=== PATIENT | male | born 1935 | race Caucasian/White ===

== ENCOUNTER → 2016-11-17 | Outpatient (CLI) | payer OTHER, BC ==
[~2016-11-17] VITALS: Ht 188 cm; Wt 92.3 kg
[~2016-11-17] MED LIST: ASPI81TA28 PO; BROM0.07; CLX20 PO; DIFL0.0519; FLUT0.15; GATI0.5S OP; MULT-506 PO; SERT50TA PO; TAMS0.4C38 PO
[2016-11-17 13:29] VITALS: BP 144/72; PULSE 70; Ht 188 cm; Wt 92.3 kg
== END | disposition home or self-care (01) ==
LOC: C.NEUR 13:11
PROVIDERS: ATTEND Internal Medicine Pulmonary Disease
DX: G47.30 Sleep apnea, unspecified (principal)

== ENCOUNTER → 2016-11-29 | Outpatient (CLI) | payer OTHER, BC ==
[2016-11-29 11:09] LABS: COMPLETE YES; EOS % 4.3 %; HEMATOCRIT 40.8 % (42-52); IG% 0.3 %; LYMPH % 19.3 %; LYMPH ABS # 1.48 K/uL (1.2-3.4); MEAN CELL VOLUME 89.5 fL (80-100); MEAN CORPUSCULAR HEMOGLOBIN 31.6 pg (25-34); MEAN CORPUSCULAR HGB CONC 35.3 g/dl (32-36); MEAN PLATELET VOLUME 10.2 fL (7.4-10.4); MONO % 9.2 %; NEUT % 66.9 %; PLATELET COUNT 177 K/uL (130-400); RED BLOOD COUNT 4.56 M/uL (4.7-6.1); WHITE BLOOD COUNT 7.65 K/uL (4.8-10.8)
[2016-11-29 11:45] LABS: ALT/SGPT 21 U/L (12-78); AST/SGOT 15 U/L (15-37); BLOOD UREA NITROGEN 17 mg/dl (7-18); BUN/CREATININE RATIO 16.9 (10-20); CALCIUM 8.9 mg/dl (8.5-10.1); CARBON DIOXIDE 33 mmol/L (21-32); CHLORIDE 104 mmol/L (98-107); GLUCOSE 90 mg/dl (70-99); POTASSIUM 4.1 mmol/L (3.5-5.1); SODIUM 142 mmol/L (136-145)
[2016-11-29 11:58] LABS: ALB/GLOB RATIO 1.2 (0.9-2); ALKALINE PHOSPHATASE 39 U/L (45-117); CHOLESTEROL 202 mg/dl (0-200); CHOLESTEROL/HDL RATIO 3.1; HDL CHOLESTEROL 65 mg/dl; LDL CHOLESTEROL CALCULATED 127 mg/dl; TRIGLYCERIDES 49 mg/dl (0-150); VERY LOW DENSITY LIPOPROT CALC 10 mg/dl
--- NOTE | 2016-12-06 12:58 | CODING QUERY MEDICAL NECESSITY ---
SUPPORTING DIAGNOSIS NEEDED Dr. Langford, A supporting diagnosis is required for the test/procedure performed on this patient in order for us to be reimbursed by the patient's insurance. Please provide a supporting diagnosis for the following test/procedure listed below next to the test name along with your signature. *If there is no additional diagnosis for this patient that would support the following test/procedure please document that below next to the test/procedure. Test(s)/Procedure(s) that require a supporting diagnosis: * ([id number]) VITAMIN D ASSAY DIAGNOSIS: * ([id number]) B12 VITAMIN LEVEL DIAGNOSIS: DATE OF SERVICE: 11/29/16 Provider Signature: Date: Thank you Jose Sr [facility] [place] Information Management Once completed, please kindly fax back to [phone] For questions please call [phone]
== END | disposition home or self-care (01) ==
LOC: C.LAB 10:25
PROVIDERS: ATTEND Internal Medicine Geriatric Medicine
DX: Z00.00 Encounter for general adult medical examination without abnormal findings (principal); M19.90 Unspecified osteoarthritis, unspecified site; F41.8 Other specified anxiety disorders; G47.30 Sleep apnea, unspecified

== ENCOUNTER → 2017-02-23 | Outpatient (CLI) | payer OTHER, BC ==
[~2017-02-23] VITALS: Ht 188 cm; Wt 91.0 kg
[2017-02-23 14:31] VITALS: BP 122/63; PULSE 63; Ht 188 cm; Wt 91.0 kg
== END | disposition home or self-care (01) ==
LOC: C.NEUR 13:53
PROVIDERS: ATTEND Internal Medicine Pulmonary Disease
DX: G47.30 Sleep apnea, unspecified (principal)

== ENCOUNTER → 2017-07-03 | Day surgery (SDC) | payer OTHER, BC ==
[2017-06-12 15:32] VITALS: Ht 188 cm; Wt 90.9 kg
[~2017-07-03] VITALS: Ht 188 cm; Wt 90.9 kg
[~2017-07-03] MED LIST changes: +500ML BSS 0.3ML EPI 1:1000PF IRRIG ONE; +ACETAMINOPHEN 325 MG TAB PO PRN; +AMVISC PLUS 0.8ML SYRINGE INT OCU ONE; +ATROPINE SULFATE 0.1 MG/ML 5ML SYR IV PRN; +BSS FLUSH ONE; +EpHEDrine SULFATE INJ 50 MG/ML AMP IV PRN; +EpINEphrine INJ 1MG/ML AMP 1 MG/ML AMP ONE; +LACTATED RINGER'S 1000ML 500 ML IV SCH; +LIDOCAINE 3.5% OPH GEL PER APPLICATION CHARGE ONE; +LIDOCAINE HCL 1% MPF 2 ML VIAL ONE; +MIDAZOLAM HCL 1 MG/ML 2ML VIAL ONE; +MIX: 4ML BSS 1ML EPI 1:1000 PF INSTIL ONE; +OCUCOAT 1 ML SOLN IO ONE; +PHENYLEPHRINE HCL 10% OP SOLN PER DROP CHARGE OPL SCH; +POVIDONE-IODINE OP SOLN 30 ML BTL ONE; +PROPARACAINE 0.5% OP SOLN PER DROP CHARGE OPL SCH; +TOBRAMYCIN/DEXAMETHASONE OPH OINT PER APPLN CHARGE ONE
[2017-07-03] MEDS: PHENYLEPHRINE HCL 2.5% OP SOLN PER DROP CHARGE OPL SCH ×2 (06:44→06:50)
[2017-07-03] MEDS: TROPICAMIDE 1% OP SOLN PER DROP CHARGE OPL SCH ×2 (06:45→06:53)
[2017-07-03] MEDS: CYCLOPENTOLATE HCL 1% OP SOLN PER DROP CHARGE OPL SCH ×2 (06:46→06:54)
[2017-07-03] MEDS: KETOROLAC 0.5% OP SOLN PER DROP CHARGE OPL SCH ×2 (06:47→06:55)
[2017-07-03] MEDS: GATIFLOXACIN OP SOLN PER DROP CHARGE OPL SCH ×2 (06:48→07:00)
--- NOTE | 2017-07-03 06:54 | History & Physical Bridge - SC ---
H&P Re-Evaluation Bridge Note: I have examined the patient, reviewed the History & Physical and in the interval since the performance of the History & Physical I have noted the following changes of clinical significance: Diagnosis: Left Cataract Procedure: Left Cataract Removal with Lens Implant No changes noted
--- NOTE | 2017-07-03 07:55 | Discharge Instructions-SurgCtr ---
Discharge Instructions Date of Service Jul 03, 2017. Visit Reason for Visit: Cataract Left Eye Discharge Discharge Diagnosis / Problem: cataract Discharge Goals Goal(s): Improve function Medications Stopped Medications Name(s): FLOMAX STOPPED 2 WEEKS AGO Activity Recommendations Activity Limitations: per Instructions/Follow-up section Anesthesia . Post Anesthesia Instructions: If you have had General Anesthesia or IV Sedation: * Do not drive today. * Resume driving when surgeon permits. * Do not make important decisions or sign legal documents today. * Call surgeon for: 1. Temperature elevations greater than 101 degrees F. 2. Uncontrollable pain. 3. Excessive bleeding. 4. Persistent nausea and vomiting. 5. Medication intolerance (nausea, vomiting or rash). * For nausea and vomiting use only clear liquids such as: tea, soda, bouillon until nausea subsides, then gradually increase diet as tolerated. * If you have any concerns or questions, call your surgeon's office. If physician is unavailable and it is an emergency, call 911 or go to the nearest emergency room. . Instructions / Follow-Up Instructions / Follow-Up ACTIVITY RECOMMENDATIONS: * No strenuous lifting, jogging or running for 4 days * No swimming or yard work for 1 week. * Limited bending is permitted, such as putting on shoes. RETURN TO SCHOOL/WORK: No work until seen by physician in office. MEDICATIONS: Resume previous medications unless instructed otherwise by your surgeon. This includes eye drops for glaucoma. Zymaxid/Gatifloxacin (yousif cap) - one drop every 2 hours until bedtime Nevanac/Ilevro/Prolensa/Ketorolac (lira cap) - one drop every 4 hours until bedtime Prednisolone/Durezol (white/pink cap, SHAKE WELL) - one drop every 2 hours until bedtime Starting tomorrow - all 3 drops every 4 hours until seen in the office Optive drops - as needed for discomfort SPECIAL CARE INSTRUCTIONS: * Wear eyeshield when sleeping, for four nights. * You may wear your own glasses or sunglasses while awake. * You may read or watch TV * You may shower and wash your face, but be gentle around the eye and pat dry. * Blurry vision and mild irritation are normal. * Call office if pain is more severe or vision becomes dark at . FOLLOW UP VISIT: Follow-up with Dr Reyna tomorrow. Diet Recommendations Home Diet: resume previous diet Procedures Procedures Performed: Left Cataract Phacoemulsification With Intraocular Lens Implant Pending Studies Studies pending at discharge: no Medical Emergencies . Who to Call and When: Medical Emergencies: If at any time you feel your situation is an emergency, please call 911 immediately. . Non-Emergent Contact Non-Emergency issues call your: [facility] . . "Provider Documentation" section prepared by New Reyna. .
--- NOTE | 2017-07-03 07:56 | [facility] Operative Report ---
Operative Report Date of Service Jul 03, 2017. Operative Report 1. PREOPERATIVE DIAGNOSIS: Cataract of the left eye. 2. POSTOPERATIVE DIAGNOSIS: Same. 3. PROCEDURE: Phacoemulsification with intraocular lens implantation of the left eye. SURGEON: Dr. New Reyna. ANESTHESIA: Topical Lidocaine gel, 1% Non- Preserved intracameral Lidocaine, and monitored intravenous sedation. INDICATIONS FOR THE PROCEDURE: The patient is a 82 - year-old male with a history of cataract of the left eye causing significant visual impairment. The details of the proposed procedure were explained to the patient who asked appropriate questions and following discussion of all risks, benefits and alternatives agreed to have the procedure done. The patient had a know history of taking of flomax. 4. OPERATION AND FINDINGS: DESCRIPTION OF PROCEDURE: After informed consent was obtained, the patient was brought to the Operating Room at the [facility]. The patient was placed in a supine position and then the left eye was prepped and draped in the usual sterile fashion for intraocular surgery. A drop of topical Lidocaine gel was placed in the operative eye. A wire lid speculum was then placed in the fornices. A corneal paracentesis was then created temporally. The Non-Preserved Lidocaine was then instilled into the anterior chamber. Epinephrine with a 1:4 dilution was instilled into the anterior chamber. The anterior chamber was then pressurized with viscoelastic. A 2.0 mm clear corneal incision was then created temporally. A cystotome was inserted into the anterior chamber and used to create a tear in the anterior lens capsule. This capsular tear was then used to create a small flap and the flap was dragged in a counterclockwise direction in order to create a continuous curvilinear capsulorrhexis. Hydrodissection was accomplished with balanced salt solution. Phacoemulsification of the lens nucleus was then performed in a standard [id number] technique. The phaco time was 26 seconds with an average power of 11 %. The remaining cortical material was removed using irrigation aspiration. The capsular bag was then filled with viscoelastic. A [employer]ch [employer] Lomb MI60L +19.5 diopters lens was then loaded into the injector and injected into the capsular bag. The remaining viscoelastic was removed with the irrigation aspiration handpiece. The wound was hydrated and then checked and found to be watertight. The intraocular pressure was checked and found to be adequate. The wire lid speculum was removed and the patient's face was cleaned and dried. TobraDex ointment was placed in the inferior fornix. The patient was discharged to the Recovery Room having tolerated the procedure well. There were no complications. The patient will be seen tomorrow in the office for follow-up. I attest to the content of the Intraoperative Record and any orders documented therein. Any exceptions are noted below.
[2017-07-03 07:58] VITALS: TEMP 36.4
--- NOTE | 2017-07-03 08:15 | Anesthesia Progress Nt - [facility] ---
Anesthesia Post Op Note Date & Time Jul 03, 2017 at 08:15 Vital Signs Pain Intensity: 0 Vital Signs Past 12 Hours Date Time Temp Pulse Resp B/P (MAP) Pulse Ox O2 Delivery O2 Flow Rate FiO2 07/03/17 07:58 36.4 60 16 131/71 (91) 98 Room Air 07/03/17 06:33 37.1 63 22 143/78 (99) 97 Room Air Notes Mental Status: alert / awake / arousable, participated in evaluation Pt Amnestic to Procedure: Yes Nausea / Vomiting: adequately controlled Pain: adequately controlled Airway Patency, RR, SpO2: stable & adequate BP & HR: stable & adequate Hydration State: stable & adequate Anesthetic Complications: no major complications apparent
[2017-07-03 08:24] VITALS: BP 137/74; PULSE 57; O2SAT 97
== END | disposition home or self-care (01) ==
LOC: X.SURG 06:19
PROVIDERS: ATTEND Ophthalmology
DX: H26.9 Unspecified cataract (principal); N40.0 Benign prostatic hyperplasia without lower urinary tract symptoms; G47.30 Sleep apnea, unspecified; I65.29 Occlusion and stenosis of unspecified carotid artery

== ENCOUNTER → 2017-07-24 | Day surgery (SDC) | payer OTHER, BC ==
[2017-07-13 09:21] VITALS: Ht 188 cm; Wt 90.9 kg
[~2017-07-24] VITALS: Ht 188 cm; Wt 90.9 kg
[~2017-07-24] MED LIST changes: +AMVISC PLAIN 0.8ML SYRINGE INT OCU ONE; -CLX20 PO; -PHENYLEPHRINE HCL 10% OP SOLN PER DROP CHARGE OPL SCH; +PHENYLEPHRINE HCL 10% OP SOLN PER DROP CHARGE OPR SCH; -PROPARACAINE 0.5% OP SOLN PER DROP CHARGE OPL SCH; +PROPARACAINE 0.5% OP SOLN PER DROP CHARGE OPR SCH
[2017-07-24] MEDS: PHENYLEPHRINE HCL 2.5% OP SOLN PER DROP CHARGE OPR SCH ×2 (08:57→09:06)
[2017-07-24] MEDS: TROPICAMIDE 1% OP SOLN PER DROP CHARGE OPR SCH ×2 (08:59→09:07)
[2017-07-24] MEDS: CYCLOPENTOLATE HCL 1% OP SOLN PER DROP CHARGE OPR SCH ×2 (09:00→09:08)
[2017-07-24] MEDS: KETOROLAC 0.5% OP SOLN PER DROP CHARGE OPR SCH ×2 (09:01→09:11)
[2017-07-24] MEDS: GATIFLOXACIN OP SOLN PER DROP CHARGE OPR SCH ×2 (09:03→09:12)
--- NOTE | 2017-07-24 09:38 | History & Physical Bridge - SC ---
H&P Re-Evaluation Bridge Note: I have examined the patient, reviewed the History & Physical and in the interval since the performance of the History & Physical I have noted the following changes of clinical significance: Diagnosis: Right Cataract Procedure: Right Cataract Removal with Lens Implant No changes noted
--- NOTE | 2017-07-24 10:12 | Discharge Instructions-SurgCtr ---
Discharge Instructions Date of Service Jul 24, 2017. Visit Reason for Visit: Cataract Right Eye Discharge Discharge Diagnosis / Problem: cataract Discharge Goals Goal(s): Improve function Medications Stopped Medications Name(s): flomax stopped several weeks ago prior to first cataract surgery Activity Recommendations Activity Limitations: per Instructions/Follow-up section Anesthesia . Post Anesthesia Instructions: If you have had General Anesthesia or IV Sedation: * Do not drive today. * Resume driving when surgeon permits. * Do not make important decisions or sign legal documents today. * Call surgeon for: 1. Temperature elevations greater than 101 degrees F. 2. Uncontrollable pain. 3. Excessive bleeding. 4. Persistent nausea and vomiting. 5. Medication intolerance (nausea, vomiting or rash). * For nausea and vomiting use only clear liquids such as: tea, soda, bouillon until nausea subsides, then gradually increase diet as tolerated. * If you have any concerns or questions, call your surgeon's office. If physician is unavailable and it is an emergency, call 911 or go to the nearest emergency room. . Instructions / Follow-Up Instructions / Follow-Up ACTIVITY RECOMMENDATIONS: * No strenuous lifting, jogging or running for 4 days * No swimming or yard work for 1 week. * Limited bending is permitted, such as putting on shoes. RETURN TO SCHOOL/WORK: No work until seen by physician in office. MEDICATIONS: Resume previous medications unless instructed otherwise by your surgeon. This includes eye drops for glaucoma. Zymaxid/Gatifloxacin (yousif cap) - one drop every 2 hours until bedtime Nevanac/Ilevro/Prolensa/Ketorolac (lira cap) - one drop every 4 hours until bedtime Prednisolone/Durezol (white/pink cap, SHAKE WELL) - one drop every 2 hours until bedtime Starting tomorrow - all 3 drops every 4 hours until seen in the office Optive drops - as needed for discomfort SPECIAL CARE INSTRUCTIONS: * Wear eyeshield when sleeping, for four nights. * You may wear your own glasses or sunglasses while awake. * You may read or watch TV * You may shower and wash your face, but be gentle around the eye and pat dry. * Blurry vision and mild irritation are normal. * Call office if pain is more severe or vision becomes dark at . FOLLOW UP VISIT: Follow-up with Dr Reyna tomorrow. Diet Recommendations Home Diet: resume previous diet Procedures Procedures Performed: Right Cataract Phacoemulsification With Intraocular Lens Implant; Toric Lens Pending Studies Studies pending at discharge: no Medical Emergencies . Who to Call and When: Medical Emergencies: If at any time you feel your situation is an emergency, please call 911 immediately. . Non-Emergent Contact Non-Emergency issues call your: [employer] . . "Provider Documentation" section prepared by New Reyna. .
[2017-07-24 10:13] VITALS: TEMP 36.7
--- NOTE | 2017-07-24 10:14 | [facility] Operative Report ---
Operative Report Date of Service Jul 24, 2017. Operative Report 1. PREOPERATIVE DIAGNOSIS: Cataract of the right eye. 2. POSTOPERATIVE DIAGNOSIS: Same. 3. PROCEDURE: Phacoemulsification with intraocular lens implantation of the right eye. SURGEON: Dr. New Reyna. ANESTHESIA: Topical Lidocaine gel, 1% Non- Preserved intracameral Lidocaine, and monitored intravenous sedation. INDICATIONS FOR THE PROCEDURE: The patient is a 82 - year-old male with a history of cataract of the right eye causing significant visual impairment. The details of the proposed procedure were explained to the patient who asked appropriate questions and following discussion of all risks, benefits and alternatives agreed to have the procedure done. The patient had a know history of taking of flomax. Patient had corneal astigmatism and therefore elected to have a toric lens placed. 4. OPERATION AND FINDINGS: DESCRIPTION OF PROCEDURE: After informed consent was obtained, patient was placed in an upright position and the cornea was marked at 003 degrees using the [employer] corneal marking tool. The patient was brought to the Operating Room at the [facility]. The patient was placed in a supine position and then the right eye was prepped and draped in the usual sterile fashion for intraocular surgery. A drop of topical Lidocaine gel was placed in the operative eye. A wire lid speculum was then placed in the fornices. A corneal paracentesis was then created temporally. The Non-Preserved Lidocaine was then instilled into the anterior chamber. Epinephrine with a 1:4 dilution was instilled into the anterior chamber. The anterior chamber was then pressurized with viscoelastic. A 2.0 mm clear corneal incision was then created temporally. A cystotome was inserted into the anterior chamber and used to create a tear in the anterior lens capsule. This capsular tear was then used to create a small flap and the flap was dragged in a counterclockwise direction in order to create a continuous curvilinear capsulorrhexis. Hydrodissection was accomplished with balanced salt solution. Phacoemulsification of the lens nucleus was then performed in a standard divide- and-conquer technique. The phaco time was 21 seconds with an average power of 16 %. The remaining cortical material was removed using irrigation aspiration. The capsular bag was then filled with viscoelastic. A Scar SN6AT +19.0 diopters lens was then loaded into the injector and injected into the capsular bag. The lens was aligned with the previously made corneal herzog. The remaining viscoelastic was removed with the irrigation aspiration handpiece. The wound was hydrated and then checked and found to be watertight. The intraocular pressure was checked and found to be adequate. The wire lid speculum was removed and the patient's face was cleaned and dried. TobraDex ointment was placed in the inferior fornix. The patient was discharged to the Recovery Room having tolerated the procedure well. There were no complications. The patient will be seen tomorrow in the office for follow-up. I attest to the content of the Intraoperative Record and any orders documented therein. Any exceptions are noted below.
[2017-07-24 10:45] VITALS: BP 172/89; PULSE 61; O2SAT 99
--- NOTE | 2017-07-24 11:02 | Anesthesia Progress Nt - [facility] ---
Anesthesia Post Op Note Date & Time Jul 24, 2017 at 11:02 Vital Signs Pain Intensity: 0 Vital Signs Past 12 Hours Date Time Temp Pulse Resp B/P (MAP) Pulse Ox O2 Delivery O2 Flow Rate FiO2 07/24/17 10:45 61 16 172/89 (116) 99 Room Air 07/24/17 10:13 36.7 72 20 147/87 (107) 99 Room Air 07/24/17 08:48 36.5 70 16 126/74 (91) 97 Room Air Notes Mental Status: alert / awake / arousable, participated in evaluation Pt Amnestic to Procedure: Yes Nausea / Vomiting: adequately controlled Pain: adequately controlled Airway Patency, RR, SpO2: stable & adequate BP & HR: stable & adequate Hydration State: stable & adequate Anesthetic Complications: no major complications apparent
== END | disposition home or self-care (01) ==
LOC: X.SURG 08:29
PROVIDERS: ATTEND Ophthalmology
DX: H26.9 Unspecified cataract (principal); G47.33 Obstructive sleep apnea (adult) (pediatric); N40.0 Benign prostatic hyperplasia without lower urinary tract symptoms; F32.9 Major depressive disorder, single episode, unspecified; E66.9 Obesity, unspecified; Z79.82 Long term (current) use of aspirin

== ENCOUNTER → 2017-12-21 | Outpatient (CLI) | payer OTHER, BC ==
[~2017-12-21] MED LIST changes: -500ML BSS 0.3ML EPI 1:1000PF IRRIG ONE; -ACETAMINOPHEN 325 MG TAB PO PRN; -AMVISC PLAIN 0.8ML SYRINGE INT OCU ONE; -AMVISC PLUS 0.8ML SYRINGE INT OCU ONE; -ATROPINE SULFATE 0.1 MG/ML 5ML SYR IV PRN; -BSS FLUSH ONE; -EpHEDrine SULFATE INJ 50 MG/ML AMP IV PRN; -EpINEphrine INJ 1MG/ML AMP 1 MG/ML AMP ONE; -LACTATED RINGER'S 1000ML 500 ML IV SCH; -LIDOCAINE 3.5% OPH GEL PER APPLICATION CHARGE ONE; -LIDOCAINE HCL 1% MPF 2 ML VIAL ONE; -MIDAZOLAM HCL 1 MG/ML 2ML VIAL ONE; -MIX: 4ML BSS 1ML EPI 1:1000 PF INSTIL ONE; -OCUCOAT 1 ML SOLN IO ONE; -PHENYLEPHRINE HCL 10% OP SOLN PER DROP CHARGE OPR SCH; -POVIDONE-IODINE OP SOLN 30 ML BTL ONE; -PROPARACAINE 0.5% OP SOLN PER DROP CHARGE OPR SCH; -TOBRAMYCIN/DEXAMETHASONE OPH OINT PER APPLN CHARGE ONE
[2017-12-21 12:14] LABS: BASO % 0.1 %; BASO ABS # 0.01 K/uL (0-0.2); EOS % 5.2 %; EOS ABS # 0.42 K/uL (0-0.5); HEMATOCRIT 41.4 % (42-52); IG# 0.01 K/uL (0.00-0.02); LYMPH % 22.2 %; MEAN CELL VOLUME 90.8 fL (80-100); MEAN CORPUSCULAR HEMOGLOBIN 30.7 pg (25-34); MEAN CORPUSCULAR HGB CONC 33.8 g/dl (32-36); MEAN PLATELET VOLUME 10.2 fL (7.4-10.4); MONO ABS # 0.73 K/uL (0.11-0.59); NEUT % 63.4 %; NEUT ABS # 5.12 K/uL (1.4-6.5); PLATELET COUNT 174 K/uL (130-400); RED CELL DISTRIBUTION WIDTH CV 14.6 % (11.5-14.5); RED CELL DISTRIBUTION WIDTH SD 48.1 fL (36.4-46.3); WHITE BLOOD COUNT 8.09 K/uL (4.8-10.8)
[2017-12-21 12:36] LABS: ALBUMIN 3.6 gm/dl (3.4-5.0); ALT/SGPT 25 U/L (12-78); AST/SGOT 23 U/L (15-37); BLOOD UREA NITROGEN 16 mg/dl (7-18); CARBON DIOXIDE 30 mmol/L (21-32); CHOLESTEROL 176 mg/dl (0-200); CREATININE 1.18 mg/dl (0.60-1.40); GLUCOSE 84 mg/dl (70-99); POTASSIUM 4.3 mmol/L (3.5-5.1); SODIUM 140 mmol/L (136-145)
[2017-12-21 12:47] LABS: ALKALINE PHOSPHATASE 38 U/L (45-117); LDL CHOLESTEROL CALCULATED 106 mg/dl; TOTAL PROTEIN 6.8 gm/dl (6.4-8.2)
== END | disposition home or self-care (01) ==
LOC: C.LAB 11:11
PROVIDERS: ATTEND Internal Medicine Geriatric Medicine
DX: E78.5 Hyperlipidemia, unspecified (principal); G47.30 Sleep apnea, unspecified; G31.84 Mild cognitive impairment of uncertain or unknown etiology

== ENCOUNTER → 2018-03-15 | Outpatient (CLI) | payer OTHER, BC ==
[~2018-03-15] VITALS: Ht 188 cm; Wt 94.9 kg
[2018-03-15 14:59] VITALS: BP 147/73; PULSE 62; Ht 188 cm; Wt 94.9 kg
== END | disposition home or self-care (01) ==
LOC: C.NEUR 14:15
PROVIDERS: ATTEND Internal Medicine Pulmonary Disease
DX: G47.30 Sleep apnea, unspecified (principal)

== ENCOUNTER 2022-04-20 08:49 | Inpatient (IN) ==
[2022-04-20] MEDS ORDERED: SODIUM CHLORIDE 0.9% 500 ML IV ONE (08:54)
--- NOTE | 2022-04-20 09:09 | Emergency Department Note ---
Impression & Plan Dementia, Weakness, Elevated CPK ED Provider Note NAME: CELENA NUNES AGE: 86 SEX: M ARRIVES VIA: Ambulance INFORMANT: Patient ED PROVIDER(S): Henrry Xie MD CHIEF COMPLAINT: weakness PLAN: Disposition: Admit MEDICAL DECISION MAKING: The patient is a pleasant 86-year-old gentleman with a past medical history of lewy body dementia/parkinsonism, neurogenic bladder requiring home straight catheterization who presents to the emergency department via EMS where they found the patient on the ground. The details of the patient's weakness and why he was on the ground are unclear as the patient is a poor historian. The patient's did arrive to the bedside and clarified the patient did not fall last night rather he has had progressive confusion and generalized weakness for the past couple of days after he did have a fall where he tipped the chair over couple of days ago. They did contact their outpatient provider and they had ordered an outpatient CT scan to further clarify his change in mental status. However, the patient was too weak last night to get up and walk to the bedroom/bed and so his made a bed for him on the floor hoping he would be able to get up after resting in the morning but this morning was unable to get up and so EMS was called. She does feel that he is too weak to function at home at this time and would be in agreement with admission. On arrival the patient is no distress, afebrile stable vital signs. He is pleasantly confused. He has no complaints. He is moving all extremities equally with generalized weakness without focal weakness. Head is atraumatic. He does appear clinically dry. Sinus bradycardia, 52 bpm, no ectopy, nonspecific ST abnormality, no overt ST elevation or depression, QTC 407, QRS 60. Chest x-ray negative for acute cardiopulmonary process. WBC and platelets within normal limits. H/H similar to prior range of values. Chemistry without metabolic acidosis. CPK is elevated 986, nonspecific. Electrolytes LFTs without significant abnormality. Lipase within normal limits. High-sensitivity troponin 5.4, within normal limits. CT of the head and CTA head and neck performed and negative for acute ischemia, ICH, severe narrowing or occlusion of large vessels. Patient continued denies any complaints but given the patient's progressive weakness and confusion from his baseline is what does agree with plan for admission. Case was discussed with Dr. Lara, [facility] hospitalist, who will evaluate the patient for admission. Triage Nursing notes reviewed and agree them. Prior medical records reviewed Vital Signs: reviewed and remarkable for no significant abnormalities Differential diagnosis: Infection, dehydration, metabolic abnormality, hypo/hyperglycemia, electrolyte disturbance, anemia, hypoxia, cardiac sources, intracerebral event, toxicologic, neurologic, as well as other pathologies. ER treatment provided: See below. Diagnostics interpreted by me: ECG: Sinus bradycardia, 52 bpm, no ectopy, nonspecific ST abnormality, no overt ST elevation or depression, QTC 407, QRS 60. Cardiac Monitoring: An order for continuous cardiac monitoring was placed and demonstrated Sinus bradycardia, 52 bpm, no ectopy. Laboratory studies: See below Imaging studies: See below Consultation(s): Case was discussed with Dr. Lara, [facility] hospitalist, who will evaluate the patient for admission. HPI: The patient is a pleasant 86-year-old gentleman with a past medical history of lewy body dementia/parkinsonism, neurogenic bladder requiring home straight catheterization who presents to the emergency department via EMS where they found the patient on the ground. The details of the patient's weakness and why he was on the ground are unclear as the patient is a poor historian. The patient's did arrive to the bedside and clarified the patient did not fall last night rather he has had progressive confusion and generalized weakness for the past couple of days after he did have a fall where he tipped the chair over couple of days ago. They did contact their outpatient provider and they had ordered an outpatient CT scan to further clarify his change in mental status. However, the patient was too weak last night to get up and walk to the bedroom /bed and so his made a bed for him on the floor hoping he would be able to get up after resting in the morning but this morning was unable to get up and so EMS was called. She does feel that he is too weak to function at home at this time and would be in agreement with admission. ROS: See above HPI for pertinent positives & negatives. A total of 10 systems reviewed and were otherwise negative. VITALS:See Below PHYSICAL EXAMINATION: GENERAL: Awake, alert, fatigued-appearing, in no distress HENT: Normocephalic, atraumatic. Oropharynx with dry mucous membranes and otherwise unremarkable. EYES: Normal conjunctiva. Sclera non-icteric. NECK: Supple. No nuchal rigidity. FROM. No JVD. RESPIRATORY: Clear to auscultation. CARDIAC: Regular rate, normal rhythm. Extremities warm and well perfused. Pulses equal. ABDOMEN: Soft, non-distended. No tenderness to palpation. No rebound or guarding. No masses. RECTAL: Deferred. MUSCULOSKELETAL: Chest examination reveals no tenderness. The back is symmetrical on inspection without obvious abnormality. There is no CVA tenderness to palpation. No joint edema. LOWER EXTREMITIES: Calves are equal size bilaterally and non-tender. No edema. No discoloration. NEURO: Pleasantly confused. Alert to self. Generalized weakness without focal weakness with 4+/5 strength in all extremities. SKIN: No rash or jaundice noted. Henrry Xie MD Past Med/Surg History Medical History Benign prostatic hyperplasia Followed by [facility] urology. Carotid artery plaque Dementia followed by Neurology Depression with anxiety Dyslipidemia Hearing loss Obstructive sleep apnea Cpap, followed by Dr. 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 Surgical History H/O colonoscopy Family History Mother Alzheimer disease Brother Arthritis Nonorganic sleep disorder Father Emphysema, unspecified Brother Leukemia Social History Smoking Status: Never smoker Second Hand Exposure: No; Hx Alcohol Use: No Hx Substance Use: No Preferred Language: Thai Visual Impairment: Limited Hearing Ability: Use of Hearing Aid Beliefs That Will Affect Care: None marital status: Current Living Situation: Spouse Current Living Situation Comment: lives in single story home with his current occupational status: retired Feels Safe at Home: Yes Safety Concerns: Feels Safe At This Time caffeine: Yes Dental Care, Regularly: Yes Physical Activity Frequency: 1-2 Times per Week Seatbelt Use: always Sunscreen Use: Yes Assistive Devices: CPAP, Glasses and Hearing Aid - Bilateral Allergies Allergies Allergy/AdvReac Type Severity Reaction Status Date / Time No Known Allergies Allergy Verified 04/20/22 11:54 Home Meds Home Medications Medication Instructions Recorded Confirmed cetirizine 10 mg tablet (Zyrtec) 10 mg PO HS 03/07/21 04/20/22 dutasteride 0.5 mg capsule 0.5 mg PO HS 03/07/21 04/20/22 rivastigmine 13.3 mg/24 hour 13.3 mg TOPICAL HS 03/07/21 04/20/22 transdermal patch ciclopirox 8 % topical solution 1 applic TOPICAL HS 04/20/22 04/20/22 econazole 1 % topical cream 1 applic TOPICAL DIRECTED PRN 04/20/22 04/20/22 fluocinolone 0.01 % topical cream 1 applic TOPICAL DIRECTED PRN 04/20/22 04/20/22 hydrocortisone 1 % topical cream 1 applic TOPICAL DIRECTED PRN 04/20/22 04/20/22 melatonin 5 mg tablet 5 mg PO HS 04/20/22 04/20/22 memantine 28 mg capsule 28 mg PO HS 04/20/22 04/20/22 sprinkle,extended release 24hr sertraline 50 mg tablet 50 mg PO HS 04/20/22 04/20/22 tamsulosin 0.4 mg capsule 0.4 mg PO HS 04/20/22 04/20/22 triamcinolone acetonide 0.1 % 1 applic TOPICAL DIRECTED PRN 04/20/22 04/20/22 topical cream Previous Rx's Medication Instructions Recorded fluticasone propionate 50 1 spray INTRANASAL Q12H #16 g 11/24/21 mcg/actuation nasal spray,suspension azelastine 137 mcg (0.1 %) nasal 2 spray INTRANASAL BID #30 ml 03/06/22 spray aerosol Results & Data (ED) Vital Signs Vital Signs - 24 hr 04/20/22 08:39 04/20/22 08:54 04/20/22 09:47 Temperature 36.5 C Temperature Source Oral Pulse Rate 51 L 56 L Pulse Rate [Apical] 48 L Pulse Rate from SpO2 Sensor Respiratory Rate 16 18 16 Blood Pressure 123/72 Blood Pressure Mean 89 Pulse Oximetry 97 95 98 Oxygen Delivery Method Room Air Room Air Room Air Sepsis Recent Fever Within 48 Hours No Sepsis New/Unexplained Change in Mental Status Yes Sepsis Action Taken by Nursing No Action Required 04/20/22 11:00 Temperature Temperature Source Pulse Rate 55 L Pulse Rate [Apical] Pulse Rate from SpO2 Sensor 55 L Respiratory Rate 18 Blood Pressure 139/86 Blood Pressure Mean 103 Pulse Oximetry 94 Oxygen Delivery Method Room Air Sepsis Recent Fever Within 48 Hours Sepsis New/Unexplained Change in Mental Status Sepsis Action Taken by Nursing Laboratory Data Attestation: I reviewed the patient's lab results. Result diagrams: 04/20/22 09:03 04/20/22 09:03 Lab Results 04/20/22 04/20/22 04/20/22 Range/Units 09:03 09:03 09:03 WBC 7.37 (4.8-10.8) K/uL RBC 4.41 L (4.7-6.1) M/uL Hgb 13.8 L (14.0-18.0) g/dL Hct 40.0 L (42-52) % MCV 90.7 (80-100) fL MCH 31.3 (25-34) pg MCHC 34.5 (32-36) g/dL RDW Std Deviation 47.0 H (36.4-46.3) fL RDW Coeff of Rodolfo 14.0 (11.5-14.5) % Plt Count 161 (130-400) K/uL MPV 10.1 (7.4-10.4) fL Immature Gran % (Auto) 0.3 % Neut % (Auto) 64.2 % Lymph % (Auto) 22.3 % [place] % (Auto) 11.3 % Eos % (Auto) 1.9 % Baso % (Auto) 0.0 % Neut # (Auto) 4.74 (1.4-6.5) K/uL Lymph # (Auto) 1.64 (1.2-3.4) K/uL [place] # (Auto) 0.83 H (0.11-0.59) K/uL Eos # (Auto) 0.14 (0-0.5) K/uL Baso # (Auto) 0.00 (0-0.2) K/uL Immature Gran # (Auto) 0.02 (0.00-0.02) K/uL Sodium 138 (136-145) mmol/L Potassium 4.3 (3.5-5.1) mmol/L Chloride 102 (98-107) mmol/L Carbon Dioxide 30 (21-32) mmol/L Anion Gap 6 (3-11) BUN 13 (6-23) mg/dl Creatinine 1.02 (0.6-1.4) mg/dl Est Cr Clr Drug Dosing 65.5 ml/min Est GFR ( Amer) 76.8 ml/min Est GFR (Non-Af Amer) 66.2 ml/min BUN/Creatinine Ratio 12.7 (10-20) Glucose 100 H (70-99(Fasting)) mg/dl Calcium 9.2 (8.5-10.1) mg/dl Phosphorus 3.4 (2.5-4.9) mg/dl Magnesium 2.1 (1.7-2.4) mg/dl Total Bilirubin 0.7 (0.2-1.0) mg/dl AST 37 (13-39) U/L ALT 13 (7-52) U/L Alkaline Phosphatase 44 (34-104) U/L Total Creatine Kinase 986 H (30-223) U/L Troponin I High Sens 5.4 (0-20) pg/ml Total Protein 6.6 (6.0-8.3) gm/dl Albumin 4.0 (3.4-5.0) gm/dl Globulin 2.6 (2.5-4.0) gm/dl Albumin/Globulin Ratio 1.5 (0.9-2) Lipase 33 (11-82) U/L TSH 2.582 (0.300-4.500) uIu/ml Urine Color Urine Appearance (Clear) Urine pH (4.5-7.5) Ur Specific [place] (1.000-1.030) Urine Protein (Negative) Urine Glucose (UA) (Negative) Urine Ketones (Negative) Urine Blood (Negative) Urine Nitrite (Negative) Urine Bilirubin (Negative) Urine Urobilinogen (Negative) Ur Leukocyte Esterase (Negative) 04/20/22 Range/Units 09:07 WBC (4.8-10.8) K/uL RBC (4.7-6.1) M/uL Hgb (14.0-18.0) g/dL Hct (42-52) % MCV (80-100) fL MCH (25-34) pg MCHC (32-36) g/dL RDW Std Deviation (36.4-46.3) fL RDW Coeff of Rodolfo (11.5-14.5) % Plt Count (130-400) K/uL MPV (7.4-10.4) fL Immature Gran % (Auto) % Neut % (Auto) % Lymph % (Auto) % [place] % (Auto) % Eos % (Auto) % Baso % (Auto) % Neut # (Auto) (1.4-6.5) K/uL Lymph # (Auto) (1.2-3.4) K/uL [place] # (Auto) (0.11-0.59) K/uL Eos # (Auto) (0-0.5) K/uL Baso # (Auto) (0-0.2) K/uL Immature Gran # (Auto) (0.00-0.02) K/uL Sodium (136-145) mmol/L Potassium (3.5-5.1) mmol/L Chloride (98-107) mmol/L Carbon Dioxide (21-32) mmol/L Anion Gap (3-11) BUN (6-23) mg/dl Creatinine (0.6-1.4) mg/dl Est Cr Clr Drug Dosing ml/min Est GFR ( Amer) ml/min Est GFR (Non-Af Amer) ml/min BUN/Creatinine Ratio (10-20) Glucose (70-99(Fasting)) mg/dl Calcium (8.5-10.1) mg/dl Phosphorus (2.5-4.9) mg/dl Magnesium (1.7-2.4) mg/dl Total Bilirubin (0.2-1.0) mg/dl AST (13-39) U/L ALT (7-52) U/L Alkaline Phosphatase (34-104) U/L Total Creatine Kinase (30-223) U/L Troponin I High Sens (0-20) pg/ml Total Protein (6.0-8.3) gm/dl Albumin (3.4-5.0) gm/dl Globulin (2.5-4.0) gm/dl Albumin/Globulin Ratio (0.9-2) Lipase (11-82) U/L TSH (0.300-4.500) uIu/ml Urine Color Yellow Urine Appearance Clear (Clear) Urine pH 6.0 (4.5-7.5) Ur Specific [place] 1.014 (1.000-1.030) Urine Protein Negative (Negative) Urine Glucose (UA) Negative (Negative) Urine Ketones Negative (Negative) Urine Blood Negative (Negative) Urine Nitrite Negative (Negative) Urine Bilirubin Negative (Negative) Urine Urobilinogen Negative (Negative) Ur Leukocyte Esterase Negative (Negative) Administered Medications Azelastine HCl (Azelastine Hcl 0.1% Nasal 200 Sprays/27,400 Mcg Btl) 2 sprays NA BID [facility] Stop: 05/20/22 20:59 Last Admin: 04/20/22 20:30 Dose: 2 sprays Documented by: [id number] Cetirizine HCl (Cetirizine Hcl 10 Mg Tablet) 10 mg PO [facility] Stop: 05/20/22 20:59 Last Admin: 04/20/22 20:32 Dose: 10 mg Documented by: [id number] Dutasteride (Dutasteride 0.5 Mg Capsule) 1 ea PO [facility] Stop: 05/20/22 20:59 Last Admin: 04/20/22 20:36 Dose: 1 ea Documented by: [id number] Enoxaparin Sodium (Enoxaparin Inj 40 Mg/0.4 Ml Syr) 40 mg SQ Q24H [facility] Stop: 05/20/22 17:59 Last Admin: 04/20/22 18:01 Dose: 40 mg Documented by: [id number] Fluticasone Propionate (Fluticasone Propionate Na Spr 16 Gm Btl) 1 sprays NA Q12 [facility] Stop: 05/20/22 20:59 Last Admin: 04/20/22 20:31 Dose: 1 sprays Documented by: [id number] Sodium Chloride (Nss 1000ml) 1,000 mls @ 100 mls/hr IV .Q10H [facility] Stop: 05/20/22 16:39 Last Admin: 04/20/22 18:02 Dose: 100 mls/hr Documented by: [id number] Melatonin (Melatonin 3 Mg Tab) 6 mg PO [facility] Stop: 05/20/22 20:59 Last Admin: 04/20/22 20:41 Dose: 6 mg Documented by: [id number] Miscellaneous (*Ciclopirox 8 % Solution* Order Awaiting Action) 1 ea N/A [facility] Stop: 05/20/22 20:59 Last Admin: 04/20/22 20:33 Dose: Not Given Documented by: [id number] Miscellaneous (Remove Patch - Rivastigmine Patch) 1 ea N/A DAILY@2058 [facility] Stop: 05/20/22 20:58 Last Admin: 04/20/22 20:29 Dose: 1 ea Documented by: [id number] Memantine Er 28 Mg - Non-Formulary Patient's Own Med 1 ea PO [facility] Stop: 05/20/22 20:59 Last Admin: 04/20/22 20:37 Dose: 1 cap Documented by: [id number] Rivastigmine (Rivastigmine Patch 13.3 Mg/24 Hr) 1 patch TD [facility] Stop: 05/20/22 20:59 Last Admin: 04/20/22 20:34 Dose: 1 patch Documented by: [id number] Sertraline HCl (Sertraline Hcl 50 Mg Tablet) 50 mg PO [facility] Stop: 05/20/22 20:59 Last Admin: 04/20/22 20:32 Dose: 50 mg Documented by: [id number] Tamsulosin HCl (Tamsulosin Hcl 0.4 Mg Cap) 0.4 mg PO [facility] Stop: 05/20/22 20:59 Last Admin: 04/20/22 20:33 Dose: 0.4 mg Documented by: [id number] Discontinued Medications Sodium Chloride (Nss) 500 mls @ 999 mls/hr IV .Q31M ONE Stop: 04/20/22 09:24 Last Infusion: 04/20/22 10:31 Dose: 0 mls/hr Documented by: [id number] Admin: 04/20/22 09:47 Dose: 999 mls/hr Documented by: [id number] Sodium Chloride (Nss 1000ml) 1,000 mls @ 999 mls/hr IV .Q1H1M ONE Stop: 04/20/22 13:54 Last Infusion: 04/20/22 14:29 Dose: 0 mls/hr Documented by: [id number] Admin: 04/20/22 13:24 Dose: 999 mls/hr Documented by: [id number] Ioversol (Optiray 320 125ml) 120 ml IV ONCE ONE Stop: 04/20/22 10:56 Last Admin: 04/20/22 10:43 Dose: 120 ml Documented by: [id number] Imaging Data Radiologist's Impression: Head CT 04/20/22 09:[address] OF THE BRAIN; CT ANGIOGRAM OF THE BRAIN; CT ANGIOGRAM OF THE NECK CLINICAL HISTORY: Generalized weakness. Change in mental status. COMPARISON STUDY: MRI of the brain dated 12/08/2015. TECHNIQUE: Unenhanced axial CT scan of the brain is performed. Subsequently, following the IV administration of 120 of Optiray 320, CT angiogram of the head and neck was performed from the aortic arch to the vertex. Images are reviewed in the axial, sagittal, and coronal planes. 3-D MIPS images are created and assessed. IV contrast was administered without complication. All measurements were calculated based on NASCET criteria. A dose lowering technique was utilized adhering to the principles of ALARA. CT DOSE: 1080.26 mGy.cm FINDINGS: Brain parenchyma: There is age-related involutional change noting mild subcortical and periventricular microangiopathic disease. 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 There is no hemorrhage, mass effect, or evidence of acute territorial ischemia by CT criteria. There is no evidence of enhancing mass lesion on the angiogram phase images. The ventricles, sulci, and cisterns are prominent secondary to involutional change. Perez-white matter differentiation is preserved. No extra-axial fluid collection is seen. Thoracic aorta: Visualized portions of the thoracic aorta are normal in caliber. The aortic arch demonstrates standard 3-vessel anatomy. Right carotid arterial system: The right common carotid artery is widely patent, as are the right internal and external carotid arteries. There is tortuosity of the mid to distal internal carotid artery. Calcified plaque is noted in the carotid bulb. Left carotid arterial system: The left common carotid artery is widely patent, as are the left internal and external carotid arteries. There is tortuosity of the mid to distal internal carotid artery. There is mild ectasia of the mid left internal carotid artery which measures up to 7 mm. Calcified plaque is seen in the carotid bulb. Vertebral arteries: The vertebral arteries are widely patent bilaterally noting left-sided dominance. Subclavian arteries: Widely patent bilaterally. Intracranial vasculature: There is atherosclerotic calcification of the cavernous carotid arteries. The internal carotid arteries are patent at the skull base, as are the anterior and middle cerebral arteries bilaterally. The vertebrobasilar system and posterior cerebral arteries are widely patent. The left vertebral artery is dominant. There is no aneurysm, high-grade stenosis, or focal vessel cut off seen throughout the intracranial circulation. Jugular veins: Patent bilaterally. Dural sinuses: Patent. Lung apices: Partially visualized upper lobe lung parenchyma appears clear. Soft tissues: The visualized pharyngeal soft tissues are normal in appearance noting angiographic phase technique. The oropharyngeal airway appears widely patent. The salivary and thyroid glands are normal in appearance. No cervical lymphadenopathy is seen. Skeletal structures: The skeletal structures are osteopenic. The calvarium appears intact. The cervical spine is maintained noting multilevel spondylosis. No lytic or blastic lesion is seen. Orbits: The bony orbits are intact. Orbital contents are normal as visualized noting bilateral ocular lens implants. Sinuses and mastoids: There is complete opacification of the right maxillary antrum with hyperdense material. The remaining paranasal sinuses are clear. The mastoid air cells are well pneumatized. IMPRESSION: 1. There is no hemorrhage, mass effect, or evidence of acute territorial ischemia by CT criteria. 2. Unremarkable CT angiogram of the brain. 3. Unremarkable CT angiogram of the neck. 4. Right maxillary sinus disease as above. ACT 112: Negative or not required by law. Electronically signed by: Jasen Avitia M.D. 04/20/2022 11:08 AM Head CTA 04/20/22 09:[address] OF THE BRAIN; CT ANGIOGRAM OF THE BRAIN; CT ANGIOGRAM OF THE NECK CLINICAL HISTORY: Generalized weakness. Change in mental status. COMPARISON STUDY: MRI of the brain dated 12/08/2015. TECHNIQUE: Unenhanced axial CT scan of the brain is performed. Subsequently, following the IV administration of 120 of Optiray 320, CT angiogram of the head and neck was performed from the aortic arch to the vertex. Images are reviewed in the axial, sagittal, and coronal planes. 3-D MIPS images are created and assessed. IV contrast was administered without complication. All measurements were calculated based on NASCET criteria. A dose lowering technique was utilized adhering to the principles of ALARA. CT DOSE: 1080.26 mGy.cm FINDINGS: Brain parenchyma: There is age-related involutional change noting mild subcortical and periventricular microangiopathic disease. 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 There is no hemorrhage, mass effect, or evidence of acute territorial ischemia by CT criteria. There is no evidence of enhancing mass lesion on the angiogram phase images. The ventricles, sulci, and cisterns are prominent secondary to involutional change. Perez-white matter differentiation is preserved. No extra-axial fluid collection is seen. Thoracic aorta: Visualized portions of the thoracic aorta are normal in caliber. The aortic arch demonstrates standard 3-vessel anatomy. Right carotid arterial system: The right common carotid artery is widely patent, as are the right internal and external carotid arteries. There is tortuosity of the mid to distal internal carotid artery. Calcified plaque is noted in the carotid bulb. Left carotid arterial system: The left common carotid artery is widely patent, as are the left internal and external carotid arteries. There is tortuosity of the mid to distal internal carotid artery. There is mild ectasia of the mid left internal carotid artery which measures up to 7 mm. Calcified plaque is seen in the carotid bulb. Vertebral arteries: The vertebral arteries are widely patent bilaterally noting left-sided dominance. Subclavian arteries: Widely patent bilaterally. Intracranial vasculature: There is atherosclerotic calcification of the cavernous carotid arteries. The internal carotid arteries are patent at the skull base, as are the anterior and middle cerebral arteries bilaterally. The vertebrobasilar system and posterior cerebral arteries are widely patent. The left vertebral artery is dominant. There is no aneurysm, high-grade stenosis, or focal vessel cut off seen throughout the intracranial circulation. Jugular veins: Patent bilaterally. Dural sinuses: Patent. Lung apices: Partially visualized upper lobe lung parenchyma appears clear. Soft tissues: The visualized pharyngeal soft tissues are normal in appearance noting angiographic phase technique. The oropharyngeal airway appears widely patent. The salivary and thyroid glands are normal in appearance. No cervical lymphadenopathy is seen. Skeletal structures: The skeletal structures are osteopenic. The calvarium appears intact. The cervical spine is maintained noting multilevel spondylosis. No lytic or blastic lesion is seen. Orbits: The bony orbits are intact. Orbital contents are normal as visualized noting bilateral ocular lens implants. Sinuses and mastoids: There is complete opacification of the right maxillary antrum with hyperdense material. The remaining paranasal sinuses are clear. The mastoid air cells are well pneumatized. IMPRESSION: 1. There is no hemorrhage, mass effect, or evidence of acute territorial ischemia by CT criteria. 2. Unremarkable CT angiogram of the brain. 3. Unremarkable CT angiogram of the neck. 4. Right maxillary sinus disease as above. ACT 112: Negative or not required by law. Electronically signed by: Jasen Avitia M.D. 04/20/2022 11:08 AM Neck CTA 04/20/22 09:[address] OF THE BRAIN; CT ANGIOGRAM OF THE BRAIN; CT ANGIOGRAM OF THE NECK CLINICAL HISTORY: Generalized weakness. Change in mental status. COMPARISON STUDY: MRI of the brain dated 12/08/2015. TECHNIQUE: Unenhanced axial CT scan of the brain is performed. Subsequently, following the IV administration of 120 of Optiray 320, CT angiogram of the head and neck was performed from the aortic arch to the vertex. Images are reviewed in the axial, sagittal, and coronal planes. 3-D MIPS images are created and assessed. IV contrast was administered without complication. All measurements were calculated based on NASCET criteria. A dose lowering technique was utilized adhering to the principles of ALARA. CT DOSE: 1080.26 mGy.cm FINDINGS: Brain parenchyma: There is age-related involutional change noting mild subcortical and periventricular microangiopathic disease. 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 There is no hemorrhage, mass effect, or evidence of acute territorial ischemia by CT criteria. There is no evidence of enhancing mass lesion on the angiogram phase images. The ventricles, sulci, and cisterns are prominent secondary to involutional change. Perez-white matter differentiation is preserved. No extra-axial fluid collection is seen. Thoracic aorta: Visualized portions of the thoracic aorta are normal in caliber. The aortic arch demonstrates standard 3-vessel anatomy. Right carotid arterial system: The right common carotid artery is widely patent, as are the right internal and external carotid arteries. There is tortuosity of the mid to distal internal carotid artery. Calcified plaque is noted in the carotid bulb. Left carotid arterial system: The left common carotid artery is widely patent, as are the left internal and external carotid arteries. There is tortuosity of the mid to distal internal carotid artery. There is mild ectasia of the mid left internal carotid artery which measures up to 7 mm. Calcified plaque is seen in the carotid bulb. Vertebral arteries: The vertebral arteries are widely patent bilaterally noting left-sided dominance. Subclavian arteries: Widely patent bilaterally. Intracranial vasculature: There is atherosclerotic calcification of the cavernous carotid arteries. The internal carotid arteries are patent at the skull base, as are the anterior and middle cerebral arteries bilaterally. The vertebrobasilar system and posterior cerebral arteries are widely patent. The left vertebral artery is dominant. There is no aneurysm, high-grade stenosis, or focal vessel cut off seen throughout the intracranial circulation. Jugular veins: Patent bilaterally. Dural sinuses: Patent. Lung apices: Partially visualized upper lobe lung parenchyma appears clear. Soft tissues: The visualized pharyngeal soft tissues are normal in appearance noting angiographic phase technique. The oropharyngeal airway appears widely patent. The salivary and thyroid glands are normal in appearance. No cervical lymphadenopathy is seen. Skeletal structures: The skeletal structures are osteopenic. The calvarium appears intact. The cervical spine is maintained noting multilevel spondylosis. No lytic or blastic lesion is seen. Orbits: The bony orbits are intact. Orbital contents are normal as visualized noting bilateral ocular lens implants. Sinuses and mastoids: There is complete opacification of the right maxillary antrum with hyperdense material. The remaining paranasal sinuses are clear. The mastoid air cells are well pneumatized. IMPRESSION: 1. There is no hemorrhage, mass effect, or evidence of acute territorial ischemia by CT criteria. 2. Unremarkable CT angiogram of the brain. 3. Unremarkable CT angiogram of the neck. 4. Right maxillary sinus disease as above. ACT 112: Negative or not required by law. Electronically signed by: Jasen Avitia M.D. 04/20/2022 11:08 AM Discharge Plan Visit Data Chief Complaint: Weakness Stated Complaint: WEAKNESS, AMS ED Provider: Henrry Xie Discharge Problem: Dementia, Weakness, Elevated CPK Patient Disposition: Admitted As Inpatient Discharge Instructions Interventions: ED Discharge Assessment Last Done: 04/20/22 15:55 Discharge Problem: Dementia Qualifiers: Dementia type: Lewy body dementia Dementia behavioral disturbance: with behavioral disturbance Qualified Code(s): G31.83 - Dementia with Lewy bodies
[2022-04-20 09:25] LABS: Appearance Urine Clear (Clear); Bilirubin Urine Negative (Negative); Blood Urine Negative (Negative); Color Urine Yellow; Glucose Urine UA Negative (Negative); Ketones Urine Negative (Negative); Leukocyte Esterase Urine Negative (Negative); Nitrite Urine Negative (Negative); Protein Urine Negative (Negative); Specific Gravity Urine 1.014 (1.000-1.030); Urobilinogen Urine Negative (Negative)
[2022-04-20 09:32] LABS: Eosinophils # (auto) 0.14 K/uL (0-0.5); Eosinophils % (auto) 1.9 %; Hemoglobin 13.8 g/dL (14.0-18.0); Immature Granulocytes # (auto) 0.02 K/uL (0.00-0.02); Immature Granulocytes % (auto) 0.3 %; Lymphocytes # (auto) 1.64 K/uL (1.2-3.4); Lymphocytes % (auto) 22.3 %; Mean Corpuscular Hemoglobin 31.3 pg (25-34); Mean Corpuscular Hgb Conc 34.5 g/dL (32-36); Mean Corpuscular Volume 90.7 fL (80-100); Mean Platelet Volume 10.1 fL (7.4-10.4); Monocytes # (auto) 0.83 K/uL (0.11-0.59); Monocytes % (auto) 11.3 %; Neutrophils # (auto) 4.74 K/uL (1.4-6.5); Neutrophils % (auto) 64.2 %; Platelet Count 161 K/uL (130-400); Red Blood Count 4.41 M/uL (4.7-6.1); White Blood Count 7.37 K/uL (4.8-10.8)
--- NOTE | 2022-04-20 09:41 | XRay Report ---
XR chest 1V portable HISTORY: 86 years-old Male weakness acute weakness COMPARISON: Chest radiographs 11/13/2019 TECHNIQUE: Portable AP view of the chest FINDINGS: Cardiac silhouette is upper limits of normal in size. Question pulmonary emphysema. No pneumothorax, pleural effusion, airspace consolidation or overt pulmonary edema. Mild subsegmental bibasilar densit ies favoring atelectasis. Degenerative changes of the shoulders and spine. IMPRESSION: No acute process. ACT 112: Negative or not required by law. The above report was generated using voice recognition software. It may contain grammatical, syntax o r spelling errors. Electronically signed by: Chris Early M.D. 04/20/2022 9:39 AM
[2022-04-20 09:48] LABS: Albumin Globulin Ratio 1.5 (0.9-2); BUN Creatinine Ratio 12.7 (10-20); Bilirubin,Total 0.7 mg/dl (0.2-1.0); Calcium 9.2 mg/dl (8.5-10.1); Creatinine Clr Calc Pharmacy 65.5 ml/min; Est GFR (African American) 76.8 ml/min; Est GFR (Non-African American) 66.2 ml/min; Globulin 2.6 gm/dl (2.5-4.0); Magnesium 2.1 mg/dl (1.7-2.4); Phosphorus 3.4 mg/dl (2.5-4.9); Potassium 4.3 mmol/L (3.5-5.1); Total Protein 6.6 gm/dl (6.0-8.3)
[2022-04-20 09:53] LABS: Troponin I High Sensitivity 5.4 pg/ml (0-20)
[2022-04-20] MEDS ORDERED: OPTIRAY 320 125ml IV ONE (10:55)
--- NOTE | 2022-04-20 11:11 | CT Scan Report ---
UNENHANCED CT OF THE BRAIN; CT ANGIOGRAM OF THE BRAIN; CT ANGIOGRAM OF THE NECK CLINICAL HISTORY: Generalized weakness. Change in mental status. COMPARISON STUDY: MRI of the brain dated 12/08/2015. TECHNIQUE: Unenhanced axial CT scan of the brain is performed. Subsequently, following the IV adminis tration of 120 of [address] 320, CT angiogram of the head and neck was performed from the aortic arch t o the vertex. Images are reviewed in the axial, sagittal, and coronal planes. 3-D MIPS images are cre ated and assessed. IV contrast was administered without complication. All measurements were calculate d based on NASCET criteria. A dose lowering technique was utilized adhering to the principles of ALA RA. CT DOSE: 1080.26 mGy.cm FINDINGS: Brain parenchyma: There is age-related involutional change noting mild subcortical and periventricula r microangiopathic disease. 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 There is no hemorrhage, mass effect, or evidence of acute territorial ischemia by CT criteria. There is no evide nce of enhancing mass lesion on the angiogram phase images. The ventricles, sulci, and cisterns are p rominent secondary to involutional change. Perez-white matter differentiation is preserved. No extra-a xial fluid collection is seen. Thoracic aorta: Visualized portions of the thoracic aorta are normal in caliber. The aortic arch demo nstrates standard 3-vessel anatomy. Right carotid arterial system: The right common carotid artery is widely patent, as are the right int ernal and external carotid arteries. There is tortuosity of the mid to distal internal carotid artery . Calcified plaque is noted in the carotid bulb. Left carotid arterial system: The left common carotid artery is widely patent, as are the left video editing internship al and external carotid arteries. There is tortuosity of the mid to distal internal carotid artery. T here is mild ectasia of the mid left internal carotid artery which measures up to 7 mm. Calcified magan que is seen in the carotid bulb. Vertebral arteries: The vertebral arteries are widely patent bilaterally noting left-sided dominance. Subclavian arteries: Widely patent bilaterally. Intracranial vasculature: There is atherosclerotic calcification of the cavernous carotid arteries. T he internal carotid arteries are patent at the skull base, as are the anterior and middle cerebral ar teries bilaterally. The vertebrobasilar system and posterior cerebral arteries are widely patent. The left vertebral artery is dominant. There is no aneurysm, high-grade stenosis, or focal vessel cut of f seen throughout the intracranial circulation. Jugular veins: Patent bilaterally. Dural sinuses: Patent. Lung apices: Partially visualized upper lobe lung parenchyma appears clear. Soft tissues: The visualized pharyngeal soft tissues are normal in appearance noting angiographic pha se technique. The oropharyngeal airway appears widely patent. The salivary and thyroid glands are nor mal in appearance. No cervical lymphadenopathy is seen. Skeletal structures: The skeletal structures are osteopenic. The calvarium appears intact. The cervic al spine is maintained noting multilevel spondylosis. No lytic or blastic lesion is seen. Orbits: The bony orbits are intact. Orbital contents are normal as visualized noting bilateral ocular lens implants. Sinuses and mastoids: There is complete opacification of the right maxillary antrum with hyperdense m aterial. The remaining paranasal sinuses are clear. The mastoid air cells are well pneumatized. IMPRESSION: 1. There is no hemorrhage, mass effect, or evidence of acute territorial ischemia by CT criteria. 2. Unremarkable CT angiogram of the brain. 3. Unremarkable CT angiogram of the neck. 4. Right maxillary sinus disease as above. ACT 112: Negative or not required by law. Electronically signed by: Jasen Avitia M.D. 04/20/2022 11:08 AM
[2022-04-20] MEDS ORDERED: SODIUM CHLORIDE 0.9% 1000ML 1,000 ML IV ONE (12:54)
--- NOTE | 2022-04-20 13:01 | History & Physical Report ---
Date of Service April 20, 2022 Assessment & Plan (1) Weakness: Plan: - Generalized over past week after receiving a COVID booster shot. - CK up after sleeping on floor overnight due to weakness, all other labs wnl. Will hydrate overnight. - Given his size and advanced dementia/Parkinson's, seems that is having difficulty caring for patient. Likely would benefit from placement or at least frequent home health. Will have PT/OT eval patient for d/c planning. (2) Dementia: Plan: - Advanced, with parkinson's. - Continue memantine, rivastigmine. (3) Obstructive sleep apnea: Plan: - CPAP at night. (4) Benign prostatic hyperplasia: Plan: - Continue Flomax and Avodart, continue straight caths 4 times per day. (5) Parkinsonism: Plan: - Gait disturbance, ambulates with assistance from or independently. (6) Depression with anxiety: Plan: - Stable, continue Zoloft. (7) Allergic rhinitis: Plan: - Stable, continue Flonase, Zyrtec. Plan: - Admit to med/tele. - SCDs for DVT ppx. - Full Code. History of Present Illness Chief Complaint: Generalized weakness Primary Care Provider: Colt Yusuf DO Mr. Crawley is an 86-year-old male with past medical history significant for dementia, Parkinson's, BPH requiring straight cath, depression/anxiety, and allergic rhinitiswho presents today for evaluation of generalized weakness. Patient received a COVID booster shot approximately 6 days ago, since then has felt generally weak, unable to ambulate is easily. Last evening, his tried to help him get into bed, however could not therefore she had to let him sleep on the ground overnight. She is his primary caregiver, they do not have family local, other than patient's elderly siblings who live in [place]. He is otherwise with been without complaints, fever/chills,. chest pain, palpitations, shortness of breath, cough, abdominal pain, nausea, vomiting. In ED, he is bradycardic heart rate in 50s, otherwise vital signs within normal limits and stable. Labs largely unremarkable, significant for CK 986. HS trop 5.4, renal function stable. Electrolytes within normal limits. No leukocytosis. UA without evidence of infection. CXR, head CT and head/neck CTA all unremarkable. Allergies Allergy/AdvReac Type Severity Reaction Status Date / Time No Known Allergies Allergy Verified 04/20/22 11:54 Home Medications Medication Instructions Recorded Confirmed Type cetirizine 10 mg tablet (Zyrtec) 10 mg PO HS 03/07/21 04/20/22 History dutasteride 0.5 mg capsule 0.5 mg PO HS 03/07/21 04/20/22 History rivastigmine 13.3 mg/24 hour 13.3 mg TOPICAL HS 03/07/21 04/20/22 History transdermal patch fluticasone propionate 50 1 spray INTRANASAL Q12H #16 g 11/24/21 04/20/22 Rx mcg/actuation nasal spray,suspension azelastine 137 mcg (0.1 %) nasal 2 spray INTRANASAL BID #30 ml 03/06/22 04/20/22 Rx spray aerosol ciclopirox 8 % topical solution 1 applic TOPICAL HS 04/20/22 04/20/22 History econazole 1 % topical cream 1 applic TOPICAL DIRECTED PRN 04/20/22 04/20/22 History fluocinolone 0.01 % topical cream 1 applic TOPICAL DIRECTED PRN 04/20/22 04/20/22 History hydrocortisone 1 % topical cream 1 applic TOPICAL DIRECTED PRN 04/20/22 04/20/22 History melatonin 5 mg tablet 5 mg PO HS 04/20/22 04/20/22 History memantine 28 mg capsule 28 mg PO HS 04/20/22 04/20/22 History sprinkle,extended release 24hr sertraline 50 mg tablet 50 mg PO HS 04/20/22 04/20/22 History tamsulosin 0.4 mg capsule 0.4 mg PO HS 04/20/22 04/20/22 History triamcinolone acetonide 0.1 % 1 applic TOPICAL DIRECTED PRN 04/20/22 04/20/22 History topical cream Past Med/Surg History Medical History Benign prostatic hyperplasia Carotid artery plaque Dementia Depression with anxiety Dyslipidemia Hearing loss Obstructive sleep apnea Parkinsonism Rosacea Seventh cranial nerve injury Surgical History (Updated 08/02/21 @ 09:26 by Jadyn Enriquez) H/O colonoscopy Family History Mother Alzheimer disease Brother Arthritis Nonorganic sleep disorder Father Emphysema, unspecified Brother Leukemia Social History Smoking Status: Never smoker Second Hand Exposure: No; Hx Alcohol Use: No Hx Substance Use: No Preferred Language: Yakut Visual Impairment: Limited Hearing Ability: Use of Hearing Aid marital status: Current Living Situation: Spouse current occupational status: retired Feels Safe at Home: Yes caffeine: Yes Dental Care, Regularly: Yes Physical Activity Frequency: 1-2 Times per Week Seatbelt Use: always Sunscreen Use: Yes Review of Systems Review of Systems: Constitutional: generalized weakness; No fever/chills, fatigue, myalgias, a norexia, night sweats Eyes: No diplopia, no worsening or blurred vision ENT: normal hearing, no trouble swallowing Respiratory: No cough, sputum, dyspnea at rest or on exertion Cardiovascular: No chest pain, tightness or palpitations Abdomen: No pain, nausea, vomiting, diarrhea or constipation : Denies dysuria, hematuria, increased urgency/frequency, urinary retention Musculoskeletal: No joint pain, calf pain, swelling Neurologic: No weakness, numbness/tingling, or balance problems Psychiatric: No anxiety or depression Skin: No rash or itch Physical Exam Physical Exam: General: awake, alert, no apparent distress Head: Normocephalic, atraumatic ENT: PERRL, EOMI, no pharyngeal exudate, mucous membranes moist Chest: Clear to auscultation, on room air, no adventitious breath sounds Cardiac: Regular rate and rhythm, no murmur, no JVD, normal peripheral pulses, good capillary refill Abdominal: NABS x 4 quadrants, soft, nontender to palpation, no rebound, guarding or tenderness Extremities: Normal inspection, no peripheral edema or erythema, calfs nontender to palpation Psych: Normal mood and affect Neuro: AAO x 3, strength intact bilaterally and rated 5/5, no motor deficits, speech is clear, no peripheral sensory deficits Skin: no rash or erythema Results & Data Results & Data ([facility]) Vital Signs (Past 12 Hours) Vital Signs Temp Pulse Pulse Resp BP Pulse Ox 04/20/22 11:00 55 L 18 139/86 94 04/20/22 09:47 48 L 16 98 04/20/22 08:54 56 L 18 95 04/20/22 08:39 36.5 C 51 L 16 123/72 97 Laboratory Results Abnormal lab results 04/20/22 04/20/22 Range/Units 09:03 09:03 RBC 4.41 L (4.7-6.1) M/uL Hgb 13.8 L (14.0-18.0) g/dL Hct 40.0 L (42-52) % RDW Std Deviation 47.0 H (36.4-46.3) fL [place] # (Auto) 0.83 H (0.11-0.59) K/uL Glucose 100 H (70-99(Fasting)) mg/dl Total Creatine Kinase 986 H (30-223) U/L Diagnostic Findings Chest X-Ray 04/20/22 08:54 XR chest 1V portable HISTORY: 86 years-old Male weakness acute weakness COMPARISON: Chest radiographs 11/13/2019 TECHNIQUE: Portable AP view of the chest FINDINGS: Cardiac silhouette is upper limits of normal in size. Question pulmonary emphysema. No pneumothorax, pleural effusion, airspace consolidation or overt pulmonary edema. Mild subsegmental bibasilar densities favoring atelectasis. Degenerative changes of the shoulders and spine. IMPRESSION: No acute process. ACT 112: Negative or not required by law. The above report was generated using voice recognition software. It may contain grammatical, syntax or spelling errors. Electronically signed by: Chris Early M.D. 04/20/2022 9:[address] 04/20/22 09:[address] OF THE BRAIN; CT ANGIOGRAM OF THE BRAIN; CT ANGIOGRAM OF THE NECK CLINICAL HISTORY: Generalized weakness. Change in mental status. COMPARISON STUDY: MRI of the brain dated 12/08/2015. TECHNIQUE: Unenhanced axial CT scan of the brain is performed. Subsequently, following the IV administration of 120 of Optiray 320, CT angiogram of the head and neck was performed from the aortic arch to the vertex. Images are reviewed in the axial, sagittal, and coronal planes. 3-D MIPS images are created and assessed. IV contrast was administered without complication. All measurements were calculated based on NASCET criteria. A dose lowering technique was utilized adhering to the principles of ALARA. CT DOSE: 1080.26 mGy.cm FINDINGS: Brain parenchyma: There is age-related involutional change noting mild subcortical and periventricular microangiopathic disease. 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 There is no hemorrhage, mass effect, or evidence of acute territorial ischemia by CT criteria. There is no evidence of enhancing mass lesion on the angiogram phase images. The ventricles, sulci, and cisterns are prominent secondary to involutional change. Perez-white matter differentiation is preserved. No extra-axial fluid collection is seen. Thoracic aorta: Visualized portions of the thoracic aorta are normal in caliber. The aortic arch demonstrates standard 3-vessel anatomy. Right carotid arterial system: The right common carotid artery is widely patent, as are the right internal and external carotid arteries. There is tortuosity of the mid to distal internal carotid artery. Calcified plaque is noted in the carotid bulb. Left carotid arterial system: The left common carotid artery is widely patent, as are the left internal and external carotid arteries. There is tortuosity of the mid to distal internal carotid artery. There is mild ectasia of the mid left internal carotid artery which measures up to 7 mm. Calcified plaque is seen in the carotid bulb. Vertebral arteries: The vertebral arteries are widely patent bilaterally noting left-sided dominance. Subclavian arteries: Widely patent bilaterally. Intracranial vasculature: There is atherosclerotic calcification of the cavernous carotid arteries. The internal carotid arteries are patent at the skull base, as are the anterior and middle cerebral arteries bilaterally. The vertebrobasilar system and posterior cerebral arteries are widely patent. The left vertebral artery is dominant. There is no aneurysm, high-grade stenosis, or focal vessel cut off seen throughout the intracranial circulation. Jugular veins: Patent bilaterally. Dural sinuses: Patent. Lung apices: Partially visualized upper lobe lung parenchyma appears clear. Soft tissues: The visualized pharyngeal soft tissues are normal in appearance noting angiographic phase technique. The oropharyngeal airway appears widely patent. The salivary and thyroid glands are normal in appearance. No cervical lymphadenopathy is seen. Skeletal structures: The skeletal structures are osteopenic. The calvarium appears intact. The cervical spine is maintained noting multilevel spondylosis. No lytic or blastic lesion is seen. Orbits: The bony orbits are intact. Orbital contents are normal as visualized noting bilateral ocular lens implants. Sinuses and mastoids: There is complete opacification of the right maxillary antrum with hyperdense material. The remaining paranasal sinuses are clear. The mastoid air cells are well pneumatized. IMPRESSION: 1. There is no hemorrhage, mass effect, or evidence of acute territorial ischemia by CT criteria. 2. Unremarkable CT angiogram of the brain. 3. Unremarkable CT angiogram of the neck. 4. Right maxillary sinus disease as above. ACT 112: Negative or not required by law. Electronically signed by: Jasen Avitia M.D. 04/20/2022 11:08 AM Head CTA 04/20/22 09:[address] OF THE BRAIN; CT ANGIOGRAM OF THE BRAIN; CT ANGIOGRAM OF THE NECK CLINICAL HISTORY: Generalized weakness. Change in mental status. COMPARISON STUDY: MRI of the brain dated 12/08/2015. TECHNIQUE: Unenhanced axial CT scan of the brain is performed. Subsequently, following the IV administration of 120 of Optiray 320, CT angiogram of the head and neck was performed from the aortic arch to the vertex. Images are reviewed in the axial, sagittal, and coronal planes. 3-D MIPS images are created and as sessed. IV contrast was administered without complication. All measurements were calculated based on NASCET criteria. A dose lowering technique was utilized adhering to the principles of ALARA. CT DOSE: 1080.26 mGy.cm FINDINGS: Brain parenchyma: There is age-related involutional change noting mild subcortical and periventricular microangiopathic disease. 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 There is no hemorrhage, mass effect, or evidence of acute territorial ischemia by CT criteria. There is no evidence of enhancing mass lesion on the angiogram phase images. The ventricles, sulci, and cisterns are prominent secondary to involutional change. Perez-white matter differentiation is preserved. No extra-axial fluid collection is seen. Thoracic aorta: Visualized portions of the thoracic aorta are normal in caliber. The aortic arch demonstrates standard 3-vessel anatomy. Right carotid arterial system: The right common carotid artery is widely patent, as are the right internal and external carotid arteries. There is tortuosity of the mid to distal internal carotid artery. Calcified plaque is noted in the carotid bulb. Left carotid arterial system: The left common carotid artery is widely patent, as are the left internal and external carotid arteries. There is tortuosity of the mid to distal internal carotid artery. There is mild ectasia of the mid left internal carotid artery which measures up to 7 mm. Calcified plaque is seen in the carotid bulb. Vertebral arteries: The vertebral arteries are widely patent bilaterally noting left-sided dominance. Subclavian arteries: Widely patent bilaterally. Intracranial vasculature: There is atherosclerotic calcification of the cavernous carotid arteries. The internal carotid arteries are patent at the skull base, as are the anterior and middle cerebral arteries bilaterally. The vertebrobasilar system and posterior cerebral arteries are widely patent. The left vertebral artery is dominant. There is no aneurysm, high-grade stenosis, or focal vessel cut off seen throughout the intracranial circulation. Jugular veins: Patent bilaterally. Dural sinuses: Patent. Lung apices: Partially visualized upper lobe lung parenchyma appears clear. Soft tissues: The visualized pharyngeal soft tissues are normal in appearance noting angiographic phase technique. The oropharyngeal airway appears widely patent. The salivary and thyroid glands are normal in appearance. No cervical lymphadenopathy is seen. Skeletal structures: The skeletal structures are osteopenic. The calvarium appears intact. The cervical spine is maintained noting multilevel spondylosis. No lytic or blastic lesion is seen. Orbits: The bony orbits are intact. Orbital contents are normal as visualized noting bilateral ocular lens implants. Sinuses and mastoids: There is complete opacification of the right maxillary antrum with hyperdense material. The remaining paranasal sinuses are clear. The mastoid air cells are well pneumatized. IMPRESSION: 1. There is no hemorrhage, mass effect, or evidence of acute territorial ischemia by CT criteria. 2. Unremarkable CT angiogram of the brain. 3. Unremarkable CT angiogram of the neck. 4. Right maxillary sinus disease as above. ACT 112: Negative or not required by law. Electronically signed by: Jasen Avitia M.D. 04/20/2022 11:08 AM Neck CTA 04/20/22 09:[address] OF THE BRAIN; CT ANGIOGRAM OF THE BRAIN; CT ANGIOGRAM OF THE NECK CLINICAL HISTORY: Generalized weakness. Change in mental status. COMPARISON STUDY: MRI of the brain dated 12/08/2015. TECHNIQUE: Unenhanced axial CT scan of the brain is performed. Subsequently, following the IV administration of 120 of Optiray 320, CT angiogram of the head and neck was performed from the aortic arch to the vertex. Images are reviewed in the axial, sagittal, and coronal planes. 3-D MIPS images are created and assessed. IV contrast was administered without complication. All measurements were calculated based on NASCET criteria. A dose lowering technique was utilized adhering to the principles of ALARA. CT DOSE: 1080.26 mGy.cm FINDINGS: Brain parenchyma: There is age-related involutional change noting mild subcortical and periventricular microangiopathic disease. 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 There is no hemorrhage, mass effect, or evidence of acute territorial ischemia by CT criteria. There is no evidence of enhancing mass lesion on the angiogram phase images. The ventricles, sulci, and cisterns are prominent secondary to involutional change. Perez-white matter differentiation is preserved. No extra-axial fluid collection is seen. Thoracic aorta: Visualized portions of the thoracic aorta are normal in caliber. The aortic arch demonstrates standard 3-vessel anatomy. Right carotid arterial system: The right common carotid artery is widely patent, as are the right internal and external carotid arteries. There is tortuosity of the mid to distal internal carotid artery. Calcified plaque is noted in the carotid bulb. Left carotid arterial system: The left common carotid artery is widely patent, as are the left internal and external carotid arteries. There is tortuosity of the mid to distal internal carotid artery. There is mild ectasia of the mid left internal carotid artery which measures up to 7 mm. Calcified plaque is seen in the carotid bulb. Vertebral arteries: The vertebral arteries are widely patent bilaterally noting left-sided dominance. Subclavian arteries: Widely patent bilaterally. Intracranial vasculature: There is atherosclerotic calcification of the cavernous carotid arteries. The internal carotid arteries are patent at the skull base, as are the anterior and middle cerebral arteries bilaterally. The vertebrobasilar system and posterior cerebral arteries are widely patent. The left vertebral artery is dominant. There is no aneurysm, high-grade stenosis, or focal vessel cut off seen throughout the intracranial circulation. Jugular veins: Patent bilaterally. Dural sinuses: Patent. Lung apices: Partially visualized upper lobe lung parenchyma appears clear. Soft tissues: The visualized pharyngeal soft tissues are normal in appearance noting angiographic phase technique. The oropharyngeal airway appears widely patent. The salivary and thyroid glands are normal in appearance. No cervical lymphadenopathy is seen. Skeletal structures: The skeletal structures are osteopenic. The calvarium appears intact. The cervical spine is maintained noting multilevel spondylosis. No lytic or blastic lesion is seen. Orbits: The bony orbits are intact. Orbital contents are normal as visualized noting bilateral ocular lens implants. Sinuses and mastoids: There is complete opacification of the right maxillary antrum with hyperdense material. The remaining paranasal sinuses are clear. The mastoid air cells are well pneumatized. IMPRESSION: 1. There is no hemorrhage, mass effect, or evidence of acute territorial ischemia by CT criteria. 2. Unremarkable CT angiogram of the brain. 3. Unremarkable CT angiogram of the neck. 4. Right maxillary sinus disease as above. ACT 112: Negative or not required by law. Electronically signed by: Jasen Avitia M.D. 04/20/2022 11:08 AM ECG Additional Comments: - Sinus bradycardia Otherwise normal ECG When compared with ECG of 16-APR-2003 11:18, Vent. rate has decreased BY [address] now depressed in Anterior leads. -Upon my review, sinus vaibhav without ST depression/elevation or T wave changes. Code Status & VTE Plan Code Status Full Code. Supervising Physician Co-Signing Physician Notes Patient seen and examined with JENNIE, agree with her note above. This is an 86-year-old male with history of advanced senile dementia and Parkinson's disease that presents after a fall 3 days ago. in room tells me that she is having difficulty caring for him at home as he has significant ambulatory dysfunction. She was unable to lift him from a chair last night and the patient spent the night on the floor. When he was no better in the morning, she called EMS to bring the patient to the emergency room. Patient is unable to provide any history as he is very demented which is his baseline. Exam unremarkable, as noted above. Patient does not seem to have any active medical issues outside of some mild rhabdomyolysis which has not affected his kidney function. Will give slow hydration. There was some bradycardia which we will continue to monitor overnight. Suspect patient will require placement, a possible short-term versus long-term. seems motivated to bring the patient home although she admits that she needs more help and will defer this to case management discussed possibilities with the . PG Care Time/CCT Total # of Minutes Spent Total Time Spent with Patient: Total time spent is greater than 50% in coordination of care (as documented) at patient's floor/unit and/or counseling patient: Coding Level of Care Code 11206 Initial Inpt Care Lvl 3 Diagnoses Dementia F03.90 Obstructive sleep apnea G47.33 Benign prostatic hyperplasia N40.0 Parkinsonism G20 Depression with anxiety F41.8 Allergic rhinitis J30.9 Weakness R53.1
[2022-04-20] MEDS ORDERED: TRIAMCINOLONE ACET 0.1% CR 15 GM TUBE TOP PRN (16:40)
[2022-04-20] MEDS ORDERED: ONDANSETRON INJ 2 MG/ML 2 ML VIAL IV PRN (16:40)
[2022-04-20] MEDS ORDERED: ACETAMINOPHEN 325 MG TAB PO PRN (16:40)
[2022-04-20] MEDS ORDERED: ENOXAPARIN INJ 40 MG/0.4 ML SYR SQ SCH (18:00)
[2022-04-20] MEDS: SODIUM CHLORIDE 0.9% 1000ML 1,000 ML IV SCH (18:02)
[2022-04-20] MEDS: [UNRECOGNIZED DRUG - OTHER] SCH (20:29)
[2022-04-20] MEDS: AZELASTINE HCL 0.1% NASAL 200 SPRAYS/27,400 MCG BTL SCH (20:30)
[2022-04-20] MEDS: FLUTICASONE PROPIONATE NA SPR 16 GM BTL SCH (20:31)
[2022-04-20] MEDS: SERTRALINE HCL 50 MG TABLET PO SCH (20:32)
[2022-04-20] MEDS: CETIRIZINE HCL 10 MG TABLET PO SCH (20:32)
[2022-04-20] MEDS: TAMSULOSIN HCL 0.4 MG CAP PO SCH (20:33)
[2022-04-20] MEDS: RIVASTIGMINE 13.3 MG/24 HR TD SCH (20:34)
[2022-04-20] MEDS: DUTASTERIDE 0.5 MG CAPSULE PO SCH (20:36)
[2022-04-20] MEDS: MEMANTINE 28 MG PO SCH (20:37)
[2022-04-20] MEDS: MELATONIN 3 MG TAB PO SCH (20:41)
[2022-04-21] MEDS ORDERED: *DUTASTERIDE*ORDER AWAITING ACTION SCH
[2022-04-21] MEDS: SODIUM CHLORIDE 0.9% 1000ML 1,000 ML IV SCH ×4 (03:54→23:33)
--- NOTE | 2022-04-21 06:14 | Electrocardiogram Report ---
Test Reason : Blood Pressure : / mmHG Vent. Rate : 052 BPM Atrial Rate : 052 BPM P-R Int : 192 ms QRS Dur : 068 ms QT Int : 438 ms P-R-T Axes : 057 029 049 degrees QTc Int : 407 ms Poor data quality, interpretation may be adversely affected Sinus bradycardia Otherwise normal ECG When compared with ECG of 16-APR-2003 11:18, Vent. rate has decreased BY 27 BPM Confirmed by Delroy Pierre ([id number]) on 04/21/2022 6:13:57 AM Referred By: JONATHAN ARNETT Confirmed By:Delroy Pierre
[2022-04-21 06:29] LABS: Basophils # (auto) 0.01 K/uL (0-0.2); Basophils % (auto) 0.1 %; Eosinophils % (auto) 0.9 %; Hematocrit (blood only) 41.4 % (42-52); Hemoglobin 14.3 g/dL (14.0-18.0); Immature Granulocytes # (auto) 0.03 K/uL (0.00-0.02); Immature Granulocytes % (auto) 0.3 %; Lymphocytes # (auto) 1.51 K/uL (1.2-3.4); Mean Corpuscular Hemoglobin 31.4 pg (25-34); Mean Corpuscular Hgb Conc 34.5 g/dL (32-36); Mean Corpuscular Volume 90.8 fL (80-100); Mean Platelet Volume 10.4 fL (7.4-10.4); Monocytes # (auto) 1.11 K/uL (0.11-0.59); Monocytes % (auto) 10.3 %; Neutrophils % (auto) 74.4 %; Platelet Count 160 K/uL (130-400); RDW Standard Deviation 46.9 fL (36.4-46.3); Red Blood Count 4.56 M/uL (4.7-6.1); White Blood Count 10.76 K/uL (4.8-10.8)
[2022-04-21 06:36] LABS: BUN Creatinine Ratio 11.3 (10-20); Calcium 8.6 mg/dl (8.5-10.1); Creatinine Clr Calc Pharmacy 68.8 ml/min; Est GFR (African American) 81.6 ml/min; Est GFR (Non-African American) 70.4 ml/min; Magnesium 1.8 mg/dl (1.7-2.4); Potassium 3.8 mmol/L (3.5-5.1)
[2022-04-21] MEDS: AZELASTINE HCL 0.1% NASAL 200 SPRAYS/27,400 MCG BTL SCH ×2 (08:18→20:27)
[2022-04-21] MEDS: FLUTICASONE PROPIONATE NA SPR 16 GM BTL SCH ×2 (08:18→20:27)
--- NOTE | 2022-04-21 14:04 | Hospitalist Progress Note ---
Date of Service April 21, 2022 Assessment & Plan (1) Weakness: Plan: - Difficult to definitively point to the COVID-19 booster as a cause since he tolerated the previous vaccinations fine. Decline has really been quick over the last few days as well rather than slowly progressive since the vaccine. No immediate side effects either from the vaccine. - ?CVA - will get MRI brain w/o contrast. - ?infective etiology, maxillary sinus likely chronic however WBC increased today despite IV fluids. If MRI negative will consider Unasyn to cover for sinusitis. UA negative for infection despite CIC making this the most likely source. Procalcitonin added. CRP/ESR with AM labs. - ?constipation - ?concussion from recent fall a few days ago. - Likely would will need to go to rehab on discharge however medical workup not complete at this time. (2) Altered mental status: Plan: Acute sudden change in mental status. Differential as above. Brain MRI to assess for stroke given his expressive dysphasia appears out of proportion to all else Constipation may also be effecting his cognitive ability and will start MiraLAX 17g TID until he has a large bowel movement. Possible concussion after a fall 2 days ago possibly also effecting his cognition. (3) Dementia: Plan: - Continue memantine, rivastigmine. (4) Obstructive sleep apnea: Plan: - CPAP at night. - May use own CPAP if his brings one in (5) Benign prostatic hyperplasia: Plan: - Continue Flomax and Avodart, continue straight caths 4 times per day. (6) Parkinsonism: Plan: - Gait disturbance, ambulates with assistance from or independently. (7) Depression with anxiety: Plan: - Stable, continue Zoloft. (8) Allergic rhinitis: Plan: - Stable, continue Flonase, Zyrtec. Plan: - Continue on med/tele - if telemetry normal tomorrow will consider downgrade to med.surg - SCDs for DVT ppx. - Full Code. Admission and Anticipated Discharge Date Admission Date: April 20, 2022 Subjective Unable to get any history from the patient. Ansering questions with words but not relevant to the question and mostly nonsensical. History taken from at bedside. She notes very sudden change in confusion over the last few days. He has baseline dementia but usually reads the newspaper but has to be orientated to the date with the calendar. Walks with stopped posture normally but no rigidity and less movement disorder usually hence on medications for dementia rather than movement disorder. No recent change in medication to explain this. No fever or chills. Right opacified maxillary sinus on CT - he reports not pain over this, no fever or chills. She reports he has chronic nasal congestion and takes fluticasone for this but no acute change. No cough, diarrhea, headache, abdominal pain, urinary symptoms or other infective symptoms. Weakness has been more of a slow progression over this time. Unclear if related to COVID vaccine as this was 2 weeks ago, he tolerated his other Pfizer vaccination fine. No immediate side effects from this booster either. She also notes he has not had a bowel movement in 3 days. Review of Systems Review of Systems: All systems reviewed & are unremarkable except as noted in Subjective (unclear reliability however due to cognitive status) Physical Exam Constitutional: WD/WN, vitals as above Eyes: PERRL, conjunctivae normal, anicteric sclerae ENMT: external ear and nose normal, oropharynx normal Nose: no sinus tenderness Neck: trachea midline, no thyromegaly Respiratory: normal respiratory effort, lungs clear to auscultation Cardiovascular: RRR, no murmur, no edema Gastrointestinal (Abdomen): normal bowel sounds, soft, nontender, no hepato splenomegaly Musculoskeletal: no cyanosis or clubbing, extremities motor strength 5/5 Skin: no rashes, warm and dry Neurologic: CN's II-XI intact bilaterally, moves all extremities, awake and + confused; no focal motor deficits (no lateralizing deficit) Motor/Sensory: no tremor, no pronator drift and no sensory deficit Psychiatric: Orientation: alert; + not oriented to person, + not oriented to place and + not oriented to time Results & Data Results & Data ([facility]) Vital Signs (Past 12 Hours) Vital Signs Temp Pulse Pulse Pulse Resp BP Pulse Ox 04/21/22 12:20 37.2 C 64 18 163/74 H 95 04/21/22 08:26 36.7 C 66 18 128/72 96 04/21/22 07:50 66 04/21/22 07:20 36.6 C 66 18 130/77 95 04/21/22 03:42 64 04/21/22 02:42 36.8 C 67 18 130/71 93 PG Care Time/CCT Total # of Minutes Spent Total Time Spent with Patient: Total time spent is greater than 50% in coordination of care (as documented) at patient's floor/unit and/or counseling patient: Coding Level of Care Code 77748 Subseq Hosp Care Lvl 3 Diagnoses Weakness R53.1 Dementia G31.83; F02.81 Dementia behavioral disturbance: with behavioral disturbance Dementia type: Lewy body dementia Obstructive sleep apnea G47.33 Benign prostatic hyperplasia N40.0 Parkinsonism G20 Depression with anxiety F41.8 Allergic rhinitis J30.9 Altered mental status R41.82 (1) Dementia Dementia behavioral disturbance: with behavioral disturbance Dementia type: Lewy body dementia Qualified Code(s): G31.83 - Dementia with Lewy bodies; F02.81 - Dementia in other diseases classified elsewhere with behavioral disturbance
--- NOTE | 2022-04-21 20:15 | Magnetic Resonance Report ---
MR brain wo con CLINICAL HISTORY: acute AMS / dysphasia. Weakness for one week COMPARISON STUDY: 12/08/2015 TECHNIQUE: Multiplanar multisequence images of the Brain were performed without IV contrast. Diffusi on weighted imaging and ADC mapping was also performed. FINDINGS: Extra-axial space: There is no evidence for a subdural hematoma, There are no extra-axial fluid mahnaz ections. Ventricles and cisterns: The ventricles are moderately dilated bilaterally. There is no evidence for midline shift or mass effect. Parenchyma: There is no evidence for an acute hemorrhage or infarct. No acute diffusion abnormalities are noted on diffusion weighted imaging or ADC mapping. There is normal lira-white differentiation. There is mild cerebral cortical atrophy present. The sulci and gyri appear normal without effacement . The midline structures are unremarkable. The posterior fossa structures appear normal. There is no evidence for mass lesion. Osseous structures: There is complete opacification right maxillary antrum. The remaining paranasal s inuses are clear. The mastoid air cells are well aerated. Soft tissues: No focal soft tissue abnormalities are identified. IMPRESSION: 1. No acute intracranial abnormalities. 2. Cerebral cortical atrophy. 3. Chronic right maxillary sinusitis. ACT 112: Negative or not required by law. Electronically signed by: Georges Silva M.D. 04/21/2022 8:13 PM
[2022-04-21] MEDS: [UNRECOGNIZED DRUG - OTHER] SCH (20:24)
[2022-04-21] MEDS: RIVASTIGMINE 13.3 MG/24 HR TD SCH (20:24)
[2022-04-21] MEDS: MEMANTINE 28 MG PO SCH (20:28)
[2022-04-21] MEDS: DUTASTERIDE 0.5 MG CAPSULE PO SCH (20:28)
[2022-04-21] MEDS: POLYETHYLENE (MIRALAX) 17 GM PACK PO SCH (20:29)
[2022-04-21] MEDS: MELATONIN 3 MG TAB PO SCH (20:30)
[2022-04-21] MEDS: SERTRALINE HCL 50 MG TABLET PO SCH (20:30)
[2022-04-21] MEDS: CETIRIZINE HCL 10 MG TABLET PO SCH (20:32)
[2022-04-21] MEDS: TAMSULOSIN HCL 0.4 MG CAP PO SCH (20:32)
[2022-04-22] MEDS: SODIUM CHLORIDE 0.9% 1000ML 1,000 ML IV SCH ×3 (05:34→22:14)
[2022-04-22 06:29] LABS: Basophils # (auto) 0.01 K/uL (0-0.2); Basophils % (auto) 0.1 %; Eosinophils # (auto) 0.05 K/uL (0-0.5); Eosinophils % (auto) 0.4 %; Hematocrit (blood only) 38.1 % (42-52); Hemoglobin 12.9 g/dL (14.0-18.0); Immature Granulocytes # (auto) 0.04 K/uL (0.00-0.02); Immature Granulocytes % (auto) 0.4 %; Lymphocytes # (auto) 1.32 K/uL (1.2-3.4); Lymphocytes % (auto) 11.8 %; Mean Corpuscular Hemoglobin 30.6 pg (25-34); Mean Corpuscular Hgb Conc 33.9 g/dL (32-36); Mean Corpuscular Volume 90.3 fL (80-100); Mean Platelet Volume 10.4 fL (7.4-10.4); Monocytes # (auto) 1.39 K/uL (0.11-0.59); Monocytes % (auto) 12.5 %; Neutrophils # (auto) 8.34 K/uL (1.4-6.5); Neutrophils % (auto) 74.8 %; Platelet Count 162 K/uL (130-400); RDW Standard Deviation 46.4 fL (36.4-46.3); Red Blood Count 4.22 M/uL (4.7-6.1); White Blood Count 11.15 K/uL (4.8-10.8)
[2022-04-22 06:46] LABS: BUN Creatinine Ratio 11.6 (10-20); C Reactive Protein 10.84 mg/dl (0-0.5); Creatinine Clr Calc Pharmacy 71.7 ml/min; Est GFR (Non-African American) 78.5 ml/min; Potassium 3.8 mmol/L (3.5-5.1)
[2022-04-22] MEDS: AMPICILLIN/SULBACTAM SOD 3,000 MG in 0.9 % SODIUM CHLORIDE 100 ML IV SCH ×3 (08:34→22:13)
[2022-04-22] MEDS: FLUTICASONE PROPIONATE NA SPR 16 GM BTL SCH ×2 (08:37→20:59)
[2022-04-22] MEDS: POLYETHYLENE (MIRALAX) 17 GM PACK PO SCH ×3 (08:37→21:02)
[2022-04-22] MEDS: AZELASTINE HCL 0.1% NASAL 200 SPRAYS/27,400 MCG BTL SCH ×2 (08:37→20:55)
[2022-04-22 09:51] LABS: Lyme Ab IgG w/WB Rflx Negative (Negative); Lyme Ab IgM w/WB Rflx Negative (Negative)
[2022-04-22 10:14] LABS: Influenza A virus by PCR Negative (Neg); Influenza B virus by PCR Negative (Neg); RSV by PCR Negative (Neg); SARS CoV2 RNA(COVID-19) InHosp NEGATIVE (Negative)
--- NOTE | 2022-04-22 16:18 | Hospitalist Progress Note ---
Date of Service April 22, 2022 Assessment & Plan (1) Weakness: Plan: - Difficult to definitively point to the COVID-19 booster as a cause since he tolerated the previous vaccinations fine. Decline has really been quick over the last few days as well rather than slowly progressive since the vaccine. No immediate side effects either from the vaccine. - MRI brain with no acute intracranial abnormalities - Rising WBC and elevated CRP concerning for infection and only potential source found is right maxillary sinus therefore will take blood cultures and start on Unasyn for this. - ?concussion from recent fall a few days ago. - Likely would will need to go to rehab on discharge however medical workup not complete at this time. Will monitor patient for blood culture results for 48 hours and for response both with labs and clinically with starting Unasyn today 04/22. (2) Sinusitis: Plan: Possible diagnosis as above. Start Unasyn 04/22 (3) Elevated CPK: Plan: No muscle pain to definitively diagnose rhabdomyolysis although history from patient is unreliable. Not down trending with increased IV fluids. Continue to monitor daily (4) Altered mental status: Plan: Acute sudden change in mental status. Differential as above. (5) Dementia: Plan: - Continue memantine, rivastigmine. (6) Obstructive sleep apnea: Plan: - CPAP at night. - May use own CPAP if his brings one in (7) Benign prostatic hyperplasia: Plan: - Continue Flomax and Avodart, continue straight caths 4 times per day. (8) Parkinsonism: Plan: - Gait disturbance, ambulates with assistance from or independently. (9) Depression with anxiety: Plan: - Stable, continue Zoloft. (10) Allergic rhinitis: Plan: - Stable, continue Flonase, Zyrtec. Plan: - Continue on med/tele - if telemetry normal tomorrow will consider downgrade to med.surg - Start Lovenox 40mg SQ daily as treating for acute infection and patient not mobile - Full Code. Admission and Anticipated Discharge Date Admission Date: April 20, 2022 Subjective Unable to get any history from patient as remains disorientated x3. Updated his at bedside regarding MRI results and starting Unasyn. Will observe over the next 48 hours. Review of Systems Review of Systems: All systems reviewed & are unremarkable except as noted in Subjective Physical Exam Constitutional: WD/WN, vitals as above ENMT: external ear and nose normal, oropharynx normal Nose: no sinus tenderness Neck: trachea midline, no thyromegaly Respiratory: normal respiratory effort, lungs clear to auscultation Cardiovascular: RRR, no murmur, no edema Gastrointestinal (Abdomen): normal bowel sounds, soft, nontender, no hepatosplenomegaly Musculoskeletal: no cyanosis or clubbing, extremities motor strength 5/5 Skin: no rashes, warm and dry Neurologic: CN's II-XI intact bilaterally, moves all extremities, awake and + confused; no focal motor deficits (no lateralizing deficit) Motor/Sensory: no tremor, no pronator drift and no sensory deficit Psychiatric: Orientation: alert; + not oriented to person, + not oriented to place and + not oriented to time Results & Data Results & Data ([facility]) Vital Signs (Past 12 Hours) Vital Signs Temp Pulse Pulse Resp BP Pulse Ox 04/22/22 15:45 36.9 C 62 20 138/80 95 04/22/22 15:35 58 L 04/22/22 10:40 36.8 C 65 18 135/81 94 04/22/22 07:45 57 L 24 95 04/22/22 07:20 62 04/22/22 07:16 36.8 C 61 20 115/62 96 04/22/22 06:22 36.8 C 61 16 115/62 96 04/22/22 04:20 36.8 C PG Care Time/CCT Total # of Minutes Spent Total Time Spent with Patient: Total time spent is greater than 50% in coordination of care (as documented) at patient's floor/unit and/or counseling patient: Coding Level of Care Code 43111 Subseq Hosp Care Lvl 2 Diagnoses Weakness R53.1 Altered mental status R41.82 Dementia G31.83; F02.81 Dementia behavioral disturbance: with behavioral disturbance Dementia type: Lewy body dementia Obstructive sleep apnea G47.33 Benign prostatic hyperplasia N40.0 Parkinsonism G20 Depression with anxiety F41.8 Allergic rhinitis J30.9 Sinusitis J32.9 Elevated CPK R74.8 (1) Dementia Dementia behavioral disturbance: with behavioral disturbance Dementia type: Lewy body dementia Qualified Code(s): G31.83 - Dementia with Lewy bodies; F02.81 - Dementia in other diseases classified elsewhere with behavioral disturbance
[2022-04-22] MEDS: CETIRIZINE HCL 10 MG TABLET PO SCH (20:56)
[2022-04-22] MEDS: DUTASTERIDE 0.5 MG CAPSULE PO SCH (20:57)
[2022-04-22] MEDS: ENOXAPARIN INJ 40 MG/0.4 ML SYR SQ SCH (20:59)
[2022-04-22] MEDS: MEMANTINE 28 MG PO SCH (21:00)
[2022-04-22] MEDS: MELATONIN 3 MG TAB PO SCH (21:00)
[2022-04-22] MEDS: RIVASTIGMINE 13.3 MG/24 HR TD SCH (21:01)
[2022-04-22] MEDS: SERTRALINE HCL 50 MG TABLET PO SCH (21:02)
[2022-04-22] MEDS: TAMSULOSIN HCL 0.4 MG CAP PO SCH (21:03)
[2022-04-22] MEDS: [UNRECOGNIZED DRUG - OTHER] SCH (21:13)
[2022-04-23] MEDS: AMPICILLIN/SULBACTAM SOD 3,000 MG in 0.9 % SODIUM CHLORIDE 100 ML IV SCH ×4 (03:39→22:36)
[2022-04-23] MEDS: SODIUM CHLORIDE 0.9% 1000ML 1,000 ML IV SCH ×3 (07:07→22:37)
[2022-04-23] MEDS: POLYETHYLENE (MIRALAX) 17 GM PACK PO SCH ×3 (07:42→22:02)
[2022-04-23] MEDS: AZELASTINE HCL 0.1% NASAL 200 SPRAYS/27,400 MCG BTL SCH ×2 (07:42→22:02)
[2022-04-23] MEDS: FLUTICASONE PROPIONATE NA SPR 16 GM BTL SCH ×2 (07:42→22:03)
[2022-04-23 08:44] LABS: Basophils # (auto) 0.01 K/uL (0-0.2); Basophils % (auto) 0.1 %; Eosinophils # (auto) 0.11 K/uL (0-0.5); Eosinophils % (auto) 1.1 %; Hematocrit (blood only) 37.8 % (42-52); Hemoglobin 12.9 g/dL (14.0-18.0); Immature Granulocytes # (auto) 0.02 K/uL (0.00-0.02); Immature Granulocytes % (auto) 0.2 %; Mean Corpuscular Hemoglobin 30.9 pg (25-34); Mean Corpuscular Hgb Conc 34.1 g/dL (32-36); Mean Corpuscular Volume 90.6 fL (80-100); Mean Platelet Volume 10.2 fL (7.4-10.4); Monocytes # (auto) 1.15 K/uL (0.11-0.59); Monocytes % (auto) 11.5 %; Neutrophils # (auto) 7.21 K/uL (1.4-6.5); Neutrophils % (auto) 72.1 %; Platelet Count 175 K/uL (130-400); RDW Coefficient of Variation 14.4 % (11.5-14.5); RDW Standard Deviation 47.8 fL (36.4-46.3); Red Blood Count 4.17 M/uL (4.7-6.1)
[2022-04-23 09:00] LABS: Calcium 8.4 mg/dl (8.5-10.1); Creatinine Clr Calc Pharmacy 77.1 ml/min; Est GFR (African American) 93.8 ml/min; Est GFR (Non-African American) 80.9 ml/min; Potassium 3.8 mmol/L (3.5-5.1)
--- NOTE | 2022-04-23 09:50 | Hospitalist Progress Note ---
Date of Service April 23, 2022 Assessment & Plan (1) Weakness: Plan: - Difficult to definitively point to the COVID-19 booster as a cause since he tolerated the previous vaccinations fine. Decline has really been quick over the last few days as well rather than slowly progressive since the vaccine. No immediate side effects either from the vaccine. - MRI brain with no acute intracranial abnormalities - Rising WBC and elevated CRP concerning for infection and only potential source found is right maxillary sinus therefore will take blood cultures and started on Unasyn for this with lab improvement. - ?concussion from recent fall a few days ago. thinks this is unlikely as he appreared to be doing fine after this fall. - Likely would will need to go to rehab on discharge however medical workup not complete at this time. Will monitor patient for blood culture results for 48 hours and for response both with labs and clinically with starting Unasyn today 04/22. Discussed neurology consult given cogwheel rigidity on exam but she declines this and wants to see how antibiotics and PT work first and follow up with his usual outpatient neurologist. (2) Sinusitis: Plan: Possible diagnosis as above. Started Unasyn 04/22 (3) Elevated CPK: Plan: No muscle pain to definitively diagnose rhabdomyolysis although history from p atient is unreliable. Not down trending with increased IV fluids. Continue to monitor daily (4) Oropharyngeal dysphagia: Plan: SLT consulted due to choking noticed by his (5) Altered mental status: Plan: Acute sudden change in mental status. Differential as above. (6) Dementia: Plan: - Continue memantine, rivastigmine. (7) Obstructive sleep apnea: Plan: - CPAP at night. - May use own CPAP if his brings one in (8) Benign prostatic hyperplasia: Plan: - Continue Flomax and Avodart, continue straight caths 4 times per day. (9) Parkinsonism: Plan: - Gait disturbance, ambulates with assistance from or independently. - Never been on specific medication for movement as this has apparently not been an issue and more Lewy body dementia. (10) Depression with anxiety: Plan: - Stable, continue Zoloft. (11) Allergic rhinitis: Plan: - Stable, continue Flonase, Zyrtec. Plan: - Stable for downgrade to med/surg, no arrythmias on telemetry - Lovenox 40mg SQ daily - Full Code. Admission and Anticipated Discharge Date Admission Date: April 20, 2022 Subjective No acute change in patient cognition. Patient reports no pain or problems. Discussed care with his at bedside. Concerned about some choking after eating, requesting speech evaluation. Otherwise ok with awaiting rehab at this time. She is not significantly concerned about concussion as he appeared to be his normal self after fall a few days prior to admission. Review of Systems Review of Systems: All systems reviewed & are unremarkable except as noted in Subjective Physical Exam Constitutional: WD/WN, vitals as above Eyes: PERRL, conjunctivae normal, anicteric sclerae ENMT: Nose: no sinus tenderness Respiratory: normal respiratory effort, lungs clear to auscultation Cardiovascular: RRR, no murmur, no edema Gastrointestinal (Abdomen): normal bowel sounds, soft, nontender, no hepatosplenomegaly Musculoskeletal: no cyanosis or clubbing, extremities motor strength 5/5 Skin: no rashes, warm and dry Neurologic: moves all extremities, awake and + confused Motor/Sensory: no tremor, no pronator drift and no sensory deficit Cogwheel rigidity of b/l UE Psychiatric: Orientation: alert; + not oriented to person, + not oriented to place and + not oriented to time Results & Data Results & Data ([facility]) Vital Signs (Past 12 Hours) Vital Signs Temp Pulse Pulse Resp BP BP Pulse Ox 04/23/22 08:12 37.2 C 65 18 117/74 95 04/23/22 07:19 62 04/23/22 03:35 60 19 95 04/23/22 03:12 37.3 C 65 16 104/64 94 04/22/22 22:40 66 21 96 04/22/22 22:19 63 04/22/22 22:00 37.3 C 65 18 118/70 96 PG Care Time/CCT Total # of Minutes Spent Total Time Spent with Patient: Total time spent is greater than 50% in coordination of care (as documented) at patient's floor/unit and/or counseling patient: Coding Level of Care Code 62353 Subseq Hosp Care Lvl 2 Diagnoses Weakness R53.1 Sinusitis J32.9 Elevated CPK R74.8 Altered mental status R41.82 Dementia G31.83; F02.81 Dementia behavioral disturbance: with behavioral disturbance Dementia type: Lewy body dementia Obstructive sleep apnea G47.33 Benign prostatic hyperplasia N40.0 Parkinsonism G20 Depression with anxiety F41.8 Allergic rhinitis J30.9 Oropharyngeal dysphagia R13.12 (1) Dementia Dementia behavioral disturbance: with behavioral disturbance Dementia type: Lewy body dementia Qualified Code(s): G31.83 - Dementia with Lewy bodies; F02.81 - Dementia in other diseases classified elsewhere with behavioral disturbance
[2022-04-23] MEDS: [UNRECOGNIZED DRUG - OTHER] SCH (22:01)
[2022-04-23] MEDS: MELATONIN 3 MG TAB PO SCH (22:04)
[2022-04-23] MEDS: TAMSULOSIN HCL 0.4 MG CAP PO SCH (22:04)
[2022-04-23] MEDS: ENOXAPARIN INJ 40 MG/0.4 ML SYR SQ SCH (22:04)
[2022-04-23] MEDS: SERTRALINE HCL 50 MG TABLET PO SCH (22:04)
[2022-04-23] MEDS: CETIRIZINE HCL 10 MG TABLET PO SCH (22:05)
[2022-04-23] MEDS: DUTASTERIDE 0.5 MG CAPSULE PO SCH (22:05)
[2022-04-23] MEDS: MEMANTINE 28 MG PO SCH (22:06)
[2022-04-23] MEDS: RIVASTIGMINE 13.3 MG/24 HR TD SCH (22:19)
[2022-04-24] MEDS: AMPICILLIN/SULBACTAM SOD 3,000 MG in 0.9 % SODIUM CHLORIDE 100 ML IV SCH ×4 (03:19→22:12)
[2022-04-24 06:57] LABS: Basophils # (auto) 0.01 K/uL (0-0.2); Basophils % (auto) 0.1 %; Eosinophils # (auto) 0.14 K/uL (0-0.5); Eosinophils % (auto) 1.5 %; Hematocrit (blood only) 37.7 % (42-52); Immature Granulocytes # (auto) 0.02 K/uL (0.00-0.02); Immature Granulocytes % (auto) 0.2 %; Lymphocytes # (auto) 1.51 K/uL (1.2-3.4); Lymphocytes % (auto) 16.1 %; Mean Corpuscular Hemoglobin 31.6 pg (25-34); Mean Corpuscular Hgb Conc 34.5 g/dL (32-36); Mean Corpuscular Volume 91.7 fL (80-100); Mean Platelet Volume 10.4 fL (7.4-10.4); Monocytes # (auto) 1.12 K/uL (0.11-0.59); Monocytes % (auto) 11.9 %; Neutrophils % (auto) 70.2 %; Platelet Count 185 K/uL (130-400); RDW Standard Deviation 47.5 fL (36.4-46.3); Red Blood Count 4.11 M/uL (4.7-6.1)
[2022-04-24 07:33] LABS: Est GFR (African American) 95.7 ml/min
[2022-04-24 07:34] LABS: BUN Creatinine Ratio 11.8 (10-20); C Reactive Protein 9.06 mg/dl (0-0.5); Calcium 8.2 mg/dl (8.5-10.1); Creatinine Clr Calc Pharmacy 81.1 ml/min; Est GFR (Non-African American) 82.6 ml/min
[2022-04-24 07:37] LABS: Potassium 3.9 mmol/L (3.5-5.1)
[2022-04-24] MEDS: FLUTICASONE PROPIONATE NA SPR 16 GM BTL SCH ×2 (08:15→21:44)
[2022-04-24] MEDS: AZELASTINE HCL 0.1% NASAL 200 SPRAYS/27,400 MCG BTL SCH ×2 (08:16→21:44)
[2022-04-24] MEDS: POLYETHYLENE (MIRALAX) 17 GM PACK PO SCH ×3 (08:16→21:43)
--- NOTE | 2022-04-24 13:26 | Hospitalist Progress Note ---
Date of Service April 24, 2022 Assessment & Plan (1) Weakness: Plan: Difficult to definitively point to the COVID-19 booster as a cause since he tolerated the previous vaccinations fine. Decline has really been quick over the last few days as well rather than slowly progressive since the vaccine. No immediate side effects either from the vaccine. - MRI brain with no acute intracranial abnormalities - ? concussion from recent fall a few days ago. thinks this is unlikely as he appreared to be doing fine after this fall. - Prior provider discussed neurology consult given cogwheel rigidity on exam but per note, declined this and wants to see how antibiotics and PT work first and follow up with his usual outpatient neurologist (Presumed to be Dr. Nelson at [place]). - Given rising WBC and elevated CRP concerning for infection, started Unasyn for potential right maxillary sinusitis. Leukocytosis is improving, so will continue for now. (2) Sinusitis: Plan: Possible diagnosis as above. - Started Unasyn 04/22 (3) Elevated CPK: Plan: No muscle pain to definitively diagnose rhabdomyolysis although history from patient is unreliable. Not down trending with increased IV fluids. - Continue to monitor daily -> Down today. (4) Oropharyngeal dysphagia: Plan: [employer] consulted due to choking noticed by his . Seen on 04/24 with following recs: * Pureed diet * Full supervision with meals * Usual aspiration precautions, including alternative solids and liquids, fully alert and upright for meals, good oral hygeine * Make sure mouth is clear after meals * Small, frequent meals * [facility]QU[facility] TE[facility] outpatient follow-up (5) Altered mental status: Plan: Acute sudden change in mental status. Differential as above. (6) Dementia: Plan: Unclear baseline. - Continue memantine, rivastigmine. (7) Obstructive sleep apnea: Plan: - CPAP at night. - May use own CPAP if his brings one in (8) Benign prostatic hyperplasia: Plan: - Continue Flomax and Avodart, continue straight caths 4 times per day. (9) Parkinsonism: Plan: - Gait disturbance, ambulates with assistance from or independently. - Never been on specific medication for movement as this has apparently not been an issue and more Lewy body dementia. (10) Depression with anxiety: Plan: - Stable, continue Zoloft. (11) Allergic rhinitis: Plan: - Stable, continue Flonase, Zyrtec. Plan: DVT ppx: Lovenox 40mg SQ daily Admission and Anticipated Discharge Date Admission Date: April 20, 2022 Subjective Stable today. He feels he is doing well. Reports no fevers/chills, chest pain, shortness of breath, abdominal pain, nausea, or vomiting. Physical Exam Constitutional: WD/WN, vitals as above Eyes: EOM intact bilaterally; no conjunctival abnormality ENMT: external ear and nose normal, oropharynx normal Neck: trachea midline, no thyromegaly normal visual inspection Respiratory: normal respiratory effort, lungs clear to auscultation no respiratory distress Cardiovascular: RRR, no murmur, no edema Gastrointestinal (Abdomen): Inspection/Auscultation: abdomen normal to inspection; abdomen not distended Musculoskeletal: no cyanosis or clubbing, extremities motor strength 5/5 Skin: no rashes, warm and dry Neurologic: moves all extremities and awake Psychiatric: Orientation: alert, oriented to person and cooperative Results & Data Results & Data ([facility]) Vital Signs (Past 12 Hours) Vital Signs Temp Pulse Resp BP Pulse Ox 04/24/22 07:42 36.7 C 74 20 142/73 H 95 PG Care Time/CCT Total # of Minutes Spent Total Time Spent with Patient: Total time spent is greater than 50% in coordination of care (as documented) at patient's floor/unit and/or counseling patient: Coding Level of Care Code 31338 Subseq Hosp Care Lvl 3 Diagnoses Weakness R53.1 Sinusitis J32.9 Elevated CPK R74.8 Oropharyngeal dysphagia R13.12 Altered mental status R41.82 Dementia G31.83; F02.81 Dementia behavioral disturbance: with behavioral disturbance Dementia type: Lewy body dementia Obstructive sleep apnea G47.33 Benign prostatic hyperplasia N40.0 Parkinsonism G20 Depression with anxiety F41.8 Allergic rhinitis J30.9 (1) Dementia Dementia behavioral disturbance: with behavioral disturbance Dementia type: Lewy body dementia Qualified Code(s): G31.83 - Dementia with Lewy bodies; F02.81 - Dementia in other diseases classified elsewhere with behavioral disturbance
[2022-04-24] MEDS: CETIRIZINE HCL 10 MG TABLET PO SCH (21:45)
[2022-04-24] MEDS: TAMSULOSIN HCL 0.4 MG CAP PO SCH (21:45)
[2022-04-24] MEDS: MELATONIN 3 MG TAB PO SCH (21:46)
[2022-04-24] MEDS: SERTRALINE HCL 50 MG TABLET PO SCH (21:47)
[2022-04-24] MEDS: [UNRECOGNIZED DRUG - OTHER] SCH (22:02)
[2022-04-24] MEDS: ENOXAPARIN INJ 40 MG/0.4 ML SYR SQ SCH (22:03)
[2022-04-24] MEDS: RIVASTIGMINE 13.3 MG/24 HR TD SCH (22:06)
[2022-04-24] MEDS: DUTASTERIDE 0.5 MG CAPSULE PO SCH (22:18)
[2022-04-24] MEDS: MEMANTINE 28 MG PO SCH (22:18)
[2022-04-25] MEDS: AMPICILLIN/SULBACTAM SOD 3,000 MG in 0.9 % SODIUM CHLORIDE 100 ML IV SCH ×4 (03:34→22:42)
[2022-04-25 06:56] LABS: Hematocrit (blood only) 35.5 % (42-52); Hemoglobin 12.2 g/dL (14.0-18.0); Mean Corpuscular Hemoglobin 30.7 pg (25-34); Mean Corpuscular Hgb Conc 34.4 g/dL (32-36); Mean Corpuscular Volume 89.4 fL (80-100); Mean Platelet Volume 10.1 fL (7.4-10.4); Platelet Count 198 K/uL (130-400); Red Blood Count 3.97 M/uL (4.7-6.1); White Blood Count 9.28 K/uL (4.8-10.8)
[2022-04-25 07:19] LABS: BUN Creatinine Ratio 14.5 (10-20); Calcium 8.2 mg/dl (8.5-10.1); Creatinine Clr Calc Pharmacy 74.3 ml/min; Est GFR (African American) 92.3 ml/min; Est GFR (Non-African American) 79.7 ml/min; Magnesium 1.8 mg/dl (1.7-2.4); Potassium 3.7 mmol/L (3.5-5.1)
[2022-04-25] MEDS: FLUTICASONE PROPIONATE NA SPR 16 GM BTL SCH ×2 (08:54→21:49)
[2022-04-25] MEDS: POLYETHYLENE (MIRALAX) 17 GM PACK PO SCH ×3 (08:55→21:53)
[2022-04-25] MEDS: AZELASTINE HCL 0.1% NASAL 200 SPRAYS/27,400 MCG BTL SCH ×2 (08:55→21:49)
--- NOTE | 2022-04-25 15:30 | Hospitalist Progress Note ---
Date of Service April 25, 2022 Assessment & Plan (1) Weakness: Plan: Difficult to definitively point to the COVID-19 booster as a cause since he tolerated the previous vaccinations fine. Decline has really been quick over the last few days as well rather than slowly progressive since the vaccine. No immediate side effects either from the vaccine. - MRI brain with no acute intracranial abnormalities - ? concussion from recent fall a few days ago. thinks this is unlikely as he appreared to be doing fine after this fall. - Prior provider discussed neurology consult given cogwheel rigidity on exam but per note, declined this and wants to see how antibiotics and PT work first and follow up with his usual outpatient neurologist (Dr. Nelson at [place]). Call placed on 04/25 to his office with no response as of yet. - Given rising WBC and elevated CRP concerning for infection, started Unasyn for potential right maxillary sinusitis. Leukocytosis is improving, so will continue for now. (2) Sinusitis: Plan: Possible diagnosis as above. - Started Unasyn 04/22 - Plan for 10-day treatment course. (3) Elevated CPK: Plan: No muscle pain to definitively diagnose rhabdomyolysis although history from patient is unreliable. Not down trending with increased IV fluids. - Continue to monitor daily -> Down to normal by 04/24. (4) Oropharyngeal dysphagia: Plan: RECYCLING SPECIALIST consulted due to choking noticed by his . Seen on 04/24 with following recs: * Pureed diet * Full supervision with meals * Usual aspiration precautions, including alternative solids and liquids, fully alert and upright for meals, good oral hygeine * Make sure mouth is clear after meals * Small, frequent meals * RECYCLING SPECIALIST outpatient follow-up (5) Altered mental status: Plan: Acute sudden change in mental status. Differential as above. (6) Dementia: Plan: Near baseline from 's description. Attempts to read the paper, but retention is limited. Has to have issues re-iterated to him frequently. - Continue memantine, rivastigmine. (7) Obstructive sleep apnea: Plan: - CPAP at night. - May use own CPAP if his brings one in (8) Benign prostatic hyperplasia: Plan: - Continue Flomax and Avodart, continue straight caths 4 times per day. (9) Parkinsonism: Plan: - Gait disturbance, ambulates with assistance from or independently. - Never been on specific medication for movement as this has apparently not been an issue and more Lewy body dementia. (10) Depression with anxiety: Plan: - Stable, continue Zoloft. (11) Allergic rhinitis: Plan: - Stable, continue Flonase, Zyrtec. Plan: DVT ppx: Lovenox 40mg SQ daily Admission and Anticipated Discharge Date Admission Date: April 20, 2022 Subjective Some better today. Seems to wake up more easily. Reports no fevers/chills, chest pain, shortness of breath, abdominal pain, nausea, or vomiting. Physical Exam Constitutional: WD/WN, vitals as above Eyes: EOM intact bilaterally; no conjunctival abnormality ENMT: external ear and nose normal, oropharynx normal Neck: trachea midline, no thyromegaly normal visual inspection Respiratory: normal respiratory effort, lungs clear to auscultation no respiratory distress Cardiovascular: RRR, no murmur, no edema Gastrointestinal (Abdomen): Inspection/Auscultation: abdomen normal to inspection; abdomen not distended Musculoskeletal: no cyanosis or clubbing, extremities motor strength 5/5 Skin: no rashes, warm and dry Neurologic: moves all extremities and awake Psychiatric: Orientation: alert, oriented to person and cooperative; + not oriented to place and + not oriented to time Results & Data Results & Data ([facility]) Vital Signs (Past 12 Hours) Vital Signs Temp Pulse Pulse Resp BP Pulse Ox 04/25/22 15:19 36.9 C 74 18 146/68 H 94 04/25/22 07:40 36.8 C 56 L 18 102/64 96 04/25/22 07:17 55 L 20 95 PG Care Time/CCT Total # of Minutes Spent Total Time Spent with Patient: Total time spent is greater than 50% in coordination of care (as documented) at patient's floor/unit and/or counseling patient: Coding Level of Care Code 06146 Subseq Hosp Care Lvl 2 Diagnoses Weakness R53.1 Sinusitis J32.9 Elevated CPK R74.8 Oropharyngeal dysphagia R13.12 Altered mental status R41.82 Dementia G31.83; F02.81 Dementia behavioral disturbance: with behavioral disturbance Dementia type: Lewy body dementia Obstructive sleep apnea G47.33 Benign prostatic hyperplasia N40.0 Parkinsonism G20 Depression with anxiety F41.8 Allergic rhinitis J30.9 (1) Dementia Dementia behavioral disturbance: with behavioral disturbance Dementia type: Lewy body dementia Qualified Code(s): G31.83 - Dementia with Lewy bodies; F02.81 - Dementia in other diseases classified elsewhere with behavioral disturbance
[2022-04-25] MEDS: [UNRECOGNIZED DRUG - OTHER] SCH (21:48)
[2022-04-25] MEDS: ENOXAPARIN INJ 40 MG/0.4 ML SYR SQ SCH (21:49)
[2022-04-25] MEDS: CETIRIZINE HCL 10 MG TABLET PO SCH (21:50)
[2022-04-25] MEDS: DUTASTERIDE 0.5 MG CAPSULE PO SCH (21:51)
[2022-04-25] MEDS: MEMANTINE 28 MG PO SCH (21:52)
[2022-04-25] MEDS: MELATONIN 3 MG TAB PO SCH (21:52)
[2022-04-25] MEDS: RIVASTIGMINE 13.3 MG/24 HR TD SCH (21:53)
[2022-04-25] MEDS: SERTRALINE HCL 50 MG TABLET PO SCH (21:53)
[2022-04-25] MEDS: TAMSULOSIN HCL 0.4 MG CAP PO SCH (21:54)
[2022-04-26] MEDS: AMPICILLIN/SULBACTAM SOD 3,000 MG in 0.9 % SODIUM CHLORIDE 100 ML IV SCH ×4 (03:47→21:02)
[2022-04-26] MEDS: FLUTICASONE PROPIONATE NA SPR 16 GM BTL SCH ×2 (07:28→20:33)
[2022-04-26] MEDS: POLYETHYLENE (MIRALAX) 17 GM PACK PO SCH ×2 (07:28→13:56)
[2022-04-26] MEDS: AZELASTINE HCL 0.1% NASAL 200 SPRAYS/27,400 MCG BTL SCH ×2 (07:28→20:33)
--- NOTE | 2022-04-26 11:08 | Hospitalist Progress Note ---
Date of Service April 26, 2022 Assessment & Plan (1) Weakness: Plan: Difficult to definitively point to the COVID-19 booster as a cause since he tolerated the previous vaccinations fine. Decline has really been quick over the last few days as well rather than slowly progressive since the vaccine. No immediate side effects either from the vaccine. - MRI brain with no acute intracranial abnormalities - ? concussion from recent fall a few days ago. thinks this is unlikely as he appeared to be doing fine after this fall. - Prior provider discussed neurology consult given cogwheel rigidity on exam but per note, declined this and wants to see how antibiotics and PT work first and follow up with his usual outpatient neurologist (Dr. Nelson at [place]). Call placed on 04/25 to his office. A fellow returned my call, but she said she will have Dr. Nelson call me. - Given rising WBC and elevated CRP concerning for infection, started Unasyn for potential right maxillary sinusitis. Leukocytosis is improved, so will continue for 10-day course. (2) Sinusitis: Plan: Possible diagnosis as above. - Started Unasyn 04/22 - Plan for 10-day treatment course. (3) Elevated CPK: Plan: No muscle pain to definitively diagnose rhabdomyolysis although history from patient is unreliable. Not down trending with increased IV fluids. - Continue to monitor daily -> Down to normal by 04/24. (4) Oropharyngeal dysphagia: Plan: TRIAL JUDGE consulted due to choking noticed by his . Seen on 04/24 with following recs: * Pureed diet * Full supervision with meals * Usual aspiration precautions, including alternative solids and liquids, fully alert and upright for meals, good oral hygeine * Make sure mouth is clear after meals * Small, frequent meals * TRIAL JUDGE outpatient follow-up (5) Altered mental status: Plan: Acute sudden change in mental status. Differential as above. (6) Dementia: Plan: Near baseline from 's description. Attempts to read the paper, but retention is limited. Has to have issues re-iterated to him frequently. - Continue memantine, rivastigmine. (7) Obstructive sleep apnea: Plan: - CPAP at night. - May use own CPAP if his brings one in (8) Benign prostatic hyperplasia: Plan: - Continue Flomax and Avodart, continue straight caths 4 times per day. (9) Parkinsonism: Plan: - Gait disturbance, ambulates with assistance from or independently. - Never been on specific medication for movement as this has apparently not been an issue and more Lewy body dementia. (10) Depression with anxiety: Plan: - Stable, continue Zoloft. (11) Allergic rhinitis: Plan: - Stable, continue Flonase, Zyrtec. Plan: DVT ppx: Lovenox 40mg SQ daily Admission and Anticipated Discharge Date Admission Date: April 20, 2022 Subjective Some less energy today. Reports no fevers/chills, chest pain, shortness of breath, abdominal pain, nausea, or vomiting. Physical Exam Constitutional: WD/WN, vitals as above Eyes: EOM intact bilaterally; no conjunctival abnormality ENMT: external ear and nose normal, oropharynx normal Neck: trachea midline, no thyromegaly normal visual inspection Respiratory: normal respiratory effort, lungs clear to auscultation no respiratory distress Cardiovascular: RRR, no murmur, no edema Gastrointestinal (Abdomen): Inspection/Auscultation: abdomen normal to inspection; abdomen not distended Musculoskeletal: no cyanosis or clubbing, extremities motor strength 5/5 Skin: no rashes, warm and dry Neurologic: moves all extremities and awake Psychiatric: Orientation: alert, oriented to person and cooperative; + not oriented to place and + not oriented to time Results & Data Results & Data ([facility]) Vital Signs (Past 12 Hours) Vital Signs Temp Pulse Pulse Resp BP Pulse Ox 04/26/22 07:00 36.4 C L 758 H 20 119/66 91 04/26/22 03:24 60 19 94 PG Care Time/CCT Total # of Minutes Spent Total Time Spent with Patient: Total time spent is greater than 50% in coordination of care (as documented) at patient's floor/unit and/or counseling patient: Coding Level of Care Code 25728 Subseq Hosp Care Lvl 2 Diagnoses Weakness R53.1 Sinusitis J32.9 Elevated CPK R74.8 Oropharyngeal dysphagia R13.12 Altered mental status R41.82 Dementia G31.83; F02.81 Dementia behavioral disturbance: with behavioral disturbance Dementia type: Lewy body dementia Obstructive sleep apnea G47.33 Benign prostatic hyperplasia N40.0 Parkinsonism G20 Depression with anxiety F41.8 Allergic rhinitis J30.9 (1) Dementia Dementia behavioral disturbance: with behavioral disturbance Dementia type: Lewy body dementia Qualified Code(s): G31.83 - Dementia with Lewy bodies; F02.81 - Dementia in other diseases classified elsewhere with behavioral disturbance
[2022-04-26] MEDS ORDERED: Nursing to Pharmacy Communication SCH (14:00)
[2022-04-26] MEDS ORDERED: POLYETHYLENE (MIRALAX) 17 GM PACK PO PRN (14:00)
[2022-04-26] MEDS ORDERED: NURSING DECISION MEDICATION ONE (14:39)
[2022-04-26] MEDS ORDERED: MICONAZOLE NITRATE POWDER 43 GM EXT PRN (14:44)
--- NOTE | 2022-04-26 19:27 | XRay Report ---
XR chest 1V portable CLINICAL HISTORY: Possible aspiration COMPARISON STUDY: Chest radiograph April 20, 2022. FINDINGS: No pneumothorax or pleural effusion is noted. There is no evidence for pulmonary edema. Car diac size is within normal limits. There are mild bibasilar opacities. The second image represents a hypoventilatory study. IMPRESSION: Mild bibasilar opacities. Atelectasis is favored. An infectious process could appear sim ilar although is considered less likely. ACT 112: Negative or not required by law. Electronically signed by: Xiang Potts M.D. 04/26/2022 7:25 PM
[2022-04-26 19:51] LABS: CK Total 801 U/L (44-196); CK-MB 0 % (<5); CK-MM 100 % (95-100)
[2022-04-26] MEDS: [UNRECOGNIZED DRUG - OTHER] SCH (20:31)
[2022-04-26] MEDS: RIVASTIGMINE 13.3 MG/24 HR TD SCH (20:32)
[2022-04-26] MEDS: DUTASTERIDE 0.5 MG CAPSULE PO SCH (20:34)
[2022-04-26] MEDS: MEMANTINE 28 MG PO SCH (20:35)
[2022-04-26] MEDS: ENOXAPARIN INJ 40 MG/0.4 ML SYR SQ SCH (20:36)
[2022-04-26] MEDS: CETIRIZINE HCL 10 MG TABLET PO SCH (20:36)
[2022-04-26] MEDS: SERTRALINE HCL 50 MG TABLET PO SCH (20:37)
[2022-04-26] MEDS: MELATONIN 3 MG TAB PO SCH (20:37)
[2022-04-26] MEDS: TAMSULOSIN HCL 0.4 MG CAP PO SCH (20:37)
[2022-04-27] MEDS: AMPICILLIN/SULBACTAM SOD 3,000 MG in 0.9 % SODIUM CHLORIDE 100 ML IV SCH ×2 (02:46→08:34)
[2022-04-27] MEDS: FLUTICASONE PROPIONATE NA SPR 16 GM BTL SCH (08:31)
[2022-04-27] MEDS: AZELASTINE HCL 0.1% NASAL 200 SPRAYS/27,400 MCG BTL SCH (08:31)
--- NOTE | 2022-04-27 18:44 | Discharge Summary ---
Date of Service April 27, 2022 Admission HPI Per Admitting Provider Mr. Crawley is an 86-year-old male with past medical history significant for dementia, Parkinson's, BPH requiring straight cath, depression/anxiety, and allergic rhinitiswho presents today for evaluation of generalized weakness. Patient received a COVID booster shot approximately 6 days ago, since then has felt generally weak, unable to ambulate is easily. Last evening, his tried to help him get into bed, however could not therefore she had to let him sleep on the ground overnight. She is his primary caregiver, they do not have family local, other than patient's elderly siblings who live in [place]. He is otherwise with been without complaints, fever/chills,. chest pain, palpitations, shortness of breath, cough, abdominal pain, nausea, vomiting. In ED, he is bradycardic heart rate in 50s, otherwise vital signs within normal limits and stable. Labs largely unremarkable, significant for CK 986. HS trop 5.4, renal function stable. Electrolytes within normal limits. No leukocytosis. UA without evidence of infection. CXR, head CT and head/neck CTA all unremarkable. Principal Diagnosis Weakness Discharge Exam Constitutional WD/WN, vitals as above Eyes EOM intact bilaterally; no conjunctival abnormality ENMT external ear and nose normal, oropharynx normal Neck trachea midline, no thyromegaly normal visual inspection Respiratory normal respiratory effort, lungs clear to auscultation no respiratory distress Cardiovascular RRR, no murmur, no edema Gastrointestinal (Abdomen) Inspection/Auscultation: abdomen normal to inspection; abdomen not distended Musculoskeletal no cyanosis or clubbing, extremities motor strength 5/5 Skin no rashes, warm and dry Neurologic moves all extremities and awake Psychiatric Orientation: alert, oriented to person and cooperative; + not oriented to place and + not oriented to time Discharge Data Allergies Allergy/AdvReac Type Severity Reaction Status Date / Time No Known Allergies Allergy Verified 04/20/22 11:54 Consultations 04/20/22 12:54 ED Decision to Admit Stat Ordered Studies 04/20/22 09:36 CT angio head w con Stat CT angio neck with con Stat CT head/brain wo con Stat 04/21/22 16:34 MR brain wo con Urgent Hospital Course (1) Weakness: Difficult to definitively point to the COVID-19 booster as a cause since he tolerated the previous vaccinations fine. Decline has really been quick over the last few days as well rather than slowly progressive since the vaccine. No immediate side effects either from the vaccine. - MRI brain with no acute intracranial abnormalities - ? concussion from recent fall a few days ago. thinks this is unlikely as he appeared to be doing fine after this fall. - Prior provider discussed neurology consult given cogwheel rigidity on exam but per note, declined this and wants to see how antibiotics and PT work first and follow up with his usual outpatient neurologist (Dr. Nelson at [place]). Call placed on 04/25 to his office. Spoke with Dr. Nelson on 04/26 - Agreed with the general plan; no change in management. Can follow-up at the scheduled June appointment or earlier if needed. - Given rising WBC and elevated CRP concerning for infection, started Unasyn for potential right maxillary sinusitis. Leukocytosis is improved, so will continue for 10-day course. Discharged on remaining Augmentin. (2) Sinusitis: Possible diagnosis as above. - Started Unasyn 04/22 - Plan for 10-day treatment course. (3) Elevated CPK: No muscle pain to definitively diagnose rhabdomyolysis although history from patient is unreliable. Not down trending with increased IV fluids. - Continue to monitor daily -> Down to normal by 04/24. (4) Oropharyngeal dysphagia: TOURIST GUIDE consulted due to choking noticed by his . Seen on 04/24 with following recs: * Pureed diet * Full supervision with meals * Usual aspiration precautions, including alternative solids and liquids, fully alert and upright for meals, good oral hygeine * Make sure mouth is clear after meals * Small, frequent meals * TOURIST GUIDE outpatient follow-up (5) Altered mental status: Acute sudden change in mental status. Differential as above. (6) Dementia: Near baseline from 's description. Attempts to read the paper, but retention is limited. Has to have issues re-iterated to him frequently. - Continue memantine, rivastigmine. (7) Obstructive sleep apnea: - CPAP at night. - May use own CPAP if his brings one in (8) Benign prostatic hyperplasia: - Continue Flomax and Avodart, continue straight caths 4 times per day. (9) Parkinsonism: - Gait disturbance, ambulates with assistance from or independently. - Never been on specific medication for movement as this has apparently not been an issue and more Lewy body dementia. (10) Depression with anxiety: - Stable, continue Zoloft. (11) Allergic rhinitis: - Stable, continue Flonase, Zyrtec. DVT ppx: Lovenox 40mg SQ daily Total Time Total Time Spent Total Time Spent (In Minutes): 45 Discharge Plan Discharge Items Patient Disposition: Transfer Care Home Fac Reason For Visit: FAILURE TO THRIVE Discharge Diagnosis: Weakness - Possibly due to sinusitis infection Activity: Resume your previous activity Non-emergency contact: Primary Care Provider Call non-emergency contact if: your symptoms worsen Follow-up/Referrals: Colt Yusuf DO [Primary Care Provider] - Diet: Regular Diet Texture: Pureed (blended smooth) Addtl Attending Provider Instructions: Mr. Crawley was admitted with weakness of about 1 week's duration. He was checked for stroke, metabolic, and infectious causes of his decline. A right maxillary sinusitis was the only cause found, and he was started on IV Unasyn. He will be discharged on Augmentin until 05/02. TOURIST GUIDE consulted due to choking noticed by his . Seen on 04/24 with following recs: * Pureed diet * Full supervision with meals * Usual aspiration precautions, including alternative solids and liquids, fully alert and upright for meals, good oral hygeine * Make sure mouth is clear after meals * Small, frequent meals * TOURIST GUIDE outpatient follow-up His care was discussed with Dr. Nelson from [facility] who has plans to follow up with him in June or sooner if desired by family. Pending Studies at Discharge: No Stand-Alone Forms: My [facility] Skilled Items Patient informed of condition?: Yes DNR: No Discharge Level of Care: Skilled Communicable Disease: No Discharge Prognosis: Stable Lines: None Urinary Catheter: No Medications and DC Order Prescriptions: New amoxicillin-pot clavulanate 875-125 mg tablet 1 tab PO BID Qty: 10 RF: 0 Continued fluticasone propionate 50 mcg/actuation spray,suspension 1 spray intranasal Q12H Qty: 16 RF: 2 azelastine 137 mcg (0.1 %) aerosol,spray 2 spray intranasal BID Qty: 30 RF: 5 dutasteride 0.5 mg capsule 0.5 mg PO HS RF: 0 rivastigmine 13.3 mg/24 hour patch 24 hour 13.3 mg topical HS RF: 0 cetirizine [Zyrtec] 10 mg Tablet 10 mg PO HS RF: 0 fluocinolone 0.01 % Cream 1 applic TOPICAL DIRECTED PRN (Reason: APPLY TO SCALP) RF: 0 triamcinolone acetonide 0.1 % Cream 1 applic TOPICAL DIRECTED PRN (Reason: APPLY TO ANKLE) RF: 0 ciclopirox 8 % solution 1 applic TOPICAL HS RF: 0 hydrocortisone 1 % Cream 1 applic TOPICAL DIRECTED PRN (Reason: FACIAL AREA) RF: 0 econazole 1 % Cream 1 applic TOPICAL DIRECTED PRN (Reason: APPLY TO FEET) RF: 0 melatonin 5 mg Tablet 5 mg PO HS RF: 0 memantine 28 mg capsule,sprinkle,ER 24hr 28 mg PO HS RF: 0 tamsulosin 0.4 mg capsule 0.4 mg PO HS RF: 0 sertraline 50 mg tablet 50 mg PO HS RF: 0 Discharge Orders: Discharge Order (Routine); Ordered 04/27/22 Ordered By: Lucho Diamond Admission Data Admit Date/Time: 04/20/22 13:43 Attending Provider: Lucho Diamond Admit Provider: Marcus Lara Primary Care Provider: Colt Yusuf Other Providers: [place] ; Lucho Diamond Other Interventions: Discharge Summary Assessment (RN) Last Done: 04/27/22 11:42 Coding Level of Care Code D/C DAY MANAGEMENT >30 MINS Diagnoses Weakness R53.1 Sinusitis J32.9 Elevated CPK R74.8 Oropharyngeal dysphagia R13.12 Altered mental status R41.82 Dementia G31.83; F02.81 Dementia behavioral disturbance: with behavioral disturbance Dementia type: Lewy body dementia Obstructive sleep apnea G47.33 Benign prostatic hyperplasia N40.0 Parkinsonism G20 Depression with anxiety F41.8 Allergic rhinitis J30.9
== END 2022-04-27 12:36 | DRG 153 ==
LOC: ED 08:49 → 2N 13:43 → SUATTDRO 13:43 → 2N 15:55

== ENCOUNTER 2022-06-02 21:38 | Inpatient (IN) ==
[2022-06-02] MEDS ORDERED: SODIUM CHLORIDE 0.9% 1000ML 1,000 ML IV STA (21:49)
[2022-06-02] MEDS ORDERED: CEFEPIME 2,000 MG/20 ML VIAL IV STA (22:12)
[2022-06-02] MEDS ORDERED: VANCOMYCIN CONSULT ACTIVE PRN (22:12)
[2022-06-02] MEDS ORDERED: VANCOMYCIN HCL 2,000 MG in SODIUM CHLORIDE 0.9% 500 ML IV ONE (22:12)
--- NOTE | 2022-06-02 22:18 | XRay Report ---
SINGLE VIEW CHEST CLINICAL HISTORY: Change in mental status. FINDINGS: 2 AP, portable, upright chest radiographs are compared to study dated 04/26/2022. The heart is mildly enlarged noting atherosclerotic calcification of the thoracic aorta. The pulmonary vasculat ure is noncongested. There are left basilar opacities. No large pleural effusion or pneumothorax is s een. The skeletal structures are osteopenic. The bony thorax is grossly intact. IMPRESSION: 1. Cardiomegaly without radiographic evidence of congestive failure. 2. Left basilar opacities likely represent atelectasis. Correlate clinically for evidence of an infec tious/inflammatory pneumonitis. ACT 112: Negative or not required by law. Electronically signed by: Jasen Avitia M.D. 06/02/2022 10:17 PM
[2022-06-02 22:25] LABS: Basophils # (auto) 0.02 K/uL (0-0.2); Basophils % (auto) 0.2 %; Eosinophils # (auto) 0.15 K/uL (0-0.50); Eosinophils % (auto) 1.5 %; Hematocrit (blood only) 32.8 % (40.1-51.0); Hemoglobin 11.1 g/dl (14.0-18.0); Immature Granulocytes # (auto) 0.07 K/uL (0.00-0.02); Immature Granulocytes % (auto) 0.7 %; Lymphocytes # (auto) 1.93 K/uL (1.2-3.4); Lymphocytes % (auto) 19.8 %; Mean Corpuscular Hemoglobin 30.2 pg (25.0-34.0); Mean Corpuscular Hgb Conc 33.8 g/dL (32.0-36.0); Mean Corpuscular Volume 89.1 fL (80.0-100.0); Mean Platelet Volume 9.6 fL (9.4-12.4); Monocytes # (auto) 1.25 K/uL (0.24-0.82); Monocytes % (auto) 12.8 %; Neutrophils # (auto) 6.31 K/uL (1.4-6.5); Platelet Count 232 K/uL (130-400); RDW Coefficient of Variation 13.1 % (11.5-14.5); Red Blood Count 3.68 M/uL (4.63-6.08); White Blood Count 9.73 K/ul (4.8-10.8)
[2022-06-02 22:52] LABS: Albumin Globulin Ratio 1.1 (0.9-2); BUN Creatinine Ratio 16.7 (10-20); Bilirubin,Total 0.6 mg/dl (0.2-1.0); Calcium 8.2 mg/dl (8.5-10.1); Creatinine Clr Calc Pharmacy 70.4 ml/min; Est GFR (African American) 89.3 ml/min; Est GFR (Non-African American) 77.1 ml/min; Globulin 2.8 gm/dl (2.5-4.0); Potassium 4.3 mmol/L (3.5-5.1); Total Protein 5.8 gm/dl (6.0-8.3)
[2022-06-02 22:58] LABS: Troponin I High Sensitivity 4.3 pg/ml (0-20)
[2022-06-02 23:36] LABS: Appearance Urine Clear (Clear); Bacteria Urine Automated Negative (Negative); Bilirubin Urine Negative (Negative); Blood Urine Negative (Negative); Color Urine Yellow; Glucose Urine UA Negative (Negative); Ketones Urine Negative (Negative); Leukocyte Esterase Urine 1+ (Negative); Nitrite Urine Negative (Negative); Protein Urine Negative (Negative); Specific Gravity Urine 1.007 (1.000-1.030); Urobilinogen Urine Negative (Negative)
--- NOTE | 2022-06-03 00:13 | CT Scan Report ---
CT abd pelvis wo con CLINICAL HISTORY: lower abd pain TECHNIQUE: Helical axial images of the abdomen and pelvis were obtained. Automated dose lowering tech niques and/or adjustment according to patient size were utilized for this exam. This exam was perfor med without intravenous contrast. COMPARISON: None available at the time of this dictation. FINDINGS: Lower chest: For findings above the diaphragm, please see CT chest performed same day. Liver: Multiple hepatic cysts are seen bilaterally. Gallbladder and biliary tree: Cholelithiasis is seen without evidence of cholecystitis. No intra- or extrahepatic biliary ductal dilation. Pancreas: Unremarkable, no focal lesions. Spleen: Unremarkable. Adrenals: Unremarkable. Kidneys and ureters: Nonobstructive nephrolithiasis is seen. Bladder: Durbin catheter is seen. Reproductive organs: Unremarkable. Bowel: A large stool ball is seen in the rectum. No definite wall thickening is seen to suggest enter ocolitis. Numerous diverticula are seen. The appendix is normal. Lymph nodes Retroperitoneal: Unremarkable. Pelvic: Unremarkable. Mesenteric: Unremarkable. Peritoneum: Normal. Vessels: Atherosclerotic calcifications are seen. Abdominal wall: A fat-containing umbilical hernia is seen. Bones: Degenerative changes in the visualized spine. No evidence of acute fracture. IMPRESSION: 1. No acute abnormality and in particular no evidence of intra-abdominal hematoma. 2. Large stool ball in the rectum without evidence of cervical colitis. 3. Additional findings as above. ACT 112: Negative or not required by law. Electronically signed by: Donnie Bell M.D. 06/03/2022 12:10 AM
--- NOTE | 2022-06-03 01:18 | History & Physical Report ---
Date of Service June 03, 2022 Assessment & Plan (1) Acute UTI (urinary tract infection): Plan: Recent urinalysis and urine culture of 05/29/2022 growing Enterococcus faecalis and MRSA Urine culture from 05/11/2022 growing Citrobacter, sensitive to cefepime Continue vancomycin IV and cefepime IV begun in the ED Lactated Ringer's at 80 mils per hour x1 L (2) Enterococcus faecalis infection: Plan: See above (3) MRSA (methicillin resistant Staphylococcus aureus) infection: Plan: See above (4) Oropharyngeal dysphagia: (5) Dementia: Plan: Dementia/depression/parkinsonism- Continue rivastigmine, sertraline and melatonin (6) Obstructive sleep apnea: Plan: CPAP at bedtime (7) Benign prostatic hyperplasia: Plan: Continue tamsulosin 0.4 mg and dutasteride 0.5 mg at bedtime (8) Parkinsonism: Plan: See above (9) Depression with anxiety: Plan: See above History of Present Illness Chief Complaint: The patient presents to the ED with family reporting worsening confusion over the past few days. Primary Care Provider: Colt Yusuf DO The patient is an 86 yo male with a PMH including UTI's, oropharyngeal dysphagia, neurogenic bladder, allergic rhinitis, ED, urinary retention, dementia, MAGGIE on CPAP, BPH with LUTS, depression with anxiety, dyslipidemia, and Parkinsonism. He was diagnosed with a UTI on 05/29/22 which ultimately grew enterococcus faecalis and MRSA. He received Vanco IV and Cefepime IV from the ED, and was referred for eval for admission. Allergies Allergy/AdvReac Type Severity Reaction Status Date / Time No Known Allergies Allergy Verified 06/03/22 02:01 Home Medications Medication Instructions Recorded Confirmed Type cetirizine 10 mg tablet (Zyrtec) 10 mg PO HS 03/07/21 06/03/22 History dutasteride 0.5 mg capsule 0.5 mg PO HS 03/07/21 06/03/22 History rivastigmine 13.3 mg/24 hour 13.3 mg topical HS 03/07/21 06/03/22 History transdermal patch fluticasone propionate 50 1 spray intranasal Q12H #16 grams 11/24/21 06/03/22 Rx mcg/actuation nasal spray,suspension ciclopirox 8 % topical solution 1 applic topical HS PRN nails 04/20/22 06/03/22 History econazole 1 % topical cream 1 applic topical DIRECTED PRN 04/20/22 06/03/22 History APPLY TO FEET fluocinolone 0.01 % topical cream 1 applic topical DIRECTED PRN 04/20/22 06/03/22 History APPLY TO SCALP hydrocortisone 1 % topical cream 1 applic topical DIRECTED PRN 04/20/22 06/03/22 History FACIAL AREA melatonin 5 mg tablet 5 mg PO HS 04/20/22 06/03/22 History memantine 28 mg capsule 28 mg PO HS 04/20/22 06/03/22 History sprinkle,extended release 24hr sertraline 50 mg tablet 50 mg PO HS 04/20/22 06/03/22 History tamsulosin 0.4 mg capsule 0.4 mg PO HS 04/20/22 06/03/22 History triamcinolone acetonide 0.1 % 1 applic topical DIRECTED PRN 04/20/22 06/03/22 History topical cream APPLY TO ANKLE azelastine 137 mcg (0.1 %) nasal 2 spray intranasal BID PRN Nasal 06/03/22 06/03/22 History spray aerosol Congestion doxycycline hyclate 100 mg capsule 100 mg PO BID 06/03/22 06/03/22 History Past Med/Surg History Medical History Benign prostatic hyperplasia Followed by [facility] urology. Carotid artery plaque Dementia followed by Neurology Depression with anxiety Dyslipidemia Hearing loss Obstructive sleep apnea Cpap, followed by Dr. 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 Surgical History H/O colonoscopy Family History Mother Alzheimer disease Brother Arthritis Nonorganic sleep disorder Father Emphysema, unspecified Brother Leukemia Social History Smoking Status: Never smoker Second Hand Exposure: No; Hx Alcohol Use: No Hx Substance Use: No Preferred Language: Italian Communication Ability: Impaired Visual Impairment: Limited Hearing Ability: Use of Hearing Aid Beliefs That Will Affect Care: None marital status: Current Living Situation: Spouse Current Living Situation Comment: lives in single story home with his current occupational status: retired Feels Safe at Home: Yes caffeine: Yes Dental Care, Regularly: Yes Physical Activity Frequency: 1-2 Times per Week Seatbelt Use: always Sunscreen Use: Yes Assistive Devices: CPAP, Glasses and Hearing Aid - Bilateral Review of Systems Review of Systems: Review of systems is limited due to patient's current mental status Physical Exam Physical Exam: The patient opens eyes to name being called, well developed and well nourished, normocephalic and atraumatic, lying in bed and in no acute distress. HEENT--PERRL, EOMI, mucous membranes and oropharynx dry. Neck--supple. No JVD. No bruits. Thyroid normal, trachea midline, no adenopathy. Heart--normal S1 and S2. No murmurs, rubs or gallops. Lungs--clear bilaterally, no respiratory distress, no accessory muscle use. Abdomen--normal bowel sounds and soft. Nontender. Nondistended, no hernias or masses, no organomegaly. Extremities--no cyanosis or clubbing. No edema. Dermatologic--normal skin turgor, normal color, no abnormal lymph nodes, no rash. Neurologic--cranial nerves II through XII grossly intact. Rheumatologic--limited exam Psychiatric--lethargic Results & Data Results & Data ([facility]) Vital Signs (Past 12 Hours) Vital Signs Temp Pulse Pulse Resp BP BP Pulse Ox 06/03/22 01:16 61 16 122/61 98 06/02/22 23:30 57 L 18 129/62 97 06/02/22 22:26 37.1 C 54 L 19 129/61 97 06/02/22 22:26 37.1 C 63 19 129/61 93 O2 Del Method 06/03/22 01:16 Room Air 06/02/22 23:30 Room Air 06/02/22 22:26 Room Air 06/02/22 22:26 Room Air Laboratory Results Laboratory Results WBC 9.73 K/ul (4.8-10.8) 06/02/22 22:08 RBC 3.68 M/uL (4.63-6.08) L 06/02/22 22:08 Hgb 11.1 g/dl (14.0-18.0) L 06/02/22 22:08 Hct 32.8 % (40.1-51.0) L 06/02/22 22:08 MCV 89.1 fL (80.0-100.0) 06/02/22 22:08 MCH 30.2 pg (25.0-34.0) 06/02/22 22:08 MCHC 33.8 g/dL (32.0-36.0) 06/02/22 22:08 RDW Std Deviation 43.0 fL (36.4-46.3) 06/02/22 22:08 RDW Coeff of Rodolfo 13.1 % (11.5-14.5) 06/02/22 22:08 Plt Count 232 K/uL (130-400) 06/02/22 22:08 MPV 9.6 fL (9.4-12.4) 06/02/22 22:08 Immature Gran % (Auto) 0.7 % 06/02/22 22:08 Neut % (Auto) 65.0 % 06/02/22 22:08 Lymph % (Auto) 19.8 % 06/02/22 22:08 [place] % (Auto) 12.8 % 06/02/22 22:08 Eos % (Auto) 1.5 % 06/02/22 22:08 Baso % (Auto) 0.2 % 06/02/22 22:08 Neut # (Auto) 6.31 K/uL (1.4-6.5) 06/02/22 22:08 Lymph # (Auto) 1.93 K/uL (1.2-3.4) 06/02/22 22:08 [place] # (Auto) 1.25 K/uL (0.24-0.82) H 06/02/22 22:08 Eos # (Auto) 0.15 K/uL (0-0.50) 06/02/22 22:08 Baso # (Auto) 0.02 K/uL (0-0.2) 06/02/22 22:08 Immature Gran # (Auto) 0.07 K/uL (0.00-0.02) H 06/02/22 22:08 Sodium 133 mmol/L (136-145) L 06/02/22 22:08 Potassium 4.3 mmol/L (3.5-5.1) 06/02/22 22:08 Chloride 101 mmol/L (98-107) 06/02/22 22:08 Carbon Dioxide 26 mmol/L (21-32) 06/02/22 22:08 Anion Gap 6 (3-11) 06/02/22 22:08 BUN 15 mg/dl (6-23) 06/02/22 22:08 Creatinine 0.90 mg/dl (0.6-1.4) 06/02/22 22:08 Est Cr Clr Drug Dosing 70.4 ml/min 06/02/22 22:08 Est GFR ( Amer) 89.3 ml/min 06/02/22 22:08 Est GFR (Non-Af Amer) 77.1 ml/min 06/02/22 22:08 BUN/Creatinine Ratio 16.7 (10-20) 06/02/22 22:08 Glucose 109 mg/dl (70-99(Fasting)) H 06/02/22 22:08 Lactate 0.8 mmol/L (0.4-2.0) 06/02/22 22:08 Calcium 8.2 mg/dl (8.5-10.1) L 06/02/22 22:08 Total Bilirubin 0.6 mg/dl (0.2-1.0) 06/02/22 22:08 AST 12 U/L (13-39) L 06/02/22 22:08 ALT 11 U/L (7-52) 06/02/22 22:08 Alkaline Phosphatase 48 U/L (34-104) 06/02/22 22:08 Troponin I High Sens 4.3 pg/ml (0-20) 06/02/22 22:08 Total Protein 5.8 gm/dl (6.0-8.3) L 06/02/22 22:08 Albumin 3.0 gm/dl (3.4-5.0) L 06/02/22 22:08 Globulin 2.8 gm/dl (2.5-4.0) 06/02/22 22:08 Albumin/Globulin Ratio 1.1 (0.9-2) 06/02/22 22:08 Lipase 11 U/L (11-82) 06/02/22 22:08 Procalcitonin < 0.05 ng/ml (0-0.5) 06/02/22 22:08 Urine Color Yellow 06/02/22 23: Urine Appearance Clear (Clear) 06/02/22 23:26 Urine pH 7.0 (4.5-7.5) 06/02/22 23:26 Ur Specific [place] 1.007 (1.000-1.030) 06/02/22 23:26 Urine Protein Negative (Negative) 06/02/22 23:26 Urine Glucose (UA) Negative (Negative) 06/02/22 23: Urine Ketones Negative (Negative) 06/02/22 23: Urine Blood Negative (Negative) 06/02/22 23: Urine Nitrite Negative (Negative) 06/02/22 23: Urine Bilirubin Negative (Negative) 06/02/22 23: Urine Urobilinogen Negative (Negative) 06/02/22 23: Ur Leukocyte Esterase 1+ (Negative) H 06/02/22 23:26 Urine WBC (Auto) 10-30 /hpf (0-5) H 06/02/22 23: Urine RBC (Auto) 10-30 /hpf (0-4) H 06/02/22 23:26 U Hyaline Cast (Auto) 1-5 /lpf (0-5) 06/02/22 23: U Epithel Cells (Auto) 10-20 /lpf (0-5) H 06/02/22 23:26 Urine Bacteria (Auto) Negative (Negative) 06/02/22 23:26 SARS-CoV-2, RNA, NAAT NEGATIVE (NEGATIVE) 06/03/22 00:25 Impressions Chest X-Ray 06/02/22 21:49 SINGLE VIEW CHEST CLINICAL HISTORY: Change in mental status. FINDINGS: 2 AP, portable, upright chest radiographs are compared to study dated 04/26/2022. The heart is mildly enlarged noting atherosclerotic calcification of the thoracic aorta. The pulmonary vasculature is noncongested. There are left basilar opacities. No large pleural effusion or pneumothorax is seen. The skeletal structures are osteopenic. The bony thorax is grossly intact. IMPRESSION: 1. Cardiomegaly without radiographic evidence of congestive failure. 2. Left basilar opacities likely represent atelectasis. Correlate clinically for evidence of an infectious/inflammatory pneumonitis. ACT 112: Negative or not required by law. Electronically signed by: Jasen Avitia M.D. 06/02/2022 10:17 PM Abdomen/Pelvis CT 06/02/22 22:11 CT abd pelvis wo con CLINICAL HISTORY: lower abd pain TECHNIQUE: Helical axial images of the abdomen and pelvis were obtained. Automated dose lowering techniques and/or adjustment according to patient size were utilized for this exam. This exam was performed without intravenous contrast. COMPARISON: None available at the time of this dictation. FINDINGS: Lower chest: For findings above the diaphragm, please see CT chest performed same day. Liver: Multiple hepatic cysts are seen bilaterally. Gallbladder and biliary tree: Cholelithiasis is seen without evidence of cholecystitis. No intra- or extrahepatic biliary ductal dilation. Pancreas: Unremarkable, no focal lesions. Spleen: Unremarkable. Adrenals: Unremarkable. Kidneys and ureters: Nonobstructive nephrolithiasis is seen. Bladder: Durbin catheter is seen. Reproductive organs: Unremarkable. Bowel: A large stool ball is seen in the rectum. No definite wall thickening is seen to suggest enterocolitis. Numerous diverticula are seen. The appendix is normal. Lymph nodes Retroperitoneal: Unremarkable. Pelvic: Unremarkable. Mesenteric: Unremarkable. Peritoneum: Normal. Vessels: Atherosclerotic calcifications are seen. Abdominal wall: A fat-containing umbilical hernia is seen. Bones: Degenerative changes in the visualized spine. No evidence of acute fracture. IMPRESSION: 1. No acute abnormality and in particular no evidence of intra-abdominal hematoma. 2. Large stool ball in the rectum without evidence of cervical colitis. 3. Additional findings as above. ACT 112: Negative or not required by law. Electronically signed by: Donnie Bell M.D. 06/03/2022 12:10 AM Diagnostic Findings [facility] Patient: CELENA NUNES (Male) : 35 Status: ER Date: 06/03/22 00:03 Room #: History: ALTERED MENTAL STATUS , CONFUSION , ABD PAIN , UTI , UNABLE TO RAISE ARMS , UNABLE TO VERIFY APPENDIX [facility] Slices: [phone] Priors: Satya: Sathish Rosales @ [phone] Exams: CT HEAD, CT ABDOMEN & PELVIS Without Contrast Contrast: Accession Numbers: [id number], [id number] Referring Physician: REFERRED SELF Preliminary Findings Only See Final Report For Complete Findings CT HEAD: Prior 04/20/2022. No evidence of acute intracranial abnormality. Volume loss and small vessel disease, stable. Completely opacified right maxillary sinus similar to the prior. CT ABDOMEN & PELVIS Without Contrast: Normal appendix. Large amount of stool within distended rectum. Mild perirectal/presacral fat stranding. Correlate for stercoral colitis. Colonic diverticulosis. No free air, free fluid or bowel obstruction. Durbin catheter in decompressed bladder. Bladder wall appears thickened despite collapsed appearance. Surrounding fat stranding. Correlate for cystitis. Malignancy not excluded. Limited evaluation. Mild fullness of the left renal collecting system. Ureters however are not dilated. No obvious obstructing etiology. Correlate with priors and also for infection. Liver low-density lesion Cholelithiasis. Radiologist: Yefri Greenberg M.D. Study ready at 00:09 and initial results transmitted at 00:34 *This report constitutes a preliminary interpretation only. Non-acute findings felt to be unrelated to the clinical presentation may not be discussed in this report. The study will be interpreted and a final report will be generated by the local Radiologist the following shift. To reach the hospital radiology department call [phone]. Code Status & VTE Plan Code Status full code VTE Prophylaxis Plan VTE Prophylaxis will be ordered: Yes PG Care Time/CCT Total # of Minutes Spent Total Time Spent with Patient: Total time spent is greater than 50% in coordination of care (as documented) at patient's floor/unit and/or counseling patient: Coding Level of Care Code 23128 Initial Inpt Care Lvl 3 Diagnoses Acute UTI (urinary tract infection) N39.0 Enterococcus faecalis infection B95.2 MRSA (methicillin resistant Staphylococcus aureus) infection A49.02 Oropharyngeal dysphagia R13.12 Dementia G31.83; F02.81 Dementia behavioral disturbance: with behavioral disturbance Dementia type: Lewy body dementia Obstructive sleep apnea G47.33 Benign prostatic hyperplasia N40.0 Parkinsonism G20 Depression with anxiety F41.8 (1) Dementia Dementia behavioral disturbance: with behavioral disturbance Dementia type: Lewy body dementia Qualified Code(s): G31.83 - Dementia with Lewy bodies; F02.81 - Dementia in other diseases classified elsewhere with behavioral disturbance
--- NOTE | 2022-06-03 01:19 | Emergency Department Note ---
Impression & Plan Altered mental status, Acute UTI (urinary tract infection), Pneumonia ED Provider Note INFORMANT: Patient and daughter ED PROVIDER(S): Romero Courtney MD CHIEF COMPLAINT: Change in mental status PLAN: Disposition: Admitted Condition: Guarded Outpatient prescription management: none Referral: None MEDICAL DECISION MAKING: Patient presented with declining mental status. He was found to have a urinary tract infection which was somewhat complicated. Antibiotics were started yesterday orally. Despite that his condition continued to worsen and he was brought to the ER. Blood work including cultures were performed. Urinalysis also obtained and cultured. The patient's cultures were reviewed. In light of his change in mental status, x-ray, and dual infection on the urine culture he was given IV vancomycin and cefepime. His CBC and chemistry panels were rather unremarkable. Lactate was negative. He had a mild anemia on his H&H. CT imaging of the head did not reveal any significant acute findings. Patient had some findings of the abdomen pelvis that may be consistent with a stercoral colitis. Further management in the hospital will be necessary. I gave my usual and customary discussion regarding this issue. Consultation was made with Dr. Macario Guzman of the [facility] service. Patient was evaluated in the ER for further management. Triage Nursing notes reviewed and agree them. Vital Signs: reviewed and remarkable for no significant abnormalities Differential diagnosis: Infection, hypoglycemia, electrolyte abnormalities, overdose, toxicologic, cardiac sources, intracerebral event, neurologic, trauma, as well as other pathologies. Diagnostics interpreted by me: EC Lead ECG performed and revealed Normal sinus rhythm at 84, normal [place], QRS normal. No elevation or depression. No PACs or PVCs Cardiac Monitoring: Cardiac monitoring ordered by me: The patient was placed on continuous cardiac monitoring and observed. It revealed a normal sinus rhythm at 60 beats per minute without ectopy or evidence of dysrhythmia. Imaging studies: Chest x-ray concerning for mild left lower lobe infiltrate versus atelectasis. HPI: The patient is a 86 year old male who presents to the Emergency Room with change in mental status. Daughter is present helps with history. Patient was recently discharged from [place] care and urine sample taken at that time this week was found to be positive for UTI. Culture revealed Enterococcus and MRSA. Patient was started on doxycycline yesterday after results were found. Daughter states since discharge she has had progressive decline but it is worsened over the last day or so. The patient also notes the following associated symptoms, suprapubic abdominal pain, generalized weakness. The patient has taken no other medication for relieving factors. Current pain is rated as 0/10. Daughter states he has had minimal cough. Pt denies LOC, headache, fevers, chills, diaphoresis, visual changes, neck pain, chest pain, breathing difficulties, nausea, vomiting, back pain, melena, hematochezia, numbness, lymphadenopathy, rash, or other complaints. ROS: See above HPI for pertinent positives & negatives. A total of 10 systems reviewed and were otherwise negative. PAST MEDICAL HISTORY:See Below , UTI, parkinsonism PAST SURGICAL HISTORY:See Below, FAMILY HISTORY:See Below SOCIAL HISTORY:See Below, retired HOME MEDICATIONS:See Below ALLERGIES:See Below VITALS:See Below PHYSICAL EXAMINATION: GENERAL: Tired, nontoxic appearing, in no distress HENT: Normocephalic, atraumatic. Oropharynx unremarkable except for mildly dry mucous membrane. EYES: Normal conjunctiva. Sclera non-icteric. NECK: Inspection normal. Non-tender. Supple. No nuchal rigidity. FROM. No masses. RESPIRATORY: Clear to auscultation. No wheezes. No rales. Normal respiratory effort. CARDIAC: Normal rate. Normal rhythm. No murmurs. No rubs. Extremities warm and well perfused. Pulses equal. No JVD. GI: Soft, non-distended. Mild suprapubic tenderness to palpation. No rebound or guarding. No masses. RECTAL: Deferred. MUSCULOSKELETAL: Atraumatic. Chest examination reveals no tenderness. The back is symmetrical on inspection without obvious abnormality. There is no CVA tend erness to palpation. No joint edema. LOWER EXTREMITIES: Calves are equal size bilaterally and non-tender. No edema. No discoloration. NEURO: Normal sensorium. No sensory or motor deficits noted. SKIN: No rash or jaundice noted. Romero Courtney MD Past Med/Surg History Medical History Benign prostatic hyperplasia Followed by [facility] urology. Carotid artery plaque Dementia followed by Neurology Depression with anxiety Dyslipidemia Hearing loss Obstructive sleep apnea Cpap, followed by Dr. 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 Surgical History H/O colonoscopy Family History Mother Alzheimer disease Brother Arthritis Nonorganic sleep disorder Father Emphysema, unspecified Brother Leukemia Social History Smoking Status: Never smoker Second Hand Exposure: No; Hx Alcohol Use: No Hx Substance Use: No Preferred Language: [place] Communication Ability: Impaired Visual Impairment: Limited Hearing Ability: Use of Hearing Aid Beliefs That Will Affect Care: None marital status: Current Living Situation: Spouse Current Living Situation Comment: lives in single story home with his current occupational status: retired Feels Safe at Home: Yes caffeine: Yes Dental Care, Regularly: Yes Physical Activity Frequency: 1-2 Times per Week Seatbelt Use: always Sunscreen Use: Yes Assistive Devices: CPAP, Glasses and Hearing Aid - Bilateral Allergies Allergies Allergy/AdvReac Type Severity Reaction Status Date / Time No Known Allergies Allergy Verified 04/20/22 11:54 Home Meds Home Medications Medication Instructions Recorded Confirmed cetirizine 10 mg tablet (Zyrtec) 10 mg PO HS 03/07/21 04/20/22 dutasteride 0.5 mg capsule 0.5 mg PO HS 03/07/21 04/20/22 rivastigmine 13.3 mg/24 hour 13.3 mg topical HS 03/07/21 04/20/22 transdermal patch ciclopirox 8 % topical solution 1 applic topical HS 04/20/22 04/20/22 econazole 1 % topical cream 1 applic topical DIRECTED PRN 04/20/22 04/20/22 APPLY TO FEET fluocinolone 0.01 % topical cream 1 applic topical DIRECTED PRN 04/20/22 04/20/22 APPLY TO SCALP hydrocortisone 1 % topical cream 1 applic topical DIRECTED PRN 04/20/22 04/20/22 FACIAL AREA melatonin 5 mg tablet 5 mg PO HS 04/20/22 04/20/22 memantine 28 mg capsule 28 mg PO HS 04/20/22 04/20/22 sprinkle,extended release 24hr sertraline 50 mg tablet 50 mg PO HS 04/20/22 04/20/22 tamsulosin 0.4 mg capsule 0.4 mg PO HS 04/20/22 04/20/22 triamcinolone acetonide 0.1 % 1 applic topical DIRECTED PRN 04/20/22 04/20/22 topical cream APPLY TO ANKLE Previous Rx's Medication Instructions Recorded fluticasone propionate 50 1 spray intranasal Q12H #16 grams 11/24/21 mcg/actuation nasal spray,suspension azelastine 137 mcg (0.1 %) nasal 2 spray intranasal BID #30 mL 03/06/22 spray aerosol amoxicillin 875 mg-potassium 1 tab PO BID #10 tabs 04/27/22 clavulanate 125 mg tablet Results & Data (ED) Vital Signs Vital Signs - 24 hr 06/02/22 22:26 06/02/22 22:26 06/02/22 23:30 Temperature 37.1 C 37.1 C Temperature Source Rectal Rectal Pulse Rate 63 Pulse Rate [Finger] 54 L 57 L Pulse Rhythm Regular Pulse Rhythm [Finger] Regular Pulse Strength Normal Pulse Strength [Finger] Normal Respiratory Rate 19 19 18 Respiratory Effort / Characteristics Non-Labored Spontaneous Non-Labored Spontaneous Respiratory Depth Normal Normal Respiratory Pattern Blood Pressure 129/61 Blood Pressure [Left Arm] 129/61 129/62 Blood Pressure Mean 83 Blood Pressure Mean [Left Arm] 83 84 Blood Pressure Position Sitting Blood Pressure Position [Left Arm] Lying Lying Pulse Oximetry 93 97 97 Oxygen Delivery Method Room Air Room Air Room Air Sepsis Recent Fever Within 48 Hours Yes Sepsis New/Unexplained Change in Mental Status Yes Sepsis Action Taken by Nursing No Action Required 06/03/22 01:16 Temperature Temperature Source Pulse Rate Pulse Rate [Finger] 61 Pulse Rhythm Pulse Rhythm [Finger] Pulse Strength Pulse Strength [Finger] Respiratory Rate 16 Respiratory Effort / Characteristics Non-Labored Spontaneous Respiratory Depth Normal Respiratory Pattern Regular Blood Pressure Blood Pressure [Left Arm] 122/61 Blood Pressure Mean Blood Pressure Mean [Left Arm] 81 Blood Pressure Position Blood Pressure Position [Left Arm] Semi-fowlers Pulse Oximetry 98 Oxygen Delivery Method Room Air Sepsis Recent Fever Within 48 Hours Sepsis New/Unexplained Change in Mental Status Sepsis Action Taken by Nursing Laboratory Data Result diagrams: 06/02/22 22:08 06/02/22 22:08 Lab Results 06/02/22 06/02/22 06/02/22 Range/Units 22:08 22:08 22:08 WBC 9.73 (4.8-10.8) K/ul RBC 3.68 L (4.63-6.08) M/uL Hgb 11.1 L (14.0-18.0) g/dl Hct 32.8 L (40.1-51.0) % MCV 89.1 (80.0-100.0) fL MCH 30.2 (25.0-34.0) pg MCHC 33.8 (32.0-36.0) g/dL RDW Std Deviation 43.0 (36.4-46.3) fL RDW Coeff of Rodolfo 13.1 (11.5-14.5) % Plt Count 232 (130-400) K/uL MPV 9.6 (9.4-12.4) fL Immature Gran % (Auto) 0.7 % Neut % (Auto) 65.0 % Lymph % (Auto) 19.8 % [place] % (Auto) 12.8 % Eos % (Auto) 1.5 % Baso % (Auto) 0.2 % Neut # (Auto) 6.31 (1.4-6.5) K/uL Lymph # (Auto) 1.93 (1.2-3.4) K/uL [place] # (Auto) 1.25 H (0.24-0.82) K/uL Eos # (Auto) 0.15 (0-0.50) K/uL Baso # (Auto) 0.02 (0-0.2) K/uL Immature Gran # (Auto) 0.07 H (0.00-0.02) K/uL Sodium 133 L (136-145) mmol/L Potassium 4.3 (3.5-5.1) mmol/L Chloride 101 (98-107) mmol/L Carbon Dioxide 26 (21-32) mmol/L Anion Gap 6 (3-11) BUN 15 (6-23) mg/dl Creatinine 0.90 (0.6-1.4) mg/dl Est Cr Clr Drug Dosing 70.4 ml/min Est GFR ( Amer) 89.3 ml/min Est GFR (Non-Af Amer) 77.1 ml/min BUN/Creatinine Ratio 16.7 (10-20) Glucose 109 H (70-99(Fasting)) mg/dl Lactate 0.8 (0.4-2.0) mmol/L Calcium 8.2 L (8.5-10.1) mg/dl Total Bilirubin 0.6 (0.2-1.0) mg/dl AST 12 L (13-39) U/L ALT 11 (7-52) U/L Alkaline Phosphatase 48 (34-104) U/L Troponin I High Sens 4.3 (0-20) pg/ml Total Protein 5.8 L (6.0-8.3) gm/dl Albumin 3.0 L (3.4-5.0) gm/dl Globulin 2.8 (2.5-4.0) gm/dl Albumin/Globulin Ratio 1.1 (0.9-2) Lipase 11 (11-82) U/L Procalcitonin (0-0.5) ng/ml Urine Color Urine Appearance (Clear) Urine pH (4.5-7.5) Ur Specific [place] (1.000-1.030) Urine Protein (Negative) Urine Glucose (UA) (Negative) Urine Ketones (Negative) Urine Blood (Negative) Urine Nitrite (Negative) Urine Bilirubin (Negative) Urine Urobilinogen (Negative) Ur Leukocyte Esterase (Negative) Urine WBC (Auto) (0-5) /hpf Urine RBC (Auto) (0-4) /hpf U Hyaline Cast (Auto) (0-5) /lpf U Epithel Cells (Auto) (0-5) /lpf Urine Bacteria (Auto) (Negative) SARS-CoV-2, RNA, NAAT (NEGATIVE) 06/02/22 06/02/22 06/03/22 Range/Units 22:08 23:26 00:25 WBC (4.8-10.8) K/ul RBC (4.63-6.08) M/uL Hgb (14.0-18.0) g/dl Hct (40.1-51.0) % MCV (80.0-100.0) fL MCH (25.0-34.0) pg MCHC (32.0-36.0) g/dL RDW Std Deviation (36.4-46.3) fL RDW Coeff of Rodolfo (11.5-14.5) % Plt Count (130-400) K/uL MPV (9.4-12.4) fL Immature Gran % (Auto) % Neut % (Auto) % Lymph % (Auto) % [place] % (Auto) % Eos % (Auto) % Baso % (Auto) % Neut # (Auto) (1.4-6.5) K/uL Lymph # (Auto) (1.2-3.4) K/uL [place] # (Auto) (0.24-0.82) K/uL Eos # (Auto) (0-0.50) K/uL Baso # (Auto) (0-0.2) K/uL Immature Gran # (Auto) (0.00-0.02) K/uL Sodium (136-145) mmol/L Potassium (3.5-5.1) mmol/L Chloride (98-107) mmol/L Carbon Dioxide (21-32) mmol/L Anion Gap (3-11) BUN (6-23) mg/dl Creatinine (0.6-1.4) mg/dl Est Cr Clr Drug Dosing ml/min Est GFR ( Amer) ml/min Est GFR (Non-Af Amer) ml/min BUN/Creatinine Ratio (10-20) Glucose (70-99(Fasting)) mg/dl Lactate (0.4-2.0) mmol/L Calcium (8.5-10.1) mg/dl Total Bilirubin (0.2-1.0) mg/dl AST (13-39) U/L ALT (7-52) U/L Alkaline Phosphatase (34-104) U/L Troponin I High Sens (0-20) pg/ml Total Protein (6.0-8.3) gm/dl Albumin (3.4-5.0) gm/dl Globulin (2.5-4.0) gm/dl Albumin/Globulin Ratio (0.9-2) Lipase (11-82) U/L Procalcitonin < 0.05 (0-0.5) ng/ml Urine Color Yellow Urine Appearance Clear (Clear) Urine pH 7.0 (4.5-7.5) Ur Specific [place] 1.007 (1.000-1.030) Urine Protein Negative (Negative) Urine Glucose (UA) Negative (Negative) Urine Ketones Negative (Negative) Urine Blood Negative (Negative) Urine Nitrite Negative (Negative) Urine Bilirubin Negative (Negative) Urine Urobilinogen Negative (Negative) Ur Leukocyte Esterase 1+ H (Negative) Urine WBC (Auto) 10-30 H (0-5) /hpf Urine RBC (Auto) 10-30 H (0-4) /hpf U Hyaline Cast (Auto) 1-5 (0-5) /lpf U Epithel Cells (Auto) 10-20 H (0-5) /lpf Urine Bacteria (Auto) Negative (Negative) SARS-CoV-2, RNA, NAAT NEGATIVE (NEGATIVE) Administered Medications Sodium Chloride (Nss 1000ml) 1,000 mls @ 125 mls/hr IV .Q8H STA Stop: 06/03/22 05:48 Last Admin: 06/02/22 22:21 Dose: 125 mls/hr Documented By: LOREE Discontinued Medications Vancomycin HCl 2,000 mg/ (Sodium Chloride) 540 mls @ 200 mls/hr IV NOW ONE Stop: 06/03/22 00:41 Last Admin: 06/02/22 23:10 Dose: 200 mls/hr Documented By: SUNIL Cefepime HCl (Maxipime) 2,000 mg in 20 mls @ 5 mls/min IV NOW STA; Protocol Stop: 06/02/22 22:15 Last Admin: 06/02/22 22:22 Dose: 5 mls/min Documented By: LOREE Imaging Data Radiologist's Impression: Chest X-Ray 06/02/22 21:49 SINGLE VIEW CHEST CLINICAL HISTORY: Change in mental status. FINDINGS: 2 AP, portable, upright chest radiographs are compared to study dated 04/26/2022. The heart is mildly enlarged noting atherosclerotic calcification of the thoracic aorta. The pulmonary vasculature is noncongested. There are left basilar opacities. No large pleural effusion or pneumothorax is seen. The sk eletal structures are osteopenic. The bony thorax is grossly intact. IMPRESSION: 1. Cardiomegaly without radiographic evidence of congestive failure. 2. Left basilar opacities likely represent atelectasis. Correlate clinically for evidence of an infectious/inflammatory pneumonitis. ACT 112: Negative or not required by law. Electronically signed by: Jasen Avitia M.D. 06/02/2022 10:17 PM Abdomen/Pelvis CT 06/02/22 22:11 CT abd pelvis wo con CLINICAL HISTORY: lower abd pain TECHNIQUE: Helical axial images of the abdomen and pelvis were obtained. Automated dose lowering techniques and/or adjustment according to patient size were utilized for this exam. This exam was performed without intravenous contrast. COMPARISON: None available at the time of this dictation. FINDINGS: Lower chest: For findings above the diaphragm, please see CT chest performed same day. Liver: Multiple hepatic cysts are seen bilaterally. Gallbladder and biliary tree: Cholelithiasis is seen without evidence of cholecystitis. No intra- or extrahepatic biliary ductal dilation. Pancreas: Unremarkable, no focal lesions. Spleen: Unremarkable. Adrenals: Unremarkable. Kidneys and ureters: Nonobstructive nephrolithiasis is seen. Bladder: Durbin catheter is seen. Reproductive organs: Unremarkable. Bowel: A large stool ball is seen in the rectum. No definite wall thickening is seen to suggest enterocolitis. Numerous diverticula are seen. The appendix is normal. Lymph nodes Retroperitoneal: Unremarkable. Pelvic: Unremarkable. Mesenteric: Unremarkable. Peritoneum: Normal. Vessels: Atherosclerotic calcifications are seen. Abdominal wall: A fat-containing umbilical hernia is seen. Bones: Degenerative changes in the visualized spine. No evidence of acute fracture. IMPRESSION: 1. No acute abnormality and in particular no evidence of intra-abdominal hematoma. 2. Large stool ball in the rectum without evidence of cervical colitis. 3. Additional findings as above. ACT 112: Negative or not required by law. Electronically signed by: Donnie Bell M.D. 06/03/2022 12:10 AM Discharge Plan Visit Data Chief Complaint: Urinary Symptoms Stated Complaint: Urinary Symptoms, Altered Mental Status ED Provider: Romero Courtney Discharge Problem: Altered mental status, Acute UTI (urinary tract infection), Pneumonia Forms Stand Alone Forms: [facility] Prescriptions Prescriptions: No Action fluticasone propionate 50 mcg/actuation spray,suspension 1 spray intranasal Q12H Qty: 16 2RF Rx Instructions: administer into each nostril azelastine 137 mcg (0.1 %) aerosol,spray 2 spray intranasal BID Qty: 30 5RF dutasteride 0.5 mg capsule 0.5 mg PO HS rivastigmine 13.3 mg/24 hour patch 24 hour 13.3 mg topical HS cetirizine [Zyrtec] 10 mg Tablet 10 mg PO HS fluocinolone 0.01 % Cream 1 applic TOPICAL DIRECTED PRN (Reason: APPLY TO SCALP) triamcinolone acetonide 0.1 % Cream 1 applic TOPICAL DIRECTED PRN (Reason: APPLY TO ANKLE) ciclopirox 8 % solution 1 applic TOPICAL HS Rx Instructions: APPLY TO TOE NAIL hydrocortisone 1 % Cream 1 applic TOPICAL DIRECTED PRN (Reason: FACIAL AREA) econazole 1 % Cream 1 applic TOPICAL DIRECTED PRN (Reason: APPLY TO FEET) melatonin 5 mg Tablet 5 mg PO HS memantine 28 mg capsule,sprinkle,ER 24hr 28 mg PO HS tamsulosin 0.4 mg capsule 0.4 mg PO HS sertraline 50 mg tablet 50 mg PO HS amoxicillin-pot clavulanate 875-125 mg tablet 1 tab PO BID Qty: 10 0RF Referrals Referrals: Colt Yusuf DO [Primary Care Provider] -
[2022-06-03] MEDS ORDERED: VANCOMYCIN CONSULT ACTIVE PRN (02:32)
[2022-06-03] MEDS ORDERED: LACTATED RINGER'S 1,000 ML IV SCH (02:32)
[2022-06-03] MEDS ORDERED: ONDANSETRON INJ 2 MG/ML 2 ML VIAL IV PRN (02:32)
--- NOTE | 2022-06-03 03:45 | Pharmacy Report ---
Pharmacy PK ABX Note - Date of Service June 03, 2022 - Assessment and Plan Assessment 86 year old M receiving Vancomycin and Cefepime for treatment of UTI. Pertinent microbiologic data includes: Blood & urine culture pending, however urine cx from 05/29 grew e. faecalis + MRSA. Plan Vancomycin * Loading dose: 2000mg (~22mg/kg) IV x 1. * Maintenance dose: 1250mg (~13mg/kg) IV every 18 hours. * Regimen is predicted to achieve target AUC/VLADIMIR of 400-600 mg/L.hr * Will check a trough level after a few doses. Pharmacy will continue to follow and will adjust dose/frequency as necessary. Thank you. Pharmacy has transitioned to AUC monitoring for vancomycin. AUC/VLADIMIR is the preferred PK/PD target and is associated with decreased risk of nephrotoxicity compared to traditional trough targets.
--- NOTE | 2022-06-03 06:47 | CT Scan Report ---
CT SCAN OF THE BRAIN WITHOUT IV CONTRAST CLINICAL HISTORY: Change in mental status. COMPARISON STUDY: CT of the brain dated 04/20/2022. TECHNIQUE: Unenhanced axial CT scan of the brain is performed from the vertex to the skull base. A do se lowering technique was utilized adhering to the principles of ALARA. CT DOSE: 2129.69 mGy.cm FINDINGS: Brain parenchyma: There is age-related involutional change noting mild subcortical and periventricula r microangiopathic disease. There is no hemorrhage, mass effect, or evidence of acute territorial isc hemia by CT criteria. Perez-white matter differentiation is preserved. No extra-axial fluid collection is seen. Ventricles, sulci, cisterns: Prominent secondary to involutional change. Intracranial vasculature: There is atherosclerotic calcification of the cavernous carotid arteries. Calvarium: Unremarkable. Sinuses and mastoids: There is opacification of the right maxillary antrum. The remaining paranasal s inuses are clear. The mastoid air cells are well pneumatized. Orbits: The bony orbits are grossly intact. There are bilateral ocular lens implants. IMPRESSION: There is no hemorrhage, mass effect, or evidence of acute territorial ischemia by CT valencia lema. ACT 112: Negative or not required by law. Electronically signed by: Jasen Avitia M.D. 06/03/2022 6:45 AM
[2022-06-03] MEDS ORDERED: VANCOMYCIN HCL 1,500 MG in SODIUM CHLORIDE 0.9% 500 ML IV SCH (09:00)
[2022-06-03] MEDS ORDERED: HEPARIN SOD 5,000 UNIT/0.5 ML VIAL SQ SCH (09:00)
--- NOTE | 2022-06-03 09:44 | Electrocardiogram Report ---
Test Reason : Blood Pressure : / mmHG Vent. Rate : 061 BPM Atrial Rate : 061 BPM P-R Int : 196 ms QRS Dur : 068 ms QT Int : 402 ms P-R-T Axes : 084 069 080 degrees QTc Int : 404 ms Normal sinus rhythm Normal ECG When compared with ECG of 20-APR-2022 08:54, No significant change was found Confirmed by Jam Matta ([id number]) on 06/03/2022 9:44:15 AM Referred By: REFERRED SELF Confirmed By:Jam Matta
[2022-06-03] MEDS: VANCOMYCIN HCL 1,250 MG in SODIUM CHLORIDE 0.9% 250 ML IV SCH (09:54)
[2022-06-03] MEDS ORDERED: CEFEPIME 1,000 MG in SYRINGE 0 ML IV SCH (10:00)
--- NOTE | 2022-06-03 16:04 | History & Physical Bridge Note ---
Date of Service June 03, 2022 History & Physical Bridge Note I have examined the patient, reviewed the History & Physical and in the interval since the performance of the History & Physical I have noted the following changes of clinical significance: Presentation with confusion; grossly nonfocal but confused MRSA in urine unusualusually a bacteremic source but getting self cath Stop cefepime, single agent vancomycin appropriate for now Noted fecal ballenema, disimpaction Speech therapy consult
[2022-06-03] MEDS: ENOXAPARIN INJ 40 MG/0.4 ML SYR SQ SCH (17:53)
[2022-06-03] MEDS: SERTRALINE HCL 50 MG TABLET PO SCH (21:13)
[2022-06-03] MEDS: CETIRIZINE HCL 10 MG TABLET PO SCH (21:13)
[2022-06-03] MEDS: TAMSULOSIN HCL 0.4 MG CAP PO SCH (21:13)
[2022-06-04] MEDS: VANCOMYCIN HCL 1,250 MG in SODIUM CHLORIDE 0.9% 250 ML IV SCH ×2 (04:12→21:15)
[2022-06-04 06:02] LABS: Basophils # (auto) 0.02 K/uL (0-0.2); Basophils % (auto) 0.2 %; Hematocrit (blood only) 36.2 % (40.1-51.0); Hemoglobin 12.1 g/dl (14.0-18.0); Immature Granulocytes # (auto) 0.06 K/uL (0.00-0.02); Immature Granulocytes % (auto) 0.6 %; Lymphocytes % (auto) 10.5 %; Mean Corpuscular Hemoglobin 30.2 pg (25.0-34.0); Mean Corpuscular Hgb Conc 33.4 g/dL (32.0-36.0); Mean Corpuscular Volume 90.3 fL (80.0-100.0); Mean Platelet Volume 9.7 fL (9.4-12.4); Monocytes # (auto) 0.84 K/uL (0.24-0.82); Neutrophils % (auto) 79.7 %; Platelet Count 266 K/uL (130-400); RDW Coefficient of Variation 13.1 % (11.5-14.5); RDW Standard Deviation 43.5 fL (36.4-46.3); Red Blood Count 4.01 M/uL (4.63-6.08); White Blood Count 10.52 K/ul (4.8-10.8)
[2022-06-04 06:30] LABS: Albumin Level 3.2 gm/dl (3.4-5.0); BUN Creatinine Ratio 18.3 (10-20); Bilirubin,Total 0.4 mg/dl (0.2-1.0); Calcium 8.6 mg/dl (8.5-10.1); Creatinine Clr Calc Pharmacy 77.3 ml/min; Est GFR (African American) 92.8 ml/min; Est GFR (Non-African American) 80.1 ml/min; Globulin 3.1 gm/dl (2.5-4.0); Magnesium 1.9 mg/dl (1.7-2.4); Phosphorus 3.1 mg/dl (2.5-4.9); Potassium 4.3 mmol/L (3.5-5.1); Total Protein 6.3 gm/dl (6.0-8.3)
[2022-06-04] MEDS ORDERED: MINERAL OIL ENEMA 133 ML BTL PR ONE (10:30)
--- NOTE | 2022-06-04 11:28 | Magnetic Resonance Report ---
Brain MRI WITHOUT CONTRAST HISTORY: mental status changes TECHNIQUE: Multiplanar multisequence MRI of the brain was performed without the use of contrast. COMPARISON STUDY: Head CT 06/02/2022. Brain MRI 12/07/2015. Brain MRI 04/21/2022. FINDINGS: No areas restricted diffusion to suggest acute infarction. The midline structures are intac t. There is no mass, hematoma, midline shift. Complete opacification of the right maxillary sinus, un changed. Evidence for prior bilateral lens replacement. The major vascular flow-voids at the skull ba se are well-maintained. The mastoid air cells are clear. Atrophy and mild microvascular ischemic lorenzo ges are again noted. Stable prominence of the lateral and third ventricles. This favors central volum e loss given the long-standing change. IMPRESSION: No significant change compared to the prior study. No acute intracranial abnormality. ACT 112: Negative or not required by law. Electronically signed by: Jared Leggett M.D. 06/04/2022 11:26 AM
--- NOTE | 2022-06-04 11:44 | XRay Report ---
RIGHT SHOULDER 2 VIEWS HISTORY: Right shoulder pain COMPARISON: None. FINDINGS: There is no fracture or dislocation. Soft tissues are unremarkable. The right clavicle is i ntact. IMPRESSION: No fractures. ACT 112: Negative or not required by law. Electronically signed by: Jared Leggett M.D. 06/04/2022 11:42 AM
--- NOTE | 2022-06-04 15:19 | Hospitalist Progress Note ---
Date of Service June 04, 2022 Assessment & Plan (1) Altered mental status: Plan: Exact etiology not clear but presumed secondary to UTI; being treated with vancomycin that covers Enterococcus and MRSA and improved; cannot rule out colonization; await culture from here; MRSA in urine very unusual except for bacteremic source and blood cultures negative for date; MRI brain nonacute (2) Acute UTI (urinary tract infection): Plan: As above, [facility] for now; they do intermittent cath at home; switch to same at discharge; can consider outpatient urology (3) Enterococcus faecalis infection: Plan: See above (4) MRSA (methicillin resistant Staphylococcus aureus) infection: Plan: See above (5) Oropharyngeal dysphagia: Plan: Speech consulted but no change in prior recommendations; pured diet (6) Dementia: Plan: Lewy body dementia according to ; continue rivastigmine once brought by family (7) Obstructive sleep apnea: Plan: CPAP at bedtime (8) Benign prostatic hyperplasia: Plan: Continue tamsulosin 0.4 mg and dutasteride 0.5 mg at bedtime when availablecan switch latter to formulary agent but at present await family bringing (9) Depression with anxiety: Plan: Continue home meds Plan Right shoulder x-ray nonacute; as noted, not moving right upper extremity accord ing to but nothing in MRI-physical therapy and observe; Sent nurse communication order to get home meds dutasteride, memantine, rivastigmine; very unhappy with last placement facility and wants to take him home when ready; Admission and Anticipated Discharge Date Admission Date: June 03, 2022 Subjective Follow-up of presentation with altered mental statusdoing much better when seen at bedside; reports not moving right upper extremity Physical Exam Physical Exam: Constitutional and general: No acute distress, looks biologic age Head and face: No puffiness, atraumatic Eyes: No scleral icterus, extraocular movements normal Neck: Supple, no JVD Musculoskeletal: No acute joint swelling, no bony abnormalities Skin/dermatologic/integument: No rash, no purpura Hematologic and lymphatic: pallor +, no petechia Gastrointestinal/abdomen: Nondistended, soft, nonacute Neurologic: Not moving right upper extremity; appears pain on movement; possible subtle right nasolabial fold Psychiatry: Awake, alert, pleasant, communicative Cardiovascular: Heart rhythm regular, no rub, no murmur, no gallop Respiratory: Chest movements equal, no use of accessory muscles, no adventitious sounds Extremities: No edema, no cyanosis Results & Data Results & Data ([facility]) Vital Signs (Past 12 Hours) Vital Signs Temp Pulse Pulse Resp BP BP Pulse Ox 06/04/22 15:04 71 06/04/22 09:29 06/04/22 08:29 36.8 C 64 18 115/74 95 06/04/22 08:25 57 L 06/04/22 04:06 36.8 C 92 H 18 99/67 L 93 06/04/22 03:20 65 14 96 O2 Del Method FiO2 06/04/22 15:04 06/04/22 09:29 Room Air 06/04/22 08:29 Room Air 06/04/22 08:25 06/04/22 04:06 BiPAP 06/04/22 03:20 21 Laboratory Results Laboratory Results - last 24 hr 06/04/22 06/04/22 05:31 05:31 WBC 10.52 RBC 4.01 L Hgb 12.1 L Hct 36.2 L MCV 90.3 MCH 30.2 MCHC 33.4 RDW Std Deviation 43.5 RDW Coeff of Rodolfo 13.1 Plt Count 266 MPV 9.7 Immature Gran % (Auto) 0.6 Neut % (Auto) 79.7 Lymph % (Auto) 10.5 [place] % (Auto) 8.0 Eos % (Auto) 1.0 Baso % (Auto) 0.2 Neut # (Auto) 8.40 H Lymph # (Auto) 1.10 L [place] # (Auto) 0.84 H Eos # (Auto) 0.10 Baso # (Auto) 0.02 Immature Gran # (Auto) 0.06 H Sodium 139 Potassium 4.3 Chloride 105 Carbon Dioxide 28 Anion Gap 6 BUN 15 Creatinine 0.82 Est Cr Clr Drug Dosing 77.3 Est GFR ( Amer) 92.8 Est GFR (Non-Af Amer) 80.1 BUN/Creatinine Ratio 18.3 Glucose 114 H Fasting Glucose 114 H Calcium 8.6 Phosphorus 3.1 Magnesium 1.9 Total Bilirubin 0.4 AST 15 ALT 14 Alkaline Phosphatase 51 Total Protein 6.3 Albumin 3.2 L Globulin 3.1 Albumin/Globulin Ratio 1.0 PG Care Time/CCT Total # of Minutes Spent Total Time Spent with Patient: Total time spent is greater than 50% in coordination of care (as documented) at patient's floor/unit and/or counseling patient: Coding Level of Care Code 76013 Subseq Hosp Care Lvl 3 Diagnoses Altered mental status R41.82 Acute UTI (urinary tract infection) N39.0 Enterococcus faecalis infection B95.2 MRSA (methicillin resistant Staphylococcus aureus) infection A49.02 Oropharyngeal dysphagia R13.12 Dementia G31.83; F02.81 Dementia behavioral disturbance: with behavioral disturbance Dementia type: Lewy body dementia Obstructive sleep apnea G47.33 Benign prostatic hyperplasia N40.0 Depression with anxiety F41.8 (1) Dementia Dementia behavioral disturbance: with behavioral disturbance Dementia type: Lewy body dementia Qualified Code(s): G31.83 - Dementia with Lewy bodies; F02.81 - Dementia in other diseases classified elsewhere with behavioral disturbance
[2022-06-04] MEDS: ENOXAPARIN INJ 40 MG/0.4 ML SYR SQ SCH (18:16)
[2022-06-04] MEDS: TAMSULOSIN HCL 0.4 MG CAP PO SCH (21:15)
[2022-06-04] MEDS: CETIRIZINE HCL 10 MG TABLET PO SCH (21:15)
[2022-06-04] MEDS: SERTRALINE HCL 50 MG TABLET PO SCH (21:15)
[2022-06-05 07:14] LABS: Basophils # (auto) 0.02 K/uL (0-0.2); Basophils % (auto) 0.2 %; Eosinophils # (auto) 0.04 K/uL (0-0.50); Eosinophils % (auto) 0.4 %; Hematocrit (blood only) 34.5 % (40.1-51.0); Hemoglobin 11.6 g/dl (14.0-18.0); Immature Granulocytes # (auto) 0.07 K/uL (0.00-0.02); Immature Granulocytes % (auto) 0.7 %; Lymphocytes # (auto) 1.43 K/uL (1.2-3.4); Lymphocytes % (auto) 14.5 %; Mean Corpuscular Hemoglobin 30.1 pg (25.0-34.0); Mean Corpuscular Hgb Conc 33.6 g/dL (32.0-36.0); Mean Corpuscular Volume 89.4 fL (80.0-100.0); Mean Platelet Volume 9.8 fL (9.4-12.4); Monocytes # (auto) 0.81 K/uL (0.24-0.82); Monocytes % (auto) 8.2 %; Neutrophils # (auto) 7.49 K/uL (1.4-6.5); Platelet Count 243 K/uL (130-400); RDW Standard Deviation 42.5 fL (36.4-46.3); Red Blood Count 3.86 M/uL (4.63-6.08); White Blood Count 9.86 K/ul (4.8-10.8)
[2022-06-05 07:58] LABS: Albumin Globulin Ratio 1.1 (0.9-2); BUN Creatinine Ratio 18.6 (10-20); Bilirubin,Total 0.5 mg/dl (0.2-1.0); Calcium 8.2 mg/dl (8.5-10.1); Creatinine Clr Calc Pharmacy 90.5 ml/min; Est GFR (Non-African American) 85.5 ml/min; Globulin 2.7 gm/dl (2.5-4.0); Magnesium 1.7 mg/dl (1.7-2.4); Phosphorus 2.8 mg/dl (2.5-4.9); Potassium 4.3 mmol/L (3.5-5.1); Total Protein 5.7 gm/dl (6.0-8.3)
--- NOTE | 2022-06-05 08:36 | Hospitalist Progress Note ---
Date of Service June 05, 2022 Assessment & Plan (1) Altered mental status: Plan: Recent admit for weakness, had been given Unasyn for R maxillary sinusitis and sent to complete course 10 days at discharge 04/27. Discharged then from [facility] 05/30 and had some worsening confusion/AMS MRI brain WITHOUT acute finding Outpt urine cx 05/29 with enterococcus and MRSA * Rx for Doxy called in and per , patient took approximately 3 doses prior to admission and can consider utilizing same at d/c given sensitivities, and also likely why current urine cx on admit ngtd Placed on Vancomycin IV on admit -- continue for now BCx remain NGTD PT/OT consulted -- patient benefit from rehab given total care but family would like patient to return home. Cm following Also, reports cogwheel rigidity --> outpt Neuro as deferred last admit as well. On memantine, states generic at rehab and cause constipation. Disimpacted prior, asked to bring regular medication and added senna/docusate as well. Monitor Continued inpatient stay -- see below as well regarding RUE swelling/mobility issues (2) RUE weakness: Plan: reported issues with patient's RUE with regards to not wanting to move it/lift up On exam, RUE with increased swelling and edema however pulses palpable but was painful. No prior IV site blown reported R shoulder prior without evidence for acute fracture as patient's reported possible trauma moving over patient in bed and thinks maybe pulled his elbow RUE US with elbow effusion, no evidence for acute DVT Pain control, ice, elevation Lyme negative Ortho consulted as also requesting Monitor (3) Acute UTI (urinary tract infection): Plan: As above, [place] for now given recent change and repeat urine cx without growth (got po abx outpatient) they do intermittent cath at home; switch to same at discharge; can consider outpatient urology tx as above (4) Enterococcus faecalis infection: Plan: See above (5) MRSA (methicillin resistant Staphylococcus aureus) infection: Plan: See above (6) Oropharyngeal dysphagia: Plan: Speech consulted but no change in prior recommendations; pured diet (7) Dementia: Plan: Lewy body dementia according to ; continue rivastigmine once brought by family -- asked to bring 06/05 (8) Obstructive sleep apnea: Plan: CPAP at bedtime as tolerated unable to tolerate much last evening but restless and typically gets melatonin. resumed melatonin and continue CPAP as tolerated (9) Benign prostatic hyperplasia: Plan: Continue tamsulosin 0.4 mg and dutasteride 0.5 mg at bedtime when availablecan switch latter to formulary agent but at present await family bringing UOP 0.91ml/kg/kr (10) Depression with anxiety: Plan: Continue home meds Plan continued inpatient stay, ortho consulted for RUE elbow effusion Admission and Anticipated Discharge Date Admission Date: June 03, 2022 Supervising Physician Co-Signing Physician Notes Attending Attestation - Chart reviewed in detail, care plan d/w EBONY Pringle. I agree w/ the ortega components of her documentation with the following addition - Catheter-associated UTI 2nd to MRSA/enterococcus Could consider zyvox for the above if his insurance will cover Naren Bojorquez MD Subjective eval this morning, no acute distress not waiting/able to move his RUE at time. prior xray without acute fracture but daughter at bedside would like ortho eval. will hold off further imaging of shoulder. knee slightly swollen per PT but looks ok on exam and no pain reported. RUE priority and daughter states injury between 11am and 4pm on sunday probably with patient becoming aggressive and maybe locked his arm in the bed during being moved around. patient with hx LBD and on memantine -- daughter states was giving generic at [facility] and that causes her father to have worsening constipation. she will bring in that and his dutasteride for his BPH. Updated again this afternoon regarding findings of ultrasound and KUB, and awaiting ortho input. Cognitively not quite at baseline but was more alert this morning, attributing to sleep. melatonin resumed. Main issue is at elbow/hand in area of effusion. Discussed will defer to ortho for further management/if drain needed. Lyme testing negative. Review of Systems Review of Systems: All systems reviewed & are unremarkable except as noted in HPI & below Physical Exam Physical Exam: General: WN elderly male laying in hospital bed, at bedside, NAD HEENT: head normocephalic, atraumatic, pupil equal and reactive, trachea midline without deviation, mm slightly dry Resp: CTAB, diminished in bases, on room air, no cough CV: RRR, no m/r/g, no calf edema/tenderness GI: +BS, +distended, nontender MSK/Neuro: no focal deficit, follows commands at times, poor eye contact, RUE with increased swelling/edema to elbow/forearm/hand, no erythema, no prior IV site reported. pulses palpable and fingers mobile but does not follow commands to lift off bed. Painful with movement at the elbow. Cogwheel type rigidity Skin: warm, dry Psych: alert to person, , no to place/location/time Results & Data Results & Data ([facility]) Vital Signs (Past 12 Hours) Vital Signs Temp Pulse Pulse Resp BP Pulse Ox O2 Del Method 06/05/22 07:42 65 06/05/22 07:31 36.7 C 71 18 127/57 L 95 Room Air 06/05/22 03:42 36.6 C 69 18 136/77 90 Room Air 06/04/22 23:44 36.7 C 72 16 126/72 94 BiPAP 06/04/22 23:43 Room Air, BiPAP 06/04/22 23:09 66 06/04/22 22:19 67 16 98 FiO2 06/05/22 07:42 06/05/22 07:31 06/05/22 03:42 06/04/22 23:44 06/04/22 23:43 06/04/22 23:09 06/04/22 22:19 21 Laboratory Results 06/05/22 06/05/22 06/05/22 Range/Units 06:35 06:35 06:35 WBC 9.86 (4.8-10.8) K/ul RBC 3.86 L (4.63-6.08) M/uL Hgb 11.6 L (14.0-18.0) g/dl Hct 34.5 L (40.1-51.0) % MCV 89.4 (80.0-100.0) fL MCH 30.1 (25.0-34.0) pg MCHC 33.6 (32.0-36.0) g/dL RDW Std Deviation 42.5 (36.4-46.3) fL RDW Coeff of Rodolfo 13.0 (11.5-14.5) % Plt Count 243 (130-400) K/uL MPV 9.8 (9.4-12.4) fL Immature Gran % (Auto) 0.7 % Neut % (Auto) 76.0 % Lymph % (Auto) 14.5 % [place] % (Auto) 8.2 % Eos % (Auto) 0.4 % Baso % (Auto) 0.2 % Neut # (Auto) 7.49 H (1.4-6.5) K/uL Lymph # (Auto) 1.43 (1.2-3.4) K/uL [place] # (Auto) 0.81 (0.24-0.82) K/uL Eos # (Auto) 0.04 (0-0.50) K/uL Baso # (Auto) 0.02 (0-0.2) K/uL Immature Gran # (Auto) 0.07 H (0.00-0.02) K/uL Sodium 136 (136-145) mmol/L Potassium 4.3 (3.5-5.1) mmol/L Chloride 104 (98-107) mmol/L Carbon Dioxide 27 (21-32) mmol/L Anion Gap 5 (3-11) BUN 13 (6-23) mg/dl Creatinine 0.70 (0.6-1.4) mg/dl Est Cr Clr Drug Dosing 90.5 ml/min Est GFR ( Amer) 99.0 ml/min Est GFR (Non-Af Amer) 85.5 ml/min BUN/Creatinine Ratio 18.6 (10-20) Glucose 112 H (70-99(Fasting)) mg/dl Fasting Glucose 112 H (70-99) mg/dl Calcium 8.2 L (8.5-10.1) mg/dl Phosphorus 2.8 (2.5-4.9) mg/dl Magnesium 1.7 (1.7-2.4) mg/dl Total Bilirubin 0.5 (0.2-1.0) mg/dl AST 13 (13-39) U/L ALT 12 (7-52) U/L Alkaline Phosphatase 47 (34-104) U/L Total Protein 5.7 L (6.0-8.3) gm/dl Albumin 3.0 L (3.4-5.0) gm/dl Globulin 2.7 (2.5-4.0) gm/dl Albumin/Globulin Ratio 1.1 (0.9-2) Random Vancomycin 12.7 (10-20) mcg/ml Diagnostic Findings Venous Doppler Study 06/05/22 10:39 US venous doppler UE RT CLINICAL HISTORY: RUE swelling Procedure: Right upper extremity real-time compression venous ultrasound with Duplex and Color Doppler imaging. Utilizing real-time ultrasonic imaging multiple real time high-resolution ultrasonic images of the deep venous system were performed from the forearm through the subclavian vein including evaluation of the jugular vein. Compression real time ultrasonic imaging was performed in addition to color Doppler imaging and duplex Doppler ultrasound with velocity spectral profile analysis. There is normal compressibility of the deep venous system from the forearm through the subclavian vein. Normal vascular flow is currently identified. No evidence of acute thrombosis is identified. There is evidence for an elbow joint effusion. Impression: 1. No evidence of deep venous thrombus. 2. Evidence for an elbow joint effusion. ACT 112: Negative or not required by law. Electronically signed by: Georges Silva M.D. 06/05/2022 2:27 PM KUB X-Ray 06/05/22 10:41 KUB HISTORY: Acute generalized abdominal pain with constipation f/u constipation COMPARISON: CT abdomen pelvis 06/02/2022 FINDINGS: Limited exam secondary to positioning. There is moderate fecal retention which is most pronounced within the rectum. The bowel gas pattern overall appears to be nonobstructive. No renal calculi. No ureteral calculi. No pneumoperitoneum or pneumatosis. Degenerative changes of the lumbar spine and hips. No fracture. IMPRESSION: 1. Limited exam secondary to positioning. 2. Nonobstructive bowel gas pattern with moderate fecal retention. ACT 112: Negative or not required by law. The above report was generated using voice recognition software. It may contain grammatical, syntax or spelling errors. Electronically signed by: Chris Early M.D. 06/05/2022 11:40 AM PG Care Time/CCT Total # of Minutes Spent Total Time Spent with Patient: Total time spent is greater than 50% in coordination of care (as documented) at patient's floor/unit and/or counseling patient: Coding Level of Care Code 93173 Subseq Hosp Care Lvl 3 Diagnoses Altered mental status R41.82 RUE weakness R29.898 Acute UTI (urinary tract infection) N39.0 Enterococcus faecalis infection B95.2 MRSA (methicillin resistant Staphylococcus aureus) infection A49.02 Oropharyngeal dysphagia R13.12 Dementia G31.83; F02.81 Dementia behavioral disturbance: with behavioral disturbance Dementia type: Lewy body dementia Obstructive sleep apnea G47.33 Benign prostatic hyperplasia N40.0 Depression with anxiety F41.8 (1) Dementia Dementia behavioral disturbance: with behavioral disturbance Dementia type: Lewy body dementia Qualified Code(s): G31.83 - Dementia with Lewy bodies; F02.81 - Dementia in other diseases classified elsewhere with behavioral disturbance
[2022-06-05] MEDS ORDERED: MAGNESIUM SULFATE / D5W 1 GM/100 ML BAG IV ONE (08:37)
[2022-06-05] MEDS: ACETAMINOPHEN 325 MG TAB PO PRN (09:39)
[2022-06-05] MEDS: VANCOMYCIN HCL 1,250 MG in SODIUM CHLORIDE 0.9% 250 ML IV SCH ×2 (11:40→23:17)
--- NOTE | 2022-06-05 11:41 | XRay Report ---
KUB HISTORY: Acute generalized abdominal pain with constipation f/u constipation COMPARISON: CT abdomen pelvis 06/02/2022 FINDINGS: Limited exam secondary to positioning. There is moderate fecal retention which is most pron ounced within the rectum. The bowel gas pattern overall appears to be nonobstructive. No renal calcu li. No ureteral calculi. No pneumoperitoneum or pneumatosis. Degenerative changes of the lumbar spine and hips. No fracture. IMPRESSION: 1. Limited exam secondary to positioning. 2. Nonobstructive bowel gas pattern with moderate fecal retention. ACT 112: Negative or not required by law. The above report was generated using voice recognition software. It may contain grammatical, syntax o r spelling errors. Electronically signed by: Chris Early M.D. 06/05/2022 11:40 AM
[2022-06-05 11:48] LABS: Lyme Ab IgG w/WB Rflx Negative (Negative); Lyme Ab IgM w/WB Rflx Negative (Negative)
[2022-06-05] MEDS: DOCUSATE SODIUM/SENNA 50/8.6MG TAB PO SCH (13:33)
--- NOTE | 2022-06-05 14:29 | Ultrasound Report ---
US venous doppler UE RT CLINICAL HISTORY: RUE swelling Procedure: Right upper extremity real-time compression venous ultrasound with Duplex and Color Dopple r imaging. Utilizing real-time ultrasonic imaging multiple real time high-resolution ultrasonic images of the de ep venous system were performed from the forearm through the subclavian vein including evaluation of the jugular vein. Compression real time ultrasonic imaging was performed in addition to color Dopple r imaging and duplex Doppler ultrasound with velocity spectral profile analysis. There is normal compressibility of the deep venous system from the forearm through the subclavian vei n. Normal vascular flow is currently identified. No evidence of acute thrombosis is identified. There is evidence for an elbow joint effusion. Impression: 1. No evidence of deep venous thrombus. 2. Evidence for an elbow joint effusion. ACT 112: Negative or not required by law. Electronically signed by: Georges Silva M.D. 06/05/2022 2:27 PM
--- NOTE | 2022-06-05 15:08 | Pharmacy Report ---
Pharmacy PK ABX Note - Date of Service June 05, 2022 - Assessment and Plan Assessment * Mr Crawley is an 86 year old M receiving Vancomycin for treatment of UTI. * Pertinent microbiologic data includes: * Urine cultures from this visit are negative * Blood cultures from this visit are negative x48hr * Urine cx from 05/29 grew e. faecalis + MRSA. -- it appears as though pt received ~24 hours of PO doxycycline prior to admission (based on outpt fill history), which may effect most recent cx * Based on improving SCr and random vanc level obtained this morning, vancomycin dosing required adjustment. Plan Vancomycin * Loading dose: 2000mg (~22mg/kg) IV x 1. * Maintenance dose: 1250mg (~13mg/kg) IV every 12 hours. * Regimen is predicted to achieve target AUC/VLADIMIR of 400-600 mg/L.hr * Will check another level in 2-3 days if pt remains on vancomycin therapy. Pharmacy has transitioned to AUC monitoring for vancomycin. AUC/VLADIMIR is the preferred PK/PD target and is associated with decreased risk of nephrotoxicity compared to traditional trough targets. Pharmacy will continue to follow and will adjust dose/frequency as necessary. Thank you.
--- NOTE | 2022-06-05 15:49 | Communication Note ---
Date of Service: June 05, 2022 CDS [place] Metabolic encephalopathy in setting of UTI Abx as outlined, PT/OT consulted
--- NOTE | 2022-06-05 17:25 | XRay Report ---
XR elbow RT min 3V routine CLINICAL HISTORY: Elbow pain. Evaluate for effusion.. COMPARISON STUDY: No previous studies for comparison. TECHNIQUE: 3 right elbow views FINDINGS: Bones: There is no evidence for an acute fracture or dislocation. There is no lytic or blastic lesion . Joints: The joint spaces are maintained. There is no evidence for an intra-articular effusion or elev ation of the fat pads. The bones are in anatomic alignment. Soft tissues: There is no focal soft tissue abnormality. There is no radiopaque foreign body. IMPRESSION: 1. No acute osseous pathology. ACT 112: Negative or not required by law. Electronically signed by: Georges Silva M.D. 06/05/2022 5:24 PM
--- NOTE | 2022-06-05 17:26 | XRay Report ---
XR knee RT 1 or 2V routine CLINICAL HISTORY: knee pain. COMPARISON STUDY: No previous studies for comparison. TECHNIQUE: 2 right knee views FINDINGS: Bones: There is no evidence for an acute fracture or dislocation. There is no lytic or blastic lesion . Joints: There is mild narrowing of the medial lateral joint compartments with chondrocalcinosis of th e articular cartilage present. There is no evidence for an intra-articular effusion. The bones are in anatomic alignment. Soft tissues: There is no focal soft tissue abnormality. There is no radiopaque foreign body. IMPRESSION: 1. No acute osseous pathology. 2. Mild joint space narrowing and chondrocalcinosis. ACT 112: Negative or not required by law. Electronically signed by: Georges Silva M.D. 06/05/2022 5:25 PM
[2022-06-05] MEDS: ENOXAPARIN INJ 40 MG/0.4 ML SYR SQ SCH (18:38)
[2022-06-05] MEDS: [UNRECOGNIZED DRUG - OTHER] SCH (21:11)
[2022-06-05] MEDS: DUTASTERIDE 0.5 MG PO SCH (21:12)
[2022-06-05] MEDS: MEMANTINE 28 MG PO SCH (21:13)
[2022-06-05] MEDS: RIVASTIGMINE TD SCH (21:14)
[2022-06-05] MEDS: TAMSULOSIN HCL 0.4 MG CAP PO SCH (21:15)
[2022-06-05] MEDS: SERTRALINE HCL 50 MG TABLET PO SCH (21:15)
[2022-06-05] MEDS: CETIRIZINE HCL 10 MG TABLET PO SCH (21:15)
[2022-06-06 07:56] LABS: Basophils # (auto) 0.02 K/uL (0-0.2); Basophils % (auto) 0.2 %; Eosinophils # (auto) 0.03 K/uL (0-0.50); Eosinophils % (auto) 0.3 %; Hematocrit (blood only) 33.4 % (40.1-51.0); Hemoglobin 11.4 g/dl (14.0-18.0); Immature Granulocytes # (auto) 0.04 K/uL (0.00-0.02); Immature Granulocytes % (auto) 0.4 %; Lymphocytes # (auto) 1.19 K/uL (1.2-3.4); Lymphocytes % (auto) 12.4 %; Mean Corpuscular Hemoglobin 30.2 pg (25.0-34.0); Mean Corpuscular Hgb Conc 34.1 g/dL (32.0-36.0); Mean Corpuscular Volume 88.6 fL (80.0-100.0); Mean Platelet Volume 9.5 fL (9.4-12.4); Monocytes # (auto) 0.68 K/uL (0.24-0.82); Monocytes % (auto) 7.1 %; Neutrophils % (auto) 79.6 %; Platelet Count 247 K/uL (130-400); RDW Standard Deviation 42.4 fL (36.4-46.3); Red Blood Count 3.77 M/uL (4.63-6.08); White Blood Count 9.56 K/ul (4.8-10.8)
[2022-06-06 08:27] LABS: Albumin Globulin Ratio 1.1 (0.9-2); Albumin Level 3.1 gm/dl (3.4-5.0); Bilirubin,Total 0.5 mg/dl (0.2-1.0); Calcium 8.2 mg/dl (8.5-10.1); Creatinine Clr Calc Pharmacy 93.2 ml/min; Est GFR (African American) 100.2 ml/min; Est GFR (Non-African American) 86.5 ml/min; Globulin 2.8 gm/dl (2.5-4.0); Magnesium 1.8 mg/dl (1.7-2.4); Phosphorus 3.1 mg/dl (2.5-4.9); Potassium 3.9 mmol/L (3.5-5.1); Total Protein 5.9 gm/dl (6.0-8.3)
--- NOTE | 2022-06-06 08:40 | Hospitalist Progress Note ---
Date of Service June 06, 2022 Assessment & Plan (1) Altered mental status: Plan: Recent admit for weakness, had been given Unasyn for R maxillary sinusitis and sent to complete course 10 days at discharge 04/27. Discharged then from [facility] 05/30 and had some worsening confusion/AMS/metabolic encephalopathy in setting of UTI as patient was requiring frequent st caths at [facility] and not prior having frequent UTIs MRI brain WITHOUT acute finding Catheter-associated UTI 2nd to MRSA/enterococcus Outpatient urine cx 05/29 with enterococcus and MRSA * Rx for Doxy called in and per , patient took approximately 3 doses prior to admission and can consider utilizing same at d/c given sensitivities, and also likely why current urine cx on admit ngtd Remains on Vancomycin for now, madrigal checked Zyvox and discussed with . BCx remain NGTD, will switch to Zyvox and plan to complete course with such PT/OT consulted -- patient benefit from rehab given total care but family would like patient to return home. 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 NEW FOR PATIENT (possible not getting his BPH medications there as likely non-formulary) Law continued for now as placed on admit. st cath at [facility] new issue, never had problems with UTI in past Abx as above Consider continuing law per request and outpatient f/u urology for voiding trial? (3) RUE weakness: Plan: reported issues with patient's RUE with regards to not wanting to move it/lift up, also with some R knee pain On exam, RUE with increased swelling and edema however pulses palpable but was painful. No prior IV site blown reported, some erythema/effusion to elbow, slight tender but able to move arm today without resistance/discomfort compared to 06/05 R shoulder prior without evidence for acute fracture as patient's reported possible trauma moving over patient in bed and thinks maybe pulled his elbow RUE US with elbow effusion, no evidence for acute DVT R knee xray with joint narrowing/chondrocalcinosis, no acute pathology Pain control, ice, elevation Lyme negative Ortho consulted as also requesting, pending. Per Dr Bajwa, someone to see this afternoon/evening Monitor (4) Enterococcus faecalis infection: Plan: See above (5) MRSA (methicillin resistant Staphylococcus aureus) infection: Plan: See above (6) Oropharyngeal dysphagia: Plan: Speech consulted but no change in prior recommendations; pured diet patient is a feed (7) Dementia: Plan: Lewy body dementia according to ; continue rivastigmine once brought by family -- asked to bring 06/05, received as well as his memantine (8) Obstructive sleep apnea: Plan: CPAP at bedtime as tolerated -unable to tolerate much evening 06/05 but reported restless and typically gets melatonin. resumed melatonin and continue CPAP as tolerated -- able to tolerate last night with resumption of melatonin HS (9) Benign prostatic hyperplasia: Plan: Continue tamsulosin 0.4 mg and dutasteride 0.5 mg at bedtime when availablecan switch latter to formulary agent but at present await family bringing UOP acceptable (10) Depression with anxiety: Plan: Continue home sertraline Plan continued inpatient stay ortho consult pending Admission and Anticipated Discharge Date Admission Date: June 03, 2022 Supervising Physician Co-Signing Physician Notes PA Supervision Note: I did not personally see or examine the patient today, but I verified all ortega points of EBONY Pringle's assessment and plan with the following exceptions/additions: None Subjective Patient evaluated this morning. More responsive/opening eyes, answering questions today. Knows name, pleasant confusion but overall improved. Able to draw labs this morning from RUE and didn't have as much pain. Less swelling this morning but still having some tenderness about the elbow, and today does have a little erythema but no streaking/warmth. More movement of the hand but still not wanting to lift it off the bed. Follows commands at times, not at others. states has not been as responsive as he usually is over the past three days, but does agree looks more perky today, but notes she shaved him up last night. Patient continues to need assistance with feeding. Urine/law bag with darker concentrated urine. Awaiting consultation with orthopedics but continuing with elevation/pain control/ice currently. Questions/concerns addressed. Also discussed Zyvox madrigal check and can use as oral option at discharge to cover for bacteria in urine from the . Review of Systems Review of Systems: All systems reviewed & are unremarkable except as noted in HPI & below Physical Exam Physical Exam: General: WN elderly male laying in hospital bed, at bedside, NAD HEENT: head normocephalic, atraumatic, pupil equal and reactive, trachea midline without deviation, mm slightly dry but improved from day prior Resp: CTAB, diminished in bases, on room air, no cough CV: RRR, no m/r/g, no calf edema/tenderness GI: +BS, +distended, nontender MSK/Neuro/psych: no focal deficit, follows commands at times, improved eye contact, more conversive but still baseline dementia, alert to person/, in hospital but not situation/time RUE with slight effusion to elbow, slightly tender to palpation, decreased edema to forearm and hand, pulses palpable and fingers mobile. does have cogwheel type rigidity Skin: warm, dry Psych: alert to person, , not location/time Results & Data Results & Data ([facility]) Vital Signs (Past 12 Hours) Vital Signs Temp Pulse Pulse Resp BP Pulse Ox O2 Del Method 06/06/22 07:51 58 L 06/06/22 07:34 36.6 C 70 18 123/67 97 Room Air 06/06/22 03:45 37.0 C 83 20 144/73 H 100 CPAP 06/05/22 22:07 74 06/06/22 02:11 73 13 94 06/05/22 22:14 66 13 91 06/05/22 23:22 37.2 C 74 18 139/70 99 CPAP 06/05/22 21:00 Room Air FiO2 06/06/22 07:51 06/06/22 07:34 06/06/22 03:45 06/05/22 22:07 06/06/22 02:11 21 06/05/22 22:14 06/05/22 23:22 06/05/22 21:00 Laboratory Results 06/06/22 06/06/22 Range/Units 07:34 07:34 WBC 9.56 (4.8-10.8) K/ul RBC 3.77 L (4.63-6.08) M/uL Hgb 11.4 L (14.0-18.0) g/dl Hct 33.4 L (40.1-51.0) % MCV 88.6 (80.0-100.0) fL MCH 30.2 (25.0-34.0) pg MCHC 34.1 (32.0-36.0) g/dL RDW Std Deviation 42.4 (36.4-46.3) fL RDW Coeff of Rodolfo 13.0 (11.5-14.5) % Plt Count 247 (130-400) K/uL MPV 9.5 (9.4-12.4) fL Immature Gran % (Auto) 0.4 % Neut % (Auto) 79.6 % Lymph % (Auto) 12.4 % [place] % (Auto) 7.1 % Eos % (Auto) 0.3 % Baso % (Auto) 0.2 % Neut # (Auto) 7.60 H (1.4-6.5) K/uL Lymph # (Auto) 1.19 L (1.2-3.4) K/uL [place] # (Auto) 0.68 (0.24-0.82) K/uL Eos # (Auto) 0.03 (0-0.50) K/uL Baso # (Auto) 0.02 (0-0.2) K/uL Immature Gran # (Auto) 0.04 H (0.00-0.02) K/uL Sodium 136 (136-145) mmol/L Potassium 3.9 (3.5-5.1) mmol/L Chloride 105 (98-107) mmol/L Carbon Dioxide 25 (21-32) mmol/L Anion Gap 6 (3-11) BUN 12 (6-23) mg/dl Creatinine 0.68 (0.6-1.4) mg/dl Est Cr Clr Drug Dosing 93.2 ml/min Est GFR ( Amer) 100.2 ml/min Est GFR (Non-Af Amer) 86.5 ml/min Fasting Glucose 116 H (70-99) mg/dl Calcium 8.2 L (8.5-10.1) mg/dl Phosphorus 3.1 (2.5-4.9) mg/dl Magnesium 1.8 (1.7-2.4) mg/dl Total Bilirubin 0.5 (0.2-1.0) mg/dl AST 13 (13-39) U/L ALT 11 (7-52) U/L Alkaline Phosphatase 46 (34-104) U/L Total Protein 5.9 L (6.0-8.3) gm/dl Albumin 3.1 L (3.4-5.0) gm/dl Globulin 2.8 (2.5-4.0) gm/dl Albumin/Globulin Ratio 1.1 (0.9-2) PG Care Time/CCT Total # of Minutes Spent Total Time Spent with Patient: Total time spent is greater than 50% in coordination of care (as documented) at patient's floor/unit and/or counseling patient: Coding Level of Care Code 17314 Subseq Hosp Care Lvl 2 Diagnoses Altered mental status R41.82 Acute UTI (urinary tract infection) N39.0 RUE weakness R29.898 Enterococcus faecalis infection B95.2 MRSA (methicillin resistant Staphylococcus aureus) infection A49.02 Oropharyngeal dysphagia R13.12 Dementia G31.83; F02.81 Dementia behavioral disturbance: with behavioral disturbance Dementia type: Lewy body dementia Obstructive sleep apnea G47.33 Benign prostatic hyperplasia N40.0 Depression with anxiety F41.8 (1) Dementia Dementia behavioral disturbance: with behavioral disturbance Dementia type: Lewy body dementia Qualified Code(s): G31.83 - Dementia with Lewy bodies; F02.81 - Dementia in other diseases classified elsewhere with behavioral disturbance
[2022-06-06] MEDS ORDERED: MAGNESIUM SULFATE / D5W 1 GM/100 ML BAG IV ONE (08:42)
[2022-06-06] MEDS: DOCUSATE SODIUM/SENNA 50/8.6MG TAB PO SCH ×2 (08:57→20:51)
[2022-06-06] MEDS ORDERED: POLYETHYLENE (MIRALAX) 17 GM PACK PO SCH (09:00)
[2022-06-06] MEDS: VANCOMYCIN HCL 1,250 MG in SODIUM CHLORIDE 0.9% 250 ML IV SCH (11:06)
[2022-06-06] MEDS: POLYETHYLENE (MIRALAX) 17 GM PACK PO SCH (20:50)
[2022-06-06] MEDS: ENOXAPARIN INJ 40 MG/0.4 ML SYR SQ SCH (20:51)
[2022-06-06] MEDS: TAMSULOSIN HCL 0.4 MG CAP PO SCH (20:51)
[2022-06-06] MEDS: LINEZOLID 600 MG TAB PO SCH (20:51)
[2022-06-06] MEDS: ACETAMINOPHEN 325 MG TAB PO PRN (20:51)
[2022-06-06] MEDS: [UNRECOGNIZED DRUG - OTHER] SCH (20:51)
[2022-06-06] MEDS: CETIRIZINE HCL 10 MG TABLET PO SCH (20:51)
[2022-06-06] MEDS: DUTASTERIDE 0.5 MG PO SCH (20:52)
[2022-06-06] MEDS: MEMANTINE 28 MG PO SCH (20:52)
[2022-06-06] MEDS: RIVASTIGMINE TD SCH (20:52)
--- NOTE | 2022-06-07 07:51 | Hospitalist Progress Note ---
Date of Service June 07, 2022 Assessment & Plan (1) Altered mental status: Plan: Recent admit for weakness, had been given Unasyn for R maxillary sinusitis and sent to complete course 10 days at discharge 04/27. Discharged then from [facility] 05/30 and had some worsening confusion/AMS/metabolic encephalopathy in setting of UTI as patient was requiring frequent st caths at [facility] and not prior having frequent UTIs MRI brain WITHOUT acute finding Catheter-associated UTI 2nd to MRSA/enterococcus Outpatient urine cx 05/29 with enterococcus and MRSA * Rx for Doxy called in and per , patient took approximately 3 doses prior to admission and can consider utilizing same at d/c given sensitivities, and also likely why current urine cx on admit ngtd Vancomycin IV through 06/06, switched to Zyvox to complete course (currently on day 5 of treatment), plan at least 7 days but consider extending to 10 (end date would be 06/12 for 10 days) Hold Zoloft while completing abx, discussed with as well BCx remain NGTD PT/OT consulted and total care, however would like to take home. Confirming hospital bed ordered, if not will give rx and alerted CM Ortho consulted for RUE swelling/mobility -- dictated last night per tigertext but not in system. Await final report but resolution of edema and improved mobiltiy with ice/rest/elevation and pain control. Imaging showed small effusion, xray without acute fracture and US doppler negative for DVT. Also working on BM, last BM 06/04. Abd soft, non-tender on exam. got miralax/docusate this morning and monitor/continue at d/c. also ordered 1gm IV mag to promote GI motility Possible d/c next 24-48 hour with HH pending equipment delivered at home. 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 st cath at [facility] new issue, never had problems with UTI in past Abx as above Consider continuing law per request and outpatient f/u urology for voiding trial? -- would continue for acute period at discharge (3) RUE weakness: Plan: reported issues with patient's RUE with regards to not wanting to move it/lift up, also with some R knee pain On exam, RUE with increased swelling and edema however pulses palpable but was painful. No prior IV site blown reported, some erythema/effusion to elbow, slight tender but able to move arm today without resistance/discomfort compared to 06/05 R shoulder prior without evidence for acute fracture as patient's reported possible trauma moving over patient in bed and thinks maybe pulled his elbow RUE US with elbow effusion, no evidence for acute DVT R knee xray with joint narrowing/chondrocalcinosis, no acute pathology Pain control, ice, elevation Lyme negative Ortho consulted as also requesting, pending. Seen last night/no changes Improvement in mobility/swelling 06/07 with conservative measures and continued (4) Enterococcus faecalis infection: Plan: See above (5) MRSA (methicillin resistant Staphylococcus aureus) infection: Plan: See above (6) Oropharyngeal dysphagia: Plan: Speech consulted but no change in prior recommendations; pured diet patient is a feed (7) Dementia: Plan: Lewy body dementia according to ; continue rivastigmine- asked to bring 06/05, received as well as his memantine (8) Obstructive sleep apnea: Plan: CPAP at bedtime as tolerated -unable to tolerate much evening 06/05 but reported restless and typically gets melatonin. resumed melatonin and continue CPAP as tolerated -- able to tolerate last night with resumption of melatonin HS (9) Benign prostatic hyperplasia: Plan: Continue tamsulosin 0.4 mg and dutasteride 0.5 mg at bedtime when availablecan switch latter to formulary agent but at present await family bringing UOP acceptable however is concentrated but BUN/Cr acceptable (10) Depression with anxiety: Plan: Continue home sertraline once completed abx with zyvox, currently placed on hold Plan continued inpatient stay CM to assist with ensuring hospital bed/etc at home Admission and Anticipated Discharge Date Admission Date: June 03, 2022 Supervising Physician Co-Signing Physician Notes PA Supervision Note: I did not personally see or examine the patient today, but I verified all ortega points of EBONY Pringle's assessment and plan with the following exceptions/additions: None Subjective Patient evaluated prior to lunch. Had been witnessed feeding himself breakfast this morning. Decreased/almost no residual swelling to RUE today. Patient states "doing pretty good for an old geeser". Denies fever/chills, chest pain, shortness of breath, abdominal pain, nausea or vomiting. No abdominal pain, however no BM since 2 days ago. Given senna/miralax this morning and will order 1gm IV mag as well to help stimulate BM. Discussed switched to oral antibiotics and will reach out to about feasibility on getting him home with home health in the next 24-48 hours. She is in agreement and checking with dicks about a hospital bed as prior to be orde red based on PT evals but if not done will need to get new rx/arrange. If not done before the weekend talking about continued inpatient stay. Would like to get arranged sooner. Questions/concerns addressed. Review of Systems Review of Systems: All systems reviewed & are unremarkable except as noted in HPI & below Physical Exam Physical Exam: General: WN elderly male sitting up in hosptial bed, NAD HEENT: head normocephalic, atraumatic, pupils reactive, trachea midline without deviation, mm slightly dry but improved from day prior Resp: CTAB, diminished in bases, on room air, no cough CV: RRR, no m/r/g, no calf edema/tenderness GI: +BS, +distended, nontender : law draining concentrated darkened urine MSK/Neuro/psych: no focal deficit, follows commands at times, improved eye contact, more conversive but still baseline dementia, alert to person RUE with significant decrease in swelling to forearm/elbow/hand, was able to assist with feeding himself breakfast this morning, pulses palpable. does have cogwheel type rigidity generalized weakness throughout Skin: warm, dry Psych: alert to person, not location/time Results & Data Results & Data ([facility]) Vital Signs (Past 12 Hours) Vital Signs Temp Pulse Pulse Resp BP Pulse Ox O2 Del Method 06/07/22 04:58 37.5 C 72 18 145/70 H 100 Room Air 06/06/22 23:15 71 17 97 06/06/22 23:28 37.2 C 78 18 149/74 H 100 Room Air 06/06/22 20:00 Room Air Laboratory Results 06/07/22 Range/Units 08:27 Sodium 141 (136-145) mmol/L Potassium 4.0 (3.5-5.1) mmol/L Chloride 106 (98-107) mmol/L Carbon Dioxide 26 (21-32) mmol/L Anion Gap 9 (3-11) BUN 15 (6-23) mg/dl Creatinine 0.80 (0.6-1.4) mg/dl Est Cr Clr Drug Dosing 79.2 ml/min Est GFR ( Amer) 93.8 ml/min Est GFR (Non-Af Amer) 80.9 ml/min Fasting Glucose 115 H (70-99) mg/dl Calcium 8.9 (8.5-10.1) mg/dl Phosphorus 3.0 (2.5-4.9) mg/dl Magnesium 1.9 (1.7-2.4) mg/dl Total Bilirubin 0.6 (0.2-1.0) mg/dl AST 18 (13-39) U/L ALT 14 (7-52) U/L Alkaline Phosphatase 50 (34-104) U/L Total Protein 6.3 (6.0-8.3) gm/dl Albumin 3.3 L (3.4-5.0) gm/dl Globulin 3.0 (2.5-4.0) gm/dl Albumin/Globulin Ratio 1.1 (0.9-2) PG Care Time/CCT Total # of Minutes Spent Total Time Spent with Patient: Total time spent is greater than 50% in coordination of care (as documented) at patient's floor/unit and/or counseling patient: Coding Level of Care Code 14174 Subseq Hosp Care Lvl 3 Diagnoses Altered mental status R41.82 Acute UTI (urinary tract infection) N39.0 RUE weakness R29.898 Enterococcus faecalis infection B95.2 MRSA (methicillin resistant Staphylococcus aureus) infection A49.02 Oropharyngeal dysphagia R13.12 Dementia G31.83; F02.81 Dementia behavioral disturbance: with behavioral disturbance Dementia type: Lewy body dementia Obstructive sleep apnea G47.33 Benign prostatic hyperplasia N40.0 Depression with anxiety F41.8 (1) Dementia Dementia behavioral disturbance: with behavioral disturbance Dementia type: Lewy body dementia Qualified Code(s): G31.83 - Dementia with Lewy bodies; F02.81 - Dementia in other diseases classified elsewhere with behavioral disturbance
[2022-06-07] MEDS: LINEZOLID 600 MG TAB PO SCH ×2 (08:27→20:02)
[2022-06-07] MEDS: DOCUSATE SODIUM/SENNA 50/8.6MG TAB PO SCH ×2 (08:27→20:02)
[2022-06-07] MEDS: POLYETHYLENE (MIRALAX) 17 GM PACK PO SCH ×2 (08:27→20:03)
[2022-06-07 09:32] LABS: Albumin Globulin Ratio 1.1 (0.9-2); Albumin Level 3.3 gm/dl (3.4-5.0); Bilirubin,Total 0.6 mg/dl (0.2-1.0); Calcium 8.9 mg/dl (8.5-10.1); Creatinine Clr Calc Pharmacy 79.2 ml/min; Est GFR (African American) 93.8 ml/min; Est GFR (Non-African American) 80.9 ml/min; Magnesium 1.9 mg/dl (1.7-2.4); Total Protein 6.3 gm/dl (6.0-8.3)
[2022-06-07] MEDS ORDERED: MAGNESIUM SULFATE / D5W 1 GM/100 ML BAG IV ONE (10:49)
--- NOTE | 2022-06-07 15:23 | Orthopedic Consultation ---
Date of Consultation June 07, 2022 Assessment & Plan (1) Shoulder pain, right: Parent shoulder pain but patient does not appear to be painful. Could have some weakness but he does not really follow commands is difficult to say if he is weak or not but with active assisted motion did not appear to be overly painful. Does have a type II acromion and some arthritic changes in the AC joint could potentially have some impingement with overhead activity. Does not appear to be very active at this point in his life. Recommend observation or physical therapy if he is able to follow commands. (2) Right knee pain: No subjective knee pain according to patient. Knee exam not consistent with a septic knee in view of recent infection history. Does have an arthritic knee with some chronic synovitis and chondrocalcinosis that could be treated as an outpatient with the intra-articular steroid injection if his infection is cleared. Would not recommend steroid injection at this admission with history of recent infection. History of Present Illness Reason for Consultation: History of shoulder knee pain right side Attending Physician: Julia Murphy MD History of Present Illness 86-year-old male admitted to medical service with Enterococcus and MRSA UTI with dementia/parkinsonism Allergies Allergy/AdvReac Type Severity Reaction Status Date / Time No Known Allergies Allergy Verified 06/03/22 02:01 Home Medications Medication Instructions Recorded Confirmed Type cetirizine 10 mg tablet (Zyrtec) 10 mg PO HS 03/07/21 06/03/22 History dutasteride 0.5 mg capsule 0.5 mg PO HS 03/07/21 06/03/22 History rivastigmine 13.3 mg/24 hour 13.3 mg topical HS 03/07/21 06/03/22 History transdermal patch fluticasone propionate 50 1 spray intranasal Q12H #16 grams 11/24/21 06/03/22 Rx mcg/actuation nasal spray,suspension ciclopirox 8 % topical solution 1 applic topical HS PRN nails 04/20/22 06/03/22 History econazole 1 % topical cream 1 applic topical DIRECTED PRN 04/20/22 06/03/22 History APPLY TO FEET fluocinolone 0.01 % topical cream 1 applic topical DIRECTED PRN 04/20/22 06/03/22 History APPLY TO SCALP hydrocortisone 1 % topical cream 1 applic topical DIRECTED PRN 04/20/22 06/03/22 History FACIAL AREA melatonin 5 mg tablet 5 mg PO HS 04/20/22 06/03/22 History memantine 28 mg capsule 28 mg PO HS 04/20/22 06/03/22 History sprinkle,extended release 24hr sertraline 50 mg tablet 50 mg PO HS 04/20/22 06/03/22 History tamsulosin 0.4 mg capsule 0.4 mg PO HS 04/20/22 06/03/22 History triamcinolone acetonide 0.1 % 1 applic topical DIRECTED PRN 04/20/22 06/03/22 History topical cream APPLY TO ANKLE azelastine 137 mcg (0.1 %) nasal 2 spray intranasal BID PRN Nasal 06/03/22 06/03/22 History spray aerosol Congestion doxycycline hyclate 100 mg capsule 100 mg PO BID 06/03/22 06/03/22 History Patient History Medical History Benign prostatic hyperplasia Followed by [facility] urology. Carotid artery plaque Dementia followed by Neurology Depression with anxiety Dyslipidemia Hearing loss Obstructive sleep apnea Cpap, followed by Dr. 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 Surgical History H/O colonoscopy Family History Mother Alzheimer disease Brother Arthritis Nonorganic sleep disorder Father Emphysema, unspecified Brother Leukemia Social History Smoking Status: Never smoker Second Hand Exposure: No; Hx Alcohol Use: No Hx Substance Use: No Preferred Language: Congolese Communication Ability: Impaired Visual Impairment: Limited Hearing Ability: Use of Hearing Aid Phlebotomy Tech Required: No Beliefs That Will Affect Care: None marital status: Current Living Situation: Spouse Current Living Situation Comment: lives in single story home with his current occupational status: retired Feels Safe at Home: Yes caffeine: Yes Dental Care, Regularly: Yes Physical Activity Frequency: 1-2 Times per Week Seatbelt Use: always Sunscreen Use: Yes Assistive Devices: Glasses Review of Systems Review of Systems: Not a good historian due to dementia Physical Exam Physical Exam: Asked patient if he was having any shoulder pain and he did not feel like he was having any pain in his shoulder. With assisted overhead range of motion he could raise his arm overhead to release 160 degrees and he said it was not really painful during this activity. He would not raise it on his own and just kept his arm at the side. Range of motion did not appear to be overly painful. Range of motion of his elbow was not painful either. When asked if his knees had any pain he said that he did not have any pain but when I gently moved his right knee he said did cause him some pain. Does have a small knee effusion but no erythema and no severe pain that would suggest septic knee at all. No gross instability. Results & Data ([facility]) Vital Signs (Past 12 Hours) Vital Signs Temp Pulse Pulse Resp BP BP Pulse Ox 06/07/22 14:34 70 06/07/22 06:12 70 06/07/22 11:23 37.1 C 76 22 104/67 98 06/07/22 10:22 06/07/22 08:19 36.7 C 72 22 112/68 98 06/07/22 04:58 37.5 C 72 18 145/70 H 100 O2 Del Method 06/07/22 14:34 06/07/22 06:12 06/07/22 11:23 Room Air 06/07/22 10:22 Room Air, CPAP 06/07/22 08:19 Room Air 06/07/22 04:58 Room Air Laboratory Results Afebrile presently, white blood cell count 9.567 2622 Diagnostic Findings Right knee x-rays demonstrate chondrocalcinosis mild arthritic changes. This could potentially represent pseudogout. Similar chondrocalcinosis noted in the elbow joint not as extensive. Right shoulder has type III acromion with hypertrophy AC joint mild degenerative changes AC joint on limited views of the shoulder 2 views noted. Glenohumeral joint appears to be intact.
[2022-06-07] MEDS ORDERED: SODIUM CHLORIDE 0.9% 500 ML IV SCH (16:00)
[2022-06-07] MEDS: ENOXAPARIN INJ 40 MG/0.4 ML SYR SQ SCH (17:59)
[2022-06-07] MEDS: MEMANTINE 28 MG PO SCH (20:01)
[2022-06-07] MEDS: [UNRECOGNIZED DRUG - OTHER] SCH (20:01)
[2022-06-07] MEDS: CETIRIZINE HCL 10 MG TABLET PO SCH (20:02)
[2022-06-07] MEDS: TAMSULOSIN HCL 0.4 MG CAP PO SCH (20:02)
[2022-06-07] MEDS: DUTASTERIDE 0.5 MG PO SCH (20:02)
[2022-06-07] MEDS: RIVASTIGMINE TD SCH (20:03)
--- NOTE | 2022-06-08 07:44 | Hospitalist Progress Note ---
Date of Service June 08, 2022 Assessment & Plan (1) Altered mental status: Plan: Recent admit for weakness, had been given Unasyn for R maxillary sinusitis and sent to complete course 10 days at discharge 04/27. Discharged then from [facility] 05/30 and had some worsening confusion/AMS/metabolic encephalopathy in setting of UTI as patient was requiring frequent st caths at [facility] and not prior having frequent UTIs MRI brain WITHOUT acute finding Catheter-associated UTI 2nd to MRSA/enterococcus Outpatient urine cx 05/29 with enterococcus and MRSA --> Rx for Doxy called in prior, took 3 doses Vancomycin IV through 06/06 -Switched to Zyvox to complete course (currently on day 5 of treatment) -plan at least 7 days but consider extending to 10 (end date would be 06/12 for 10 days) - hold zoloft while on zyvox BCx remain NGTD WBC wnl, afebrile +BM 06/07 PT/OT consulted and total care, however would like to take home. Working on d/c but not able to have caregivers until Sunday. Hospital bed w/ trapeze to be delivered tomorrow. 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 st cath at [facility] new issue, never had problems with UTI in past Abx as above Consider continuing law per request and outpatient f/u urology for voiding trial--> would like law to remain in place at discharge HH to provide changes as needed vs can have f/u with urology for voiding trial (3) Enterococcus faecalis infection: Plan: See above (4) MRSA (methicillin resistant Staphylococcus aureus) infection: Plan: See above (5) RUE weakness: Plan: reported issues with patient's RUE with regards to not wanting to move it/lift up, also with some R knee pain MRI negative for acute CVA On exam, RUE with increased swelling and edema 06/05 however pulses palpable but was painful. * No prior IV site blown reported, some erythema/effusion to elbow, slight tender but able to move arm today without resistance/discomfort compared to 06/05 * R shoulder prior without evidence for acute fracture as patient's reported possible trauma moving over patient in bed and thinks maybe pulled his elbow RUE US with elbow effusion, no evidence for acute DVT R knee xray with joint narrowing/chondrocalcinosis, no acute pathology Pain control, ice, elevation Lyme negative Ortho consulted -- conservative/PT/OT as tolerated Improvement in mobility/swelling 06/07-06/08 almost resolved (6) Oropharyngeal dysphagia: Plan: Speech consulted but no change in prior recommendations; pured diet patient is a feed, has been having improvement in ability to feed Hospital bed for aspiration precautions, head of bed 30degrees and turn/reposition to be arranged tomorrow (7) Dementia: Plan: Lewy body dementia according to ; continue rivastigmine- asked to bring 06/05, received as well as his memantine Provided CM with Rx for hospital bed now at home given patient total care and plans to return with home health, need for frequent turn/repositioning and elevation of head of bed 30 degrees at all times to prevent risk for aspiration. (8) Obstructive sleep apnea: Plan: CPAP at bedtime as tolerated -unable to tolerate much evening 06/05 but reported restless and typically gets melatonin. resumed melatonin and continue CPAP as tolerated -- able to tolerate past couple of nights with resumption of melatonin HS (9) Benign prostatic hyperplasia: Plan: Flomax, dutasteride UOP acceptable Did get 500cc IVF 06/07 for some dehydration with improvement in law color and hydration status (10) Depression with anxiety: Plan: Continue home sertraline once completed abx with zyvox, currently placed on hold Plan continued inpatient stay, not having caregivers at home until Sunday. Will likely be inpatient until that time. Can d/c telemetry later today if going to remain inpatient Admission and Anticipated Discharge Date Admission Date: June 03, 2022 Supervising Physician Co-Signing Physician Notes PA Supervision Note: I did not personally see or examine the patient today, but I verified all ortega points of EBONY Pringle's assessment and plan with the following exceptions/additions: None Subjective Patient evaluated this morning. States feeling improved, looking much better. Urine in law less concentrated. Had small BM overnight. Will touch base with CM about supplies for at home for d/c planning. 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) Vital Signs (Past 12 Hours) Vital Signs Temp Pulse Pulse Resp BP Pulse Ox O2 Del Method 06/08/22 07:30 36.6 C 70 18 143/80 H 100 CPAP 06/08/22 07:20 56 L 06/08/22 03:46 36.5 C 73 18 114/70 94 BiPAP 06/07/22 23:52 36.3 C L 74 18 114/69 93 BiPAP 06/07/22 22:20 72 06/07/22 22:28 75 15 95 06/07/22 20:00 Room Air FiO2 06/08/22 07:30 06/08/22 07:20 06/08/22 03:46 06/07/22 23:52 06/07/22 22:20 06/07/22 22:28 21 06/07/22 20:00 Laboratory Results 06/08/22 06/08/22 Range/Units 09:11 09:11 WBC 9.14 (4.8-10.8) K/ul RBC 3.91 L (4.63-6.08) M/uL Hgb 11.7 L (14.0-18.0) g/dl Hct 35.2 L (40.1-51.0) % MCV 90.0 (80.0-100.0) fL MCH 29.9 (25.0-34.0) pg MCHC 33.2 (32.0-36.0) g/dL RDW Std Deviation 44.8 (36.4-46.3) fL RDW Coeff of Rodolfo 13.6 (11.5-14.5) % Plt Count 255 (130-400) K/uL MPV 9.4 (9.4-12.4) fL Immature Gran % (Auto) 0.4 % Neut % (Auto) 71.6 % Lymph % (Auto) 16.0 % Millard % (Auto) 9.8 % Eos % (Auto) 2.0 % Baso % (Auto) 0.2 % Neut # (Auto) 6.54 H (1.4-6.5) K/uL Lymph # (Auto) 1.46 (1.2-3.4) K/uL Millard # (Auto) 0.90 H (0.24-0.82) K/uL Eos # (Auto) 0.18 (0-0.50) K/uL Baso # (Auto) 0.02 (0-0.2) K/uL Immature Gran # (Auto) 0.04 H (0.00-0.02) K/uL Sodium 138 (136-145) mmol/L Potassium 3.9 (3.5-5.1) mmol/L Chloride 105 (98-107) mmol/L Carbon Dioxide 28 (21-32) mmol/L Anion Gap 5 (3-11) BUN 14 (6-23) mg/dl Creatinine 0.86 (0.6-1.4) mg/dl Est Cr Clr Drug Dosing 73.7 ml/min Est GFR ( Amer) 91.0 ml/min Est GFR (Non-Af Amer) 78.5 ml/min BUN/Creatinine Ratio 16.3 (10-20) Glucose 112 H (70-99(Fasting)) mg/dl Calcium 8.5 (8.5-10.1) mg/dl Phosphorus 3.2 (2.5-4.9) mg/dl Magnesium 2.0 (1.7-2.4) mg/dl PG Care Time/CCT Total # of Minutes Spent Total Time Spent with Patient: Total time spent is greater than 50% in coordination of care (as documented) at patient's floor/unit and/or counseling patient: Coding Level of Care Code 03383 Subseq Hosp Care Lvl 2 Diagnoses Altered mental status R41.82 Acute UTI (urinary tract infection) N39.0 Enterococcus faecalis infection B95.2 MRSA (methicillin resistant Staphylococcus aureus) infection A49.02 RUE weakness R29.898 Oropharyngeal dysphagia R13.12 Dementia G31.83; F02.81 Dementia behavioral disturbance: with behavioral disturbance Dementia type: Lewy body dementia Obstructive sleep apnea G47.33 Benign prostatic hyperplasia N40.0 Depression with anxiety F41.8 (1) Dementia Dementia behavioral disturbance: with behavioral disturbance Dementia type: Lewy body dementia Qualified Code(s): G31.83 - Dementia with Lewy bodies; F02.81 - Dementia in other diseases classified elsewhere with behavioral disturbance
[2022-06-08] MEDS: DOCUSATE SODIUM/SENNA 50/8.6MG TAB PO SCH ×2 (07:53→20:59)
[2022-06-08] MEDS: POLYETHYLENE (MIRALAX) 17 GM PACK PO SCH ×2 (07:53→21:01)
[2022-06-08] MEDS: LINEZOLID 600 MG TAB PO SCH ×2 (08:08→21:00)
[2022-06-08 09:41] LABS: Basophils # (auto) 0.02 K/uL (0-0.2); Basophils % (auto) 0.2 %; Eosinophils # (auto) 0.18 K/uL (0-0.50); Hematocrit (blood only) 35.2 % (40.1-51.0); Hemoglobin 11.7 g/dl (14.0-18.0); Immature Granulocytes # (auto) 0.04 K/uL (0.00-0.02); Immature Granulocytes % (auto) 0.4 %; Lymphocytes # (auto) 1.46 K/uL (1.2-3.4); Mean Corpuscular Hemoglobin 29.9 pg (25.0-34.0); Mean Corpuscular Hgb Conc 33.2 g/dL (32.0-36.0); Mean Platelet Volume 9.4 fL (9.4-12.4); Monocytes % (auto) 9.8 %; Neutrophils # (auto) 6.54 K/uL (1.4-6.5); Neutrophils % (auto) 71.6 %; Platelet Count 255 K/uL (130-400); RDW Coefficient of Variation 13.6 % (11.5-14.5); RDW Standard Deviation 44.8 fL (36.4-46.3); Red Blood Count 3.91 M/uL (4.63-6.08); White Blood Count 9.14 K/ul (4.8-10.8)
[2022-06-08 10:02] LABS: BUN Creatinine Ratio 16.3 (10-20); Calcium 8.5 mg/dl (8.5-10.1); Creatinine Clr Calc Pharmacy 73.7 ml/min; Est GFR (Non-African American) 78.5 ml/min; Phosphorus 3.2 mg/dl (2.5-4.9); Potassium 3.9 mmol/L (3.5-5.1)
[2022-06-08] MEDS: ENOXAPARIN INJ 40 MG/0.4 ML SYR SQ SCH (17:12)
[2022-06-08] MEDS: [UNRECOGNIZED DRUG - OTHER] SCH (20:59)
[2022-06-08] MEDS: CETIRIZINE HCL 10 MG TABLET PO SCH (21:00)
[2022-06-08] MEDS: TAMSULOSIN HCL 0.4 MG CAP PO SCH (21:01)
[2022-06-08] MEDS: DUTASTERIDE 0.5 MG PO SCH (21:01)
[2022-06-08] MEDS: RIVASTIGMINE TD SCH (21:02)
[2022-06-08] MEDS: MEMANTINE 28 MG PO SCH (21:02)
[2022-06-08] MEDS: MELATONIN 3 MG TAB PO PRN (21:08)
--- NOTE | 2022-06-09 08:04 | Hospitalist Progress Note ---
Date of Service June 09, 2022 Assessment & Plan (1) Altered mental status: Plan: Recent admit for weakness, had been given Unasyn for R maxillary sinusitis and sent to complete course 10 days at discharge 04/27. Discharged then from [facility] 05/30 and had some worsening confusion/AMS/metabolic encephalopathy in setting of UTI as patient was requiring frequent st caths at [facility] and not prior having frequent UTIs MRI brain WITHOUT acute finding Catheter-associated UTI 2nd to MRSA/enterococcus Outpatient urine cx 05/29 with enterococcus and MRSA --> Rx for Doxy called in prior, took 3 doses Vancomycin IV through 06/06 -Switched to Zyvox to complete course (currently on day 7 of treatment), end date 06/12 for 10 day treatment - hold zoloft while on zyvox BCx remain NGTD WBC wnl, afebrile +BM 06/07, 06/08 PT/OT consulted and total care, however would like to take home. Working on d/c but not able to have caregivers until Sunday. Hospital bed w/ trapeze to be delivered this afternoon. 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 st cath at [facility] new issue, never had problems with UTI in past Abx as above Consider continuing law per request and outpatient f/u urology for voiding trial--> would like law to remain in place at discharge HH to provide changes as needed vs can have f/u with urology for voiding trial (3) Enterococcus faecalis infection: Plan: See above (4) MRSA (methicillin resistant Staphylococcus aureus) infection: Plan: See above (5) RUE weakness: Plan: reported issues with patient's RUE with regards to not wanting to move it/lift up, also with some R knee pain MRI negative for acute CVA On exam, RUE with increased swelling and edema 06/05 however pulses palpable but was painful. * No prior IV site blown reported, some erythema/effusion to elbow, slight tender but able to move arm today without resistance/discomfort compared to 06/05 * R shoulder prior without evidence for acute fracture as patient's reported possible trauma moving over patient in bed and thinks maybe pulled his elbow RUE US with elbow effusion, no evidence for acute DVT R knee xray with joint narrowing/chondrocalcinosis, no acute pathology Pain control, ice, elevation Lyme negative Ortho consulted -- conservative/PT/OT as tolerated Improvement in mobility/swelling 06/07-06/08 almost resolved, back to baseline and working with PT for exercises and will continue HH at d/c (6) Oropharyngeal dysphagia: Plan: Speech consulted but no change in prior recommendations; pured diet patient is a feed, has been having improvement in ability to feed Hospital bed for aspiration precautions, head of bed 30degrees and turn/reposition to be arranged 06/09 (7) Dementia: Plan: Lewy body dementia according to ; continue rivastigmine- asked to bring 06/05, received as well as his memantine Provided CM with Rx for hospital bed now at home given patient total care and plans to return with home health, need for frequent turn/repositioning and elevation of head of bed 30 degrees at all times to prevent risk for aspiration. (8) Obstructive sleep apnea: Plan: CPAP at bedtime as tolerated -unable to tolerate much evening 06/05 but reported restless and typically gets melatonin which was resumed and has been sleeping and tolerating CPAP with improvement (9) Benign prostatic hyperplasia: Plan: Flomax, dutasteride Did get 500cc IVF 06/07 for some dehydration with improvement in law color and hydration status UOP remains acceptable (10) Depression with anxiety: Plan: Continue home sertraline once completed abx with zyvox (after 06/12), currently placed on hold Plan Discontinued telemetry, remains inpatient until Sunday when home w/ and home health Admission and Anticipated Discharge Date Admission Date: June 03, 2022 Supervising Physician Co-Signing Physician Notes PA Supervision Note: I did not personally see or examine the patient today, but I verified all ortega points of EBONY Pringle's assessment and plan with the following exceptions/additions: None Subjective Patient evaluated this morning. Working with therapy. No acute events overnight and remains inpatient until arrangements in place at home. 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 MSK/Neuro/psych: no focal deficit, follows commands at times, improved eye contact, more conversive but still baseline dementia, alert to person.cogwheel type rigidity noted at times generalized weakness throughout but continued improvement Skin: warm, dry Psych: alert to person, not location/time Results & Data Results & Data ([facility]) Vital Signs (Past 12 Hours) Vital Signs Temp Pulse Pulse Resp BP Pulse Ox O2 Del Method 06/09/22 00:09 36.7 C 72 18 135/74 96 Room Air 06/08/22 22:52 79 98 PG Care Time/CCT Total # of Minutes Spent Total Time Spent with Patient: Total time spent is greater than 50% in coordination of care (as documented) at patient's floor/unit and/or counseling patient: Coding Level of Care Code 77794 Subseq Hosp Care Lvl 1 Diagnoses Altered mental status R41.82 Acute UTI (urinary tract infection) N39.0 Enterococcus faecalis infection B95.2 MRSA (methicillin resistant Staphylococcus aureus) infection A49.02 RUE weakness R29.898 Oropharyngeal dysphagia R13.12 Dementia G31.83; F02.81 Dementia behavioral disturbance: with behavioral disturbance Dementia type: Lewy body dementia Obstructive sleep apnea G47.33 Benign prostatic hyperplasia N40.0 Depression with anxiety F41.8 (1) Dementia Dementia behavioral disturbance: with behavioral disturbance Dementia type: Lewy body dementia Qualified Code(s): G31.83 - Dementia with Lewy bodies; F02 .81 - Dementia in other diseases classified elsewhere with behavioral disturbance
[2022-06-09] MEDS: POLYETHYLENE (MIRALAX) 17 GM PACK PO SCH ×2 (08:20→20:05)
[2022-06-09] MEDS: DOCUSATE SODIUM/SENNA 50/8.6MG TAB PO SCH ×2 (08:22→20:04)
[2022-06-09] MEDS: LINEZOLID 600 MG TAB PO SCH ×2 (08:22→20:04)
[2022-06-09] MEDS: ENOXAPARIN INJ 40 MG/0.4 ML SYR SQ SCH (16:47)
[2022-06-09] MEDS: MELATONIN 3 MG TAB PO PRN (20:01)
[2022-06-09] MEDS: DUTASTERIDE 0.5 MG PO SCH (20:02)
[2022-06-09] MEDS: [UNRECOGNIZED DRUG - OTHER] SCH (20:02)
[2022-06-09] MEDS: RIVASTIGMINE TD SCH (20:02)
[2022-06-09] MEDS: MEMANTINE 28 MG PO SCH (20:03)
[2022-06-09] MEDS: TAMSULOSIN HCL 0.4 MG CAP PO SCH (20:04)
[2022-06-09] MEDS: CETIRIZINE HCL 10 MG TABLET PO SCH (20:04)
--- NOTE | 2022-06-10 07:44 | Hospitalist Progress Note ---
Date of Service June 10, 2022 Assessment & Plan (1) Altered mental status: Plan: Recent admit for weakness, had been given Unasyn for R maxillary sinusitis and sent to complete course 10 days at discharge 04/27. Discharged then from [facility] 05/30 and had some worsening confusion/AMS/metabolic encephalopathy in setting of UTI as patient was requiring frequent st caths at [facility] and not prior having frequent UTIs MRI brain WITHOUT acute finding Catheter-associated UTI 2nd to MRSA/enterococcus Outpatient urine cx 05/29 with enterococcus and MRSA --> Rx for Doxy called in prior, took 3 doses Vancomycin IV through 06/06 -Switched to Zyvox to complete course (currently on day 8 of treatment), end date 06/12 for 10 day treatment - hold zoloft while on zyvox check cdiff given reported diarrhea/abdominal cramping but no copious diar fernando and workked on BM for days prior. BM reported by nursing to myself on the , , diarrhea overnight BCx NGTD, afebrile. WBC wnl on repeat Antiemetics, pain control prn Appears about at baseline PT/OT consulted and rec as total care for placement however to take home sunday. Supplies arranged and moving things around at home, additional caregivers arranged by for Sunday. 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 st cath at [facility] new issue, never had problems with UTI in past Abx as above Consider continuing law per request and outpatient f/u urology for voiding trial--> would like law to remain in place at discharge HH to provide changes as needed vs can have f/u with urology for voiding trial (3) Enterococcus faecalis infection: Plan: See above (4) MRSA (methicillin resistant Staphylococcus aureus) infection: Plan: See above (5) RUE weakness: Plan: reported issues with patient's RUE with regards to not wanting to move it/lift up, also with some R knee pain MRI negative for acute CVA On exam, RUE with increased swelling and edema 06/05 however pulses palpable but was painful. * No prior IV site blown reported, some erythema/effusion to elbow, slight tender but able to move arm today without resistance/discomfort compared to 06/05 * R shoulder prior without evidence for acute fracture as patient's reported possible trauma moving over patient in bed and thinks maybe pulled his elbow RUE US with elbow effusion, no evidence for acute DVT R knee xray with joint narrowing/chondrocalcinosis, no acute pathology Pain control, ice, elevation Lyme negative Ortho consulted 06/10-- continued improvement and swelling resolved. conservative PT as tolerated HH PT at d/c (6) Oropharyngeal dysphagia: Plan: Speech consulted but no change in prior recommendations; pured diet patient is a feed, has been having improvement in ability to feed Hospital bed for aspiration precautions, head of bed 30degrees and turn/reposition to be arranged 06/09 (7) Dementia: Plan: Lewy body dementia according to ; continue rivastigmine- asked to bring 06/05, received as well as his memantine Provided CM with Rx for hospital bed now at home given patient total care and plans to return with home health, need for frequent turn/repositioning and elevation of head of bed 30 degrees at all times to prevent risk for aspiration. (8) Obstructive sleep apnea: Plan: CPAP at bedtime as tolerated Unable to tolerate much evening 06/05 but reported restless and typically gets melatonin which was resumed and has been sleeping and tolerating CPAP with improvement and continues to tolerate CPAP (9) Benign prostatic hyperplasia: Plan: Flomax, dutasteride UOP acceptable BPs a little soft today and not as much oral intake but assist for feeding Ordered additional 500cc for mild dehydration on exam Monitor (10) Depression with anxiety: Plan: Continue home sertraline once completed abx with zyvox (after 06/12), currently placed on hold Plan continued inpatient stay until sunday Admission and Anticipated Discharge Date Admission Date: June 03, 2022 Supervising Physician Co-Signing Physician Notes PA Supervision Note: I did not personally see or examine the patient today, but I verified all ortega points of EBONY Pringle's assessment and plan with the following exceptions/additions: None Subjective Eval this morning. Tolerated CPAP all night. Doing alright, assisted with feeding by RN this morning, to visit for meals this afternoon. Patient had BM reported diarrhea overnight but this morning patient stating some abdominal discomfort and feels constipated and working on BM with miralax currently. Would like dose of tylenol. Otherwise no issues, no chest pain or shortness of breath. Awaiting placement. Law with yellow urine draining. Review of Systems Review of Systems: All systems reviewed & are unremarkable except as noted in HPI & below Physical Exam Physical Exam: General: WN elderly male sitting up in hospital bed, NAD HEENT: head normocephalic, atraumatic, pupils reactive, trachea midline without deviation, mm slightly dry Resp: CTAB, diminished in bases, on room air, no cough CV: RRR, no m/r/g, no calf edema/tenderness GI: +BS, nontender on exam but reporting cramping : law draining yellow urine MSK/Neuro/psych: no focal deficit, follows commands at times, improved eye contact, more conversive but still baseline dementia, alert to person.cogwheel type rigidity noted at times generalized weakness throughout but continued improvement Skin: warm, dry Psych: alert to person, flat affect, doesn't want to be in hospital anymore Results & Data Results & Data ([facility]) Vital Signs (Past 12 Hours) Vital Signs Temp Pulse Pulse Resp BP Pulse Ox O2 Del Method 06/10/22 03:32 70 16 98 06/09/22 22:36 63 16 96 06/10/22 00:04 Nasal CPAP 06/09/22 22:40 37.3 C 70 20 130/78 98 CPAP FiO2 06/10/22 03:32 21 06/09/22 22:36 21 06/10/22 00:04 06/09/22 22:40 PG Care Time/CCT Total # of Minutes Spent Total Time Spent with Patient: Total time spent is greater than 50% in coordination of care (as documented) at patient's floor/unit and/or counseling patient: Coding Level of Care Code 27984 Subseq Hosp Care Lvl 1 Diagnoses Altered mental status R41.82 Acute UTI (urinary tract infection) N39.0 Enterococcus faecalis infection B95.2 MRSA (methicillin resistant Staphylococcus aureus) infection A49.02 RUE weakness R29.898 Oropharyngeal dysphagia R13.12 Dementia G31.83; F02.81 Dementia behavioral disturbance: with behavioral disturbance Dementia type: Lewy body dementia Obstructive sleep apnea G47.33 Benign prostatic hyperplasia N40.0 Depression with anxiety F41.8 (1) Dementia Dementia behavioral disturbance: with behavioral disturbance Dementia type: Lewy body dementia Qualified Code(s): G31.83 - Dementia with Lewy bodies; F02.81 - Dementia in other diseases classified elsewhere with behavioral disturbance
[2022-06-10] MEDS: POLYETHYLENE (MIRALAX) 17 GM PACK PO SCH (09:37)
[2022-06-10] MEDS: DOCUSATE SODIUM/SENNA 50/8.6MG TAB PO SCH ×2 (09:37→21:24)
[2022-06-10] MEDS: LINEZOLID 600 MG TAB PO SCH ×2 (09:38→21:26)
[2022-06-10] MEDS ORDERED: SODIUM CHLORIDE 0.9% 500 ML IV SCH (11:15)
[2022-06-10] MEDS: ACETAMINOPHEN 325 MG TAB PO PRN (11:32)
[2022-06-10] MEDS: ENOXAPARIN INJ 40 MG/0.4 ML SYR SQ SCH (18:39)
[2022-06-10] MEDS: MELATONIN 3 MG TAB PO PRN (21:23)
[2022-06-10] MEDS: DUTASTERIDE 0.5 MG PO SCH (21:23)
[2022-06-10] MEDS: MEMANTINE 28 MG PO SCH (21:23)
[2022-06-10] MEDS: CETIRIZINE HCL 10 MG TABLET PO SCH (21:25)
[2022-06-10] MEDS: TAMSULOSIN HCL 0.4 MG CAP PO SCH (21:25)
[2022-06-10] MEDS: [UNRECOGNIZED DRUG - OTHER] SCH (21:25)
[2022-06-10] MEDS: RIVASTIGMINE TD SCH (21:26)
--- NOTE | 2022-06-11 08:11 | Hospitalist Progress Note ---
Date of Service June 11, 2022 Assessment & Plan (1) Altered mental status: Plan: Recent admit for weakness, had been given Unasyn for R maxillary sinusitis and sent to complete course 10 days at discharge 04/27. Discharged then from [facility] 05/30 and had some worsening confusion/AMS/metabolic encephalopathy in setting of UTI as patient was requiring frequent st caths at [facility] and not prior having frequent UTIs MRI brain WITHOUT acute finding Catheter-associated UTI 2nd to MRSA/enterococcus Outpatient urine cx 05/29 with enterococcus and MRSA --> Rx for Doxy called in prior, took 3 doses Vancomycin IV through 06/06 Switched to Zyvox to complete course (currently on day 8 of treatment), end date 06/12 for 10 day treatment - hold zoloft while on zyvox check cdiff given reported diarrhea/abdominal cramping but no copious diarr hea and workked on BM for days prior. BM reported by nursing to myself on the , , diarrhea overnight BCx NGTD, afebrile. WBC wnl on repeat Antiemetics, pain control prn Tylenol 500mg x 1 06/11 for some cramping. no increased diarrhea to indicate cdiff but if repeat episode while in hospital on abx asked RN to collect/send Appears about at baseline PT/OT consulted and rec as total care for placement however to take home sunday. Supplies arranged and moving things around at home, additional caregivers arranged by for Sunday. (2) Acute UTI (urinary tract infection): Plan: [employer], CATH AT [facility] NEW FOR PATIENT (possible not getting his BPH medications there as likely non-formulary) Crespo continued for now as placed on admit. st cath at [facility] new issue, never had problems with UTI in past Abx as above PER DISCUSSION WITH 06/10, SHE WOULD LIKE CRESPO REMOVED APPROXIMATELY 1 HOUR PRIOR TO DISCHARGE SO THAT SHE HAS TIME TO GET HIM HOME/SITUATED PRIOR TO NEED FOR SELF CATH. HAS SUPPLIES AT HOME, FOLLOWS W/ DR FELICIANO AFTER D/C (3) Enterococcus faecalis infection: Plan: See above (4) MRSA (methicillin resistant Staphylococcus aureus) infection: Plan: See above (5) RUE weakness: Plan: reported issues with patient's RUE with regards to not wanting to move it/lift up, also with some R knee pain MRI negative for acute CVA On exam, RUE with increased swelling and edema 06/05 however pulses palpable but was painful. * No prior IV site blown reported, some erythema/effusion to elbow, slight tender but able to move arm today without resistance/discomfort compared to 06/05 * R shoulder prior without evidence for acute fracture as patient's report ed possible trauma moving over patient in bed and thinks maybe pulled his elbow RUE US with elbow effusion, no evidence for acute DVT R knee xray with joint narrowing/chondrocalcinosis, no acute pathology Pain control, ice, elevation Lyme negative Ortho consulted 06/10-- continued improvement and swelling resolved. conservative PT as tolerated HH PT at d/c (6) Oropharyngeal dysphagia: Plan: Speech consulted but no change in prior recommendations; pured diet patient is a feed, has been having improvement in ability to feed Hospital bed for aspiration precautions, head of bed 30degrees and turn/reposition to be arranged 06/09 (7) Dementia: Plan: Lewy body dementia according to ; continue rivastigmine- asked to bring 06/05, received as well as his memantine Provided CM with Rx for hospital bed now at home given patient total care and plans to return with home health, need for frequent turn/repositioning and elevation of head of bed 30 degrees at all times to prevent risk for aspiration. (8) Obstructive sleep apnea: Plan: CPAP at bedtime as tolerated Unable to tolerate much evening 06/05 but reported restless and typically gets melatonin which was resumed and has been sleeping and tolerating CPAP with improvement and continues to tolerate CPAP (9) Benign prostatic hyperplasia: Plan: Flomax, dutasteride UOP acceptable Crespo in place and straight caths at home (10) Depression with anxiety: Plan: Continue home sertraline once completed abx with zyvox (after 06/12), currently placed on hold Plan D/C CRESPO 1 HR prior to d/c Equipment delivered, extra help to be available w/ for discharge on Sunday Admission and Anticipated Discharge Date Admission Date: June 03, 2022 Supervising Physician Co-Signing Physician Notes PA Supervision Note: I did not personally see or examine the patient today, but I verified all ortega points of EBONY Pringle's assessment and plan with the following exceptions/additions: None Subjective Eval this morning, doing alright other than some cramping. Would like tylenol, does note is sedating for patient per and will order 500mg x 1 instead of the 650mg tablet but was effective yesterday. ABdomen soft, only one day left of antibiotics. No nausea. Moving bowels, diarrhea x 1 day past. No further but will hold off further colace given on antibiotics and moving bowels daily up until today. cdiff pending if any further diarrhea. Crespo to remove tomorrow prior to discharge. Otherwise, no acute issues. Review of Systems Review of Systems: All systems reviewed & are unremarkable except as noted in HPI & below Physical Exam Physical Exam: General: WN elderly male sitting up in hospital bed, NAD HEENT: head normocephalic, atraumatic, pupils reactive, trachea midline without deviation, mm slightly dry Resp: CTAB, diminished in bases, on room air, no cough CV: RRR, no m/r/g, no calf edema/tenderness GI: +BS, nontender on exam but reporting cramping : crespo draining yellow urine MSK/Neuro/psych: no focal deficit, follows commands at times, improved eye c ontact, more conversive but still baseline dementia, alert to person.cogwheel type rigidity noted at times generalized weakness throughout but continued improvement Skin: warm, dry Psych: alert to person, flat affect, doesn't want to be in hospital anymore Results & Data Results & Data ([facility]) Vital Signs (Past 12 Hours) Vital Signs Temp Pulse Pulse Resp BP Pulse Ox O2 Del Method 06/11/22 03:20 68 17 96 06/11/22 01:16 64 15 97 06/10/22 22:32 36.7 C 80 18 125/75 98 Room Air FiO2 06/11/22 03:20 21 06/11/22 01:16 21 06/10/22 22:32 PG Care Time/CCT Total # of Minutes Spent Total Time Spent with Patient: Total time spent is greater than 50% in coordination of care (as documented) at patient's floor/unit and/or counseling patient: Coding Level of Care Code 30452 Subseq Hosp Care Lvl 1 Diagnoses Altered mental status R41.82 Acute UTI (urinary tract infection) N39.0 Enterococcus faecalis infection B95.2 MRSA (methicillin resistant Staphylococcus aureus) infection A49.02 RUE weakness R29.898 Oropharyngeal dysphagia R13.12 Dementia G31.83; F02.81 Dementia behavioral disturbance: with behavioral disturbance Dementia type: Lewy body dementia Obstructive sleep apnea G47.33 Benign prostatic hyperplasia N40.0 Depression with anxiety F41.8 (1) Dementia Dementia behavioral disturbance: with behavioral disturbance Dementia type: Lewy body dementia Qualified Code(s): G31.83 - Dementia with Lewy bodies; F02.81 - Dementia in other diseases classified elsewhere with behavioral disturbance
[2022-06-11] MEDS ORDERED: ACETAMINOPHEN 500 MG TAB PO ONE (09:10)
[2022-06-11] MEDS: LINEZOLID 600 MG TAB PO SCH ×2 (09:24→20:48)
[2022-06-11] MEDS: DOCUSATE SODIUM/SENNA 50/8.6MG TAB PO SCH (09:44)
[2022-06-11] MEDS: ENOXAPARIN INJ 40 MG/0.4 ML SYR SQ SCH (18:34)
[2022-06-11] MEDS: CETIRIZINE HCL 10 MG TABLET PO SCH (20:47)
[2022-06-11] MEDS: TAMSULOSIN HCL 0.4 MG CAP PO SCH (20:47)
[2022-06-11] MEDS: MEMANTINE 28 MG PO SCH (20:48)
[2022-06-11] MEDS: DUTASTERIDE 0.5 MG PO SCH (20:49)
[2022-06-11] MEDS: RIVASTIGMINE TD SCH (20:49)
[2022-06-11] MEDS: [UNRECOGNIZED DRUG - OTHER] SCH (20:50)
[2022-06-11] MEDS: MELATONIN 3 MG TAB PO PRN (20:53)
--- NOTE | 2022-06-12 12:19 | Discharge Summary ---
Date of Service June 12, 2022 Admission HPI Per Admitting Provider The patient is an 86 yo male with a PMH including UTI's, oropharyngeal dysphagia, neurogenic bladder, allergic rhinitis, ED, urinary retention, dementia, MAGGIE on CPAP, BPH with LUTS, depression with anxiety, dyslipidemia, and Parkinsonism. He was diagnosed with a UTI on 05/29/22 which ultimately grew enterococcus faecalis and MRSA. He received Vanco IV and Cefepime IV from the ED, and was referred for eval for admission. Principal Diagnosis Altered mental status, Lewy body dementia Discharge Exam Constitutional and general: No acute distress, looks biologic age Looks well Abdomen benign Cognitive deficit apparent Chest clear Discharge Data Allergies Allergy/AdvReac Type Severity Reaction Status Date / Time No Known Allergies Allergy Verified 06/03/22 02:01 Consultations 06/03/22 00:59 ED Decision to Admit Stat 06/05/22 10:01 Consult Orthopedic Surgery Routine Ordered Studies 06/02/22 21:49 CT head/brain wo con Urgent 06/02/22 22:11 CT Abd and Pelvis [CT abd pelvis wo con] Urgent 06/04/22 10:08 MRI Brain [MR brain wo con] Urgent 06/05/22 10:39 US venous doppler UE RT Routine Hospital Course (1) Altered mental status: Exact etiology not clear but improved; I am not convinced of symptomatic UTI but finished course of treatment; at present improved and at baseline or better; family desires discharge to home (2) Acute UTI (urinary tract infection): Not confirmedoutside culture showed Enterococcus and MRSA; urine culture here was negative; finished course of treatment; resume intermittent catheterization at home, outpatient urology; (3) Enterococcus faecalis infection: See above (4) MRSA (methicillin resistant Staphylococcus aureus) infection: See above (5) Oropharyngeal dysphagia: Speech consulted but no change in prior recommendations; pured diet (6) Dementia: Lewy body dementia according to ; continue rivastigmine (7) Obstructive sleep apnea: CPAP at bedtime (8) Benign prostatic hyperplasia: Home meds; (9) Depression with anxiety: Continue home medscan resume sertraline from tomorrow Plan Mild anemia can be followed Total Time Total Time Spent Total Time Spent (In Minutes): 32 Discharge Plan Discharge Items Patient Disposition: Home - Home Health Services Reason For Visit: UTI Discharge Diagnosis: Altered mental status Activity: Resume your previous activity Non-emergency contact: Primary Care Provider Call non-emergency contact if: your symptoms worsen Follow-up/Referrals: Colt Yusuf DO [Primary Care Provider] - 06/19/22 11:30 am Lucien Butler MD [Physician] - (Known to you, bladder outlet obstruction) Diet: Other - See Diet Comment Diet Comment: Pured diet, head of bed 30 degrees during eating; assisted feeding Addtl Attending Provider Instructions: Maintain all prior healthcare appointments; Resume intermittent catheterization at least 4 times a day Resume sertraline also known as Zoloft tomorrow evening Pending Studies at Discharge: No Stand-Alone Forms: [employer], Smoking Cessation Medications and DC Order Prescriptions: New sertraline 50 mg Tablet 50 mg PO HS Qty: 1 0RF Rx Instructions: start 06/13/2022 at bedtime Continued fluticasone propionate 50 mcg/actuation spray,suspension 1 spray intranasal Q12H Qty: 16 2RF Rx Instructions: administer into each nostril dutasteride 0.5 mg capsule 0.5 mg PO HS rivastigmine 13.3 mg/24 hour patch 24 hour 13.3 mg topical HS cetirizine [Zyrtec] 10 mg Tablet 10 mg PO HS azelastine 137 mcg (0.1 %) aerosol,spray 2 spray intranasal BID PRN (Reason: Nasal Congestion) fluocinolone 0.01 % Cream 1 applic TOPICAL DIRECTED PRN (Reason: APPLY TO SCALP) triamcinolone acetonide 0.1 % Cream 1 applic TOPICAL DIRECTED PRN (Reason: APPLY TO ANKLE) ciclopirox 8 % solution 1 applic TOPICAL HS PRN (Reason: nails) Rx Instructions: APPLY TO TOE NAIL hydrocortisone 1 % Cream 1 applic TOPICAL DIRECTED PRN (Reason: FACIAL AREA) econazole 1 % Cream 1 applic TOPICAL DIRECTED PRN (Reason: APPLY TO FEET) melatonin 5 mg Tablet 5 mg PO HS memantine 28 mg capsule,sprinkle,ER 24hr 28 mg PO HS tamsulosin 0.4 mg capsule 0.4 mg PO HS Discontinued doxycycline hyclate 100 mg capsule 100 mg PO BID Rx Instructions: started 06/01/22 for 7 days sertraline 50 mg tablet 50 mg PO HS Discharge Orders: Discharge Order (Routine); Ordered 06/12/22 Ordered By: Leoncio Matt Admission Data Admit Date/Time: 06/03/22 01:17 Attending Provider: Leoncio Matt Admit Provider: Macario Guzman Primary Care Provider: Colt Yusuf Other Providers: [facility] ; Macario Guzman ; Rubens Moreno ; Julia Murphy Other Interventions: Discharge Summary Assessment (RN) Last Done: 06/12/22 10:12 Coding Level of Care Code D/C DAY MANAGEMENT >30 MINS Diagnoses Altered mental status R41.82 Acute UTI (urinary tract infection) N39.0 Enterococcus faecalis infection B95.2 MRSA (methicillin resistant Staphylococcus aureus) infection A49.02 Oropharyngeal dysphagia R13.12 Dementia G31.83; F02.81 Dementia behavioral disturbance: with behavioral disturbance Dementia type: Lewy body dementia Obstructive sleep apnea G47.33 Benign prostatic hyperplasia N40.0 Depression with anxiety F41.8
[2022-06-13] MEDS ORDERED: SERTRALINE HCL 50 MG TABLET PO SCH (21:00)
== END 2022-06-12 15:42 | disposition home health service (06) | DRG 698 ==
LOC: ED 21:38 → SUATTDRO 06-03 01:17 → 2N 06-03 01:17

== ENCOUNTER 2022-06-28 10:08 | Inpatient (IN) ==
[2022-06-28] MEDS ORDERED: SODIUM CHLORIDE 0.9% 1000ML 2,000 ML IV ONE (10:31)
[2022-06-28] MEDS ORDERED: cefTRIAXone SODIUM 2,000 MG/70 ML BAG IV STA (10:31)
[2022-06-28] MEDS ORDERED: ACETAMINOPHEN 325 MG TAB PO STA (10:36)
--- NOTE | 2022-06-28 10:39 | Emergency Department Note ---
Impression & Plan Sepsis, Acute UTI, Acute hypotension, Leukopenia, Elevated lactic acid level ED Provider Note NAME: CELENA NUNES AGE: 87 SEX: M : 1935 ARRIVES VIA: Ambulance INFORMANT: Patient ED PROVIDER(S): Alfonso Perez DO CHIEF COMPLAINT: trouble placing catheter HPI: Patient is an 87-year-old male who presents to the ER as he was at home and home health was trying to place catheter as he had not been cathed since late last night. He was trying to refuse catheterization yesterday. The is the one that caths him at home. They were unsuccessful and had a fair amount of blood clots when trying and brought him into the ER. He was found to be febrile. He denies complaints but is confused at baseline per EMS. History is limited secondary to medication. ROS: History limited secondary to mentation. PAST MEDICAL HISTORY:See Below PAST SURGICAL HISTORY:See Below FAMILY HISTORY:See Below SOCIAL HISTORY:See Below HOME MEDICATIONS:See Below ALLERGIES:See Below VITALS:See Below PHYSICAL EXAMINATION: GENERAL: Sitting up in bed, alert, ill appearing, shaking EYE EXAM: normal conjunctiva. OROPHARYNX: Dry mucous membrane NECK: supple, no nuchal rigidity, no adenopathy, non-tender LUNGS: Clear to auscultation. Normal chest wall mechanics HEART: no murmurs, S1 normal and S2 normal ABDOMEN: abdomen soft, non-tender, normo-active bowel sounds, no masses, no rebound or guarding. UPPER EXTREMITIES: upper extremities are grossly normal. LOWER EXTREMITIES: No pitting edema. NEURO EXAM: Sitting up in bed alert but confused, moving all extremities, n onfocal MEDICAL DECISION MAKING: Patient is a 87-year-old male who presents to the ER brought in for trouble with catheterization. Upon arrival he is found to have rigors and is found febrile at nearly 104. IV was established blood work was obtained. Durbin was advanced under ultrasound guidance due to resistance and was eventually placed into the bladder. We had over 1000 mL out of clear yellow urine but initially bloody due to the initial trauma of the previous catheterization at home. Labs show leukopenia 2.4 as well as mild anemia at 13. INR 1.2. BMP with LFTs bilirubin and troponin was negative. UA shows nitrates, leuks whites red cells and bacteria. Initially given Rocephin but upon review of the cultures was switched to daptomycin and ertapenem due to previous resistance which is fairly significant. He was given multiple boluses of IV fluids. He did drop his pressures slightly into the 90s. He was monitored closely and admitted to the hospitalist for sepsis secondary to UTI. CT abdomen pelvis showed mild hydro-. Triage Nursing notes reviewed. Limited review of prior medical records performed Vital Signs: reviewed and remarkable for tachy and febrile Differential diagnosis: Differential diagnosis includes etiologies such as sepsis, UTI, pneumonia, metabolic, electrolyte abnormalities, cardiac sources, intracerebral event, toxicologic, neurological, as well as others were entertained. ER treatment provided: See below Diagnostics interpreted by me: ECG: Sinus tachycardia rate of 133 Left axis Poor baseline QTC 461 Difficult to interpret Cardiac Monitoring: An order was placed for continuous cardiac monitoring. The monitor shows a rate of 122 with sinus rhythm. Laboratory studies: As stated above and show below. Imaging studies: CT abdomen pelvis as described above Chest x-ray with questionable pneumonia. Consultation(s): Discussed with the hospitalist for further evaluation Procedures: none Critical Care: I have personally spent 35 minutes of critical care time in the direct management of this patient. This includes bedside care, interpretation of diagnostic studies, and testing, discussion with consultants, patient, and family members, and other required patient management activities. This 35 minutes is in excess of all separately billable procedures. Past Med/Surg History Medical History Altered mental status Altered mental status Benign prostatic hyperplasia Followed by [facility]. Carotid artery plaque Dementia followed by Neurology Depression with anxiety Dyslipidemia Enterococcus faecalis infection Hearing loss MRSA (methicillin resistant Staphylococcus aureus) infection Obstructive sleep apnea Cpap, followed by Dr. 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 Shoulder pain, right Surgical History H/O colonoscopy Family History Mother Alzheimer disease Brother Arthritis Nonorganic sleep disorder Father Emphysema, unspecified Brother Leukemia Social History Smoking Status: Never smoker Second Hand Exposure: No; Hx Alcohol Use: No Hx Substance Use: No Preferred Language: [place] Leonean Communication Ability: Impaired Visual Impairment: Limited Hearing Ability: Use of Hearing Aid Jumpbasting Collar Baster Required: No Beliefs That Will Affect Care: None marital status: Current Living Situation: Spouse Current Living Situation Comment: lives in single story home with his current occupational status: retired Feels Safe at Home: Yes caffeine: Yes Dental Care, Regularly: Yes Physical Activity Frequency: 1-2 Times per Week Seatbelt Use: always Sunscreen Use: Yes Assistive Devices: Glasses Allergies Allergies Allergy/AdvReac Type Severity Reaction Status Date / Time No Known Allergies Allergy Verified 06/03/22 02:01 Home Meds Home Medications Medication Instructions Recorded Confirmed cetirizine 10 mg tablet (Zyrtec) 10 mg PO HS 03/07/21 06/28/22 dutasteride 0.5 mg capsule 0.5 mg PO HS 03/07/21 06/28/22 rivastigmine 13.3 mg/24 hour 13.3 mg topical HS 03/07/21 06/28/22 transdermal patch ciclopirox 8 % topical solution 1 applic topical HS PRN nails 04/20/22 06/28/22 econazole 1 % topical cream 1 applic topical DIRECTED PRN 04/20/22 06/28/22 APPLY TO FEET fluocinolone 0.01 % topical cream 1 applic topical DIRECTED PRN 04/20/22 06/28/22 APPLY TO SCALP hydrocortisone 1 % topical cream 1 applic topical DIRECTED PRN 04/20/22 06/28/22 FACIAL AREA melatonin 5 mg tablet 5 mg PO HS 04/20/22 06/28/22 memantine 28 mg capsule 28 mg PO HS 04/20/22 06/28/22 sprinkle,extended release 24hr tamsulosin 0.4 mg capsule 0.4 mg PO HS 04/20/22 06/28/22 triamcinolone acetonide 0.1 % 1 applic topical DIRECTED PRN 04/20/22 06/28/22 topical cream APPLY TO ANKLE azelastine 137 mcg (0.1 %) nasal 2 spray intranasal BID PRN Nasal 06/03/22 06/28/22 spray aerosol Congestion Previous Rx's Medication Instructions Recorded fluticasone propionate 50 1 spray intranasal Q12H #16 grams 11/24/21 mcg/actuation nasal spray,suspension sertraline 50 mg tablet 50 mg PO HS #1 tab 06/12/22 nystatin 100,000 unit/gram topical 1 applic topical QID PRN rash #60 06/16/22 powder grams Results & Data (ED) Vital Signs Vital Signs - 24 hr 06/28/22 10:31 06/28/22 11:19 06/28/22 11:19 Temperature 39.7 C H Temperature Source Axillary Pulse Rate 112 H Pulse Rate [Apical] 122 H Respiratory Rate 18 20 Respiratory Effort / Characteristics Non-Labored Spontaneous Non-Labored Respiratory Depth Normal Blood Pressure 113/57 L Blood Pressure [Right Arm] 117/90 Blood Pressure Mean 75 Blood Pressure Mean [Right Arm] 99 Blood Pressure Position Lying Blood Pressure Position [Right Arm] Lying Pulse Oximetry 98 95 95 Oxygen Delivery Method Room Air Room Air Room Air Sepsis Recent Fever Within 48 Hours Yes Sepsis New/Unexplained Change in Mental Status No Sepsis Action Taken by Nursing Physician Notified 06/28/22 11:44 06/28/22 12:30 06/28/22 13:09 Temperature 39.0 C H Temperature Source Axillary Pulse Rate Pulse Rate [Apical] 106 H 99 H Respiratory Rate 20 18 Respiratory Effort / Characteristics Non-Labored Spontaneous Non-Labored Spontaneous Non-Labored Respiratory Depth Normal Normal Blood Pressure Blood Pressure [Right Arm] 98/39 L 101/63 Blood Pressure Mean Blood Pressure Mean [Right Arm] 58 75 Blood Pressure Position Blood Pressure Position [Right Arm] Lying Pulse Oximetry 95 94 95 Oxygen Delivery Method Room Air Room Air Room Air Sepsis Recent Fever Within 48 Hours Sepsis New/Unexplained Change in Mental Status Sepsis Action Taken by Nursing Laboratory Data Result diagrams: 06/28/22 10:35 06/28/22 10:35 Lab Results 06/28/22 06/28/22 06/28/22 Range/Units 10:30 10:35 10:35 WBC 2.40 L D (4.8-10.8) K/ul RBC 4.41 L (4.63-6.08) M/uL Hgb 13.3 L (14.0-18.0) g/dl Hct 40.3 (40.1-51.0) % MCV 91.4 (80.0-100.0) fL MCH 30.2 (25.0-34.0) pg MCHC 33.0 (32.0-36.0) g/dL RDW Std Deviation 49.9 H (36.4-46.3) fL RDW Coeff of Rodolfo 15.3 H (11.5-14.5) % Plt Count 199 (130-400) K/uL MPV 9.6 (9.4-12.4) fL Immature Gran % (Auto) 0.4 % Neut % (Auto) 83.0 % Lymph % (Auto) 15.4 % [place] % (Auto) 0.4 % Eos % (Auto) 0.8 % Baso % (Auto) 0.0 % Neut # (Auto) 1.99 (1.4-6.5) K/uL Lymph # (Auto) 0.37 L (1.2-3.4) K/uL [place] # (Auto) 0.01 L (0.24-0.82) K/uL Eos # (Auto) 0.02 (0-0.50) K/uL Baso # (Auto) 0.00 (0-0.2) K/uL Immature Gran # (Auto) 0.01 (0.00-0.02) K/uL Toxic Vacuolation Occasional PT 12.4 H (9.0-12.0) Seconds INR 1.2 H (0.9-1.1) APTT 22.7 (21.0-31.0) Seconds PTT Ratio 0.8 Sodium (136-145) mmol/L Potassium (3.5-5.1) mmol/L Chloride (98-107) mmol/L Carbon Dioxide (21-32) mmol/L Anion Gap (3-11) BUN (6-23) mg/dl Creatinine (0.6-1.4) mg/dl Est Cr Clr Drug Dosing ml/min Est GFR ( Amer) ml/min Est GFR (Non-Af Amer) ml/min BUN/Creatinine Ratio (10-20) Glucose (70-99(Fasting)) mg/dl Lactate (0.4-2.0) mmol/L Calcium (8.5-10.1) mg/dl Magnesium (1.7-2.4) mg/dl Total Bilirubin (0.2-1.0) mg/dl AST (13-39) U/L ALT (7-52) U/L Alkaline Phosphatase (34-104) U/L Troponin I High Sens (0-20) pg/ml Total Protein (6.0-8.3) gm/dl Albumin (3.4-5.0) gm/dl Globulin (2.5-4.0) gm/dl Albumin/Globulin Ratio (0.9-2) Procalcitonin (0-0.5) ng/ml Random Cortisol mcg/dl Urine Color Yellow Urine Appearance Cloudy A (Clear) Urine pH 8.5 H (4.5-7.5) Ur Specific [place] 1.008 (1.000-1.030) Urine Protein Negative (Negative) Urine Glucose (UA) Negative (Negative) Urine Ketones Negative (Negative) Urine Blood 3+ H (Negative) Urine Nitrite Positive A (Negative) Urine Bilirubin Negative (Negative) Urine Urobilinogen Negative (Negative) Ur Leukocyte Esterase 3+ H (Negative) Urine WBC (Auto) >30 H (0-5) /hpf Urine RBC (Auto) >30 H (0-4) /hpf U Hyaline Cast (Auto) 1-5 (0-5) /lpf U Epithel Cells (Auto) 0-5 (0-5) /lpf Urine Bacteria (Auto) 2+ H (Negative) SARS-CoV-2, RNA, NAAT (NEGATIVE) 06/28/22 06/28/22 06/28/22 Range/Units 10:35 10:35 10:35 WBC (4.8-10.8) K/ul RBC (4.63-6.08) M/uL Hgb (14.0-18.0) g/dl Hct (40.1-51.0) % MCV (80.0-100.0) fL MCH (25.0-34.0) pg MCHC (32.0-36.0) g/dL RDW Std Deviation (36.4-46.3) fL RDW Coeff of Rodolfo (11.5-14.5) % Plt Count (130-400) K/uL MPV (9.4-12.4) fL Immature Gran % (Auto) % Neut % (Auto) % Lymph % (Auto) % [place] % (Auto) % Eos % (Auto) % Baso % (Auto) % Neut # (Auto) (1.4-6.5) K/uL Lymph # (Auto) (1.2-3.4) K/uL [place] # (Auto) (0.24-0.82) K/uL Eos # (Auto) (0-0.50) K/uL Baso # (Auto) (0-0.2) K/uL Immature Gran # (Auto) (0.00-0.02) K/uL Toxic Vacuolation PT (9.0-12.0) Seconds INR (0.9-1.1) APTT (21.0-31.0) Seconds PTT Ratio Sodium 141 (136-145) mmol/L Potassium 4.4 (3.5-5.1) mmol/L Chloride 104 (98-107) mmol/L Carbon Dioxide 23 (21-32) mmol/L Anion Gap 14 H (3-11) BUN 9 (6-23) mg/dl Creatinine 1.09 (0.6-1.4) mg/dl Est Cr Clr Drug Dosing 55.5 ml/min Est GFR ( Amer) 70.4 ml/min Est GFR (Non-Af Amer) 60.7 ml/min BUN/Creatinine Ratio 8.3 L (10-20) Glucose 114 H (70-99(Fasting)) mg/dl Lactate 6.9 H* (0.4-2.0) mmol/L Calcium 9.1 (8.5-10.1) mg/dl Magnesium 1.7 (1.7-2.4) mg/dl Total Bilirubin 1.1 H (0.2-1.0) mg/dl AST 18 (13-39) U/L ALT 9 (7-52) U/L Alkaline Phosphatase 65 (34-104) U/L Troponin I High Sens 14.8 D (0-20) pg/ml Total Protein 6.5 (6.0-8.3) gm/dl Albumin 3.6 (3.4-5.0) gm/dl Globulin 2.9 (2.5-4.0) gm/dl Albumin/Globulin Ratio 1.2 (0.9-2) Procalcitonin 0.25 (0-0.5) ng/ml Random Cortisol mcg/dl Urine Color Urine Appearance (Clear) Urine pH (4.5-7.5) Ur Specific [place] (1.000-1.030) Urine Protein (Negative) Urine Glucose (UA) (Negative) Urine Ketones (Negative) Urine Blood (Negative) Urine Nitrite (Negative) Urine Bilirubin (Negative) Urine Urobilinogen (Negative) Ur Leukocyte Esterase (Negative) Urine WBC (Auto) (0-5) /hpf Urine RBC (Auto) (0-4) /hpf U Hyaline Cast (Auto) (0-5) /lpf U Epithel Cells (Auto) (0-5) /lpf Urine Bacteria (Auto) (Negative) SARS-CoV-2, RNA, NAAT (NEGATIVE) 06/28/22 06/28/22 Range/Units 10:35 11:42 WBC (4.8-10.8) K/ul RBC (4.63-6.08) M/uL Hgb (14.0-18.0) g/dl Hct (40.1-51.0) % MCV (80.0-100.0) fL MCH (25.0-34.0) pg MCHC (32.0-36.0) g/dL RDW Std Deviation (36.4-46.3) fL RDW Coeff of Rodolfo (11.5-14.5) % Plt Count (130-400) K/uL MPV (9.4-12.4) fL Immature Gran % (Auto) % Neut % (Auto) % Lymph % (Auto) % [place] % (Auto) % Eos % (Auto) % Baso % (Auto) % Neut # (Auto) (1.4-6.5) K/uL Lymph # (Auto) (1.2-3.4) K/uL [place] # (Auto) (0.24-0.82) K/uL Eos # (Auto) (0-0.50) K/uL Baso # (Auto) (0-0.2) K/uL Immature Gran # (Auto) (0.00-0.02) K/uL Toxic Vacuolation PT (9.0-12.0) Seconds INR (0.9-1.1) APTT (21.0-31.0) Seconds PTT Ratio Sodium (136-145) mmol/L Potassium (3.5-5.1) mmol/L Chloride (98-107) mmol/L Carbon Dioxide (21-32) mmol/L Anion Gap (3-11) BUN (6-23) mg/dl Creatinine (0.6-1.4) mg/dl Est Cr Clr Drug Dosing ml/min Est GFR ( Amer) ml/min Est GFR (Non-Af Amer) ml/min BUN/Creatinine Ratio (10-20) Glucose (70-99(Fasting)) mg/dl Lactate (0.4-2.0) mmol/L Calcium (8.5-10.1) mg/dl Magnesium (1.7-2.4) mg/dl Total Bilirubin (0.2-1.0) mg/dl AST (13-39) U/L ALT (7-52) U/L Alkaline Phosphatase (34-104) U/L Troponin I High Sens (0-20) pg/ml Total Protein (6.0-8.3) gm/dl Albumin (3.4-5.0) gm/dl Globulin (2.5-4.0) gm/dl Albumin/Globulin Ratio (0.9-2) Procalcitonin (0-0.5) ng/ml Random Cortisol 37.66 mcg/dl Urine Color Urine Appearance (Clear) Urine pH (4.5-7.5) Ur Specific [place] (1.000-1.030) Urine Protein (Negative) Urine Glucose (UA) (Negative) Urine Ketones (Negative) Urine Blood (Negative) Urine Nitrite (Negative) Urine Bilirubin (Negative) Urine Urobilinogen (Negative) Ur Leukocyte Esterase (Negative) Urine WBC (Auto) (0-5) /hpf Urine RBC (Auto) (0-4) /hpf U Hyaline Cast (Auto) (0-5) /lpf U Epithel Cells (Auto) (0-5) /lpf Urine Bacteria (Auto) (Negative) SARS-CoV-2, RNA, NAAT NEGATIVE (NEGATIVE) Administered Medications Daptomycin 525 mg/ Syringe 10.5 mls @ 5.25 mls/min IV Q24H [facility]; Protocol Stop: 07/12/22 11:59 Last Admin: 06/28/22 12:21 Dose: 5.25 mls/min Documented By: MNE Discontinued Medications Acetaminophen (Acetaminophen 325 Mg Tab) 650 mg PO NOW STA Stop: 06/28/22 10:37 Last Admin: 06/28/22 11:46 Dose: Not Given Documented By: NMS Acetaminophen (Acetaminophen 1000 Mg/100 Ml Iv) Confirm Administered Dose 1,000 mg IV .STK-MED ONE Stop: 06/28/22 11:12 Last Admin: 06/28/22 11:13 Dose: 1,000 mg Documented By: DAKOTA Sodium Chloride (Nss 1000ml) 2,000 mls @ 999 mls/hr IV .Q2H1M ONE Stop: 06/28/22 12:31 Last Infusion: 06/28/22 13:17 Dose: 0 mls/hr Documented By: Admin: 06/28/22 11:13 Dose: 999 mls/hr Documented By: DAKOTA Ceftriaxone Sodium (Rocephin) 2,000 mg in 70 mls @ 140 mls/hr IV NOW STA Stop: 06/28/22 11:00 Last Infusion: 06/28/22 12:50 Dose: 0 mls/hr Documented By: Admin: 06/28/22 11:13 Dose: 140 mls/hr Documented By: DAKOTA Acetaminophen (Ofirmev) 1,000 mg in 100 mls @ 400 mls/hr IV NOW STA Stop: 06/28/22 11:57 Last Admin: 06/28/22 12:28 Dose: Not Given Documented By: DAKOTA Sodium Chloride (Nss 1000ml) 1,000 mls @ 999 mls/hr IV .Q1H1M ONE Stop: 06/28/22 12:44 Last Admin: 06/28/22 13:12 Dose: 999 mls/hr Documented By: DAKOTA Ertapenem (Invanz) 10 mls @ 2 mls/min IV NOW STA Stop: 06/28/22 11:50 Last Admin: 06/28/22 13:11 Dose: 2 mls/min Documented By: DAKOTA Imaging Data Radiologist's Impression: Chest X-Ray 06/28/22 10:31 SINGLE VIEW CHEST CLINICAL HISTORY: Sepsis. Change in mental status. FINDINGS: 2 AP, portable, upright chest radiographs are compared to study dated 06/02/2022. The cardiomediastinal silhouette is top normal for projection noting atherosclerotic calcification of the thoracic aorta. The pulmonary vasculature is noncongested. Chronic interstitial thickening is similar to previous. Dependent airspace opacities are seen at the left lung base. No large pleural effusion or pneumothorax is identified. The skeletal structures are osteopenic. The bony thorax is grossly intact. IMPRESSION: Dependent airspace opacities are noted at the left lung base. This could represent scarring/atelectasis versus a mild pneumonitis. Clinical correlation will be required. ACT 112: Negative or not required by law. Electronically signed by: Jasen Avitia M.D. 06/28/2022 11:14 AM Abdomen/Pelvis CT 06/28/22 10:50 CT OF THE ABDOMEN AND PELVIS WITHOUT CONTRAST CLINICAL HISTORY: sepsis COMPARISON STUDY: CT of the abdomen and pelvis June 02, 2022. TECHNIQUE: Axial images of the abdomen and pelvis were obtained without IV contrast. Images were reviewed in the axial, sagittal, and coronal planes. Automated exposure control was utilized for the study. A dose lowering technique was utilized adhering to the principles of ALARA. FINDINGS: Subpleural groundglass opacities within the lower lungs reflect atelectasis. A few subpleural nodules within the lower lungs are probably benign. Exam is complex given lack of IV contrast. No pneumatosis, free air or portal venous gas is present. There are gallstones within the gallbladder. Water attenuation hepatic lesions likely reflect cysts. There is no biliary or pancreatic ductal dilatation. Spleen, adrenal glands and pancreas are unremarkable. There is a 2 mm right renal calculus. Mild left hydroureteronephrosis has slightly decreased since CT of June 02, 2022. There are no ureteral calculi. Bladder wall thickening is again noted with adjacent strain. Bladder is collapsed, containing a Durbin balloon and a small amount of gas. There is no evidence for a bowel obstruction. A large amount stool within the rectum is noted. This has increased since prior CT. Perirectal stranding and trace fluid is noted. There is colonic diverticulosis without evidence for acute diverticulitis. There is no lymphadenopathy. No fluid collection is suggest an abscess. No acute fracture or suspicious lesion within the visualized skeletal structures. IMPRESSION: 1. Large amount of stool within the rectum suggestive of fecal impaction. This has increased since CT of June 02, 2022. Adjacent stranding has increased and suggests stercoral colitis. No bowel obstruction. 2. Marked bladder wall thickening with adjacent stranding. This is a nonspecific finding which could be correlated with urinalysis. Collapsed bladder, containing a Durbin balloon and gas. Mild left hydroureteronephrosis, decreased since CT of June 02, 2022. 3. Cholelithiasis. No evidence for acute cholecystitis. ACT 112: Negative or not required by law. Electronically signed by: Xiang Potts M.D. 06/28/2022 1:24 PM Discharge Plan Visit Data Chief Complaint: Catheter Replacement Stated Complaint: catheter placement ED Provider: Alfonso Perez Discharge Problem: Sepsis, Acute UTI, Acute hypotension, Leukopenia, Elevated lactic acid level Forms Stand Alone Forms: My [facility] Prescriptions Prescriptions: No Action fluticasone propionate 50 mcg/actuation spray,suspension 1 spray intranasal Q12H Qty: 16 2RF Rx Instructions: administer into each nostril nystatin 100,000 unit/gram powder 1 applic topical QID PRN (Reason: rash) Qty: 60 2RF dutasteride 0.5 mg capsule 0.5 mg PO HS rivastigmine 13.3 mg/24 hour patch 24 hour 13.3 mg topical HS cetirizine [Zyrtec] 10 mg Tablet 10 mg PO HS azelastine 137 mcg (0.1 %) aerosol,spray 2 spray intranasal BID PRN (Reason: Nasal Congestion) sertraline 50 mg Tablet 50 mg PO HS Qty: 1 0RF Rx Instructions: start 06/13/2022 at bedtime fluocinolone 0.01 % Cream 1 applic TOPICAL DIRECTED PRN (Reason: APPLY TO SCALP) triamcinolone acetonide 0.1 % Cream 1 applic TOPICAL DIRECTED PRN (Reason: APPLY TO ANKLE) ciclopirox 8 % solution 1 applic TOPICAL HS PRN (Reason: nails) Rx Instructions: APPLY TO TOE NAIL hydrocortisone 1 % Cream 1 applic TOPICAL DIRECTED PRN (Reason: FACIAL AREA) econazole 1 % Cream 1 applic TOPICAL DIRECTED PRN (Reason: APPLY TO FEET) melatonin 5 mg Tablet 5 mg PO HS memantine 28 mg capsule,sprinkle,ER 24hr 28 mg PO HS tamsulosin 0.4 mg capsule 0.4 mg PO HS Referrals Referrals: Colt Yusuf DO [Primary Care Provider] -
[2022-06-28 10:57] LABS: Hematocrit (blood only) 40.3 % (40.1-51.0); Hemoglobin 13.3 g/dl (14.0-18.0); Mean Corpuscular Hemoglobin 30.2 pg (25.0-34.0); Mean Corpuscular Volume 91.4 fL (80.0-100.0); Mean Platelet Volume 9.6 fL (9.4-12.4); Platelet Count 199 K/uL (130-400); RDW Coefficient of Variation 15.3 % (11.5-14.5); RDW Standard Deviation 49.9 fL (36.4-46.3); Red Blood Count 4.41 M/uL (4.63-6.08)
[2022-06-28 11:04] LABS: Appearance Urine Cloudy (Clear); Bacteria Urine Automated 2+ (Negative); Bilirubin Urine Negative (Negative); Blood Urine 3+ (Negative); Color Urine Yellow; Epithelial Cell Urine Auto 0-5 /lpf (0-5); Glucose Urine UA Negative (Negative); Ketones Urine Negative (Negative); Leukocyte Esterase Urine 3+ (Negative); Nitrite Urine Positive (Negative); Protein Urine Negative (Negative); RBC Urine Automated >30 /hpf (0-4); Specific Gravity Urine 1.008 (1.000-1.030); Urobilinogen Urine Negative (Negative); WBC Urine Automated >30 /hpf (0-5); pH Urine 8.5 (4.5-7.5)
[2022-06-28 11:10] LABS: INR 1.2 (0.9-1.1); Partial Thromboplastin Ratio 0.8; Partial Thromboplastin Time 22.7 Seconds (21.0-31.0); Prothrombin Time 12.4 Seconds (9.0-12.0)
[2022-06-28] MEDS ORDERED: ACETAMINOPHEN 1000 MG/100 ML IV IV ONE (11:11)
--- NOTE | 2022-06-28 11:15 | XRay Report ---
SINGLE VIEW CHEST CLINICAL HISTORY: Sepsis. Change in mental status. FINDINGS: 2 AP, portable, upright chest radiographs are compared to study dated 06/02/2022. The cardio mediastinal silhouette is top normal for projection noting atherosclerotic calcification of the thora cic aorta. The pulmonary vasculature is noncongested. Chronic interstitial thickening is similar to p revious. Dependent airspace opacities are seen at the left lung base. No large pleural effusion or pn eumothorax is identified. The skeletal structures are osteopenic. The bony thorax is grossly intact. IMPRESSION: Dependent airspace opacities are noted at the left lung base. This could represent scarri ng/atelectasis versus a mild pneumonitis. Clinical correlation will be required. ACT 112: Negative or not required by law. Electronically signed by: Jasen Avitia M.D. 06/28/2022 11:14 AM
[2022-06-28 11:19] LABS: Eosinophils # (auto) 0.02 K/uL (0-0.50); Eosinophils % (auto) 0.8 %; Immature Granulocytes # (auto) 0.01 K/uL (0.00-0.02); Immature Granulocytes % (auto) 0.4 %; Lymphocytes # (auto) 0.37 K/uL (1.2-3.4); Lymphocytes % (auto) 15.4 %; Monocytes # (auto) 0.01 K/uL (0.24-0.82); Monocytes % (auto) 0.4 %; Neutrophils # (auto) 1.99 K/uL (1.4-6.5); Toxic Vacuolation Occasional
[2022-06-28 11:27] LABS: Albumin Globulin Ratio 1.2 (0.9-2); Albumin Level 3.6 gm/dl (3.4-5.0); BUN Creatinine Ratio 8.3 (10-20); Bilirubin,Total 1.1 mg/dl (0.2-1.0); Calcium 9.1 mg/dl (8.5-10.1); Creatinine Clr Calc Pharmacy 55.5 ml/min; Est GFR (African American) 70.4 ml/min; Est GFR (Non-African American) 60.7 ml/min; Globulin 2.9 gm/dl (2.5-4.0); Magnesium 1.7 mg/dl (1.7-2.4); Potassium 4.4 mmol/L (3.5-5.1); Total Protein 6.5 gm/dl (6.0-8.3)
[2022-06-28 11:28] LABS: Troponin I High Sensitivity 14.8 pg/ml (0-20)
[2022-06-28] MEDS ORDERED: ACETAMINOPHEN 1,000 MG/100 ML VIAL IV STA (11:43)
[2022-06-28] MEDS ORDERED: SODIUM CHLORIDE 0.9% 1000ML 1,000 ML IV ONE (11:44)
[2022-06-28] MEDS ORDERED: ERTAPENEM SODIUM 10 ML IV STA (11:46)
[2022-06-28] MEDS ORDERED: DAPTOmycin 525 MG in SYRINGE 0 ML IV SCH (12:00)
--- NOTE | 2022-06-28 12:05 | History & Physical Report ---
Date of Service June 28, 2022 Assessment & Plan (1) Sepsis secondary to UTI: Plan: Urinary tract infection WBC 2.4, baseline 9. Plt normal. No neutropenia. Trended Temperature 39.7 on admission, tachycardic to 122 INR 1.2 Sodium normal, potassium normal on admission At baseline creatinine 0.81.0 Admitting creatinine 1.09 Lactate on admission 6.9, received sepsis resuscitation 3 L NSS with repeat pending Total bili 1.1, no transaminitis High-sensitivity troponin 14.8 Admitting UA: 3+ leukocyte esterase, nitrites, blood, 2+ bacteria COVID pending CXR: Dependent airspace opacities in left lung base consistent with atelectasis versus pneumonitis UC: Pending Past urine culture with E faecalis pansensitive, MRSA resistant to Bactrim, and Citrobacter resistant to Rocephin/Augmentin/Macrobid Started on empiric ertapenem given sepsis and above prior resistance patterns Admitting EKG: Poor quality, sinus tachycardia with PVCs.? Depressions in 2/3/aVF, not present on 06/02/2022. Repeat pending fluid resuscitation. Patient's is at bedside reports he can normally report pain in things that make him uncomfortable, although he is fairly stoic. Patient and deny chest pain, although patient engagement and report is severely limited by dementia. Troponin normal, trended Oropharyngeal dysphagia CXR with dependent left lung base opacities suspected atelectasis versus pneumonitis Patient is at increased risk for aspiration pneumonia Oral hygiene Empirically covered with antibiotics as above Pured diet Neurogenic bladder, BPH with LUTS Patient with chronic straight cath required for voiding Law attempted to be placed as above, with blood outside catheter suspect may have had attempted urethral expansion, now advanced under ultrasound guidance and draining dark yellow urine. No ongoing bleeding at this time. Continue to follow MAGGIE on CPAP Continue CPAP nightly Parkinsonism with Lewy body dementia Following with neurologist in [place] continue rivastigmine Sinemet has not been recommended given patient's primary Lewy body with secondary concerning features and a consultation with neurology Anxiety/depression Continue sertraline nightly History of fecal impaction Continue Dulcolax Stray of right shoulder plain Seen by orthopedics in May. Some arthritic changes in AC joint pain, suspected impingement. Physical therapy/observation recommended. Surgical int ervention not recommended. Also has arthritic knee, right, consistent with arthritis and not consistent with septic knee. No steroid injection recommended especially in the setting of recent infections/UTIs DVT prophylaxis: Lovenox CODE STATUS: DNR/DNI, discussed with who is patient's surrogate decision maker/medical POA Diet: Speech pending, continue minced and moist heart healthy diet if able to pass bedside swallow Disposition: Medical telemetry due to recurrent sinus tachycardia and initial concern for ST segment changes, although poor quality EKG (2) Benign prostatic hyperplasia: (3) Carotid artery plaque: (4) Dementia: (5) Depression with anxiety: (6) Dyslipidemia: (7) Elevated CPK: (8) Erectile dysfunction: (9) Neurogenic bladder: (10) Obstructive sleep apnea: (11) Urinary retention: (12) Weakness: History of Present Illness Primary Care Provider: DO Stiven Mckoy Misbah is an 87-year-old male with a past medical history of oropharyngeal dysphagia, neurogenic bladder, urinary retention, dementia, BPH, MAGGIE, carotid artery plaques, dyslipidemia, depression/anxiety who presents to the emergency department with inability to void and he was found to be febrile with infected appearing UA, elevated lactate, tachycardia concerning for sepsis 2/2 UTI. By report with ER provider patient had a Law was attempted to be placed and following this had a large amount of blood with concern for potential inflation near the prostate. Patient initially presented for catheter exchange as a result, but was found to be febrile and tachycardic. Subsequent advancement of the catheterization under ultrasound guidance with successful drainage of 1 L of urine. Patient is confused at baseline per EMS, and is a very limited historian Prior history of MRSA at [facility] Was to be cathed 4x per day Last day has been resisting cath and very fatigued UA orders were mistaken and not obtained due to a miscommunication Pt did not want to be cathed due to pain, attempted law did not bleed on insertion bled after around the law and was referred to the ER First low grade fever 100.6 three days ago. Past three evenings no fever after 1x dose of tylenol. Last striaght cath 11pm last night for ~800 or 900ccs. Last cath before than would have been at least ~9 hours. Very weak in the last week. PT/OT couldn't get him ambulatory No history of heart problems or heart attacks. No fhx of heart problems. No lung problems. Oropharyngeal disphagea 2/2 lewy body. Mechanical regular/soft maggie on CPAP Lewy Body: Dx past four years. Taking rivastigmine. Subtantial worsened followed 2nd COVID booster. Medical History: Reviewed Medications: Reviewed. Took medications last night including crushed melatonin Surgical History: Reviewed Allergies: Reviewed Social History: No tobacco. Rare social EtoH with celebrations. Code Status: [place] is . [phone]. DNR/DNI. Allergies Allergy/AdvReac Type Severity Reaction Status Date / Time No Known Allergies Allergy Verified 06/03/22 02:01 Home Medications Medication Instructions Recorded Confirmed Type cetirizine 10 mg tablet (Zyrtec) 10 mg PO HS 03/07/21 06/28/22 History dutasteride 0.5 mg capsule 0.5 mg PO HS 03/07/21 06/28/22 History rivastigmine 13.3 mg/24 hour 13.3 mg topical HS 03/07/21 06/28/22 History transdermal patch fluticasone propionate 50 1 spray intranasal Q12H #16 grams 11/24/21 06/28/22 Rx mcg/actuation nasal spray,suspension ciclopirox 8 % topical solution 1 applic topical HS PRN nails 04/20/22 06/28/22 History econazole 1 % topical cream 1 applic topical DIRECTED PRN 04/20/22 06/28/22 History APPLY TO FEET fluocinolone 0.01 % topical cream 1 applic topical DIRECTED PRN 04/20/22 06/28/22 History APPLY TO SCALP hydrocortisone 1 % topical cream 1 applic topical DIRECTED PRN 04/20/22 06/28/22 History FACIAL AREA melatonin 5 mg tablet 5 mg PO HS 04/20/22 06/28/22 History memantine 28 mg capsule 28 mg PO HS 04/20/22 06/28/22 History sprinkle,extended release 24hr tamsulosin 0.4 mg capsule 0.4 mg PO HS 04/20/22 06/28/22 History triamcinolone acetonide 0.1 % 1 applic topical DIRECTED PRN 04/20/22 06/28/22 History topical cream APPLY TO ANKLE azelastine 137 mcg (0.1 %) nasal 2 spray intranasal BID PRN Nasal 06/03/22 06/28/22 History spray aerosol Congestion sertraline 50 mg tablet 50 mg PO HS #1 tab 06/12/22 06/28/22 Rx nystatin 100,000 unit/gram topical 1 applic topical QID PRN rash #60 06/16/22 06/28/22 Rx powder grams Past Med/Surg History Medical History Altered mental status Altered mental status Benign prostatic hyperplasia Followed by [facility] urology. Carotid artery plaque Dementia followed by Neurology Depression with anxiety Dyslipidemia Enterococcus faecalis infection Hearing loss MRSA (methicillin resistant Staphylococcus aureus) infection Obstructive sleep apnea Cpap, followed by Dr. 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 Shoulder pain, right Surgical History H/O colonoscopy Family History Mother Alzheimer disease Brother Arthritis Nonorganic sleep disorder Father Emphysema, unspecified Brother Leukemia Social History Smoking Status: Never smoker Second Hand Exposure: No; Hx Alcohol Use: No Hx Substance Use: No Preferred Language: Maltese Communication Ability: Impaired Visual Impairment: Limited Hearing Ability: Use of Hearing Aid Child Development Instructor Required: No Beliefs That Will Affect Care: None marital status: Current Living Situation: Spouse Current Living Situation Comment: lives in single story home with his current occupational status: retired Feels Safe at Home: Yes caffeine: Yes Dental Care, Regularly: Yes Physical Activity Frequency: 1-2 Times per Week Seatbelt Use: always Sunscreen Use: Yes Assistive Devices: Glasses Review of Systems Review of Systems: Unobtainable due to cognitive status Physical Exam Physical Exam: General: Limited by Lewy body dementia. Oriented to name only HEENT: Atraumatic, normocephalic. Mucous membranes dry/tacky appearing hearing grossly intact, unable to fully assess hearing/vision due to engagement. Pupils are equal and reactive to light Pulm: CTAB A&P. -wheezes, -rales, -rhonchi. Symmetrical chest rise. No increase in work of breathing. No respiratory distress. Cardiac: regular, tachycardic, -mrg. Radial pulses intact and symmetrical. Abdominal: Nontender, nondistended, soft. BS present. Extremities: Warm, slightly moist. Dorsal pressure grade 1 spot on right foot, patient with crossed posture with steel which rests on that area. Unable to assess strength/sensation due to patient engagement. Patient does have upper extremity resting rigidity with some cogwheeling on passive range of motion. Results & Data Results & Data ([facility]) Vital Signs (Past 12 Hours) Vital Signs Temp Pulse Pulse Resp BP BP Pulse Ox 06/28/22 11:44 95 06/28/22 11:19 122 H 20 117/90 95 06/28/22 11:19 95 06/28/22 10:31 39.7 C H 112 H 18 113/57 L 98 O2 Del Method 06/28/22 11:44 Room Air 06/28/22 11:19 Room Air 06/28/22 11:19 Room Air 06/28/22 10:31 Room Air PG Care Time/CCT Total # of Minutes Spent Total Time Spent with Patient: Total time spent is greater than 50% in coordination of care (as documented) at patient's floor/unit and/or counseling patient: Coding Level of Care Code 99626 Initial Inpt Care Lvl 3 Diagnoses Sepsis secondary to UTI A41.9; N39.0 Benign prostatic hyperplasia N40.0 Carotid artery plaque I65.29 Dementia G31.83; F02.81 Dementia behavioral disturbance: with behavioral disturbance Dementia type: Lewy body dementia Depression with anxiety F41.8 Dyslipidemia E78.5 Elevated CPK R74.8 Erectile dysfunction N52.9 Neurogenic bladder N31.9 Obstructive sleep apnea G47.33 Urinary retention R33.9 Weakness R53.1 (1) Dementia Dementia behavioral disturbance: with behavioral disturbance Dementia type: Lewy body dementia Qualified Code(s): G31.83 - Dementia with Lewy bodies; F02.81 - Dementia in other diseases classified elsewhere with behavioral disturbance
--- NOTE | 2022-06-28 13:26 | CT Scan Report ---
CT OF THE ABDOMEN AND PELVIS WITHOUT CONTRAST CLINICAL HISTORY: sepsis COMPARISON STUDY: CT of the abdomen and pelvis June 02, 2022. TECHNIQUE: Axial images of the abdomen and pelvis were obtained without IV contrast. Images were revi ewed in the axial, sagittal, and coronal planes. Automated exposure control was utilized for the cecilia dy. A dose lowering technique was utilized adhering to the principles of ALARA. FINDINGS: Subpleural groundglass opacities within the lower lungs reflect atelectasis. A few subpleur al nodules within the lower lungs are probably benign. Exam is complex given lack of IV contrast. No pneumatosis, free air or portal venous gas is present. There are gallstones within the gallbladder. W ater attenuation hepatic lesions likely reflect cysts. There is no biliary or pancreatic ductal dilat ation. Spleen, adrenal glands and pancreas are unremarkable. There is a 2 mm right renal calculus. Mi ld left hydroureteronephrosis has slightly decreased since CT of June 02, 2022. There are no ureteral calculi. Bladder wall thickening is again noted with adjacent strain. Bladder is collapsed, containi ng a Durbin balloon and a small amount of gas. There is no evidence for a bowel obstruction. A large a mount stool within the rectum is noted. This has increased since prior CT. Perirectal stranding and t race fluid is noted. There is colonic diverticulosis without evidence for acute diverticulitis. There is no lymphadenopathy. No fluid collection is suggest an abscess. No acute fracture or suspicious le bertram within the visualized skeletal structures. IMPRESSION: 1. Large amount of stool within the rectum suggestive of fecal impaction. This has increased since CT of June 02, 2022. Adjacent stranding has increased and suggests stercoral colitis. No bowel obstruct ion. 2. Marked bladder wall thickening with adjacent stranding. This is a nonspecific finding which could be correlated with urinalysis. Collapsed bladder, containing a Durbin balloon and gas. Mild left hydro ureteronephrosis, decreased since CT of June 02, 2022. 3. Cholelithiasis. No evidence for acute cholecystitis. ACT 112: Negative or not required by law. Electronically signed by: Xiang Potts M.D. 06/28/2022 1:24 PM
--- NOTE | 2022-06-28 14:30 | Electrocardiogram Report ---
Test Reason : Blood Pressure : / mmHG Vent. Rate : 133 BPM Atrial Rate : 133 BPM P-R Int : 142 ms QRS Dur : 072 ms QT Int : 310 ms P-R-T Axes : 066 -83 073 degrees QTc Int : 461 ms Poor data quality, interpretation may be adversely affected Sinus tachycardia with Premature supraventricular complexes and with occasional , and consecutive Pre mature ventricular complexes Left axis deviation Abnormal ECG When compared with ECG of 02-JUN-2022 21:49, Significant changes have occurred Confirmed by Tino Vanegas ([id number]) on 06/28/2022 2:30:19 PM Referred By: Lucien Butler Confirmed By:Tino Vanegas
[2022-06-28] MEDS ORDERED: ONDANSETRON INJ 2 MG/ML 2 ML VIAL IV PRN (14:36)
[2022-06-28] MEDS ORDERED: bisacodyL 5 MG TABEC PO PRN (14:36)
[2022-06-28] MEDS ORDERED: NYSTATIN POWDER 15GM BTL EXT PRN (14:36)
[2022-06-28] MEDS ORDERED: TRIAMCINOLONE ACET 0.1% CR 15 GM TUBE TOP PRN (14:36)
[2022-06-28] MEDS ORDERED: ECONAZOLE NITRATE 1% CRM 15 GM TUBE TOP PRN (14:36)
[2022-06-28] MEDS ORDERED: NSS + 20MEQ KCL 20 MEQ/1,000 ML BAG IV SCH (14:36)
[2022-06-28] MEDS ORDERED: ACETAMINOPHEN 1,000 MG/100 ML VIAL IV PRN (14:36)
[2022-06-28] MEDS ORDERED: AZELASTINE HCL 0.1% NASAL 200 SPRAYS/27,400 MCG BTL PRN (14:36)
[2022-06-28] MEDS ORDERED: HYDROCORTISONE 1% CRM 30 GM TUBE EXT PRN (15:28)
[2022-06-28] MEDS: FLUTICASONE PROPIONATE NA SPR 16 GM BTL SCH (15:48)
--- NOTE | 2022-06-28 16:17 | Critical Care Consultation ---
Date of Consultation June 28, 2022 Assessment & Plan (1) Sepsis secondary to UTI: (2) Elevated lactic acid level: (3) Dementia: Plan 87-year-old male with a history of Lewy body dementia presenting to the hospital due to severe sepsis from a complicated UTI. He is being transferred to the ICU for possible vasopressors. This patient was discussed on multidisciplinary rounds. I personally evaluated and examined this patient and I agree with the assessment and plan of [] aside for any additions/exceptions noted below: Neurologic: Acute delirium on top of chronic severe dementia. Avoid sedating agents. Pulmonary: ABG reviewed with evidence of compensatory respiratory alkalosis for his metabolic acidosis. Currently on room air. We will avoid PAP therapy given the risk of aspiration with his acute delirium and poor airway protection. Cardiovascular: Maintain mean arterial pressure above 65 mmHg. Echo pending. Think septic shock. Gastrointestinal: Severe fecal retention noted on CT abdomen pelvis. We will try soapsuds enema. Renal: Monitor urine output closely. At risk for GRIFFIN given hypotension. Lactic acidosis improving with fluid administration. Infectious disease: History of MDR UTI. Will change antibiotics to meropenem and daptomycin. Urology following given his complicated UTI. Hematologic: Mild anemia stable. Leukopenia present likely due to acute infection. Endocrine: Maintain euglycemia. VTE prophylaxis: SCDs CODE STATUS: DNR/DNI but okay for critical care Family at bedside: Discussed with at bedside Disposition: ICU I have personally spent 36 minutes of critical care time in the direct management of this patient. This is a life/limb threatening event. This includes time spent evaluating patient, direct bedside care, chart review, placing orders, interpretation of diagnostic studies, discussion with consultants, pat ient, and family members, as well as other required patient management activities. This time is exclusive of all separately billable procedures, and teaching time and separate from and in addition to any other critical care service time. Thank you for allowing us to participate in the care of this patient. History of Present Illness Reason for Consultation: Septic shock Attending Physician: Raúl Hawthorne MD History of Present Illness 87-year-old male with a past medical history of Lewy body dementia, neurogenic bladder, MAGGIE, carotid artery stenosis, dyslipidemia and depression who presented to the hospital due to febrile illness and concerns for UTI. He currently resides in [facility]. ICU was consulted due to refractory hypotension. He had lactic acidemia to 7 which is now improving to about 4. He also has GRIFFIN. He is receiving IV fluids. History is unobtainable from the patient due to delirium and history of dementia. History is obtained from chart review, discussion with RT, discussion with nursing and discussion with hospitalist service. The patient is currently on daptomycin and ertapenem for concerns of a complicated UTI. Blood and urine cultures are pending. He has a history of MDR Citrobacter in April 2022 with MRSA of his urine. Patient currently sleeping in bed. Blood pressures improved to 120s over 70s. Allergies Allergy/AdvReac Type Severity Reaction Status Date / Time No Known Allergies Allergy Verified 06/03/22 02:01 Home Medications Medication Instructions Recorded Confirmed Type cetirizine 10 mg tablet (Zyrtec) 10 mg PO HS 03/07/21 06/28/22 History dutasteride 0.5 mg capsule 0.5 mg PO HS 03/07/21 06/28/22 History rivastigmine 13.3 mg/24 hour 13.3 mg topical HS 03/07/21 06/28/22 History transdermal patch fluticasone propionate 50 1 spray intranasal Q12H #16 grams 11/24/21 06/28/22 Rx mcg/actuation nasal spray,suspension ciclopirox 8 % topical solution 1 applic topical HS PRN nails 04/20/22 06/28/22 History econazole 1 % topical cream 1 applic topical DIRECTED PRN 04/20/22 06/28/22 History APPLY TO FEET fluocinolone 0.01 % topical cream 1 applic topical DIRECTED PRN 04/20/22 06/28/22 History APPLY TO SCALP hydrocortisone 1 % topical cream 1 applic topical DIRECTED PRN 04/20/22 06/28/22 History FACIAL AREA melatonin 5 mg tablet 5 mg PO HS 04/20/22 06/28/22 History memantine 28 mg capsule 28 mg PO HS 04/20/22 06/28/22 History sprinkle,extended release 24hr tamsulosin 0.4 mg capsule 0.4 mg PO HS 04/20/22 06/28/22 History triamcinolone acetonide 0.1 % 1 applic topical DIRECTED PRN 04/20/22 06/28/22 History topical cream APPLY TO ANKLE azelastine 137 mcg (0.1 %) nasal 2 spray intranasal BID PRN Nasal 06/03/22 06/28/22 History spray aerosol Congestion sertraline 50 mg tablet 50 mg PO HS #1 tab 06/12/22 06/28/22 Rx nystatin 100,000 unit/gram topical 1 applic topical QID PRN rash #60 06/16/22 06/28/22 Rx powder grams Patient History Medical History Altered mental status Altered mental status Benign prostatic hyperplasia Followed by [facility] urology. Carotid artery plaque Dementia followed by Neurology Depression with anxiety Dyslipidemia Enterococcus faecalis infection Hearing loss MRSA (methicillin resistant Staphylococcus aureus) infection Obstructive sleep apnea Cpap, followed by Dr. 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 Shoulder pain, right Surgical History H/O colonoscopy Family History Mother Alzheimer disease Brother Arthritis Nonorganic sleep disorder Father Emphysema, unspecified Brother Leukemia Social History Smoking Status: Never smoker Second Hand Exposure: No; Hx Alcohol Use: No Hx Substance Use: No Preferred Language: Colombian Communication Ability: Impaired Visual Impairment: Limited Hearing Ability: Use of Hearing Aid Press Breaker Required: No Beliefs That Will Affect Care: None marital status: Current Living Situation: Spouse Current Living Situation Comment: lives in single story home with his current occupational status: retired Other Information That Helps Us Care for You: No Feels Safe at Home: Yes Safety Concerns: Feels Safe At This Time caffeine: Yes Dental Care, Regularly: Yes Physical Activity Frequency: 1-2 Times per Week Seatbelt Use: always Sunscreen Use: Yes Assistive Devices: CPAP and Walker Review of Systems Review of Systems: All systems reviewed & are unremarkable except as noted in HPI & below Physical Exam Physical Exam: Constitutional: Patient appears to be of their stated age. Patient is in no apparent distress. Patient is well-developed. Eyes: Pupils are equal round and reactive to light. Conjunctivae are normal. Anicteric sclera. Ears nose, mouth and throat: Deferred. Neck: Trachea is midline. Visual inspection is normal. Respiratory: Clear to auscultation bilaterally. No use of accessory muscles. No significant clubbing noted. Cardiovascular: Regular rate and rhythm. No murmurs. No edema. Cap refill adequate. Gastrointestinal: Normal bowel sounds, soft, nontender and nondistended. No hepatosplenomegaly noted. Musculoskeletal: No cyanosis. Patient is able to move all extremities. Skin: No rashes, warm dry and intact. Neurologic: No obvious focal neurological deficits seen. Psychiatric: Disoriented. Difficult to assess. Results & Data Results & Data ([facility]) Vital Signs (Past 12 Hours) Vital Signs Temp Pulse Pulse Resp BP BP Pulse Ox 06/28/22 15:49 92 H 84/48 L 06/28/22 15:00 20 93 06/28/22 14:58 06/28/22 14:58 38 C H 99 H 20 97/54 L 92 06/28/22 14:36 06/28/22 14:36 38.0 C H 99 H 20 97/54 L 92 06/28/22 14:03 105 H 20 104/67 95 06/28/22 13:09 39.0 C H 99 H 18 101/63 95 06/28/22 12:30 106 H 20 98/39 L 94 06/28/22 11:44 95 06/28/22 11:19 122 H 20 117/90 95 06/28/22 11:19 95 06/28/22 10:31 39.7 C H 112 H 18 113/57 L 98 Pulse Ox O2 Del Method O2 Del Method 06/28/22 15:49 06/28/22 15:00 Room Air 06/28/22 14:58 Room Air 06/28/22 14:58 Room Air 06/28/22 14:36 92 Room Air 06/28/22 14:36 Room Air 06/28/22 14:03 Room Air 06/28/22 13:09 Room Air 06/28/22 12:30 Room Air 06/28/22 11:44 Room Air 06/28/22 11:19 Room Air 06/28/22 11:19 Room Air 06/28/22 10:31 Room Air Coding Level of Care Code Critical Care 1st 30-74 mins Diagnoses Sepsis secondary to UTI A41.9; N39.0 Elevated lactic acid level R79.89 Dementia G31.83; F02.81 Dementia behavioral disturbance: with behavioral disturbance Dementia type: Lewy body dementia Time Spent (min) 36 (1) Dementia Dementia behavioral disturbance: with behavioral disturbance Dementia type: Lewy body dementia Qualified Code(s): G31.83 - Dementia with Lewy bodies; F02.81 - Dementia in other diseases classified elsewhere with behavioral disturbance
[2022-06-28 16:34] LABS: iSTAT Allen Test Pass; iSTAT Arterial Blood Gas HCO3 19 meg/L (19-24); iSTAT Arterial Blood Gas pCO2 25 mmHg (35-46); iSTAT Arterial Blood Gas pH 7.48 (7.35-7.45); iSTAT Arterial Blood Gas pO2 73 mmHg (80-95); iSTAT Carbon Dioxide 20 mmol/L (24-31); iSTAT Site R Radial
[2022-06-28] MEDS: ENOXAPARIN INJ 40 MG/0.4 ML SYR SQ SCH (17:35)
[2022-06-28] MEDS: NORMOSOL-R 1,000 ML IV SCH (17:36)
[2022-06-28] MEDS: MEROPENEM 500 MG in SYRINGE 0 ML IV SCH ×2 (17:49→23:51)
[2022-06-28] MEDS: POLYETHYLENE (MIRALAX) 17 GM PACK PO SCH (19:55)
[2022-06-28] MEDS: MEMANTINE HCL 10 MG TAB PO SCH (19:55)
[2022-06-28] MEDS: SERTRALINE HCL 50 MG TABLET PO SCH (19:55)
[2022-06-28] MEDS: TAMSULOSIN HCL 0.4 MG CAP PO SCH (19:56)
[2022-06-28 20:05] LABS: A calco-baum cmplx NotReported Not Detected (NotDetected); Bact fragilis Not Reported Not Detected (NotDetected); C auris Not Reported Not Detected (NotDetected); CTX-M Resistant Gene Not Detected (NotDetected); Calbicans Not Reported Not Detected (NotDetected); Candida glabrata Not Reported Not Detected (NotDetected); Candida krusei Not Reported Not Detected (NotDetected); Cneoformans/gatti Not Reported Not Detected (NotDetected); Cparapsilosis Not Reported Not Detected (NotDetected); Ctropicalis Not Reported Not Detected (NotDetected); E cloacae compx Not Reported Not Detected (NotDetected); Efaecalis Not Reported Not Detected (NotDetected); Efaecium Not Reported Not Detected (NotDetected); Enterobacterales DETECTED (NotDetected); Enterobacterales Not Reported DETECTED (NotDetected); Escherichia coli Not Reported DETECTED (NotDetected); H influenzae Not Reported Not Detected (NotDetected); IMP Resistant Gene Not Detected (NotDetected); K aerogenes Not Reported Not Detected (NotDetected); KPC Resistant Gene Not Detected (NotDetected); Koxytoca Not Reported Not Detected (NotDetected); Kpneumoniae grp Not Reported Not Detected (NotDetected); Lmonocyt Not Reported Not Detected (NotDetected); N meningitidis Not Reported Not Detected (NotDetected); NDM Resistant Gene Not Detected (NotDetected); OXA 48 Like Resistant Gene Not Detected (NotDetected); P aeruginosa Not Reported Not Detected (NotDetected); Proteus spp Not Reported Not Detected (NotDetected); Salmonella spp Not Reported Not Detected (NotDetected); Smarcescens Not Reported Not Detected (NotDetected); Staph lugdunensis Not Reported Not Detected (NotDetected); Staph spp. Not Reported Not Detected (NotDetected); Staphaureus Not Reported Not Detected (NotDetected); Staphepi Not Reported Not Detected (NotDetected); Stenmaltophilia Not Reported Not Detected (NotDetected); Strep agal(GrpB) Not Reported Not Detected (NotDetected); Strep pneum Not Reported Not Detected (NotDetected); Strep pyog (GrpA) Not Reported Not Detected (NotDetected); Strep spp Not Reported Not Detected (NotDetected); VIM Resistant Gene Not Detected (NotDetected); mcr-1 Colistin Resistant Gene Not Detected (NotDetected)
[2022-06-28] MEDS ORDERED: NORMOSOL-R 500 ML IV ONE (20:41)
[2022-06-28] MEDS ORDERED: CETIRIZINE HCL 10 MG TABLET PO SCH (21:00)
[2022-06-28] MEDS ORDERED: MELATONIN 3 MG TAB PO SCH (21:00)
[2022-06-28] MEDS ORDERED: LACTATED RINGER'S 1,000 ML IV ONE (23:29)
[2022-06-29] MEDS: FLUTICASONE PROPIONATE NA SPR 16 GM BTL SCH ×2 (03:17→13:36)
[2022-06-29] MEDS: NORMOSOL-R 1,000 ML IV SCH ×3 (03:17→23:32)
[2022-06-29] MEDS ORDERED: STAT IV Infusion **Titration per Protocol STA ×2 (05:08→14:32)
[2022-06-29] MEDS: NOREPINEPHRINE/D5W 4 MG/250 ML PLCT IV SCH ×2 (06:05→13:03)
[2022-06-29] MEDS: MEROPENEM 500 MG in SYRINGE 0 ML IV SCH ×3 (06:06→21:53)
[2022-06-29 06:44] LABS: Hematocrit (blood only) 32.9 % (40.1-51.0); Mean Corpuscular Hemoglobin 30.2 pg (25.0-34.0); Mean Corpuscular Hgb Conc 33.4 g/dL (32.0-36.0); Mean Corpuscular Volume 90.4 fL (80.0-100.0); Mean Platelet Volume 10.2 fL (9.4-12.4); Platelet Count 141 K/uL (130-400); RDW Coefficient of Variation 15.6 % (11.5-14.5); RDW Standard Deviation 51.1 fL (36.4-46.3); Red Blood Count 3.64 M/uL (4.63-6.08); White Blood Count 43.79 K/ul (4.8-10.8)
[2022-06-29 06:59] LABS: Albumin Globulin Ratio 1.2 (0.9-2); Albumin Level 2.8 gm/dl (3.4-5.0); BUN Creatinine Ratio 13.6 (10-20); Bilirubin,Total 0.5 mg/dl (0.2-1.0); Calcium 7.9 mg/dl (8.5-10.1); Creatinine Clr Calc Pharmacy 45.8 ml/min; Est GFR (African American) 55.8 ml/min; Est GFR (Non-African American) 48.2 ml/min; Globulin 2.3 gm/dl (2.5-4.0); Magnesium 1.7 mg/dl (1.7-2.4); Phosphorus 3.4 mg/dl (2.5-4.9); Potassium 3.8 mmol/L (3.5-5.1); Total Protein 5.1 gm/dl (6.0-8.3)
[2022-06-29 07:06] LABS: Basophils # (auto) 0.07 K/uL (0-0.2); Basophils % (auto) 0.2 %; Eosinophils # (auto) 0.38 K/uL (0-0.50); Eosinophils % (auto) 0.9 %; Immature Granulocytes # (auto) 2.88 K/uL (0.00-0.02); Immature Granulocytes % (auto) 6.6 %; Lymphocytes # (auto) 1.08 K/uL (1.2-3.4); Lymphocytes % (auto) 2.5 %; Monocytes # (auto) 1.87 K/uL (0.24-0.82); Monocytes % (auto) 4.3 %; Neutrophils # (auto) 37.51 K/uL (1.4-6.5); Neutrophils % (auto) 85.5 %; Toxic Vacuolation 1+
[2022-06-29] MEDS: POLYETHYLENE (MIRALAX) 17 GM PACK PO SCH ×3 (07:40→21:51)
[2022-06-29] MEDS: MEMANTINE HCL 10 MG TAB PO SCH ×2 (07:40→09:35)
[2022-06-29] MEDS ORDERED: bisacodyL 10 MG SUPP PR STA (07:43)
[2022-06-29] MEDS: ALBUMIN 5% 250 ML IV SCH ×2 (08:56→09:28)
--- NOTE | 2022-06-29 09:12 | Critical Care Progress Note ---
Date of Service June 29, 2022 Assessment & Plan (1) Sepsis secondary to UTI: (2) Elevated lactic acid level: (3) Dementia: (4) Gram-negative bacteremia: Plan 87-year-old male with a history of Lewy body dementia presenting to the hospital due to severe sepsis from a complicated UTI. He is being transferred to the ICU for possible vasopressors. Neurologic: Acute delirium on top of chronic severe dementia. Avoid sedating agents. Pulmonary: No significant issues at present. Chest x-ray reviewed from today unremarkable. Cardiovascular: Maintain mean arterial pressure above 65 mmHg. Echo pending. Troponin elevated likely due to demand ischemia. Low threshold for central line and arterial line. Gastrointestinal: Severe fecal retention noted on CT abdomen pelvis. We will try soapsuds enema. Renal: Monitor urine output closely. Lactic acidosis improving with fluid administration. We will give albumin x2 for total of 500 cc. Infectious disease: History of MDR UTI. Urine and blood cultures negative rods. Patient currently on daptomycin and meropenem. Severe leukocytosis noted today likely from septic shock. Hematologic: Mild anemia stable. Leukopenia present likely due to acute infection. Endocrine: Maintain euglycemia. VTE prophylaxis: SCDs, Lovenox 40 mg subcu CODE STATUS: DNR/DNI but okay for critical care Family at bedside: Not at bedside Disposition: ICU I have personally spent 39 minutes of critical care time in the direct managemen t of this patient. This is a life/limb threatening event. This includes time spent evaluating patient, direct bedside care, chart review, placing orders, interpretation of diagnostic studies, discussion with consultants, patient, and family members, as well as other required patient management activities. This time is exclusive of all separately billable procedures, and teaching time and separate from and in addition to any other critical care service time. Thank you for allowing us to participate in the care of this patient. Admission and Anticipated Discharge Date Admission Date: June 28, 2022 Subjective Patient seen and examined. He continues to have delirium. He is currently requiring low-dose Levophed. No significant events overnight. He is currently on room air. Review of Systems Review of Systems: All systems reviewed & are unremarkable except as noted in HPI & below Physical Exam Physical Exam: Constitutional: Patient appears to be of their stated age. Patient is in no apparent distress. Patient is well-developed. Eyes: Pupils are equal round and reactive to light. Conjunctivae are normal. Anicteric sclera. Ears nose, mouth and throat: Deferred. Neck: Trachea is midline. Visual inspection is normal. Respiratory: Clear to auscultation bilaterally. No use of accessory muscles. No significant clubbing noted. Cardiovascular: Regular rate and rhythm. No murmurs. No edema. Cap refill adequate. Gastrointestinal: Normal bowel sounds, soft, nontender and nondistended. No hepatosplenomegaly noted. Musculoskeletal: No cyanosis. Patient is able to move all extremities. Skin: No rashes, warm dry and intact. Neurologic: No obvious focal neurological deficits seen. Psychiatric: Disoriented. Difficult to assess. Results & Data Results & Data ([facility]) Vital Signs (Past 12 Hours) Vital Signs Temp Pulse Resp BP Pulse Ox O2 Del Method FiO2 06/29/22 08:30 109 H 24 95 06/29/22 08:30 105/62 06/29/22 08:15 109 H 21 95 06/29/22 08:15 102/56 L 06/29/22 08:00 111 H 23 94 06/29/22 08:00 100/56 L 06/29/22 07:58 112 H 23 95 06/29/22 07:58 108/58 L 06/29/22 07:45 108 H 24 94 06/29/22 07:45 96/48 L 06/29/22 07:30 107 H 23 94 06/29/22 07:30 97/46 L 06/29/22 07:15 108 H 21 94 06/29/22 07:15 99/54 L 06/29/22 07:00 101 H 20 95 06/29/22 07:00 101/54 L 06/29/22 06:55 89/49 L 06/29/22 06:55 103 H 27 H 95 06/29/22 06:45 99 H 20 93 06/29/22 06:45 83/46 L 06/29/22 08:00 99 H 06/29/22 06:30 99 H 26 H 94 06/29/22 06:30 97/48 L 06/29/22 06:24 85/47 L 06/29/22 06:24 94 H 27 H 94 06/29/22 06:15 94 H 20 96 06/29/22 06:15 70/53 L 06/29/22 06:00 93 H 23 95 08 06:00 82/46 L 06/29/22 05:30 94 H 22 95 06/29/22 05:30 100/43 L 06/29/22 05:15 97 H 21 94 06/29/22 05:15 82/51 L 06/29/22 05:00 95 H 23 94 06/29/22 05:00 86/47 L 06/29/22 04:45 83/48 L 06/29/22 04:45 94 H 22 94 06/29/22 04:30 96 H 19 96 06/29/22 04:30 87/51 L 06/29/22 04:15 86/41 L 06/29/22 04:15 94 H 22 95 06/29/22 04:00 37 C 94 H 28 H 95 06/29/22 04:00 89/45 L 06/29/22 03:45 96 H 27 H 94 06/29/22 03:45 89/49 L 06/29/22 03:30 91/46 L 06/29/22 03:30 94 H 22 95 06/29/22 03:15 95 H 17 95 06/29/22 03:15 91/50 L 06/29/22 03:00 96 H 17 94 06/29/22 03:00 89/45 L 06/29/22 02:45 95 H 21 95 06/29/22 02:45 93/50 L 06/29/22 02:30 93 H 25 H 95 06/29/22 02:30 93/48 L 06/29/22 02:15 89/50 L 06/29/22 02:15 95 H 22 95 06/29/22 02:01 96 H 27 H 94 06/29/22 02:01 96/58 L 06/29/22 02:00 100 H 21 94 06/29/22 01:45 93 H 20 94 06/29/22 01:45 97/52 L 06/29/22 01:30 94 H 22 95 06/29/22 01:30 94/50 L 06/29/22 01:15 96 H 17 95 06/29/22 01:15 90/46 L 06/29/22 01:00 91 H 24 96 06/29/22 01:00 95/52 L 06/29/22 00:45 91 H 14 95 06/29/22 00:45 100/53 L 06/29/22 00:30 96 H 17 96 06/29/22 00:30 91/50 L 06/29/22 00:15 92 H 20 95 06/29/22 00:15 92/52 L 06/29/22 00:00 37 C 90 19 95 06/29/22 00:00 89/52 L 06/28/22 23:45 90 22 95 06/28/22 23:45 91/55 L 06/28/22 23:30 95 H 23 95 06/28/22 23:30 90/53 L 06/28/22 23:15 91/51 L 06/28/22 23:15 91 H 23 95 06/28/22 23:00 94 H 20 95 06/28/22 23:00 87/64 L 06/28/22 23:59 89 06/28/22 23:25 Room Air 06/28/22 21:45 83 18 96 21 Coding Level of Care Code Critical Care 1st 30-74 mins Diagnoses Sepsis secondary to UTI A41.9; N39.0 Elevated lactic acid level R79.89 Dementia G31.83; F02.81 Dementia behavioral disturbance: with behavioral disturbance Dementia type: Lewy body dementia Gram-negative bacteremia R78.81 Time Spent (min) 39 (1) Dementia Dementia behavioral disturbance: with behavioral disturbance Dementia type: Lewy body dementia Qualified Code(s): G31.83 - Dementia with Lewy bodies; F02.81 - Dementia in other diseases classified elsewhere with behavioral disturbance
--- NOTE | 2022-06-29 09:29 | XRay Report ---
XR chest 1V portable HISTORY: 87 years-old Male increased wbc acute leukocytosis COMPARISON: CT abdomen pelvis and chest radiograph studies 06/28/2022 TECHNIQUE: Portable AP view of the chest FINDINGS: Cardiac silhouette is mildly enlarged. No pneumothorax, pleural effusion, airspace consolidation or o vert pulmonary edema. Subsegmental bibasilar atelectasis. Degenerative changes of the shoulders and s pine. IMPRESSION: No acute process. ACT 112: Negative or not required by law. The above report was generated using voice recognition software. It may contain grammatical, syntax o r spelling errors. Electronically signed by: Chris Early M.D. 06/29/2022 9:26 AM
[2022-06-29] MEDS ORDERED: POTASSIUM CHLORIDE / WTR 10 MEQ/100 ML PLCT IV SCH (10:15)
[2022-06-29] MEDS: POTASSIUM CHLORIDE / WTR 10 MEQ/100 ML PLCT IV SCH ×2 (10:41→11:34)
[2022-06-29] MEDS: MAGNESIUM SULFATE / D5W 1 GM/100 ML BAG IV SCH ×2 (10:41→12:30)
--- NOTE | 2022-06-29 11:54 | Electrocardiogram Report ---
Test Reason : Blood Pressure : / mmHG Vent. Rate : 092 BPM Atrial Rate : 092 BPM P-R Int : 186 ms QRS Dur : 082 ms QT Int : 346 ms P-R-T Axes : 073 066 063 degrees QTc Int : 427 ms Poor data quality, interpretation may be adversely affected Normal sinus rhythm Normal ECG When compared with ECG of 28-JUN-2022 11:10, Significant changes have occurred Confirmed by Tino Vanegas ([id number]) on 06/29/2022 11:54:28 AM Referred By: Lucien Butler Confirmed By:Tino Vanegas
--- NOTE | 2022-06-29 11:54 | Electrocardiogram Report ---
Test Reason : Blood Pressure : / mmHG Vent. Rate : 092 BPM Atrial Rate : 092 BPM P-R Int : 186 ms QRS Dur : 082 ms QT Int : 344 ms P-R-T Axes : 071 070 072 degrees QTc Int : 425 ms Normal sinus rhythm Normal ECG When compared with ECG of 28-JUN-2022 16:10, (unconfirmed) No significant change was found Confirmed by Tino Vanegas ([id number]) on 06/29/2022 11:54:38 AM Referred By: Lucien Butler Confirmed By:Tino Vanegas
[2022-06-29] MEDS ORDERED: ERTAPENEM SODIUM 1,000 MG in SYRINGE 0 ML IV SCH (13:00)
[2022-06-29] MEDS: ENOXAPARIN INJ 40 MG/0.4 ML SYR SQ SCH (13:02)
--- NOTE | 2022-06-29 13:11 | XCELERA ---
[id number]
--- NOTE | 2022-06-29 14:42 | Hospitalist Progress Note ---
Date of Service June 29, 2022 Assessment & Plan (1) Sepsis secondary to UTI: Plan: Urinary tract infection with bacteremia WBC 2.4, baseline 9. Plt normal. No neutropenia. Rapidly up trended to 43 with bacteremia Temperature 39.7 on admission, tachycardic At baseline creatinine 0.81.0 Admitting creatinine 1.09 Lactate on admission 6.9, received sepsis resuscitation 3 L NSS. Required adjunct pressors. Lactate gradually down trended and normalized Total bili 1.1, no transaminitis High-sensitivity troponin 14.8, up trended to 200s with slowing rate, continues to be trended. Likely severe demand with sepsis. Admitting UA: 3+ leukocyte esterase, nitrites, blood, 2+ bacteria COVID negative CXR: Dependent airspace opacities in left lung base consistent with atelectasis versus pneumonitis UC: GNB Blood cultures 4/4 positive for GNB, surveillance cultures pending continued on Dapto/merrem Past urine culture with E faecalis pansensitive, MRSA resistant to Bactrim, and Citrobacter resistant to Rocephin/Augmentin/Macrobid Started on empiric ertapenem given sepsis and above prior resistance patterns Admitting EKG: Poor quality, sinus tachycardia with PVCs.? Depressions in 2/3/aVF, not present on 06/02/2022. Repeat pending fluid resuscitation. Patient's is at bedside reports he can normally report pain in things that make him uncomfortable, although he is fairly stoic. Patient and deny chest pain, although patient engagement and report is severely limited by dementia. Troponin normal, trended remains on vasopressor support in ICU Oropharyngeal dysphagia CXR with dependent left lung base opacities suspected atelectasis versus pneumonitis Patient is at increased risk for aspiration pneumonia Oral hygiene Empirically covered with antibiotics as above Pured diet Rest transiently, n.p.o./do not advance diet if patient is not aware enough to swallow safely Neurogenic bladder, BPH with LUTS Patient with chronic straight cath required for voiding Durbin attempted to be placed as above, with blood outside catheter suspect may have had attempted urethral expansion, now advanced under ultrasound guidance and draining dark yellow urine. Suspect patient may have had bacterial seeding from UTI Continue to follow MAGGIE on CPAP Continue CPAP nightly Parkinsonism with Lewy body dementia Following with neurologist in [place] Rivastigmine temporarily held for hypotension Sinemet has not been recommended given patient's primary Lewy body with secondary concerning features and a consultation with neurology Anxiety/depression Continue sertraline nightly History of fecal impaction Continue Dulcolax Stray of right shoulder plain Seen by orthopedics in May. Some arthritic changes in AC joint pain, suspected impingement. Physical therapy/observation recommended. Surgical intervention not recommended. Also has arthritic knee, right, consistent with arthritis and not consistent with septic knee. No steroid injection recommended especially in the setting of recent infections/UTIs DVT prophylaxis: Lovenox CODE STATUS: DNR/DNI, discussed with who is patient's surrogate decision maker/medical POA Diet: Speech pending, continue minced and moist heart healthy diet if able to pass bedside swallow Disposition: Medical telemetry due to recurrent sinus tachycardia and initial concern for ST segment changes, although poor quality EKG (2) Benign prostatic hyperplasia: (3) Carotid artery plaque: (4) Dementia: (5) Depression with anxiety: (6) Dyslipidemia: (7) Elevated CPK: (8) Erectile dysfunction: (9) Neurogenic bladder: (10) Obstructive sleep apnea: (11) Urinary retention: (12) Weakness: Admission and Anticipated Discharge Date Admission Date: June 28, 2022 Subjective Seen at bedside. Sleeping, awakens transiently but is now oriented to place or date. Does not verbalize his name before falling back asleep. Limited by Lewy body dementia and acute illness. Review of Systems Review of Systems: Unobtainable due to cognitive status Physical Exam Physical Exam: General: Restless transiently, not oriented to place/date. HEENT: Atraumatic, normocephalic. Pulm: CTAB A&P. -wheezes, -rales, -rhonchi. Symmetrical chest rise. No increase in work of breathing. No respiratory distress. Cardiac: RRR, -mrg. Radial pulses intact and symmetrical. Abdominal: Nontender, nondistended, soft. BS present. : Durbin intact, draining dark yellow urine Results & Data Results & Data ([facility]) Vital Signs (Past 12 Hours) Vital Signs Temp Pulse Resp BP Pulse Ox 06/29/22 13:45 100/76 06/29/22 13:45 127 H 13 97 06/29/22 13:30 128/63 06/29/22 13:30 100 H 16 97 06/29/22 13:15 100 H 24 97 06/29/22 13:15 122/65 06/29/22 13:00 100 H 24 97 06/29/22 13:00 141/69 H 06/29/22 12:45 120/69 06/29/22 12:45 103 H 23 97 06/29/22 12:30 104 H 23 98 06/29/22 12:30 119/65 06/29/22 12:15 101/60 06/29/22 12:15 117 H 16 99 06/29/22 12:00 107 H 25 H 98 06/29/22 12:00 101/61 06/29/22 11:45 113/62 06/29/22 11:45 103 H 25 H 98 06/29/22 11:30 103 H 25 H 95 06/29/22 11:30 99/59 L 06/29/22 11:16 98/53 L 06/29/22 11:16 108 H 18 95 06/29/22 11:00 102 H 25 H 97 06/29/22 11:00 122/62 06/29/22 10:47 122/57 L 06/29/22 10:47 111 H 24 93 06/29/22 10:15 107 H 26 H 95 06/29/22 10:15 115/62 06/29/22 10:00 105 H 20 95 06/29/22 10:00 116/63 06/29/22 09:45 109 H 17 96 06/29/22 09:45 112/66 06/29/22 09:30 108/65 06/29/22 09:30 107 H 25 H 95 06/29/22 09:15 102/59 L 06/29/22 09:15 111 H 23 95 06/29/22 09:00 112 H 25 H 95 06/29/22 09:00 119/63 06/29/22 08:45 108 H 18 94 06/29/22 08:45 107/62 06/29/22 12:00 109 H 06/29/22 09:14 37.5 C 06/29/22 08:30 109 H 24 95 06/29/22 08:30 105/62 06/29/22 08:15 109 H 21 95 06/29/22 08:15 102/56 L 06/29/22 08:00 111 H 23 94 06/29/22 08:00 100/56 L 06/29/22 07:58 112 H 23 95 06/29/22 07:58 108/58 L 06/29/22 07:45 108 H 24 94 06/29/22 07:45 96/48 L 06/29/22 07:30 107 H 23 94 06/29/22 07:30 97/46 L 06/29/22 07:15 108 H 21 94 06/29/22 07:15 99/54 L 06/29/22 07:00 101 H 20 95 06/29/22 07:00 101/54 L 06/29/22 06:55 89/49 L 06/29/22 06:55 103 H 27 H 95 06/29/22 06:45 99 H 20 93 06/29/22 06:45 83/46 L 06/29/22 08:00 99 H 06/29/22 06:30 99 H 26 H 94 06/29/22 06:30 97/48 L 06/29/22 06:24 85/47 L 06/29/22 06:24 94 H 27 H 94 06/29/22 06:15 94 H 20 96 06/29/22 06:15 70/53 L 06/29/22 06:00 93 H 23 95 06/29/22 06:00 82/46 L 06/29/22 05:30 94 H 22 95 06/29/22 05:30 100/43 L 06/29/22 05:15 97 H 21 94 06/29/22 05:15 82/51 L 06/29/22 05:00 95 H 23 94 06/29/22 05:00 86/47 L 06/29/22 04:45 83/48 L 06/29/22 04:45 94 H 22 94 06/29/22 04:30 96 H 19 96 06/29/22 04:30 87/51 L 06/29/22 04:15 86/41 L 06/29/22 04:15 94 H 22 95 06/29/22 04:00 37 C 94 H 28 H 95 06/29/22 04:00 89/45 L 06/29/22 03:45 96 H 27 H 94 06/29/22 03:45 89/49 L 06/29/22 03:30 91/46 L 06/29/22 03:30 94 H 22 95 06/29/22 03:15 95 H 17 95 06/29/22 03:15 91/50 L 06/29/22 03:00 96 H 17 94 06/29/22 03:00 89/45 L 06/29/22 02:45 95 H 21 95 06/29/22 02:45 93/50 L PG Care Time/CCT Total # of Minutes Spent Total Time Spent with Patient: Total time spent is greater than 50% in coordination of care (as documented) at patient's floor/unit and/or counseling patient: Coding Level of Care Code 83467 Subseq Hosp Care Lvl 2 Diagnoses Sepsis secondary to UTI A41.9; N39.0 Benign prostatic hyperplasia N40.0 Carotid artery plaque I65.29 Dementia G31.83; F02.81 Dementia behavioral disturbance: with behavioral disturbance Dementia type: Lewy body dementia Depression with anxiety F41.8 Dyslipidemia E78.5 Elevated CPK R74.8 Erectile dysfunction N52.9 Neurogenic bladder N31.9 Obstructive sleep apnea G47.33 Urinary retention R33.9 Weakness R53.1 (1) Dementia Dementia behavioral disturbance: with behavioral disturbance Dementia type: Lewy body dementia Qualified Code(s): G31.83 - Dementia with Lewy bodies; F02.81 - Dementia in other diseases classified elsewhere with behavioral disturbance
--- NOTE | 2022-06-29 14:56 | XRay Report ---
XR chest 1V portable HISTORY: 87 years-old Male cvl placement status post placement of a right-sided PICC COMPARISON: Chest radiograph 06/29/2022 TECHNIQUE: Upright AP view of the chest FINDINGS: Cardiac silhouette is enlarged. Status post placement of a right-sided PICC with distal tip in the ex pected location of the inferior SVC. No postprocedural pneumothorax. Possible trace pleural effusions with mild pulmonary vascular congestion. There are persistent left basilar opacities favoring atelec tasis. IMPRESSION: Status post placement of a right-sided PICC with distal tip in the expected location of t he inferior SVC. No postprocedural pneumothorax. ACT 112: Negative or not required by law. The above report was generated using voice recognition software. It may contain grammatical, syntax o r spelling errors. Electronically signed by: Chris Early M.D. 06/29/2022 2:55 PM
[2022-06-29] MEDS: PHENYLEPHRINE HCL 20 MG in DEXTROSE 5% 500 ML IV SCH ×2 (14:58→21:29)
--- NOTE | 2022-06-29 17:23 | Electrocardiogram Report ---
Test Reason : Blood Pressure : / mmHG Vent. Rate : 135 BPM Atrial Rate : 270 BPM P-R Int : 000 ms QRS Dur : 082 ms QT Int : 278 ms P-R-T Axes : 236 021 087 degrees QTc Int : 417 ms Poor data quality, interpretation may be adversely affected Atrial flutter with 2:1 A-V conduction Low voltage QRS Nonspecific ST and T wave abnormality Abnormal ECG When compared with ECG of 28-JUN-2022 16:11, Atrial flutter has replaced Sinus rhythm ST now depressed in Inferior leads ST now depressed in Anterior leads Confirmed by Norberto Whipple ([id number]) on 06/29/2022 5:23:16 PM Referred By: Lucien Butler Confirmed By:[place] Whipple
[2022-06-29] MEDS ORDERED: Nursing to Pharmacy Communication SCH (17:45)
[2022-06-30] MEDS: FLUTICASONE PROPIONATE NA SPR 16 GM BTL SCH ×2 (02:01→13:44)
[2022-06-30] MEDS: MEROPENEM 500 MG in SYRINGE 0 ML IV SCH (06:07)
[2022-06-30 07:24] LABS: Hematocrit (blood only) 29.8 % (40.1-51.0); Hemoglobin 10.4 g/dl (14.0-18.0); Mean Corpuscular Hemoglobin 30.6 pg (25.0-34.0); Mean Corpuscular Hgb Conc 34.9 g/dL (32.0-36.0); Mean Corpuscular Volume 87.6 fL (80.0-100.0); Mean Platelet Volume 10.4 fL (9.4-12.4); Platelet Count 116 K/uL (130-400); RDW Coefficient of Variation 15.6 % (11.5-14.5); RDW Standard Deviation 49.9 fL (36.4-46.3); White Blood Count 31.48 K/ul (4.8-10.8)
[2022-06-30 07:53] LABS: Calcium 7.7 mg/dl (8.5-10.1); Creatinine Clr Calc Pharmacy 78.6 ml/min; Est GFR (African American) 94.6 ml/min; Est GFR (Non-African American) 81.6 ml/min; Magnesium 2.1 mg/dl (1.7-2.4); Phosphorus 1.9 mg/dl (2.5-4.9); Potassium 3.4 mmol/L (3.5-5.1)
[2022-06-30] MEDS: POLYETHYLENE (MIRALAX) 17 GM PACK PO SCH ×2 (07:56→20:30)
[2022-06-30] MEDS: PHENYLEPHRINE HCL 20 MG in DEXTROSE 5% 500 ML IV SCH (07:56)
[2022-06-30] MEDS ORDERED: bisacodyL 10 MG SUPP PR STA (07:57)
[2022-06-30] MEDS: NOREPINEPHRINE/D5W 4 MG/250 ML PLCT IV SCH (07:57)
[2022-06-30] MEDS ORDERED: POTASSIUM PHOS 3 MMOL/1 ML INFUSION IV STA (08:11)
[2022-06-30] MEDS ORDERED: POTASSIUM PHOSPHATE 30 MMOL in DEXTROSE 5% 500 ML IV ONE (08:30)
[2022-06-30] MEDS: cefTRIAXone SODIUM 2,000 MG in DEXTROSE 5% 50 ML IV SCH (08:47)
--- NOTE | 2022-06-30 09:16 | Critical Care Progress Note ---
Date of Service June 30, 2022 Assessment & Plan (1) Sepsis secondary to UTI: (2) Elevated lactic acid level: (3) Dementia: (4) Gram-negative bacteremia: Plan 87-year-old male with a history of Lewy body dementia presenting to the hospital due to severe sepsis from a complicated UTI. Neurologic: Acute delirium on top of chronic severe dementia. Avoid sedating agents. Patient with a history of Lewy body dementia. Holding sertraline. Pulmonary: No significant issues at present. Chest x-ray unremarkable. Cardiovascular: Hypotension has improved. Patient off vasopressors. Echocardiogram 06/29 with an LVEF of 65 to 70%. Holding antihypertensives at this time. Gastrointestinal: Severe fecal retention noted on CT abdomen pelvis. Continue with suppositories. N.p.o. given poor mental status. Defer to hospitalist services and speech therapy for diet clearance. Consider insertion of NG tube for tube feeds. Renal: Lactic acidosis resolving. Replace electrolytes as needed. Durbin in place. Infectious disease: Urine and blood cultures growing pansensitive E. coli. Antibiotics changed to Rocephin. Hematologic: Leukocytosis improving with resolving sepsis. Endocrine: Maintain euglycemia. VTE prophylaxis: SCDs, Lovenox 40 mg subcu CODE STATUS: DNR/DNI but okay for critical care Family at bedside: Not at bedside Disposition: Okay for transfer to PCU. Discussed with hospitalist. Admission and Anticipated Discharge Date Admission Date: June 28, 2022 Subjective Patient more awake and alert this morning. Off vasopressors since 5 AM. No fevers, chills or night sweats. Review of Systems Review of Systems: Unobtainable due to cognitive status Physical Exam Physical Exam: Constitutional: Patient appears to be of their stated age. Patient is in no apparent distress. Patient is well-developed. Eyes: Pupils are equal round and reactive to light. Conjunctivae are normal. Anicteric sclera. Ears nose, mouth and throat: Deferred. Neck: Trachea is midline. Visual inspection is normal. Respiratory: Clear to auscultation bilaterally. No use of accessory muscles. No significant clubbing noted. Cardiovascular: Regular rate and rhythm. No murmurs. No edema. Cap refill adequate. Gastrointestinal: Normal bowel sounds, soft, nontender and nondistended. No hepatosplenomegaly noted. Musculoskeletal: No cyanosis. Patient is able to move all extremities. Skin: No rashes, warm dry and intact. Neurologic: No obvious focal neurological deficits seen. Psychiatric: Disoriented. Difficult to assess. Results & Data Results & Data ([facility]) Vital Signs (Past 12 Hours) Vital Signs Temp Pulse Resp BP Pulse Ox O2 Del Method 06/30/22 08:36 36.6 C 06/30/22 08:00 86 06/30/22 06:00 86 17 117/58 L 94 Room Air 06/30/22 05:00 78 16 115/74 95 Room Air 06/30/22 04:54 36.6 C 06/30/22 04:00 82 13 110/64 96 Room Air 06/30/22 03:30 75 15 120/64 96 06/30/22 03:00 78 13 109/64 94 06/30/22 02:00 81 14 114/58 L 96 06/30/22 01:00 75 20 94/57 L 97 Room Air 06/30/22 00:00 77 14 101/57 L 97 Room Air 06/30/22 00:01 36.6 C 06/29/22 23:00 78 18 107/61 97 06/29/22 22:00 101 H 25 H 118/69 95 Room Air 06/29/22 22:16 36.5 C Coding Level of Care Code 73998 Subseq Hosp Care Lvl 3 Diagnoses Sepsis secondary to UTI A41.9; N39.0 Elevated lactic acid level R79.89 Dementia G31.83; F02.81 Dementia behavioral disturbance: with behavioral disturbance Dementia type: Lewy body dementia Gram-negative bacteremia R78.81 (1) Dementia Dementia behavioral disturbance: with behavioral disturbance Dementia type: Lewy body dementia Qualified Code(s): G31.83 - Dementia with Lewy bodies; F02.81 - Dementia in other diseases classified elsewhere with behavioral disturbance
--- NOTE | 2022-06-30 10:08 | Hospitalist Progress Note ---
Date of Service June 30, 2022 Assessment & Plan (1) Sepsis secondary to UTI: Plan: Urinary tract infection with bacteremia WBC 2.4, baseline 9. Plt normal. No neutropenia. Rapidly up trended to 43 with bacteremia Temperature 39.7 on admission, tachycardic At baseline creatinine 0.81.0 Admitting creatinine 1.09 Lactate on admission 6.9, received sepsis resuscitation 3 L NSS. Required adjunct pressors. Lactate gradually down trended and normalized Off vasopressors today [06/30] Urine and blood cultures positive for pansensitive E. Coli. Initially on dapto-meropenem now switched to intravenous ceftriaxone Oropharyngeal dysphagia CXR with dependent left lung base opacities suspected atelectasis versus pneumonitis Patient is at increased risk for aspiration pneumonia Oral hygiene Empirically covered with antibiotics as above NPO pending passing speech eval Rest transiently, n.p.o./do not advance diet if patient is not aware enough to swallow safely Neurogenic bladder, BPH with LUTS Patient with chronic straight cath required for voiding Durbin attempted to be placed as above, with blood outside catheter suspect may have had attempted urethral expansion, now advanced under ultrasound guidance and draining dark yellow urine. Suspect patient may have had bacterial seeding from UTI Continue to follow MAGGIE on CPAP Continue CPAP nightly Parkinsonism with Lewy body dementia Following with neurologist in [place] Rivastigmine temporarily held for hypotension Sinemet has not been recommended given patient's primary Lewy body with secondary concerning features and a consultation with neurology Anxiety/depression Continue sertraline nightly History of fecal impaction Continue Dulcolax Strain of right shoulder Seen by orthopedics in May. Some arthritic changes in AC joint pain, suspected impingement. Physical therapy/observation recommended. Surgical intervention not recommended. Also has arthritic knee, right, consistent with arthritis and not consistent with septic knee. No steroid injection recommended especially in the setting of recent infections/UTIs Present on Admission?: Yes (2) Septic shock: Plan: Now resolved off vasopressors (3) Left arm swelling: Plan: Suspect from blood pressure cuff on all night while on vasopressors. 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 US UE left for DVT CT head to assess for stroke (4) Benign prostatic hyperplasia: (5) Carotid artery plaque: (6) Dementia: (7) Depression with anxiety: (8) Dyslipidemia: (9) Elevated CPK: (10) Erectile dysfunction: (11) Neurogenic bladder: (12) Obstructive sleep apnea: (13) Urinary retention: (14) Weakness: Plan DVT prophylaxis: Lovenox 40mg SQ daily CODE STATUS: DNR/DNI, discussed with who is patient's surrogate decision maker/medical POA Diet: Speech pending, NPO pending passing speech eval Disposition: Downgrade to PCU Admission and Anticipated Discharge Date Admission Date: June 28, 2022 Subjective Alert but not orientated x3. He tells be he feels better than expected but cannot tell me anything about why he is in hospital. Able to follow some one step commands such as moving his toes but unable to open his eyes on command (closes them more). Significant pain and swelling in left arm. Patient mildly resists me moving this arm. Favors moving right toes compares to left in add ition. Blood pressure cuff on left side all night as he was on vasopressors and has PICC in right antecubital fossa. Review of Systems Review of Systems: Unobtainable due to cognitive status Physical Exam Constitutional: + frail appearing Eyes: unable to perform eye exam as unable to follow commands and closing eyes forcibly ENMT: Mouth: + dry oral mucous membranes Respiratory: + abnormal respiratory effort (poor inspiratory effort) Auscultation: + diminished lung sounds; no crackles and no wheezes Cardiovascular: RRR, no murmur, no edema Gastrointestinal (Abdomen): normal bowel sounds, soft, nontender, no hepatosplenomegaly Skin: no rashes, warm and dry Neurologic: moves all extremities and awake; not confused Psychiatric: A+Ox3, euthymic affect Results & Data Results & Data ([facility]) Vital Signs (Past 12 Hours) Vital Signs Temp Pulse Resp BP Pulse Ox O2 Del Method 06/30/22 08:36 36.6 C 06/30/22 08:00 86 06/30/22 06:00 86 17 117/58 L 94 Room Air 06/30/22 05:00 78 16 115/74 95 Room Air 06/30/22 04:54 36.6 C 06/30/22 04:00 82 13 110/64 96 Room Air 06/30/22 03:30 75 15 120/64 96 06/30/22 03:00 78 13 109/64 94 06/30/22 02:00 81 14 114/58 L 96 06/30/22 01:00 75 20 94/57 L 97 Room Air 06/30/22 00:00 77 14 101/57 L 97 Room Air 06/30/22 00:01 36.6 C 06/29/22 23:00 78 18 107/61 97 06/29/22 22:16 36.5 C PG Care Time/CCT Total # of Minutes Spent Total Time Spent with Patient: Total time spent is greater than 50% in coordination of care (as documented) at patient's floor/unit and/or counseling patient: Coding Level of Care Code 94849 Subseq Hosp Care Lvl 3 Diagnoses Sepsis secondary to UTI A41.9; N39.0 Septic shock A41.9; R65.21 Left arm swelling M79.89 Benign prostatic hyperplasia N40.0 Carotid artery plaque I65.29 Dementia G31.83; F02.81 Dementia behavioral disturbance: with behavioral disturbance Dementia type: Lewy body dementia Depression with anxiety F41.8 Dyslipidemia E78.5 Elevated CPK R74.8 Erectile dysfunction N52.9 Neurogenic bladder N31.9 Obstructive sleep apnea G47.33 Urinary retention R33.9 Weakness R53.1 (1) Dementia Dementia behavioral disturbance: with behavioral disturbance Dementia type: Lewy body dementia Qualified Code(s): G31.83 - Dementia with Lewy bodies; F02.81 - Dementia in other diseases classified elsewhere with behavioral disturbance
--- NOTE | 2022-06-30 11:28 | Ultrasound Report ---
ULTRASOUND LEFT UPPER EXTREMITY VENOUS CLINICAL HISTORY: Left arm pain and swelling. COMPARISON STUDY: No prior. TECHNIQUE: Real-time, grayscale, and color Doppler sonography of the deep veins of the left upper ext remity is performed. Compression and augmentation were utilized. FINDINGS: There is no sonographic evidence of deep venous thrombosis identified in the left upper ext remity. The left internal jugular, axillary, and brachial veins are patent and normally compressible. Normal venous waveforms and augmentation are seen within the left subclavian vein. The cephalic and basilic veins are clear. The visualized radial and ulnar veins are patent. IMPRESSION: There is no sonographic evidence of deep venous thrombosis identified in the left upper e xtremity. ACT 112: Negative or not required by law. Electronically signed by: Jasen Avitia M.D. 06/30/2022 11:26 AM
--- NOTE | 2022-06-30 13:35 | CT Scan Report ---
HEAD CT NONCONTRAST CT DOSE: 614.27 mGy.cm HISTORY: Left hemiparesis. Not moving left side TECHNIQUE: Multiaxial CT images of the head were performed without the use of intravenous contrast. A utomated exposure control was utilized for this study. A dose lowering technique was utilized adheri ng to the principles of ALARA. Comparison: Head CT 06/02/2022. Findings: Chronic opacification of the right maxillary sinus is again noted. The remaining paranasal sinuses and mastoid air cells are clear. The calvarium and skull base are intact. There is no mass, h ematoma, midline shift, acute infarct. White matter hypodensity is nonspecific but suggestive of micr ovascular ischemic change. The ventricles and sulci demonstrate mild age-related involutional changes . Impression: No significant change compared to the prior study. No acute intracranial abnormality. ACT 112: Negative or not required by law. Electronically signed by: Jared Leggett M.D. 06/30/2022 1:34 PM
[2022-06-30] MEDS: ENOXAPARIN INJ 40 MG/0.4 ML SYR SQ SCH (13:43)
[2022-06-30] MEDS: NORMOSOL-R 1,000 ML IV SCH ×2 (14:33→18:07)
[2022-06-30] MEDS: REMOVE RIVASTIGMINE PATCH SCH (20:29)
[2022-06-30] MEDS: RIVASTIGMINE PATCH TD SCH (20:30)
[2022-06-30] MEDS: SERTRALINE HCL 50 MG TABLET PO SCH (20:31)
[2022-07-01] MEDS: FLUTICASONE PROPIONATE NA SPR 16 GM BTL SCH ×2 (03:48→13:37)
[2022-07-01 05:26] LABS: Hematocrit (blood only) 32.6 % (40.1-51.0); Hemoglobin 11.1 g/dl (14.0-18.0); Mean Corpuscular Hemoglobin 30.3 pg (25.0-34.0); Mean Corpuscular Volume 89.1 fL (80.0-100.0); Mean Platelet Volume 10.5 fL (9.4-12.4); Platelet Count 123 K/uL (130-400); RDW Coefficient of Variation 15.2 % (11.5-14.5); RDW Standard Deviation 49.3 fL (36.4-46.3); Red Blood Count 3.66 M/uL (4.63-6.08); White Blood Count 22.02 K/ul (4.8-10.8)
[2022-07-01 05:52] LABS: Albumin Globulin Ratio 1.3 (0.9-2); Albumin Level 2.9 gm/dl (3.4-5.0); BUN Creatinine Ratio 19.7 (10-20); Bilirubin,Total 0.5 mg/dl (0.2-1.0); Calcium 7.9 mg/dl (8.5-10.1); Creatinine Clr Calc Pharmacy 91.7 ml/min; Est GFR (African American) 100.8 ml/min; Est GFR (Non-African American) 86.9 ml/min; Globulin 2.2 gm/dl (2.5-4.0); Magnesium 1.9 mg/dl (1.7-2.4); Phosphorus 2.2 mg/dl (2.5-4.9); Potassium 3.6 mmol/L (3.5-5.1); Total Protein 5.1 gm/dl (6.0-8.3)
[2022-07-01] MEDS: NORMOSOL-R 1,000 ML IV SCH ×2 (06:03→18:08)
[2022-07-01 06:29] LABS: Basophils # (auto) 0.03 K/uL (0-0.2); Basophils % (auto) 0.1 %; Echinocytes 2+; Eosinophils # (auto) 0.17 K/uL (0-0.50); Eosinophils % (auto) 0.8 %; Immature Granulocytes # (auto) 0.17 K/uL (0.00-0.02); Immature Granulocytes % (auto) 0.8 %; Lymphocytes # (auto) 1.31 K/uL (1.2-3.4); Lymphocytes % (auto) 5.9 %; Monocytes # (auto) 0.44 K/uL (0.24-0.82); Neutrophils % (auto) 90.4 %
[2022-07-01] MEDS: cefTRIAXone SODIUM 2,000 MG in DEXTROSE 5% 50 ML IV SCH (07:48)
[2022-07-01] MEDS: POLYETHYLENE (MIRALAX) 17 GM PACK PO SCH ×2 (07:49→21:23)
--- NOTE | 2022-07-01 10:22 | Hospitalist Progress Note ---
Date of Service July 01, 2022 Assessment & Plan (1) Sepsis secondary to UTI: Plan: Urinary tract infection with bacteremia WBC 2.4, baseline 9. Plt normal. No neutropenia. Rapidly up trended to 43 with bacteremia Temperature 39.7 on admission, tachycardic At baseline creatinine 0.81.0 Admitting creatinine 1.09 Lactate on admission 6.9, received sepsis resuscitation 3 L NSS. Required adjunct pressors. Lactate gradually down trended and normalized Off vasopressors [06/30] Urine and blood cultures positive for pansensitive E. Coli. Initially on dapto-meropenem now switched to intravenous ceftriaxone. Continue this pending increase in oral intake Oropharyngeal dysphagia CXR with dependent left lung base opacities suspected atelectasis versus pneumonitis Patient is at increased risk for aspiration pneumonia Oral hygiene Empirically covered with antibiotics as above Advanced to purree diet by SLT Rest transiently, n.p.o./do not advance diet if patient is not aware enough to swallow safely Neurogenic bladder, BPH with LUTS Patient with chronic straight cath required for voiding Durbin attempted to be placed as above, with blood outside catheter suspect may have had attempted urethral expansion, now advanced under ultrasound guidance and draining dark yellow urine. Continue to follow. MAGGIE on CPAP Continue CPAP nightly Parkinsonism with Lewy body dementia Following with neurologist in [place] Rivastigmine temporarily held for hypotension Sinemet has not been recommended given patient's primary Lewy body with secondary concerning features and a consultation with neurology Anxiety/depression Continue sertraline nightly History of fecal impaction Continue Dulcolax Strain of right shoulder Seen by orthopedics in May. Some arthritic changes in AC joint pain, suspected impingement. Physical therapy/observation recommended. Surgical intervention not recommended. Also has arthritic knee, right, consistent with arthritis and not consistent with septic knee. No steroid injection recommended especially in the setting of recent infections/UTIs (2) Septic shock: Plan: Now resolved off vasopressors (3) Left arm swelling: Plan: Suspect from blood pressure cuff on all night while on vasopressors. 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 US UE left for DVT CT head to assess for stroke (4) Benign prostatic hyperplasia: (5) Carotid artery plaque: (6) Dementia: (7) Depression with anxiety: (8) Dyslipidemia: (9) Elevated CPK: (10) Erectile dysfunction: (11) Neurogenic bladder: (12) Obstructive sleep apnea: (13) Urinary retention: (14) Weakness: Plan DVT prophylaxis: Lovenox 40mg SQ daily CODE STATUS: DNR/DNI, discussed with who is patient's surrogate decision maker/medical POA Diet: Puree diet Disposition: Downgrade to med/surg Admission and Anticipated Discharge Date Admission Date: June 28, 2022 Subjective Slightly more alert and awake today. Still with significant left arm swelling. Unable to get any information from patient. Reportedly tolerating a puree diet now. Updated his at bedside and all questions answered. Review of Systems Review of Systems: Unobtainable due to cognitive status Physical Exam Constitutional: + frail appearing ENMT: Mouth: oral mucous membranes not dry Respiratory: + abnormal respiratory effort (poor inspiratory effort) Auscultation: + diminished lung sounds; no crackles and no wheezes Cardiovascular: RRR, no murmur, no edema Gastrointestinal (Abdomen): normal bowel sounds, soft, nontender, no hepatosplenomegaly Skin: no rashes, warm and dry Neurologic: moves all extremities and awake; not confused Psychiatric: Orientation: alert; + not oriented to person, + not oriented to place and + not oriented to time Results & Data Results & Data ([facility]) Vital Signs (Past 12 Hours) Vital Signs Temp Pulse Resp BP Pulse Ox 07/01/22 09:01 68 16 133/70 99 07/01/22 07:36 72 07/01/22 04:16 36.9 C 72 20 114/69 94 06/30/22 23:58 37 C 70 12 114/69 96 PG Care Time/CCT Total # of Minutes Spent Total Time Spent with Patient: Total time spent is greater than 50% in coordination of care (as documented) at patient's floor/unit and/or counseling patient: Coding Level of Care Code 44116 Subseq Hosp Care Lvl 2 Diagnoses Sepsis secondary to UTI A41.9; N39.0 Septic shock A41.9; R65.21 Left arm swelling M79.89 Benign prostatic hyperplasia N40.0 Carotid artery plaque I65.29 Dementia G31.83; F02.81 Dementia behavioral disturbance: with behavioral disturbance Dementia type: Lewy body dementia Depression with anxiety F41.8 Dyslipidemia E78.5 Elevated CPK R74.8 Erectile dysfunction N52.9 Neurogenic bladder N31.9 Obstructive sleep apnea G47.33 Urinary retention R33.9 Weakness R53.1 (1) Dementia Dementia behavioral disturbance: with behavioral disturbance Dementia type: Lewy body dementia Qualified Code(s): G31.83 - Dementia with Lewy bodies; F02.81 - Dementia in other diseases classified elsewhere with behavioral disturbance
[2022-07-01] MEDS: ENOXAPARIN INJ 40 MG/0.4 ML SYR SQ SCH (13:36)
[2022-07-01] MEDS: NAMENDA 28 MG PO SCH (21:20)
[2022-07-01] MEDS: RIVASTIGMINE PATCH TD SCH (21:21)
[2022-07-01] MEDS: REMOVE RIVASTIGMINE PATCH SCH (21:21)
[2022-07-01] MEDS: SERTRALINE HCL 50 MG TABLET PO SCH (21:22)
[2022-07-01] MEDS: TAMSULOSIN HCL 0.4 MG CAP PO SCH (21:22)
[2022-07-02] MEDS: FLUTICASONE PROPIONATE NA SPR 16 GM BTL SCH ×2 (01:12→14:16)
[2022-07-02] MEDS: NORMOSOL-R 1,000 ML IV SCH (06:43)
[2022-07-02] MEDS: cefTRIAXone SODIUM 2,000 MG in DEXTROSE 5% 50 ML IV SCH (08:24)
--- NOTE | 2022-07-02 11:42 | Hospitalist Progress Note ---
Date of Service July 02, 2022 Assessment & Plan (1) Sepsis secondary to UTI: Plan: Urinary tract infection with bacteremia WBC 2.4, baseline 9. Plt normal. No neutropenia. Rapidly up trended to 43 with bacteremia Temperature 39.7 on admission, tachycardic At baseline creatinine 0.81.0 Admitting creatinine 1.09 Lactate on admission 6.9, received sepsis resuscitation 3 L NSS. Required adjunct pressors. Lactate gradually down trended and normalized Off vasopressors [06/30] Urine and blood cultures positive for pansensitive E. Coli. Initially on dapto-meropenem now switched to intravenous ceftriaxone. Continue this pending increase in oral intake Oropharyngeal dysphagia CXR with dependent left lung base opacities suspected atelectasis versus pneumonitis Patient is at increased risk for aspiration pneumonia Oral hygiene Advanced to puree diet by SLT Rest transiently, n.p.o./do not advance diet if patient is not aware enough to swallow safely Neurogenic bladder, BPH with LUTS Patient with chronic straight cath required for voiding Law attempted to be placed as above, with blood outside catheter suspect may have had attempted urethral expansion, now advanced under ultrasound guidance and draining dark yellow urine. Continue law catheter - will leave it up to eventual discharge destination to decide upon permanent law vs. CIC MAGGIE on CPAP Continue CPAP nightly Parkinsonism with Lewy body dementia Following with neurologist in [place] Rivastigmine temporarily held for hypotension Sinemet has not been recommended given patient's primary Lewy body with secondary concerning features and a consultation with neurology Anxiety/depression Continue sertraline nightly History of fecal impaction Continue Dulcolax Strain of right shoulder Seen by orthopedics in May. Some arthritic changes in AC joint pain, suspected impingement. Physical therapy/observation recommended. Surgical intervention not recommended. Also has arthritic knee, right, consistent with arthritis and not consistent with septic knee. No steroid injection recommended especially in the setting of recent infections/UTIs (2) Septic shock: Plan: Now resolved off vasopressors (3) Left arm swelling: Plan: Suspect from blood pressure cuff on all night while on vasopressors. 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 US UE left for DVT - negative. CT head - negative. (4) Benign prostatic hyperplasia: (5) Carotid artery plaque: (6) Dementia: (7) Depression with anxiety: (8) Dyslipidemia: (9) Elevated CPK: (10) Erectile dysfunction: (11) Neurogenic bladder: (12) Obstructive sleep apnea: (13) Urinary retention: (14) Weakness: Plan DVT prophylaxis: Lovenox 40mg SQ daily CODE STATUS: DNR/DNI, discussed with who is patient's surrogate decision maker/medical POA Diet: Puree diet Disposition: Downgrade to med/surg Admission and Anticipated Discharge Date Admission Date: June 28, 2022 Subjective Improving everyday. Tolerating puree diet although his is concerned about feeding him more thickened foods. No nausea or vomiting. No fever or chills. Review of Systems Review of Systems: All systems reviewed & are unremarkable except as noted in Subjective Physical Exam Constitutional: + frail appearing ENMT: Mouth: oral mucous membranes not dry Respiratory: + abnormal respiratory effort (poor inspiratory effort) Auscultation: + diminished lung sounds; no crackles and no wheezes Cardiovascular: RRR, no murmur, no edema Gastrointestinal (Abdomen): normal bowel sounds, soft, nontender, no hepatosplenomegaly Skin: no rashes, warm and dry Neurologic: moves all extremities and awake; not confused Psychiatric: Orientation: alert; + not oriented to person, + not oriented to place and + not oriented to time Results & Data Results & Data ([facility]) Vital Signs (Past 12 Hours) Vital Signs Temp Pulse Pulse Resp BP BP BP 07/02/22 11:23 36.7 C 66 19 137/77 07/02/22 07:37 37.1 C 71 20 157/83 H 07/02/22 02:44 16 07/02/22 01:13 07/02/22 00:43 37.1 C 75 18 137/62 07/02/22 00:04 21 Pulse Ox O2 Del Method FiO2 07/02/22 11:23 96 Room Air 07/02/22 07:37 96 Room Air 07/02/22 02:44 96 21 07/02/22 01:13 CPAP 07/02/22 00:43 95 07/02/22 00:04 96 21 PG Care Time/CCT Total # of Minutes Spent Total Time Spent with Patient: Total time spent is greater than 50% in coordination of care (as documented) at patient's floor/unit and/or counseling patient: Coding Level of Care Code 97369 Subseq Hosp Care Lvl 2 Diagnoses Sepsis secondary to UTI A41.9; N39.0 Septic shock A41.9; R65.21 Left arm swelling M79.89 Benign prostatic hyperplasia N40.0 Carotid artery plaque I65.29 Dementia G31.83; F02.81 Dementia behavioral disturbance: with behavioral disturbance Dementia type: Lewy body dementia Depression with anxiety F41.8 Dyslipidemia E78.5 Elevated CPK R74.8 Erectile dysfunction N52.9 Neurogenic bladder N31.9 Obstructive sleep apnea G47.33 Urinary retention R33.9 Weakness R53.1 (1) Dementia Dementia behavioral disturbance: with behavioral disturbance Dementia type: Lewy body dementia Qualified Code(s): G31.83 - Dementia with Lewy bodies; F02.81 - Dementia in other diseases classified elsewhere with behavioral disturbance
[2022-07-02] MEDS: ENOXAPARIN INJ 40 MG/0.4 ML SYR SQ SCH (12:45)
[2022-07-02] MEDS: POLYETHYLENE (MIRALAX) 17 GM PACK PO SCH ×2 (12:48→20:05)
[2022-07-02] MEDS: REMOVE RIVASTIGMINE PATCH SCH (20:02)
[2022-07-02] MEDS: RIVASTIGMINE PATCH TD SCH (20:03)
[2022-07-02] MEDS: SERTRALINE HCL 50 MG TABLET PO SCH (20:04)
[2022-07-02] MEDS: TAMSULOSIN HCL 0.4 MG CAP PO SCH (20:04)
[2022-07-02] MEDS: NAMENDA 28 MG PO SCH (20:04)
[2022-07-03] MEDS: FLUTICASONE PROPIONATE NA SPR 16 GM BTL SCH ×2 (04:07→14:35)
[2022-07-03] MEDS: POLYETHYLENE (MIRALAX) 17 GM PACK PO SCH ×2 (07:29→21:26)
[2022-07-03] MEDS: cefTRIAXone SODIUM 2,000 MG in DEXTROSE 5% 50 ML IV SCH (08:27)
[2022-07-03 10:59] LABS: Hematocrit (blood only) 32.5 % (40.1-51.0); Hemoglobin 11.2 g/dl (14.0-18.0); Mean Corpuscular Hemoglobin 29.8 pg (25.0-34.0); Mean Corpuscular Hgb Conc 34.5 g/dL (32.0-36.0); Mean Corpuscular Volume 86.4 fL (80.0-100.0); Mean Platelet Volume 10.7 fL (9.4-12.4); Platelet Count 139 K/uL (130-400); RDW Standard Deviation 47.4 fL (36.4-46.3); Red Blood Count 3.76 M/uL (4.63-6.08); White Blood Count 10.62 K/ul (4.8-10.8)
[2022-07-03 11:14] LABS: Basophils # (auto) 0.02 K/uL (0-0.2); Basophils % (auto) 0.2 %; Dohle Bodies Occasional; Eosinophils # (auto) 0.11 K/uL (0-0.50); Immature Granulocytes # (auto) 0.26 K/uL (0.00-0.02); Immature Granulocytes % (auto) 2.4 %; Lymphocytes # (auto) 1.28 K/uL (1.2-3.4); Lymphocytes % (auto) 12.1 %; Monocytes # (auto) 1.19 K/uL (0.24-0.82); Monocytes % (auto) 11.2 %; Neutrophils # (auto) 7.76 K/uL (1.4-6.5); Neutrophils % (auto) 73.1 %
[2022-07-03 11:16] LABS: Albumin Globulin Ratio 1.3 (0.9-2); Albumin Level 2.9 gm/dl (3.4-5.0); BUN Creatinine Ratio 20.6 (10-20); Bilirubin,Total 0.4 mg/dl (0.2-1.0); Calcium 8.3 mg/dl (8.5-10.1); Creatinine Clr Calc Pharmacy 106.4 ml/min; Est GFR (African American) 102.7 ml/min; Est GFR (Non-African American) 88.6 ml/min; Globulin 2.3 gm/dl (2.5-4.0); Magnesium 1.6 mg/dl (1.7-2.4); Phosphorus 2.5 mg/dl (2.5-4.9); Potassium 3.9 mmol/L (3.5-5.1); Total Protein 5.2 gm/dl (6.0-8.3)
--- NOTE | 2022-07-03 11:29 | Hospitalist Progress Note ---
Date of Service July 03, 2022 Assessment & Plan (1) Sepsis secondary to UTI: Plan: Urinary tract infection with bacteremia WBC 2.4, baseline 9. Plt normal. No neutropenia. Rapidly up trended to 43 with bacteremia Temperature 39.7 on admission, tachycardic At baseline creatinine 0.81.0 Admitting creatinine 1.09 Lactate on admission 6.9, received sepsis resuscitation 3 L NSS. Required adjunct pressors. Lactate gradually down trended and normalized Off vasopressors [06/30] Urine and blood cultures positive for pansensitive E. Coli. Initially on dapto-meropenem now switched to intravenous ceftriaxone. Continue this pending increase in oral intake - planning on 14 day total course. Oropharyngeal dysphagia CXR with dependent left lung base opacities suspected atelectasis versus pneumonitis Patient is at increased risk for aspiration pneumonia Oral hygiene Advanced to puree diet by SLT Rest transiently, n.p.o./do not advance diet if patient is not aware enough to swallow safely Neurogenic bladder, BPH with LUTS Patient with chronic straight cath required for voiding Law attempted to be placed as above, with blood outside catheter suspect may have had attempted urethral expansion, now advanced under ultrasound guidance and draining dark yellow urine. Continue law catheter - will leave it up to eventual discharge destination to decide upon permanent law vs. CIC MAGGIE on CPAP Continue CPAP nightly Parkinsonism with Lewy body dementia Following with neurologist in [place] Rivastigmine temporarily held for hypotension Sinemet has not been recommended given patient's primary Lewy body with second carlito concerning features and a consultation with neurology Anxiety/depression Continue sertraline nightly History of fecal impaction Continue Dulcolax Strain of right shoulder Seen by orthopedics in May. Some arthritic changes in AC joint pain, suspected impingement. Physical therapy/observation recommended. Surgical intervention not recommended. Also has arthritic knee, right, consistent with arthritis and not consistent with septic knee. No steroid injection recommended especially in the setting of recent infections/UTIs (2) Septic shock: Plan: Now resolved off vasopressors (3) Left arm swelling: Plan: Improving Suspect from blood pressure cuff on all night while on vasopressors. 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 US UE left for DVT - negative. CT head - negative. (4) Benign prostatic hyperplasia: (5) Carotid artery plaque: (6) Dementia: (7) Depression with anxiety: (8) Dyslipidemia: (9) Elevated CPK: (10) Erectile dysfunction: (11) Neurogenic bladder: (12) Obstructive sleep apnea: (13) Urinary retention: (14) Weakness: Plan DVT prophylaxis: Lovenox 40mg SQ daily CODE STATUS: DNR/DNI, discussed with who is patient's surrogate decision maker/medical POA Diet: Puree diet Disposition: Continue on med/surg, medically stable for discharge pending placement Admission and Anticipated Discharge Date Admission Date: June 28, 2022 Subjective No questions or concerns from patient or his . Medically stable for discharge at this time but requiring rehab on discharge. Review of Systems Review of Systems: All systems reviewed & are unremarkable except as noted in Subjective Physical Exam Constitutional: + frail appearing ENMT: Mouth: oral mucous membranes not dry Respiratory: + abnormal respiratory effort (poor inspiratory effort) Auscultation: + diminished lung sounds; no crackles and no wheezes Cardiovascular: RRR, no murmur, no edema Gastrointestinal (Abdomen): normal bowel sounds, soft, nontender, no hepatosplenomegaly Skin: no rashes, warm and dry Neurologic: moves all extremities and awake; not confused Psychiatric: Orientation: alert and oriented to person; + not oriented to place and + not oriented to time Results & Data Results & Data ([facility]) Vital Signs (Past 12 Hours) Vital Signs Temp Pulse Resp BP Pulse Ox O2 Del Method FiO2 07/03/22 07:14 36.4 C L 77 19 157/79 H 100 CPAP 07/03/22 03:07 20 21 PG Care Time/CCT Total # of Minutes Spent Total Time Spent with Patient: Total time spent is greater than 50% in coordination of care (as documented) at patient's floor/unit and/or counseling patient: Coding Level of Care Code 39220 Subseq Hosp Care Lvl 1 Diagnoses Sepsis secondary to UTI A41.9; N39.0 Septic shock A41.9; R65.21 Left arm swelling M79.89 Benign prostatic hyperplasia N40.0 Carotid artery plaque I65.29 Dementia G31.83; F02.81 Dementia behavioral disturbance: with behavioral disturbance Dementia type: Lewy body dementia Depression with anxiety F41.8 Dyslipidemia E78.5 Elevated CPK R74.8 Erectile dysfunction N52.9 Neurogenic bladder N31.9 Obstructive sleep apnea G47.33 Urinary retention R33.9 Weakness R53.1 (1) Dementia Dementia behavioral disturbance: with behavioral disturbance Dementia type: Lewy body dementia Qualified Code(s): G31.83 - Dementia with Lewy bodies; F02.81 - Dementia in other diseases classified elsewhere with behavioral disturbance
[2022-07-03] MEDS: ENOXAPARIN INJ 40 MG/0.4 ML SYR SQ SCH (13:05)
[2022-07-03] MEDS ORDERED: ACETAMINOPHEN 325 MG TAB PO PRN (16:57)
[2022-07-03] MEDS ORDERED: ACETAMINOPHEN 325 MG TAB ONE (17:05)
[2022-07-03] MEDS: MAGNESIUM SULFATE / D5W 1 GM/100 ML BAG IV SCH ×2 (17:09→18:51)
[2022-07-03] MEDS: DUTASTERIDE 0.5 MG PO SCH (20:15)
[2022-07-03] MEDS: MELATONIN 3 MG TAB PO SCH (20:15)
[2022-07-03] MEDS: TAMSULOSIN HCL 0.4 MG CAP PO SCH (20:15)
[2022-07-03] MEDS: NAMENDA 28 MG PO SCH (20:15)
[2022-07-03] MEDS: SERTRALINE HCL 50 MG TABLET PO SCH (20:15)
[2022-07-03] MEDS: REMOVE RIVASTIGMINE PATCH SCH (20:16)
[2022-07-03] MEDS: RIVASTIGMINE PATCH TD SCH (21:26)
[2022-07-04] MEDS: FLUTICASONE PROPIONATE NA SPR 16 GM BTL SCH ×2 (02:33→15:27)
[2022-07-04] MEDS: cefTRIAXone SODIUM 2,000 MG in DEXTROSE 5% 50 ML IV SCH (09:54)
[2022-07-04] MEDS: POLYETHYLENE (MIRALAX) 17 GM PACK PO SCH ×2 (09:54→23:15)
[2022-07-04] MEDS: ENOXAPARIN INJ 40 MG/0.4 ML SYR SQ SCH (12:58)
[2022-07-04 17:19] LABS: Basophils # (auto) 0.02 K/uL (0-0.2); Basophils % (auto) 0.2 %; Eosinophils # (auto) 0.14 K/uL (0-0.50); Eosinophils % (auto) 1.4 %; Hematocrit (blood only) 31.2 % (40.1-51.0); Hemoglobin 10.6 g/dl (14.0-18.0); Immature Granulocytes # (auto) 0.37 K/uL (0.00-0.02); Immature Granulocytes % (auto) 3.6 %; Lymphocytes # (auto) 1.34 K/uL (1.2-3.4); Lymphocytes % (auto) 13.2 %; Mean Corpuscular Hemoglobin 29.9 pg (25.0-34.0); Mean Corpuscular Volume 88.1 fL (80.0-100.0); Mean Platelet Volume 10.6 fL (9.4-12.4); Monocytes # (auto) 1.02 K/uL (0.24-0.82); Neutrophils # (auto) 7.26 K/uL (1.4-6.5); Neutrophils % (auto) 71.6 %; Platelet Count 146 K/uL (130-400); RDW Standard Deviation 47.9 fL (36.4-46.3); Red Blood Count 3.54 M/uL (4.63-6.08); White Blood Count 10.15 K/ul (4.8-10.8)
[2022-07-04 17:38] LABS: Magnesium 1.7 mg/dl (1.7-2.4); Phosphorus 2.9 mg/dl (2.5-4.9)
[2022-07-04 17:39] LABS: Albumin Globulin Ratio 1.2 (0.9-2); Albumin Level 2.8 gm/dl (3.4-5.0); BUN Creatinine Ratio 18.8 (10-20); Bilirubin,Total 0.4 mg/dl (0.2-1.0); Calcium 8.1 mg/dl (8.5-10.1); Creatinine Clr Calc Pharmacy 104.5 ml/min; Globulin 2.4 gm/dl (2.5-4.0); Potassium 3.8 mmol/L (3.5-5.1); Total Protein 5.2 gm/dl (6.0-8.3)
[2022-07-04] MEDS: DUTASTERIDE 0.5 MG PO SCH (20:26)
[2022-07-04] MEDS: NAMENDA 28 MG PO SCH (20:26)
[2022-07-04] MEDS: SERTRALINE HCL 50 MG TABLET PO SCH (20:26)
[2022-07-04] MEDS: TAMSULOSIN HCL 0.4 MG CAP PO SCH (20:27)
[2022-07-04] MEDS: REMOVE RIVASTIGMINE PATCH SCH (20:27)
[2022-07-04] MEDS: MELATONIN 3 MG TAB PO SCH (20:27)
[2022-07-04] MEDS: RIVASTIGMINE PATCH TD SCH (20:33)
--- NOTE | 2022-07-04 22:56 | Hospitalist Progress Note ---
Date of Service July 04, 2022 Assessment & Plan (1) Sepsis secondary to UTI: Plan: Urinary tract infection with bacteremia WBC 2.4, baseline 9. Plt normal. No neutropenia. Rapidly up trended to 43 with bacteremia Temperature 39.7 on admission, tachycardic At baseline creatinine 0.81.0 Admitting creatinine 1.09 Lactate on admission 6.9, received sepsis resuscitation 3 L NSS. Required adjunct pressors. Lactate gradually down trended and normalized Off vasopressors [06/30] Urine and blood cultures positive for pansensitive E. Coli. Initially on dapto-meropenem now switched to intravenous ceftriaxone. Continue this pending increase in oral intake - planning on 14 day total course (last day 07/11) (2) Altered mental status: Plan: CT head prior in admission with no acute intracranial pathology. ?worsening today due to acetaminophen as reportedly had similar reaction on prior admission Associated generalized body aches today concerning for a new viral infection Labs unremarkable today Monitor over next 24 hours and consider further workup if not resolving If watery diarrhea will get c. diff (3) Urinary retention: Plan: Patient with chronic straight cath required for voiding Law attempted to be placed as above, with blood outside catheter suspect may have had attempted urethral expansion, now advanced under ultrasound guidance and draining dark yellow urine. Continue law catheter - will leave it up to eventual discharge destination to decide upon permanent law vs. CIC (4) Oropharyngeal dysphagia: Plan: CXR with dependent left lung base opacities suspected atelectasis versus pneumonitis Patient is at increased risk for aspiration pneumonia Oral hygiene Advanced to puree diet by SLT (5) Septic shock: Plan: Now resolved off vasopressors (6) Left arm swelling: Plan: Improving Suspect from blood pressure cuff on all night while on vasopressors. US UE left for DVT - negative. CT head - negative. (7) Benign prostatic hyperplasia: Plan: As above for urinary retention (8) Neurogenic bladder: (9) Carotid artery plaque: (10) Dementia: Plan: Following with neurologist in [place] Continue Rivastigmine and Memantine Sinemet has not been recommended given patient's primary Lewy body with secondary concerning features and a consultation with neurology (11) Depression with anxiety: Plan: Continue sertraline nightly (12) Dyslipidemia: (13) Elevated CPK: Plan: Now resolved (14) Obstructive sleep apnea: Plan: CPAP HS (15) Weakness: Plan: Ongoing, likely to not fully get back to previously baseline but will require discharge to acute rehab. (16) Gram-negative bacteremia: (17) Constipation: Plan: LBM 07/03 Continue Dulcolax Plan DVT prophylaxis: Lovenox 40mg SQ daily CODE STATUS: DNR/DNI, discussed with who is patient's surrogate decision maker/medical POA Diet: Puree diet Disposition: No longer medically stable for discharge given worsening pain and sedation however if secondary to acetaminophen and he rebounds can likely still be discharged tomorrow if placement found Admission and Anticipated Discharge Date Admission Date: June 28, 2022 Subjective Patient appears more sedated to myself and his today. She reports this previously happened after taking acetaminophen previously which he had yesterday and caused sedation for 24 hours. He is stoic and doesn't complain of pain when asked but on any movement of any four limbs he complains of pain. Review of Systems Review of Systems: All systems reviewed & are unremarkable except as noted in Subjective Physical Exam Constitutional: + frail appearing and + lethargic (worse today) Eyes: PERRL, conjunctivae normal, anicteric sclerae ENMT: Mouth: + dry oral mucous membranes Respiratory: + abnormal respiratory effort (poor inspiratory effort) Auscultation: + diminished lung sounds; no crackles and no wheezes Cardiovascular: Rate/Rhythm: regular rate and regular rhythm Vessels: no JVD Extremities: + pedal edema (trace ankles pitting) Gastrointestinal (Abdomen): normal bowel sounds, soft, nontender, no hepatosplenomegaly Musculoskeletal: all four extremities painful to touch Skin: no rashes, warm and dry Neurologic: moves all extremities and awake; not confused Psychiatric: Orientation: alert (to voice) and oriented to person; + not oriented to place and + not oriented to time Results & Data Results & Data ([facility]) Vital Signs (Past 12 Hours) Vital Signs Temp Pulse Pulse Resp BP Pulse Ox O2 Del Method 07/04/22 22:00 87 18 96 07/04/22 17:18 37.1 C 85 18 152/73 H 96 Room Air 07/04/22 12:09 37.2 C 90 18 140/74 99 Room Air FiO2 07/04/22 22:00 21 07/04/22 17:18 07/04/22 12:09 PG Care Time/CCT Total # of Minutes Spent Total Time Spent with Patient: Total time spent is greater than 50% in coordination of care (as documented) at patient's floor/unit and/or counseling patient: Coding Level of Care Code 86906 Subseq Hosp Care Lvl 2 Diagnoses Sepsis secondary to UTI A41.9; N39.0 Altered mental status R41.82 Urinary retention R33.9 Oropharyngeal dysphagia R13.12 Septic shock A41.9; R65.21 Left arm swelling M79.89 Benign prostatic hyperplasia N40.0 Neurogenic bladder N31.9 Carotid artery plaque I65.29 Dementia G31.83; F02.81 Dementia behavioral disturbance: with behavioral disturbance Dementia type: Lewy body dementia Depression with anxiety F41.8 Dyslipidemia E78.5 Elevated CPK R74.8 Obstructive sleep apnea G47.33 Weakness R53.1 Gram-negative bacteremia R78.81 Constipation K59.00 (1) Dementia Dementia behavioral disturbance: with behavioral disturbance Dementia type: Lewy body dementia Qualified Code(s): G31.83 - Dementia with Lewy bodies; F02.81 - Dementia in other diseases classified elsewhere with behavioral dis turbance
[2022-07-05] MEDS: FLUTICASONE PROPIONATE NA SPR 16 GM BTL SCH ×2 (02:40→14:23)
[2022-07-05 07:55] LABS: Basophils # (auto) 0.02 K/uL (0-0.2); Basophils % (auto) 0.2 %; Eosinophils # (auto) 0.12 K/uL (0-0.50); Eosinophils % (auto) 1.2 %; Hematocrit (blood only) 30.3 % (40.1-51.0); Hemoglobin 10.2 g/dl (14.0-18.0); Immature Granulocytes # (auto) 0.33 K/uL (0.00-0.02); Immature Granulocytes % (auto) 3.2 %; Lymphocytes # (auto) 1.36 K/uL (1.2-3.4); Lymphocytes % (auto) 13.1 %; Mean Corpuscular Hemoglobin 29.9 pg (25.0-34.0); Mean Corpuscular Hgb Conc 33.7 g/dL (32.0-36.0); Mean Corpuscular Volume 88.9 fL (80.0-100.0); Mean Platelet Volume 10.6 fL (9.4-12.4); Monocytes # (auto) 0.95 K/uL (0.24-0.82); Monocytes % (auto) 9.1 %; Neutrophils # (auto) 7.64 K/uL (1.4-6.5); Neutrophils % (auto) 73.2 %; Platelet Count 160 K/uL (130-400); Red Blood Count 3.41 M/uL (4.63-6.08); White Blood Count 10.42 K/ul (4.8-10.8)
[2022-07-05 08:23] LABS: BUN Creatinine Ratio 20.3 (10-20); C Reactive Protein 11.59 mg/dl (0-0.5); Calcium 8.1 mg/dl (8.5-10.1); Creatinine Clr Calc Pharmacy 103.8 ml/min; Potassium 3.8 mmol/L (3.5-5.1)
[2022-07-05 08:40] LABS: Albumin Globulin Ratio 1.2 (0.9-2); Albumin Level 2.8 gm/dl (3.4-5.0); Bilirubin,Total 0.5 mg/dl (0.2-1.0); Globulin 2.4 gm/dl (2.5-4.0); Magnesium 1.6 mg/dl (1.7-2.4); Phosphorus 2.9 mg/dl (2.5-4.9); Total Protein 5.2 gm/dl (6.0-8.3)
[2022-07-05] MEDS ORDERED: ADVANCED PROBIOTIC 1250 MG CAPSULE PO SCH (09:00)
[2022-07-05] MEDS: cefTRIAXone SODIUM 2,000 MG in DEXTROSE 5% 50 ML IV SCH (09:01)
[2022-07-05] MEDS: POLYETHYLENE (MIRALAX) 17 GM PACK PO SCH (09:01)
--- NOTE | 2022-07-05 11:55 | Hospitalist Progress Note ---
Date of Service July 05, 2022 Assessment & Plan (1) Sepsis secondary to UTI: Plan: Urinary tract infection with bacteremia. E. coli isolated. He has completed 7 days of intravenous Rocephin and will be switched to oral cephalexin for the last 7 days. He has been off vasopressors since June 30 . (2) Altered mental status: Plan: CT head prior to admission with no acute intracranial pathology. This probably represents metabolic encephalopathy in addition to underlying dementia. There is some concern that Tylenol may have contributed. (3) Urinary retention: Plan: Patient with chronic straight cath required for voiding. Durbin catheter is now in place and will remain in place when he is discharged to the [facility]. He can follow-up with urology for further treatment. (4) Oropharyngeal dysphagia: Plan: CXR with dependent left lung base opacities, atelectasis versus pneumonitis Patient is at increased risk for aspiration pneumonia Oral hygiene He has been advanced to puree diet by SLT (5) Septic shock: Plan: Now resolved off vasopressors (6) Left arm swelling: Plan: Improving Suspect from blood pressure cuff on all night while on vasopressors. US UE left for DVT - negative. CT head - negative. (7) Benign prostatic hyperplasia: Plan: As above for urinary retention (8) Neurogenic bladder: Plan: Durbin catheter currently in place (9) Carotid artery plaque: Plan: Stable. Medical management (10) Dementia: Plan: Following with neurologist in [place] Continue Rivastigmine and Memantine Supportive care (11) Depression with anxiety: Plan: Continue sertraline nightly (12) Dyslipidemia: Plan: Diet management (13) Elevated CPK: Plan: Now resolved (14) Obstructive sleep apnea: Plan: CPAP HS (15) Weakness: Plan: Continue outpatient OT and PT (16) Gram-negative bacteremia: Plan: E. coli isolated. He received 7 days of intravenous Rocephin and will complete 7 more days of oral cephalexin. (17) Constipation: Plan: Continue Dulcolax Plan DVT prophylaxis: Lovenox 40mg SQ daily CODE STATUS: DNR/DNI, discussed with who is patient's surrogate decision maker/medical POA Diet: Puree diet Disposition: He has been accepted to the [facility] personal-jail and is stable for discharge with the Durbin catheter in place. He will complete his antibiotic course with oral antibiotics. Admission and Anticipated Discharge Date Admission Date: June 28, 2022 Subjective Awake but uncooperative. is at the bedside. He has a blistered rash on the left buttock that appears to be herpes zoster. Valtrex has been ordered. He has completed 7 days of intravenous Rocephin and will be switched to oral Keflex for the last 7 days. PICC line will be removed at discharge. He has been accepted at the [facility]. Review of Systems Review of Systems: The patient is uncooperative and will not comply with review of systems Physical Exam Physical Exam: General-alert but uncooperative, no fevers, no chills HEENT-head atraumatic and normocephalic, pupils equal and reactive to light, extraocular muscles intact Neck-no lymphadenopathy or thyromegaly, trachea midline Chest-clear to auscultation percussion. No rales wheezing or rhonchi Cardiac-regular rate and rhythm, normal S1 and S2, no murmurs Abdomen-normal bowel sounds, nontender, no hepatosplenomegaly Extremities-no cyanosis, clubbing, or edema Neuro-cranial nerves II through XII intact, motor and sensory function within normal limits, strength symmetrical , no focal deficits Psych-disoriented and uncooperative Skinraised papular rash on the left buttock that appears to be herpes zoster Results & Data Results & Data ([facility]) Vital Signs (Past 12 Hours) Vital Signs Temp Resp O2 Del Method FiO2 07/05/22 07:04 CPAP 07/05/22 03:39 18 21 07/05/22 03:15 37.0 C 07/05/22 00:12 CPAP Laboratory Results 07/05/22 07:13 07/05/22 07:13 PG Care Time/CCT Total # of Minutes Spent Total Time Spent with Patient: Total time spent is greater than 50% in coordination of care (as documented) at patient's floor/unit and/or counseling patient: Coding Level of Care Code 49726 Subseq Hosp Care Lvl 3 Diagnoses Sepsis secondary to UTI A41.9; N39.0 Altered mental status R41.82 Urinary retention R33.9 Oropharyngeal dysphagia R13.12 Septic shock A41.9; R65.21 Left arm swelling M79.89 Benign prostatic hyperplasia N40.0 Neurogenic bladder N31.9 Carotid artery plaque I65.29 Dementia G31.83; F02.81 Dementia behavioral disturbance: with behavioral disturbance Dementia type: Lewy body dementia Depression with anxiety F41.8 Dyslipidemia E78.5 Elevated CPK R74.8 Obstructive sleep apnea G47.33 Weakness R53.1 Gram-negative bacteremia R78.81 Constipation K59.00 (1) Dementia Dementia behavioral disturbance: with behavioral disturbance Dementia type: Lewy body dementia Qualified Code(s): G31.83 - Dementia with Lewy bodies; F02.81 - Dementia in other diseases classified elsewhere with behavioral disturbance
[2022-07-05] MEDS ORDERED: cephALEXin 500 MG CAP PO SCH (13:00)
[2022-07-05] MEDS: ENOXAPARIN INJ 40 MG/0.4 ML SYR SQ SCH (13:08)
[2022-07-05] MEDS ORDERED: valACYclovir HCL 500 MG TABLET PO SCH (14:00)
--- NOTE | 2022-07-10 09:49 | Discharge Summary ---
Date of Service July 10, 2022 Admission HPI Per Admitting Provider Stiven Crawley is an 87-year-old male with a past medical history of oropharyngeal dysphagia, neurogenic bladder, urinary retention, dementia, BPH, MAGGIE, carotid artery plaques, dyslipidemia, depression/anxiety who presents to the emergency department with inability to void and he was found to be febrile with infected appearing UA, elevated lactate, tachycardia concerning for sepsis 2/2 UTI. By report with ER provider patient had a Law was attempted to be placed and following this had a large amount of blood with concern for potential inflation near the prostate. Patient initially presented for catheter exchange as a result, but was found to be febrile and tachycardic. Subsequent advancement of the catheterization under ultrasound guidance with successful drainage of 1 L of urine. Patient is confused at baseline per EMS, and is a very limited historian Prior history of MRSA at [facility] Was to be cathed 4x per day Last day has been resisting cath and very fatigued UA orders were mistaken and not obtained due to a miscommunication Pt did not want to be cathed due to pain, attempted law did not bleed on insertion bled after around the law and was referred to the ER First low grade fever 100.6 three days ago. Past three evenings no fever after 1x dose of tylenol. Last striaght cath 11pm last night for ~800 or 900ccs. Last cath before than would have been at least ~9 hours. Very weak in the last week. PT/OT couldn't get him ambulatory No history of heart problems or heart attacks. No fhx of heart problems. No lung problems. Oropharyngeal disphagea 2/2 lewy body. Mechanical regular/soft maggie on CPAP Lewy Body: Dx past four years. Taking rivastigmine. Subtantial worsened followed 2nd COVID booster. Medical History: Reviewed Medications: Reviewed. Took medications last night including crushed melatonin Surgical History: Reviewed Allergies: Reviewed Social History: No tobacco. Rare social EtoH with celebrations. Code Status: [place] is . [phone]. DNR/DNI. Principal Diagnosis septic shock, E. coli bacteremia, UTI, metabolic encephalopathy Discharge Exam Constitutional WD/WN, vitals as above Eyes PERRL, conjunctivae normal, anicteric sclerae ENMT external ear and nose normal, oropharynx normal Neck trachea midline, no thyromegaly Respiratory normal respiratory effort, lungs clear to auscultation Cardiovascular RRR, no murmur, no edema Gastrointestinal (Abdomen) normal bowel sounds, soft, nontender, no hepatosplenomegaly Musculoskeletal no cyanosis or clubbing, extremities motor strength 5/5 Skin no rashes, warm and dry Neurologic PERRL, EOMI, accommodation nl, no face palsy, no dysarthria Psychiatric A+Ox3, euthymic affect Discharge Data Allergies Allergy/AdvReac Type Severity Reaction Status Date / Time No Known Allergies Allergy Verified 06/03/22 02:01 Consultations 06/28/22 11:53 ED Decision to Admit Stat 06/28/22 14:36 Consult Urology Routine 06/28/22 16:37 Consult Brick Pointer Routine Ordered Studies 06/28/22 10:50 CT abd pelvis wo con Stat 06/30/22 10:02 CT head/brain wo con Stat US venous doppler UE LT Urgent Hospital Course (1) Sepsis secondary to UTI: Urinary tract infection with bacteremia. E. coli isolated. He has completed 7 days of intravenous Rocephin and will be switched to oral cephalexin for the last 7 days. He has been off vasopressors since June 30 . (2) Altered mental status: CT head prior to admission with no acute intracranial pathology. This probably represents metabolic encephalopathy in addition to underlying dementia. There is some concern that Tylenol may have contributed. (3) Urinary retention: Patient with chronic straight cath required for voiding. Law catheter is now in place and will remain in place when he is discharged to the long term. He can follow-up with urology for further treatment. (4) Oropharyngeal dysphagia: CXR with dependent left lung base opacities, atelectasis versus pneumonitis Patient is at increased risk for aspiration pneumonia Oral hygiene He has been advanced to puree diet by SLT (5) Septic shock: Now resolved off vasopressors (6) Left arm swelling: Improving Suspect from blood pressure cuff on all night while on vasopressors. US UE left for DVT - negative. CT head - negative. (7) Benign prostatic hyperplasia: As above for urinary retention (8) Neurogenic bladder: Law catheter currently in place (9) Carotid artery plaque: Stable. Medical management (10) Dementia: Following with neurologist in [place] Continue Rivastigmine and Memantine Supportive care (11) Depression with anxiety: Continue sertraline nightly (12) Dyslipidemia: Diet management (13) Elevated CPK: Now resolved (14) Obstructive sleep apnea: CPAP HS (15) Weakness: Continue outpatient OT and PT (16) Gram-negative bacteremia: E. coli isolated. He received 7 days of intravenous Rocephin and will complete 7 more days of oral cephalexin. (17) Constipation: Continue Dulcolax Plan DVT prophylaxis: Lovenox 40mg SQ daily CODE STATUS: DNR/DNI, discussed with who is patient's surrogate decision maker/medical POA Diet: Puree diet Disposition: He has been accepted to the [facility] personal-longterm and is stable for discharge with the Law catheter in place. He will complete his antibiotic course with oral antibiotics. Total Time Total Time Spent Total Time Spent (In Minutes): 35 minutes Discharge Plan Discharge Items Patient Disposition: Personal [facility] Reason For Visit: catheter placement Discharge Diagnosis: Urinary retention with E. coli UTI and E. coli bacteremia. Metabolic encephalopathy. Sepsis Activity: Resume your previous activity Non-emergency contact: Primary Care Provider Call non-emergency contact if: you have any medication questions Follow-up/Referrals: Colt Yusuf DO [Primary Care Provider] - Dietitian Info: Pured food Diet: Heart Healthy and Other - See Diet Comment Addtl Attending Provider Instructions: Take Valtrex for 5 days for suspected herpes zoster eruption involving the left buttock. Law catheter remains in place at discharge. Pending Studies at Discharge: No Stand-Alone Forms: [email or web address], Smoking Cessation Skilled Items Patient informed of condition?: Yes DNR: No Discharge Level of Care: Other Communicable Disease: No Discharge Prognosis: Stable Lines: None Urinary Catheter: Yes Medications and DC Order Prescriptions: New polyethylene glycol 3350 [Miralax] 17 gram Powder In Packet 17 g PO BID Qty: 60 0RF melatonin 3 mg Tablet 5 mg PO HS Qty: 30 0RF valacyclovir 500 mg Tablet 500 mg PO TID Qty: 20 0RF cephalexin 500 mg Capsule 500 mg PO QID Qty: 28 0RF dutasteride 0.5 mg Capsule 1 ea PO HS Qty: 30 0RF Advanced Probiotic 625 mg (10 billion cell) Capsule 2 cap PO DAILY Qty: 60 0RF Continued fluticasone propionate 50 mcg/actuation spray,suspension 1 spray intranasal Q12H Qty: 16 2RF Rx Instructions: administer into each nostril nystatin 100,000 unit/gram powder 1 applic topical QID PRN (Reason: rash) Qty: 60 2RF tamsulosin 0.4 mg capsule 0.4 mg PO HS Qty: 90 3RF dutasteride 0.5 mg capsule 0.5 mg PO HS rivastigmine 13.3 mg/24 hour patch 24 hour 13.3 mg topical HS cetirizine [Zyrtec] 10 mg Tablet 10 mg PO HS azelastine 137 mcg (0.1 %) aerosol,spray 2 spray intranasal BID PRN (Reason: Nasal Congestion) sertraline 50 mg Tablet 50 mg PO HS Qty: 1 0RF Rx Instructions: start 06/13/2022 at bedtime fluocinolone 0.01 % Cream 1 applic TOPICAL DIRECTED PRN (Reason: APPLY TO SCALP) triamcinolone acetonide 0.1 % Cream 1 applic TOPICAL DIRECTED PRN (Reason: APPLY TO ANKLE) ciclopirox 8 % solution 1 applic TOPICAL HS PRN (Reason: nails) Rx Instructions: APPLY TO TOE NAIL hydrocortisone 1 % Cream 1 applic TOPICAL DIRECTED PRN (Reason: FACIAL AREA) econazole 1 % Cream 1 applic TOPICAL DIRECTED PRN (Reason: APPLY TO FEET) melatonin 5 mg Tablet 5 mg PO HS memantine 28 mg capsule,sprinkle,ER 24hr 28 mg PO HS Discharge Orders: Discharge Order (Routine); Ordered 07/05/22 Ordered By: Tony Baig Admission Data Admit Date/Time: 06/28/22 12:39 Attending Provider: Tony Baig Admit Provider: Raúl Hawthorne Primary Care Provider: Colt Yusuf Other Providers: Raúl Hawthorne ; Lucien Butler ; Vijay Lima Other Interventions: Discharge Summary Assessment (RN) Last Done: 07/05/22 13:49 Coding Level of Care Code D/C DAY MANAGEMENT >30 MINS Diagnoses Sepsis secondary to UTI A41.9; N39.0 Altered mental status R41.82 Urinary retention R33.9 Oropharyngeal dysphagia R13.12 Septic shock A41.9; R65.21 Left arm swelling M79.89 Benign prostatic hyperplasia N40.0 Neurogenic bladder N31.9 Carotid artery plaque I65.29 Dementia G31.83; F02.81 Dementia behavioral disturbance: with behavioral disturbance Dementia type: Lewy body dementia Depression with anxiety F41.8 Dyslipidemia E78.5 Elevated CPK R74.8 Obstructive sleep apnea G47.33 Weakness R53.1 Gram-negative bacteremia R78.81 Constipation K59.00
== END 2022-07-05 15:17 | disposition home or self-care (01) | DRG 871 ==
LOC: ED 10:08 → SUATTDRO 12:39 → 2S 12:39 → 1E 16:02 → 2S 07-02 00:16

== ENCOUNTER 2024-02-14 16:00 | Inpatient (IN) ==
--- NOTE | 2024-02-14 16:17 | Emergency Department Note ---
Impression & Plan Hematuria, Sepsis, Hyperthermia, Bilateral pleural effusion, Elevated procalcitonin ED Provider Note HISTORY OF PRESENT ILLNESS: Patient is an 88-year-old male presenting with a black family. History is obtained via EMS, as patient is unable to provide any meaningful history. Patient has a chronic indwelling Law in place. He reportedly was started on Bactrim 3 days ago. However, he has been having jason hematuria over the last unknown number of days. His Law stopped draining yesterday. Patient does not provide any meaningful history. He reportedly has been having "fevers for the last few days." presents later and is able to provide more history. Reports that the patient's Law catheter was last exchanged in another ER 2 days ago. She reports that he was having some hematuria and clot passage at that time, but it is worsened in the last 2 days. She reports that the patient is currently staying at [facility] and has been much more confused in the last 3 to 4 days. States that his temperature has been elevated and was running around 99-1 01 at the facility. No reported cough or shortness of breath. She reports that he is much more confused than his normal baseline. ROS: as above PHYSICAL EXAM: Constitutional: Patient appears in no acute distress. HENT: Head: Normocephalic and atraumatic. Eyes: EOMI, PERRL Mouth/Throat: Mucous membranes moist. Neck: Trachea midline. Neck supple. Cardiovascular: RRR, No murmurs, rubs or gallops. Intact distal pulses. Pulmonary/Chest: No respiratory distress. Breath sounds clear and equal bilaterally. No wheezes or rales. Abdominal: Abdomen soft, no tenderness, rebound or guarding. Musculoskeletal: No edema, tenderness or deformity noted. Skin: Warm and dry. No rash, erythema, pallor or cyanosis Psychiatric: Appropriate mood and affect for situation. Neurological: Alert but very confused. CN II-XII grossly intact, moving all extremities equally and fully. MDM: - Vitals signs showed hypertension, tachycardia, tachypnea and fever. Given patient's significant fever, he was given rectal Tylenol and placed on the Arctic sun to help cool him. He was given 2 L of cold fluids and an additional 1 L of normal temperature fluid for a total of 3 L normal saline for fluid resuscitation for sepsis. His sepsis ideal body weight fluid resuscitation is 2590.8 mL. - Blood cultures were obtained. Patient was given IV Zosyn for empiric coverage. - History obtained via patient's , given patient's confusion. History as above. - Chronic conditions affecting care: MRSA; MAGGIE; BPH; depression; HLD; dementia - Differential diagnoses include, but are not limited to: UTI; pneumonia; ACS; electrolyte abnormality; GRIFIFN; anemia - Order placed for continuous cardiac monitoring. At this time, monitor showed rate of 100 bpm with normal sinus rhythm, per my interpretation. - External medical records reviewed. Discharge summary from 07/10/2022 was reviewed. Patient has a history of MRSA. He was admitted at that time for septic shock, E. coli bacteremia secondary to a UTI. - EKG interpreted by myself showed normal sinus rhythm. Rate 92 bpm. QT 314. No acute ischemic changes. Significant artifact on baseline. - Laboratory workup interpreted by myself showed normal WBC; hyponatremia (Na 124); elevated anion gap (13)normal creatinine; hypocalcemia (Ca 8.2); elevated lactate (4.7 --> 3.00); elevated procalcitonin (0.77); normal troponin - COVID/flu/RSV negative - CXR shows bilateral pleural effusions, per my interpretation. Radiology notes evidence of congestive failure - Attempted CBI on patient, given his jason red blood in his law bag. However, nursing inserted about 1500 cc into the Law, but only about 100 to 200 cc came out and the patient was in significant pain. He was given 50 mcg of IV fentanyl. However, his oxygen saturation then decreased and he was started on supplemental oxygen. Decision was made to hold on further CBI until confirmation of Law placement could be made. - CT abdomen/pelvis wo contrast showed a catheter in the rectum, consistent with the rectal thermometer in the setting of the [facility]. Patient also noted to have prostamegaly with protrusion of the prostatic tissue at the base of the bladder. No Law noted in the bladder. - Attempted to deflate current law's balloon at bedside and use bedside US to confirm law placement. However, when nursing deflated the balloon, a significant amount of jason hematuria came from the urethral meatus and around the Law. Nursing attempted to advance the catheter but was meeting significant resistance and no evidence of balloon was seen in the bladder via ultrasound by myself. Catheter was completely removed. - Discussed case with urologist swimming pool salesperson, Dr. Rosas, at 20:32. He agreed with me that an attempt at a 22 coud three-way Law should be made. Nursing was successfully able to place his catheter and purple, tea colored urine then started draining into the bag. - Discussion was had with upper caser about patient's case and need for admission - Hospitalist consulted for admission - Patient admitted to [place] [facility] for further evaluation and management. I have personally spent 46 minutes of critical care time in the direct management of this patient. This includes bedside care, interpretation of diagnostic studies, and testing, discussion with consultants, patient, and family members, and other required patient management activities. This 46 minutes is in excess of all separately billable procedures. ASSESSMENT AND PLAN: Diagnosis: hematuria; sepsis; elevated procalcitonin; bilateral pleural effusions; hyperthermia Plan: Admit Past Med/Surg History Medical History Gram-negative bacteremia Sepsis secondary to UTI Right knee pain Shoulder pain, right RUE weakness Altered mental status MRSA (methicillin resistant Staphylococcus aureus) infection Enterococcus faecalis infection Altered mental status Urinary retention Dementia Obstructive sleep apnea Benign prostatic hyperplasia Carotid artery plaque Depression with anxiety Dyslipidemia Hearing loss Rosacea Seventh cranial nerve injury Surgical History H/O colonoscopy Family History Mother Alzheimer disease Brother Arthritis Nonorganic sleep disorder Father Emphysema, unspecified Brother Leukemia Social History Smoking Status: Never smoker Second Hand Exposure: No; Do You Dip or Chew Tobacco: No; Hx Alcohol Use: No Hx Substance Use: No Preferred Language: Belarusian Communication Ability: Unable Visual Impairment: Limited Hearing Ability: Use of Hearing Aid Senior Front End Web Developer Required: No Beliefs That Will Affect Care: None marital status: Current Living Situation: Spouse Current Living Situation Comment: lives in single story home with his current occupational status: retired Feels Safe at Home: Yes caffeine: Yes Dental Care, Regularly: Yes Physical Activity Frequency: 1-2 Times per Week Seatbelt Use: always Sunscreen Use: Yes Assistive Devices: Hospital Bed and Other Allergies Allergies Allergy/AdvReac Type Severity Reaction Status Date / Time No Known Allergies Allergy Verified 02/14/24 20:56 Home Meds Home Medications Medication Instructions Recorded Confirmed cetirizine 10 mg tablet (Zyrtec) 10 mg PO HS 03/07/21 02/14/24 rivastigmine 13.3 mg/24 hour 13.3 mg topical HS 03/07/21 02/14/24 transdermal patch ciclopirox 8 % topical solution 1 applic topical HS PRN nails 04/20/22 02/14/24 melatonin 5 mg tablet 5 mg PO HS 04/20/22 02/14/24 memantine 28 mg capsule 28 mg PO HS 04/20/22 02/14/24 sprinkle,extended release 24hr Stable Gi 250 mg PO DAILY 02/14/24 02/14/24 acetaminophen 325 mg tablet 650 mg PO Q4 PRN Fever Or Pain 02/14/24 02/14/24 (Tylenol) ascorbic acid (vitamin C) 500 mg 500 mg PO QAM 02/14/24 02/14/24 tablet (Vitamin C) docusate sodium 50 mg/5 mL oral 10 ml PO DAILY 02/14/24 02/14/24 liquid econazole 1 % topical cream 1 applic topical QAM PRN fungus 02/14/24 02/14/24 fluticasone propionate 50 1 spray intranasal AMHS 02/14/24 02/14/24 mcg/actuation nasal spray,suspension furosemide 20 mg tablet 20 mg PO DAILY 02/14/24 02/14/24 polyethylene glycol 3350 17 gram 17 g PO AMHS 02/14/24 02/14/24 oral powder packet (Miralax) sennosides 8.6 mg-docusate sodium 1 tab-cap PO QAM 02/14/24 02/14/24 50 mg tablet (2-in-1 Laxative) sulfamethoxazole 800 1 tab PO AMHS 02/14/24 02/14/24 mg-trimethoprim 160 mg tablet urea 20 % topical cream 1 applic topical BID PRN feet 02/14/24 02/14/24 Previous Rx's Medication Instructions Recorded sertraline 50 mg tablet 50 mg PO HS #1 tab 06/12/22 tamsulosin 0.4 mg capsule 0.4 mg PO HS #90 caps 07/03/22 azelastine 137 mcg (0.1 %) nasal 2 spray intranasal BID PRN Nasal 02/20/23 spray aerosol Congestion #90 mL Results & Data (ED) Vital Signs Vital Signs - 24 hr 02/14/24 16:00 02/14/24 16:15 02/14/24 16:40 Temperature 40.1 C H Temperature Source Rectal Pulse Rate 98 H 98 H 94 H Pulse Rate [Finger] Pulse Rate from SpO2 Sensor 94 H Pulse Rhythm Regular Respiratory Rate 30 H 30 H 32 H Respiratory Effort / Characteristics Non-Labored Respiratory Depth Normal Respiratory Pattern Regular Blood Pressure 176/105 H Blood Pressure [Right Arm] Blood Pressure Mean 128 Blood Pressure Mean [Right Arm] Pulse Oximetry 96 96 94 Oxygen Delivery Method Room Air Room Air Oxymask Oxygen Flow Rate 6 Fraction of Inspired Oxygen Sepsis Recent Fever Within 48 Hours Yes Sepsis New/Unexplained Change in Mental Status No Sepsis Action Taken by Nursing Physician Notified 02/14/24 16:57 02/14/24 17:00 02/14/24 17:57 Temperature 40 C H 40 C H Temperature Source Pulse Rate 91 H Pulse Rate [Finger] Pulse Rate from SpO2 Sensor 91 H Pulse Rhythm Respiratory Rate 17 Respiratory Effort / Characteristics Respiratory Depth Respiratory Pattern Blood Pressure Blood Pressure [Right Arm] Blood Pressure Mean Blood Pressure Mean [Right Arm] Pulse Oximetry 93 Oxygen Delivery Method Oxymask Oxygen Flow Rate 6 Fraction of Inspired Oxygen Sepsis Recent Fever Within 48 Hours Sepsis New/Unexplained Change in Mental Status Sepsis Action Taken by Nursing 02/14/24 17:58 02/14/24 18:00 02/14/24 18:00 Temperature 40 C H Temperature Source Pulse Rate 96 H 95 H Pulse Rate [Finger] Pulse Rate from SpO2 Sensor 96 H 95 H Pulse Rhythm Respiratory Rate 31 H 25 H Respiratory Effort / Characteristics Respiratory Depth Respiratory Pattern Blood Pressure 137/88 Blood Pressure [Right Arm] Blood Pressure Mean 104 Blood Pressure Mean [Right Arm] Pulse Oximetry 89 L 89 L Oxygen Delivery Method Oxymask Oxymask Oxygen Flow Rate 6 8 Fraction of Inspired Oxygen Sepsis Recent Fever Within 48 Hours Sepsis New/Unexplained Change in Mental Status Sepsis Action Taken by Nursing 02/14/24 18:41 02/14/24 19:00 02/14/24 19:00 Temperature 39.1 C H Temperature Source Pulse Rate 101 H 93 H Pulse Rate [Finger] Pulse Rate from SpO2 Sensor 101 H 93 H Pulse Rhythm Respiratory Rate 29 H 27 H Respiratory Effort / Characteristics Respiratory Depth Respiratory Pattern Blood Pressure 136/97 Blood Pressure [Right Arm] Blood Pressure Mean 110 Blood Pressure Mean [Right Arm] Pulse Oximetry 87 L 87 L Oxygen Delivery Method Oxymask Oxymask Oxygen Flow Rate 10 10 Fraction of Inspired Oxygen Sepsis Recent Fever Within 48 Hours Sepsis New/Unexplained Change in Mental Status Sepsis Action Taken by Nursing 02/14/24 19:02 02/14/24 19:15 02/14/24 20:00 Temperature 39.3 C H Temperature Source Pulse Rate Pulse Rate [Finger] 93 H 96 H Pulse Rate from SpO2 Sensor Pulse Rhythm Respiratory Rate 30 H 18 Respiratory Effort / Characteristics Spontaneous Respiratory Depth Respiratory Pattern Blood Pressure Blood Pressure [Right Arm] 136/97 Blood Pressure Mean Blood Pressure Mean [Right Arm] 110 Pulse Oximetry 87 L 95 Oxygen Delivery Method Oxymask High Flow Nasal Cannula Oxygen Flow Rate 10 30 Fraction of Inspired Oxygen 90 Sepsis Recent Fever Within 48 Hours Sepsis New/Unexplained Change in Mental Status Sepsis Action Taken by Nursing 02/14/24 20:00 02/14/24 20:59 Temperature Temperature Source Pulse Rate Pulse Rate [Finger] 100 H 90 Pulse Rate from SpO2 Sensor Pulse Rhythm Respiratory Rate 30 H 34 H Respiratory Effort / Characteristics Respiratory Depth Respiratory Pattern Blood Pressure Blood Pressure [Right Arm] 155/104 H 144/72 H Blood Pressure Mean Blood Pressure Mean [Right Arm] 121 96 Pulse Oximetry 97 97 Oxygen Delivery Method Non-rebreather Non-rebreather Oxygen Flow Rate 15 15 Fraction of Inspired Oxygen Sepsis Recent Fever Within 48 Hours Sepsis New/Unexplained Change in Mental Status Sepsis Action Taken by Nursing Laboratory Data 02/14/24 16:33 02/14/24 16:33 Lab Results 02/14/24 02/14/24 02/14/24 Range/Units 16:33 16:55 19:27 WBC 7.63 (4.8-10.8) K/ul RBC 4.17 L (4.70-6.10) M/uL Hgb 12.7 L (14.0-18.0) g/dl Hct 36.6 L (42.0-52.0) % MCV 87.8 (80.0-100.0) fL MCH 30.5 (25.0-34.0) pg MCHC 34.7 (32.0-36.0) g/dL RDW Std Deviation 44.5 (36.4-46.3) fL RDW Coeff of Rodolfo 13.9 (11.5-14.5) % Plt Count 151 (130-400) K/uL MPV 10.5 (9.4-12.4) fL Immature Gran % (Auto) 0.9 % Neut % (Auto) 88.8 % Lymph % (Auto) 5.6 % [place] % (Auto) 2.8 % Eos % (Auto) 1.8 % Baso % (Auto) 0.1 % Neut # (Auto) 6.77 H (1.40-6.50) K/uL Lymph # (Auto) 0.43 L (1.20-3.40) K/uL [place] # (Auto) 0.21 (0.11-0.59) K/uL Eos # (Auto) 0.14 (0.00-0.50) K/uL Baso # (Auto) 0.01 (0.00-0.20) K/uL Immature Gran # (Auto) 0.07 (0.01-0.20) K/uL Sodium 124 L (136-145) mmol/L Potassium TNP Chloride 90 L (98-107) mmol/L Carbon Dioxide 21 (21-32) mmol/L Anion Gap 13 H (3-11) BUN 15 (6-23) mg/dl Creatinine 1.29 (0.6-1.4) mg/dl Est Cr Clr Drug Dosing 50.8 ml/min Est GFR ( Amer) 57.0 ml/min Est GFR (Non-Af Amer) 49.2 ml/min BUN/Creatinine Ratio 11.6 (10-20) Glucose 105 H (70-99(Fasting)) mg/dl Lactate 4.7 H* 3.0 H* (0.4-2.0) mmol/L Calcium 8.2 L (8.6-10.3) mg/dl Magnesium 1.9 (1.7-2.4) mg/dl Total Bilirubin 1.2 H (0.2-1.0) mg/dl Direct Bilirubin TNP AST TNP ALT 19 (7-52) U/L Alkaline Phosphatase 34 (34-104) U/L Troponin I High Sens 16.1 (0-20) pg/ml Total Protein 6.4 (6.0-8.3) gm/dl Albumin 3.6 (3.4-5.0) gm/dl Procalcitonin 0.77 H (0-0.5) ng/ml SARS-CoV-2 (PCR) NEGATIVE (Negative) Influenza Type A (PCR) Negative (Neg) Influenza Type B (PCR) Negative (Neg) RSV (RT-PCR) Negative (Neg) Administered Medications Discontinued Medications Acetaminophen (Acetaminophen 650 Mg Supp) 650 mg HI NOW STA Stop: 02/14/24 16:57 Last Admin: 02/14/24 17:11 Dose: 650 mg Documented By: MITCHELL Fentanyl Citrate (Fentanyl Citrate Pf 100 Mcg/2 Ml Vial) 50 mcg IV NOW STA Stop: 02/14/24 18:48 Last Admin: 02/14/24 18:52 Dose: 50 mcg Documented By: ORALIA Sodium Chloride (Nss) 1,000 mls @ 999 mls/hr IV .Q1H1M ONE Stop: 02/14/24 17:48 Last Infusion: 02/14/24 18:42 Dose: Infused Documented By: Admin: 02/14/24 17:35 Dose: 999 mls/hr Documented By: MITCHELL Sodium Chloride (Nss) 2,000 mls @ 999 mls/hr IV .Q2H1M ONE Stop: 02/14/24 18:48 Last Infusion: 02/14/24 20:27 Dose: Infused Documented By: Admin: 02/14/24 18:19 Dose: 999 mls/hr Documented By: ORALIA Acetaminophen (Ofirmev) 1,000 mg in 100 mls @ 400 mls/hr IV NOW STA Stop: 02/14/24 17:02 Last Admin: 02/14/24 17:59 Dose: Not Given Documented By: ORALIA Piperacillin Sod/Tazobactam Sod (Zosyn) 4.5 gm in 100 mls @ 200 mls/hr IV NOW ONE Stop: 02/14/24 17:29 Last Infusion: 02/14/24 18:59 Dose: Infused Documented By: Admin: 02/14/24 18:18 Dose: 200 mls/hr Documented By: ORALIA Imaging Data Radiologist's Impression: Chest X-Ray 02/14/24 16:15 SINGLE VIEW CHEST CLINICAL HISTORY: Sepsis. FINDINGS: An AP, portable, semierect chest radiograph is compared to study dated 06/29/2022. The heart is enlarged noting atherosclerotic calcification of the thoracic aorta. There is pulmonary vascular congestion. Suspect small pleural effusions. There is bibasilar scarring/atelectasis. No pneumothorax is seen. The skeletal structures are osteopenic. The bony thorax is grossly intact. IMPRESSION: 1. Cardiomegaly with evidence of congestive failure. 2. Suspect small pleural effusions. ACT 112: Negative or not required by law. Electronically signed by: Jasen Avitia M.D. 02/14/2024 4:54 PM Abdomen/Pelvis CT 02/14/24 19:10 Exam(s): CT ABDOMEN + PELVIS Without Contrast EXAM: CT Abdomen and Pelvis Without Intravenous Contrast CLINICAL HISTORY: Reason for exam: gross hematuria. TECHNIQUE: Axial computed tomography images of the abdomen and pelvis without intravenous contrast. CTDI is 35.18 mGy and DLP is 1892.54 mGy-cm. Automated exposure control was utilized for the study. A dose lowering technique was utilized adhering to the principles of ALARA. COMPARISON: CT abdomen/pelvis on 06/28/2022 FINDINGS: Lung bases: Dependent atelectasis bilaterally. Pleural space: Small bilateral pleural effusions. Mediastinum: Small hiatal hernia. ABDOMEN: Liver: Left hepatic cyst. Gallbladder and bile ducts: Cholelithiasis. No ductal dilation. Pancreas: Unremarkable. No ductal dilation. Spleen: Unremarkable. No splenomegaly. Adrenals: Unremarkable. No mass. Kidneys and ureters: Mild fullness of the left renal collecting system. No obstructing ureteral stone identified. Stomach and bowel: Fluid and gas-filled small bowel loops could represent enteritis or ileus in the appropriate clinical setting. Evaluation of the stomach is limited underdistention. Diverticulosis without evidence of diverticulitis. PELVIS: Appendix: Normal appendix. Bladder: Mild prominence of the bladder wall is nonspecific. Small gas foci in the anterior superior aspect of the bladder. Findings may represent cystitis. Please correlate with urinalysis. No stones. Reproductive: Mild prostatomegaly. Probable protrusion of prostatic tissue along the base of the bladder. ABDOMEN and PELVIS: Intraperitoneal space: Unremarkable. No free air. No significant fluid collection. Bones/joints: Degenerative changes of the spine. Grade 1 anterolisthesis of L4 on L5 and L5 on S1. Mild retrolisthesis of L3 on L4 and L2 on L3. No acute fracture. No dislocation. Soft tissues: Body wall edema. Mild bilateral gynecomastia. Small fat-containing left inguinal hernia. Vasculature: Atherosclerotic changes of the vasculature. No aortic aneurysm. Lymph nodes: Unremarkable. No enlarged lymph nodes. Tubes, lines and devices: Catheter noted in the rectum. Moderate to large amount of stool in the rectum. Question mild proctitis. IMPRESSION: 1. Catheter noted in the rectum. Moderate to large amount of stool in the rectum. Question mild proctitis. 2. Fluid and gas-filled small bowel loops could represent enteritis or ileus in the appropriate clinical setting. 3. Mild prominence of the bladder wall is nonspecific. Small gas foci in the anterior superior aspect of the bladder. Findings may represent cystitis. Please correlate with urinalysis. 4. Small bilateral pleural effusions. 5. Cholelithiasis. 6. Mild prostatomegaly. Probable protrusion of prostatic tissue along the base of the bladder. Electronically signed by: Chalo Qureshi M.D. 02/14/24 20:20 PM Discharge Plan Visit Data Chief Complaint: Unable to Void Stated Complaint: BLOCKED CATH ED Provider: Eloina Mcqueen Discharge Problem: Hematuria, Sepsis, Hyperthermia, Bilateral pleural effusion, Elevated procalcitonin Forms Stand Alone Forms: [facility] [employer] Prescriptions Prescriptions: No Action tamsulosin 0.4 mg capsule 0.4 mg PO HS Qty: 90 3RF azelastine 137 mcg (0.1 %) aerosol,spray 2 spray intranasal BID PRN (Reason: Nasal Congestion) Qty: 90 3RF rivastigmine 13.3 mg/24 hour patch 24 hour 13.3 mg topical HS cetirizine [Zyrtec] 10 mg Tablet 10 mg PO HS sertraline 50 mg Tablet 50 mg PO HS Qty: 1 0RF Rx Instructions: start 06/13/2022 at bedtime ciclopirox 8 % solution 1 applic TOPICAL HS PRN (Reason: nails) Rx Instructions: APPLY TO TOE NAIL melatonin 5 mg Tablet 5 mg PO HS memantine 28 mg capsule,sprinkle,ER 24hr 28 mg PO HS polyethylene glycol 3350 [Miralax] 17 gram powder in packet 17 g PO AMHS fluticasone propionate 50 mcg/actuation spray,suspension 1 spray intranasal AMHS Rx Instructions: administer into each nostril furosemide 20 mg tablet 20 mg PO DAILY sulfamethoxazole-trimethoprim 800-160 mg tablet 1 tab PO AMHS Rx Instructions: take for 7 days....end 02/16/24 ascorbic acid (vitamin C) [Vitamin C] 500 mg Tablet 500 mg PO QAM docusate sodium 50 mg/5 mL liquid 10 ml PO DAILY Stable Gi 250 mg PO DAILY urea 20 % Cream 1 applic TOPICAL BID PRN (Reason: feet) Rx Instructions: bilateral feet sennosides-docusate sodium [2-in-1 Laxative] 8.6-50 mg Tablet 1 tab-cap PO QAM econazole 1 % cream 1 applic TOPICAL QAM PRN (Reason: fungus) Rx Instructions: apply to feet acetaminophen [Tylenol] 325 mg Tablet 650 mg PO Q4 MDD 3g PRN (Reason: Fever Or Pain) Rx Instructions: use for temp > 100 use for mild pain on scale 1-4 Referrals Referrals: Colt Yusuf DO [Physician] -
[2024-02-14 16:54] LABS: Basophils # (auto) 0.01 K/uL (0.00-0.20); Basophils % (auto) 0.1 %; Eosinophils # (auto) 0.14 K/uL (0.00-0.50); Eosinophils % (auto) 1.8 %; Hematocrit (blood only) 36.6 % (42.0-52.0); Hemoglobin 12.7 g/dl (14.0-18.0); Immature Granulocytes # (auto) 0.07 K/uL (0.01-0.20); Immature Granulocytes % (auto) 0.9 %; Lymphocytes # (auto) 0.43 K/uL (1.20-3.40); Lymphocytes % (auto) 5.6 %; Mean Corpuscular Hemoglobin 30.5 pg (25.0-34.0); Mean Corpuscular Hgb Conc 34.7 g/dL (32.0-36.0); Mean Corpuscular Volume 87.8 fL (80.0-100.0); Mean Platelet Volume 10.5 fL (9.4-12.4); Monocytes # (auto) 0.21 K/uL (0.11-0.59); Monocytes % (auto) 2.8 %; Neutrophils # (auto) 6.77 K/uL (1.40-6.50); Neutrophils % (auto) 88.8 %; Platelet Count 151 K/uL (130-400); RDW Coefficient of Variation 13.9 % (11.5-14.5); RDW Standard Deviation 44.5 fL (36.4-46.3); Red Blood Count 4.17 M/uL (4.70-6.10); White Blood Count 7.63 K/ul (4.8-10.8)
--- NOTE | 2024-02-14 16:55 | XRay Report ---
SINGLE VIEW CHEST CLINICAL HISTORY: Sepsis. FINDINGS: An AP, portable, semierect chest radiograph is compared to study dated 06/29/2022. The heart is enlarged noting atherosclerotic calcification of the thoracic aorta. There is pulmonary vascular congestion. Suspect small pleural effusions. There is bibasilar scarring/atelectasis. No pneumothorax is seen. The skeletal structures are osteopenic. The bony thorax is grossly intact. IMPRESSION: 1. Cardiomegaly with evidence of congestive failure. 2. Suspect small pleural effusions. ACT 112: Negative or not required by law. Electronically signed by: Jasen Avitia M.D. 02/14/2024 4:54 PM
[2024-02-14] MEDS: ACETAMINOPHEN 650 MG SUPP PR STA (17:11)
[2024-02-14 17:27] LABS: Troponin I High Sensitivity 16.1 pg/ml (0-20)
[2024-02-14] MEDS: SODIUM CHLORIDE 0.9% 1,000 ML IV ONE (17:35)
[2024-02-14 17:44] LABS: Influenza A virus by PCR Negative (Neg); Influenza B virus by PCR Negative (Neg); RSV by PCR Negative (Neg); SARS CoV2 RNA(COVID-19) Ceph NEGATIVE (Negative)
[2024-02-14] MEDS: ACETAMINOPHEN 1,000 MG/100 ML VIAL IV STA ×2 (17:59→22:00)
[2024-02-14 18:18] LABS: Alanine Aminotransferase 19 U/L (7-52); Albumin Level 3.6 gm/dl (3.4-5.0); Alkaline Phosphatase 34 U/L (34-104); Anion Gap 13 (3-11); BUN Creatinine Ratio 11.6 (10-20); Bilirubin,Total 1.2 mg/dl (0.2-1.0); Blood Urea Nitrogen 15 mg/dl (6-23); Calcium 8.2 mg/dl (8.6-10.3); Carbon Dioxide 21 mmol/L (21-32); Chloride 90 mmol/L (98-107); Creatinine Clr Calc Pharmacy 50.8 ml/min; Est GFR (Non-African American) 49.2 ml/min; Glucose 105 mg/dl (70-99(Fasting)); Magnesium 1.9 mg/dl (1.7-2.4); Sodium 124 mmol/L (136-145); Total Protein 6.4 gm/dl (6.0-8.3)
[2024-02-14] MEDS: PIPERACILLIN/TAZOBACTAM 4.5 GM/100 ML BAG IV ONE (18:18)
[2024-02-14] MEDS: SODIUM CHLORIDE 0.9% 2,000 ML IV ONE (18:19)
[2024-02-14] MEDS: fentaNYL citrate PF 100 MCG/2 ML VIAL IV STA ×2 (18:52→21:28)
--- NOTE | 2024-02-14 20:21 | CT Scan Report ---
Exam(s): CT ABDOMEN + PELVIS Without Contrast EXAM: CT Abdomen and Pelvis Without Intravenous Contrast CLINICAL HISTORY: Reason for exam: gross hematuria. TECHNIQUE: Axial computed tomography images of the abdomen and pelvis without intravenous contrast. CTDI is 35.18 mGy and DLP is 1892.54 mGy-cm. Automated exposure control was utilized for the study. A dose lowering technique was utilized adhering to the principles of ALARA. COMPARISON: CT abdomen/pelvis on 06/28/2022 FINDINGS: Lung bases: Dependent atelectasis bilaterally. Pleural space: Small bilateral pleural effusions. Mediastinum: Small hiatal hernia. ABDOMEN: Liver: Left hepatic cyst. Gallbladder and bile ducts: Cholelithiasis. No ductal dilation. Pancreas: Unremarkable. No ductal dilation. Spleen: Unremarkable. No splenomegaly. Adrenals: Unremarkable. No mass. Kidneys and ureters: Mild fullness of the left renal collecting system. No obstructing ureteral stone identified. Stomach and bowel: Fluid and gas-filled small bowel loops could represent enteritis or ileus in the appropriate clinical setting. Evaluation of the stomach is limited underdistention. Diverticulosis without evidence of diverticulitis. PELVIS: Appendix: Normal appendix. Bladder: Mild prominence of the bladder wall is nonspecific. Small gas foci in the anterior superior aspect of the bladder. Findings may represent cystitis. Please correlate with urinalysis. No stones. Reproductive: Mild prostatomegaly. Probable protrusion of prostatic tissue along the base of the bladder. ABDOMEN and PELVIS: Intraperitoneal space: Unremarkable. No free air. No significant fluid collection. Bones/joints: Degenerative changes of the spine. Grade 1 anterolisthesis of L4 on L5 and L5 on S1. Mild retrolisthesis of L3 on L4 and L2 on L3. No acute fracture. No dislocation. Soft tissues: Body wall edema. Mild bilateral gynecomastia. Small fat-containing left inguinal hernia. Vasculature: Atherosclerotic changes of the vasculature. No aortic aneurysm. Lymph nodes: Unremarkable. No enlarged lymph nodes. Tubes, lines and devices: Catheter noted in the rectum. Moderate to large amount of stool in the rectum. Question mild proctitis. IMPRESSION: 1. Catheter noted in the rectum. Moderate to large amount of stool in the rectum. Question mild proctitis. 2. Fluid and gas-filled small bowel loops could represent enteritis or ileus in the appropriate clinical setting. 3. Mild prominence of the bladder wall is nonspecific. Small gas foci in the anterior superior aspect of the bladder. Findings may represent cystitis. Please correlate with urinalysis. 4. Small bilateral pleural effusions. 5. Cholelithiasis. 6. Mild prostatomegaly. Probable protrusion of prostatic tissue along the base of the bladder. Electronically signed by: Chalo Qureshi M.D. 02/14/24 20:20 PM
[2024-02-14] MEDS ORDERED: VANCOMYCIN CONSULT ACTIVE PRN (20:41)
[2024-02-14 21:25] LABS: Color Urine Brown
[2024-02-14] MEDS: VANCOMYCIN HCL 2,000 MG in SODIUM CHLORIDE 0.9% 500 ML IV ONE (21:27)
--- NOTE | 2024-02-14 21:27 | Urology Consultation ---
<Statement entered by Mykel Rosas MD - 02/15/24 08:50> I have discussed Mr. Crawley's case with Fransico Tinoco PA-C and agree with the above documentation. I suspect hematuria was related to improper placement of his prior Durbin catheter. Would recommend maintaining current Durbin catheter, can hand irrigate if needed for clots. Agree with obtaining urine culture, treating with empiric antibiotics and narrowing coverage as additional data becomes available. -Mykel Rosas MD. Date of Consultation February 14, 2024 Assessment & Plan (1) Hematuria: I discussed with the treating physician in the emergency department as patient is being admitted on the hospitalist service The patient's catheter that was in place upon presentation to the emergency department has since been removed as the ED staff was unable to successfully flush or irrigate the catheter raising the concern that it was not properly position.. The treating RN in the emergency department was able to successfully place a three-way coud catheter. He was able to flush and irrigate the catheter and did retrieve a few small blood clots. The urine has since been clear without visible clots or debris. A bladder scan was performed which showed minimal urine remaining in the bladder Would recommend continuing patient's Durbin catheter to gravity drainage. If it does become clogged manual flushing and irrigation attempts can be employed. Would recommend following serial labs As the patient is febrile he has had appropriate cultures ordered. He has also been placed on broad-spectrum antibiotics in form of vancomycin and Zosyn. Antibiotic should continue and can be tailored based on culture results as they become available Additional recommendations be forthcoming based on his clinical course as it unfolds History of Present Illness History of Present Illness This is an 88-year-old male who presented to the emergency department secondary to a malfunctioning Durbin catheter. The patient could not provide much meaningful history but his daughter was present at bedside who did help supplement the history. This patient has chronic indwelling Durbin and catheter and was reportedly started on Bactrim for concern for UTI 3 days ago. The patient began developing gross hematuria for several days and over the past 24 hours his Durbin catheter had little to no drainage. According to patient's daughter he has appeared to be in considerable discomfort particularly in his lower abdomen. She also notes that he has been febrile. To the best of her knowledge he has not had any nausea or vomiting and has not voiced any additional complaints. Since arrival to the emergency department the patient has had labs and imaging which I independently reviewed. A chest x-ray showed cardiomegaly with small pleural effusions and evidence of congestive heart failure. The patient also had a CT scan of the abdomen pelvis with patient's was noted to have mild prominence of the bladder wall with a small foci of gas in the anterior aspect of the bladder. There is concern the patient had cystitis. There is also noted prostamegaly with protrusion of prostatic tissue along the base of the bladder. Labs included CBC her white blood cell count platelet count were normal. Hemoglobin and hematocrit 12.7 and 36.6. Chemistry profile showed sodium was 124. His potassium level is pending. BUN and creatinine are both within normal range. Patient did have a lactic acid level that was elevated at 3.0. Urinalysis has been ordered and is pending. Patient has been tested for COVID, influenza a and B, as well as RSV all of which are negative. At the time of my interview the patient was somewhat lethargic but he was able to be aroused with verbal stimuli. Allergies Allergy/AdvReac Type Severity Reaction Status Date / Time No Known Allergies Allergy Verified 02/14/24 20:56 Home Medications Medication Instructions Recorded Confirmed Type cetirizine 10 mg tablet (Zyrtec) 10 mg PO HS 03/07/21 02/14/24 History rivastigmine 13.3 mg/24 hour 13.3 mg topical HS 03/07/21 02/14/24 History transdermal patch ciclopirox 8 % topical solution 1 applic topical HS PRN nails 04/20/22 02/14/24 History melatonin 5 mg tablet 5 mg PO HS 04/20/22 02/14/24 History memantine 28 mg capsule 28 mg PO HS 04/20/22 02/14/24 History sprinkle,extended release 24hr sertraline 50 mg tablet 50 mg PO HS #1 tab 06/12/22 02/14/24 Rx tamsulosin 0.4 mg capsule 0.4 mg PO HS #90 caps 07/03/22 02/14/24 Rx azelastine 137 mcg (0.1 %) nasal 2 spray intranasal BID PRN Nasal 02/20/23 02/14/24 Rx spray aerosol Congestion #90 mL Stable Gi 250 mg PO DAILY 02/14/24 02/14/24 History acetaminophen 325 mg tablet 650 mg PO Q4 PRN Fever Or Pain 02/14/24 02/14/24 History (Tylenol) ascorbic acid (vitamin C) 500 mg 500 mg PO QAM 02/14/24 02/14/24 History tablet (Vitamin C) docusate sodium 50 mg/5 mL oral 10 ml PO DAILY 02/14/24 02/14/24 History liquid econazole 1 % topical cream 1 applic topical QAM PRN fungus 02/14/24 02/14/24 History fluticasone propionate 50 1 spray intranasal AMHS 02/14/24 02/14/24 History mcg/actuation nasal spray,suspension furosemide 20 mg tablet 20 mg PO DAILY 02/14/24 02/14/24 History polyethylene glycol 3350 17 gram 17 g PO AMHS 02/14/24 02/14/24 History oral powder packet (Miralax) sennosides 8.6 mg-docusate sodium 1 tab-cap PO QAM 02/14/24 02/14/24 History 50 mg tablet (2-in-1 Laxative) sulfamethoxazole 800 1 tab PO AMHS 02/14/24 02/14/24 History mg-trimethoprim 160 mg tablet urea 20 % topical cream 1 applic topical BID PRN feet 02/14/24 02/14/24 History Patient History Medical History Gram-negative bacteremia Sepsis secondary to UTI Right knee pain Shoulder pain, right RUE weakness Altered mental status MRSA (methicillin resistant Staphylococcus aureus) infection Enterococcus faecalis infection Altered mental status Urinary retention Dementia followed by Neurology Obstructive sleep apnea Cpap, followed by Dr. Pratt Benign prostatic hyperplasia Followed by [facility] urology. 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 Surgical History H/O colonoscopy Family History Mother Alzheimer disease Brother Arthritis Nonorganic sleep disorder Father Emphysema, unspecified Brother Leukemia Social History Smoking Status: Never smoker Second Hand Exposure: No; Do You Dip or Chew Tobacco: No; Hx Alcohol Use: No Hx Substance Use: No Preferred Language: Upper Sorbian Communication Ability: Unable Visual Impairment: Limited Hearing Ability: Use of Hearing Aid Nutrition Assistant Required: No Beliefs That Will Affect Care: None marital status: Current Living Situation: Spouse Current Living Situation Comment: lives in single story home with his current occupational status: retired Feels Safe at Home: Yes caffeine: Yes Dental Care, Regularly: Yes Physical Activity Frequency: 1-2 Times per Week Seatbelt Use: always Sunscreen Use: Yes Assistive Devices: Hospital Bed and Other Review of Systems Review of Systems: Unobtainable due to cognitive status Any information review of systems was obtained from the ED staff as well as the patient's daughter Constitutional: + fever Gastrointestinal: no nausea and no vomiting Genitourinary: + as per Subjective / HPI Physical Exam Constitutional: + ill appearing Eyes: no conjunctival abnormality Neck: trachea midline Respiratory: no respiratory distress and no labored breathing Cardiovascular: Rate/Rhythm: regular rate and regular rhythm Gastrointestinal (Abdomen): Abdomen has minimal distention. Patient did have some tenderness to palpation in the lower abdomen. Musculoskeletal: No calf tenderness, bilateral lower extremity edema noted Skin: no rashes Neurologic: moves all extremities Genitourinary: Patient has a Durbin catheter in place. At the time of my exam the catheter was draining bloody urine and it did appear to be patent. I did not see any visible clots in the collection bag. Results & Data Vital Signs (Past 12 Hours) Vital Signs Temp Pulse Pulse Resp BP BP Pulse Ox 02/14/24 21:00 91 H 32 H 130/80 96 02/14/24 21:00 39.7 C H 02/14/24 20:59 90 34 H 144/72 H 97 02/14/24 20:00 100 H 30 H 155/104 H 97 02/14/24 20:00 39.3 C H 02/14/24 19:15 96 H 18 95 02/14/24 19:02 93 H 30 H 136/97 87 L 02/14/24 19:00 39.1 C H 02/14/24 19:00 93 H 27 H 87 L 02/14/24 18:41 101 H 29 H 136/97 87 L 02/14/24 18:00 95 H 25 H 89 L 02/14/24 18:00 40 C H 02/14/24 17:58 96 H 31 H 137/88 89 L 02/14/24 17:57 40 C H 02/14/24 17:00 91 H 17 93 02/14/24 16:57 40 C H 02/14/24 16:40 94 H 32 H 94 02/14/24 16:15 98 H 30 H 96 02/14/24 16:00 40.1 C H 98 H 30 H 176/105 H 96 O2 Del Method O2 Flow Rate FiO2 02/14/24 21:00 Non-rebreather 02/14/24 21:00 02/14/24 20:59 Non-rebreather 15 02/14/24 20:00 Non-rebreather 15 02/14/24 20:00 02/14/24 19:15 High Flow Nasal Cannula 30 90 02/14/24 19:02 Oxymask 10 02/14/24 19:00 02/14/24 19:00 Oxymask 10 02/14/24 18:41 Oxymask 10 02/14/24 18:00 Oxymask 8 02/14/24 18:00 02/14/24 17:58 Oxymask 6 02/14/24 17:57 02/14/24 17:00 Oxymask 6 02/14/24 16:57 02/14/24 16:40 Oxymask 6 02/14/24 16:15 Room Air 02/14/24 16:00 Room Air PG Care Time/CCT Total # of Minutes Spent Total Time Spent with Patient: Total time spent is greater than 50% in coordination of care (as documented) at patient's floor/unit and/or counseling patient: Coding Level of Care Code 52143 INT INP/OBS CARE 3/75MIN Diagnoses Hematuria R31.9
[2024-02-14 21:30] LABS: Appearance Urine Cloudy (Clear); Bacteria Urine Automated Negative (Negative); Bilirubin Urine Negative (Negative); Blood Urine 3+ (Negative); Epithelial Cell Urine Auto >30 /lpf (0-5); Glucose Urine UA Negative (Negative); Ketones Urine Negative (Negative); Leukocyte Esterase Urine Trace (Negative); Nitrite Urine Negative (Negative); RBC Urine Automated >30 /hpf (0-4); Specific Gravity Urine 1.014 (1.000-1.030); Urobilinogen Urine Negative (Negative)
[2024-02-14 21:39] LABS: Protein Urine 2+ (Negative)
--- NOTE | 2024-02-14 21:53 | History & Physical Report ---
Date of Service February 14, 2024 Assessment & Plan (1) Sepsis: Plan: -Admit to the PCU on tele and pulse oximetry -Currently febrile but hemodynamically stable and stable on HFNC -Presented to the ED febrile, with increased weakness, and gross hematuria -Was diagnosed with a UTI outpatient approximately 3 days ago and was started on Bactrim per patient's -Patient's previous urine cultures have grown >Citrobacter amalonaticus >Enterococcus Faecalis >MRSA >Pansensitive E. coli -S/P one dose of Zosyn in the ED -We will continue with Vancomycin and Zosyn for now -Follow blood and urine cultures -Patient has received a total of 3L IV fluid since arrival >Will hold additional IV fluids at this time due to pulmonary edema on CXR and patient being hemodynamically stable -Will add on full respiratory biofire to look for any other sources of infection due to his persistent fever -We will continue him on the cooling blanket for now and given another 1gm IV tylenol on admission -BL OCTAVIO's for DVT PPX -Strict NPO with current aspiration risk -AM CBC, CMP, mag, PT/INR (2) Acute hypoxic respiratory failure: Plan: -Patient presented with tachypnea and was noted to be hypoxic at 87% on RA -Likely a combination of pulmonary edema on CXR, AMS, and his hx of MAGGIE and being given 2 doses of 50 mcg IV fentanyl in the ED -Patient was initially placed on Oxymask at 10L/min, was escalated to HFNC but was not tolerating it well intiailly -Was placed on NRB at 15 mL/hr to go to CT and was stable -We will try to place him back on HFNC at this time and monitor his respiratory status closely -Unfortunately he is not alert enough to be safely placed on CPAP/Bipap at this time -Will consider gentle IV diuresis as he now has good urine output with new law catheter (3) Complicated UTI (urinary tract infection): Plan: -Continue with new law cath -Follow urine/blood cultures -Continue with Vanc/zosyn for now (4) GRIFFIN (acute kidney injury): Plan: -Patient's cr is currently 1.29, baseline is near 0.6 -Likely a combination of obstruction as last law cath was improperly placed and patient presented with significant urinary retention -Could also be a component of pre-renal due to dehydration and intra-renal due to current infection -S/P 3L IV fluids in the ED -Should improve with properly positioned law and consistent urine output -QID bldder scans to monitor for clots causing obstruction and need for bladder irrigation -Urology consult placed (5) Elevated serum lactate dehydrogenase: Plan: -Initial lactate elevated at 4.5 -->3.0 on 2 hour repeat -Due to sepsis -S/P 3L IV fluids in the ED -Will continue to trend until stable -Hold additional IV fluids at this time due to pulmonary edema and hypoxia (6) Hyponatremia: Plan: -Sodium of 124 on arrival -Patient was noted to be intravascularly depleted on exam with recent poor oral intake -Could also be a component of his GRIFFIN -S/P 3L NSS in the ED -Will follow 0300 am repeat sodium level -Follow intake/output and am sodium level (7) Weakness: Plan: -Likely due to his UTI, sepsis, and GRIFFIN -Baseline mental status is pleasantly confused -Monitor for improvement with treatment of his acute illness (8) Dementia: Plan: -Resume (9) Obstructive sleep apnea: Plan: -Patient cannot safely protect his own airway at this time -Continue plan as per acute hypoxic respiratory failure (10) Benign prostatic hyperplasia: Plan: -Continue with law cath in place -Will order QID bladder scans to monitor for urinary retention from blood clots Plan The patient was discussed with Dr. Boyce at the time of the admission History of Present Illness Chief Complaint: Gross hematuria, fever Primary Care Provider: [facility] Crawley is an 87-year-old male with a past medical history of oropharyngeal dysphagia, neurogenic bladder, urinary retention with chronic indwelling law, recurrent UTI, dementia, BPH, MAGGIE, carotid artery plaques, dyslipidemia, depression/anxiety who presented to the [facility] ED from [facility] due to gross hematuria and fevers. The patient was started on Bactrim approximately 3 days ago for UTI. On arrival to the ED he was noted to be febrile at 40C, tachypneic at 30 BPM, tachycardic with HR in the 90's, but hemodynamically stable. Labs were significant for a lymphocyte count of 0.43, cr of 1.29 (baseline is near 0.6), sodium of 124, AG of 13 with bicarb WNL, initial lactate of 4.5 --> 3.0 on 2 hour repeat, 0.77, cloudy urine with 2+ protein, 3+ blood, and trace leukocyte esterase. He was noted to be negative for Covid 19/RSV/Influenza. Chest xray was read as "1. Cardiomegaly with evidence of congestive failure. 2. Suspect small pleural effusions.". CT of the abd/pelvis wo con was read as "1. Catheter noted in the rectum. Moderate to large amount of stool in the rectum. Question mild proctitis. 2. Fluid and gas-filled small bowel loops could represent enteritis or ileus in the appropriate clinical setting. 3. Mild prominence of the bladder wall is nonspecific. Small gas foci in the anterior superior aspect of the bladder. Findings may represent cystitis. Please correlate with urinalysis. 4. Small bilateral pleural effusions. 5. Cholelithiasis. 6. Mild prostatomegaly. Probable protrusion of prostatic tissue along the base of the bladder.". Pror to admission the patient was given 1gm IV tylenol, a dose of Zosyn, 2 doses of 50 mcg IV fentanyl. The patient's law was exchanged and he was evaluated by Urology, a three-way coud catheter was placed, they agreed with broad spectrum abx and ongoing monitoring. At the time of the exam the patient was lying in bed sleeping, he is acutely ill-appearing. History was obtained from the patient's who is bedside. She confirms that the patient was diagnosed with a UTI 3 days ago. She said the urine at the time of UA was similar in appearance to the last time her had Pseudomonas. The patient had just been moved into [facility] this am when he developed the fever, increased weakness/confusion. At baseline he is normally pleasantly confused. She states that he did have all of his am mediations prior to coming to the ED. She confirms that he is a DNR/DNI. Please refer to Dr. Boyce's attestation for any changes to the treatment plan. Allergies Allergy/AdvReac Type Severity Reaction Status Date / Time No Known Allergies Allergy Verified 02/14/24 20:56 Home Medications Medication Instructions Recorded Confirmed Type cetirizine 10 mg tablet (Zyrtec) 10 mg PO HS 03/07/21 02/14/24 History rivastigmine 13.3 mg/24 hour 13.3 mg topical HS 03/07/21 02/14/24 History transdermal patch ciclopirox 8 % topical solution 1 applic topical HS PRN nails 04/20/22 02/14/24 History melatonin 5 mg tablet 5 mg PO HS 04/20/22 02/14/24 History memantine 28 mg capsule 28 mg PO HS 04/20/22 02/14/24 History sprinkle,extended release 24hr sertraline 50 mg tablet 50 mg PO HS #1 tab 06/12/22 02/14/24 Rx tamsulosin 0.4 mg capsule 0.4 mg PO HS #90 caps 07/03/22 02/14/24 Rx azelastine 137 mcg (0.1 %) nasal 2 spray intranasal BID PRN Nasal 02/20/23 02/14/24 Rx spray aerosol Congestion #90 mL Stable Gi 250 mg PO DAILY 02/14/24 02/14/24 History acetaminophen 325 mg tablet 650 mg PO Q4 PRN Fever Or Pain 02/14/24 02/14/24 History (Tylenol) ascorbic acid (vitamin C) 500 mg 500 mg PO QAM 02/14/24 02/14/24 History tablet (Vitamin C) docusate sodium 50 mg/5 mL oral 10 ml PO DAILY 02/14/24 02/14/24 History liquid econazole 1 % topical cream 1 applic topical QAM PRN fungus 02/14/24 02/14/24 History fluticasone propionate 50 1 spray intranasal AMHS 02/14/24 02/14/24 History mcg/actuation nasal spray,suspension furosemide 20 mg tablet 20 mg PO DAILY 02/14/24 02/14/24 History polyethylene glycol 3350 17 gram 17 g PO AMHS 02/14/24 02/14/24 History oral powder packet (Miralax) sennosides 8.6 mg-docusate sodium 1 tab-cap PO QAM 02/14/24 02/14/24 History 50 mg tablet (2-in-1 Laxative) urea 20 % topical cream 1 applic topical BID PRN feet 02/14/24 02/14/24 History ciprofloxacin HCl 500 mg tablet 500 mg PO BID #4 tabs 02/19/24 Rx Past Med/Surg History Medical History Gram-negative bacteremia Sepsis secondary to UTI Right knee pain Shoulder pain, right RUE weakness Altered mental status MRSA (methicillin resistant Staphylococcus aureus) infection Enterococcus faecalis infection Altered mental status Urinary retention Dementia followed by Neurology Obstructive sleep apnea Cpap, followed by Dr. Pratt Benign prostatic hyperplasia Followed by [facility] urology. 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 Surgical History H/O colonoscopy Family History Mother Alzheimer disease Brother Arthritis Nonorganic sleep disorder Father Emphysema, unspecified Brother Leukemia Social History Smoking Status: Unknown if ever smoked Second Hand Exposure: No; Do You Dip or Chew Tobacco: No; Hx Alcohol Use: No Hx Substance Use: No Preferred Language: Chinese Communication Ability: Unable Visual Impairment: Limited Hearing Ability: Use of Hearing Aid Territory Account Executive Required: No Beliefs That Will Affect Care: None marital status: Current Living Situation: Personal Care Facility Current Living Situation Comment: [facility] current occupational status: retired Feels Safe at Home: Yes caffeine: Yes Dental Care, Regularly: Yes Physical Activity Frequency: 1-2 Times per Week Seatbelt Use: always Sunscreen Use: Yes Assistive Devices: CPAP and Wheelchair Physical Exam Physical Exam: Physical Exam: General: stated age, ill-appearing HEENT: Normocephalic, atraumatic, no scleral icterus, pupils around round, symmetrical, and reactive to light, moist mucus membranes, trachea midline, no thyromegaly Chest/Pulm: mild respiratory distress, symmetrical chest expansion, decreased breath sounds in the BL lower lung abarca, rales noted in the mid and upper lung abarca Cardiac: tachycardic rate, regular rhythm, no murmurs noted Abdomen: Negative for ascites and bruising, normoactive bowel sounds, soft, tender to palpation in the suprapubic region : New law catheter is in place and currently draining clear, yellow urine Musculoskeletal: Symmetrical and without signs of acute trauma, upper and lower extremities with full ROM, no atrophy, spasticity, or flaccidity Extremities: Radial, dorsalis pedis, and posterior tibial pulses are intact and symmetrical, no edema noted in the BL LE's Skin: currently flushed due to fever Neuro: responsive to calling name and light touch but not answering orientation questions, no focal neuro findings, no current tremors Psych: Lethargic Results & Data Results & Data Vital Signs (Past 12 Hours) Vital Signs Temp Pulse Pulse Resp BP BP Pulse Ox 02/14/24 21:00 91 H 32 H 130/80 96 02/14/24 21:00 39.7 C H 02/14/24 20:59 90 34 H 144/72 H 97 02/14/24 20:00 100 H 30 H 155/104 H 97 02/14/24 20:00 39.3 C H 02/14/24 19:15 96 H 18 95 02/14/24 19:02 93 H 30 H 136/97 87 L 02/14/24 19:00 39.1 C H 02/14/24 19:00 93 H 27 H 87 L 02/14/24 18:41 101 H 29 H 136/97 87 L 02/14/24 18:00 95 H 25 H 89 L 02/14/24 18:00 40 C H 02/14/24 17:58 96 H 31 H 137/88 89 L 02/14/24 17:57 40 C H 02/14/24 17:00 91 H 17 93 02/14/24 16:57 40 C H 02/14/24 16:40 94 H 32 H 94 02/14/24 16:15 98 H 30 H 96 02/14/24 16:00 40.1 C H 98 H 30 H 176/105 H 96 O2 Del Method O2 Flow Rate FiO2 02/14/24 21:00 Non-rebreather 02/14/24 21:00 02/14/24 20:59 Non-rebreather 15 02/14/24 20:00 Non-rebreather 15 02/14/24 20:00 02/14/24 19:15 High Flow Nasal Cannula 30 90 02/14/24 19:02 Oxymask 10 02/14/24 19:00 02/14/24 19:00 Oxymask 10 02/14/24 18:41 Oxymask 10 02/14/24 18:00 Oxymask 8 02/14/24 18:00 02/14/24 17:58 Oxymask 6 02/14/24 17:57 02/14/24 17:00 Oxymask 6 02/14/24 16:57 02/14/24 16:40 Oxymask 6 02/14/24 16:15 Room Air 02/14/24 16:00 Room Air Laboratory Results Abnormal lab results 02/14/24 02/14/24 02/14/24 Range/Units 16:33 19:27 21:00 RBC 4.17 L (4.70-6.10) M/uL Hgb 12.7 L (14.0-18.0) g/dl Hct 36.6 L (42.0-52.0) % Neut # (Auto) 6.77 H (1.40-6.50) K/uL Lymph # (Auto) 0.43 L (1.20-3.40) K/uL Sodium 124 L (136-145) mmol/L Chloride 90 L (98-107) mmol/L Anion Gap 13 H (3-11) Glucose 105 H (70-99(Fasting)) mg/dl Lactate 4.7 H* 3.0 H* (0.4-2.0) mmol/L Calcium 8.2 L (8.6-10.3) mg/dl Total Bilirubin 1.2 H (0.2-1.0) mg/dl Procalcitonin 0.77 H (0-0.5) ng/ml Urine Appearance Cloudy A (Clear) Urine pH 8.0 H (4.5-7.5) Urine Protein 2+ H (Negative) Urine Blood 3+ H (Negative) Ur Leukocyte Esterase Trace H (Negative) Diagnostic Findings Chest X-Ray 02/14/24 16:15 SINGLE VIEW CHEST CLINICAL HISTORY: Sepsis. FINDINGS: An AP, portable, semierect chest radiograph is compared to study dated 06/29/2022. The heart is enlarged noting atherosclerotic calcification of the thoracic aorta. There is pulmonary vascular congestion. Suspect small pleural effusions. There is bibasilar scarring/atelectasis. No pneumothorax is seen. The skeletal structures are osteopenic. The bony thorax is grossly intact. IMPRESSION: 1. Cardiomegaly with evidence of congestive failure. 2. Suspect small pleural effusions. ACT 112: Negative or not required by law. Electronically signed by: Jasen Avitia M.D. 02/14/2024 4:54 PM Abdomen/Pelvis CT 02/14/24 19:10 Exam(s): CT ABDOMEN + PELVIS Without Contrast EXAM: CT Abdomen and Pelvis Without Intravenous Contrast CLINICAL HISTORY: Reason for exam: gross hematuria. TECHNIQUE: Axial computed tomography images of the abdomen and pelvis without intravenous contrast. CTDI is 35.18 mGy and DLP is 1892.54 mGy-cm. Automated exposure control was utilized for the study. A dose lowering technique was utilized adhering to the principles of ALARA. COMPARISON: CT abdomen/pelvis on 06/28/2022 FINDINGS: Lung bases: Dependent atelectasis bilaterally. Pleural space: Small bilateral pleural effusions. Mediastinum: Small hiatal hernia. ABDOMEN: Liver: Left hepatic cyst. Gallbladder and bile ducts: Cholelithiasis. No ductal dilation. Pancreas: Unremarkable. No ductal dilation. Spleen: Unremarkable. No splenomegaly. Adrenals: Unremarkable. No mass. Kidneys and ureters: Mild fullness of the left renal collecting system. No obstructing ureteral stone identified. Stomach and bowel: Fluid and gas-filled small bowel loops could represent enteritis or ileus in the appropriate clinical setting. Evaluation of the stomach is limited underdistention. Diverticulosis without evidence of diverticulitis. PELVIS: Appendix: Normal appendix. Bladder: Mild prominence of the bladder wall is nonspecific. Small gas foci in the anterior superior aspect of the bladder. Findings may represent cystitis. Please correlate with urinalysis. No stones. Reproductive: Mild prostatomegaly. Probable protrusion of prostatic tissue along the base of the bladder. ABDOMEN and PELVIS: Intraperitoneal space: Unremarkable. No free air. No significant fluid collection. Bones/joints: Degenerative changes of the spine. Grade 1 anterolisthesis of L4 on L5 and L5 on S1. Mild retrolisthesis of L3 on L4 and L2 on L3. No acute fracture. No dislocation. Soft tissues: Body wall edema. Mild bilateral gynecomastia. Small fat-containing left inguinal hernia. Vasculature: Atherosclerotic changes of the vasculature. No aortic aneurysm. Lymph nodes: Unremarkable. No enlarged lymph nodes. Tubes, lines and devices: Catheter noted in the rectum. Moderate to large amount of stool in the rectum. Question mild proctitis. IMPRESSION: 1. Catheter noted in the rectum. Moderate to large amount of stool in the rectum. Question mild proctitis. 2. Fluid and gas-filled small bowel loops could represent enteritis or ileus in the appropriate clinical setting. 3. Mild prominence of the bladder wall is nonspecific. Small gas foci in the anterior superior aspect of the bladder. Findings may represent cystitis. Please correlate with urinalysis. 4. Small bilateral pleural effusions. 5. Cholelithiasis. 6. Mild prostatomegaly. Probable protrusion of prostatic tissue along the base of the bladder. Electronically signed by: Chalo Qureshi M.D. 02/14/24 20:20 PM ECG Additional Comments: Sinus rhythm with Fusion complexes Possible Left atrial enlargement Nonspecific ST and T wave abnormality Abnormal ECG When compared with ECG of 29-JUN-2022 14:28, Sinus rhythm has replaced Atrial flutter ST no longer depressed in Inferior leads Nonspecific T wave abnormality now evident in Anterior leads Code Status & VTE Plan Code Status DNR/DNI VTE Prophylaxis Plan VTE Prophylaxis will be ordered: Yes Critical Care Time Critical Care Time: Yes Total Critical Care Time: 40 Supervising Physician Co-Signing Physician Notes I personally saw and examined the patient. I verified all ortega points and agree with Tomasz Wheeler PA-C with the following exceptions and/or additions: 88 year old male presents to the ER with fever, chills, hematuria and weakness. Law catheter malpositioned on arrival. Unable to get any history from the ousmane ent, open eyes to voice, not following commands, incomprehensible sounds O/E alert to voice (opens eyes), HS RRR, no murmurs, Chest CTAB, Abdo SNT, 1+ pitting edema b/l equal A/P Sepsis / UTI / hematuria / malfunctioning law catheter - consult urology (replaced law catheter), vancomycin + Zosyn pending culture results (started on Bactrim prior to admission), hold further IV fluids, likely to need diuretics but will hold off starting these over night since lactate improved and he was just fluid resuscitated. Acute hypoxic respiratory failure - wears CPAP HS, he appears to be just about awake enough for this currently, no CO2 retention on BAG and pH normal, start CPAP GRIFFIN - Cr 0.64 baseline (currently 1.29) likely mostly obstructive cause, pre- renal on admission repeat BMP in AM Otherwise as above PG Care Time/CCT Total # of Minutes Spent Total Time Spent with Patient: Total time spent is greater than 50% in coordination of care (as documented) at patient's floor/unit and/or counseling patient: Critical Care Time: Yes Total Critical Care Time: 40 C[place] [address] INT INP/OBS CARE 3/75MIN Patient Type Established Medical Decision Making High Complexity Diagnoses Sepsis A41.9 Acute hypoxic respiratory failure J96.01 Complicated UTI (urinary tract infection) N39.0 GRIFFIN (acute kidney injury) N17.9 Elevated serum lactate dehydrogenase R74.02 Hyponatremia E87.1 Weakness R53.1 Dementia G31.83; F02.81 Dementia behavioral disturbance: with behavioral disturbance Dementia type: Lewy body dementia Obstructive sleep apnea G47.33 Benign prostatic hyperplasia N40.0 Additional Codes Critical Care Time - Critical Care Time: Yes ([id number]) (8) Dementia Dementia behavioral disturbance: with behavioral disturbance Dementia type: Lewy body dementia Qualified Code(s): G31.83 - Dementia with Lewy bodies; F02.81 - Dementia in other diseases classified elsewhere with behavioral disturbance
[2024-02-14] MEDS: ACETAMINOPHEN 500 MG TAB PO STA (21:56)
[2024-02-14 23:13] LABS: Adenovirus PCR Not Detected (NotDetected); Bordetella parapertussis PCR Not Detected (NotDetected); Bordetella pertussis PCR Not Detected (NotDetected); Chlamydia pneumoniae PCR Not Detected (NotDetected); Coronavirus 229E PCR Not Detected (NotDetected); Coronavirus CoV-2 (COVID19)PCR Not Detected (NotDetected); Coronavirus HKU1 PCR Not Detected (NotDetected); Coronavirus NL63 PCR Not Detected (NotDetected); Coronavirus OC43PCR Not Detected (NotDetected); Human Metapneumovirus PCR Not Detected (NotDetected); Influenza A PCR Not Detected (NotDetected); Influenza B PCR Not Detected (NotDetected); Mycoplasma pneumoniae PCR Not Detected (NotDetected); Parainfluenza Virus 1 PCR Not Detected (NotDetected); Parainfluenza Virus 2 PCR Not Detected (NotDetected); Parainfluenza Virus 3 PCR Not Detected (NotDetected); Parainfluenza Virus 4 PCR Not Detected (NotDetected); Respiratory Syncytial VirusPCR Not Detected (NotDetected); Rhinovirus/Enterovirus PCR Not Detected (NotDetected)
[2024-02-14 23:37] LABS: Aspartate Aminotransferase 76 U/L (13-39); Potassium 4.7 mmol/L (3.5-5.1)
[2024-02-14 23:57] LABS: Base Excess ABG -1.7 mEq/L (-9-1.8); HCO3 ABG 22 mmol/L (19-24); PCO2 ABG 34 mmHg (35-46); PO2 ABG 53 mmHg (80-95); pH ABG 7.42 (7.35-7.45)
[2024-02-15 00:13] LABS: Oxygen Saturation ABG 86.8 % (90-95)
[2024-02-15 00:19] LABS: Allen Test Pos (Pos)
[2024-02-15] MEDS: PANTOprazole 40 MG in SYRINGE 0 ML IV STA (00:33)
[2024-02-15] MEDS: PIPERACILLIN/TAZOBACTAM 4.5 GM in DEXTROSE 5% MINI-B 100 ML IV SCH (00:47)
[2024-02-15 03:24] LABS: Basophils # (auto) 0.01 K/uL (0.00-0.20); Basophils % (auto) 0.1 %; Eosinophils # (auto) 0.15 K/uL (0.00-0.50); Hematocrit (blood only) 31.1 % (42.0-52.0); Hemoglobin 10.6 g/dl (14.0-18.0); Immature Granulocytes # (auto) 0.06 K/uL (0.01-0.20); Immature Granulocytes % (auto) 0.8 %; Lymphocytes # (auto) 0.81 K/uL (1.20-3.40); Mean Corpuscular Hemoglobin 30.1 pg (25.0-34.0); Mean Corpuscular Hgb Conc 34.1 g/dL (32.0-36.0); Mean Corpuscular Volume 88.4 fL (80.0-100.0); Mean Platelet Volume 10.2 fL (9.4-12.4); Monocytes % (auto) 5.4 %; Neutrophils # (auto) 5.93 K/uL (1.40-6.50); Neutrophils % (auto) 80.7 %; Platelet Count 119 K/uL (130-400); RDW Coefficient of Variation 13.8 % (11.5-14.5); RDW Standard Deviation 44.4 fL (36.4-46.3); Red Blood Count 3.52 M/uL (4.70-6.10); White Blood Count 7.36 K/ul (4.8-10.8)
[2024-02-15 03:39] LABS: Albumin Globulin Ratio 1.5 (0.9-2); Albumin Level 2.7 gm/dl (3.4-5.0); BUN Creatinine Ratio 12.4 (10-20); Bilirubin,Total 0.4 mg/dl (0.2-1.0); Calcium 6.8 mg/dl (8.6-10.3); Est GFR (African American) 66.9 ml/min; Est GFR (Non-African American) 57.7 ml/min; Globulin 1.8 gm/dl (2.5-4.0); Magnesium 1.7 mg/dl (1.7-2.4); Potassium 4.1 mmol/L (3.5-5.1); Total Protein 4.5 gm/dl (6.0-8.3)
[2024-02-15 03:43] LABS: INR 1.3 (0.9-1.1)
--- NOTE | 2024-02-15 07:46 | Pharmacy Report ---
Pharmacy PK ABX Note - Date of Service February 15, 2024 - Assessment and Plan Assessment * 88 year old M receiving VANCOMYCIN + ZOSYN for treatment of CAUTI. Patient had been residing at [facility] and presented to ED with malfunctioning Durbin cath, hematuria, confusion, and fever. He had recently been treated with Bactrim. He does have a h/o bacteremia secondary to UTI as well as growth of MDR organisms in urine. * Pertinent microbiologic data includes: BLCX and urine cx pending. Prior urine cx's have grown silva-S e coli, MRSA, silva-S enterococcus faecalis, and MDR citrobacter amaloneticus. * Patient is reported to have presented with GRIFFIN, baseline SCr < 1, possibly due to obstruction Plan Vancomycin * Loading dose: 2000 mg IV x 1 * Maintenance dose: 1500 mg IV every 24 hours * Regimen is predicted to achieve target AUC/VLADIMIR of 400-600 mg/L.hr * Level will be checked AM of 4/7 if therapy to continue Pharmacy will continue to follow and will adjust dose/frequency as necessary. Thank you. Pharmacy has transitioned to AUC monitoring for vancomycin. AUC/VLADIMIR is the preferred PK/PD target and is associated with decreased risk of nephrotoxicity compared to traditional trough targets.
[2024-02-15] MEDS: PANTOprazole 40 MG in SYRINGE 0 ML IV SCH (07:52)
[2024-02-15] MEDS ORDERED: VANCOMYCIN HCL 1,000 MG in SODIUM CHLORIDE 0.9% 250 ML IV SCH (08:00)
[2024-02-15] MEDS: VANCOMYCIN HCL 1,500 MG in SODIUM CHLORIDE 0.9% 500 ML IV SCH (12:04)
--- NOTE | 2024-02-15 14:20 | Urology Progress Note ---
Date of Service February 15, 2024 Assessment & Plan (1) Hematuria: (2) Complicated UTI (urinary tract infection): Plan 88yo M who presented to the ED with fever, weakness, and gross hematuria and admitted to medicine service. CT abd pelvis on arrival demonstrated mild prominence of the bladder wall with a small foci of gas in the anterior aspect of the bladder concerning for cystitis, mild fullness of the left renal collecting system, no obstructing ureteral stone identified, and prostatomegaly with protrusion of prostatic tissue along the base of the bladder. Follow-up gross hematuria. Suspect hematuria was related to improper placement of his prior Durbin catheter. Hematuria has cleared. Durbin intact and draining appropriatelyurine is clear yellow. Continue to monitor. Okay to hand irrigate as needed. Pt afebrile and hemodynamically stable at present. Labs todayWBC 7.36, hemoglobin 10.6, creatinine 1.13. Continue to monitor. Urine and blood cultures are pending. Continue antibiotics and tailor as culture data becomes available. Continue supportive care. Maintain Durbin catheter. Will arrange follow-up with our service. Urology will follow peripherally. Please call with any further questions or concerns. Admission and Anticipated Discharge Date Admission Date: February 14, 2024 Subjective Patient examined at bedside today in the ED. Asleep on arrival. No acute distress. Family at bedside. Baseline dementia. Durbin draining clear yellow urine. Review of Systems Constitutional: as per Subjective / HPI Genitourinary: + as per Subjective / HPI Physical Exam Constitutional: + ill appearing; no acute distress Respiratory: no respiratory distress and no labored breathing Neurologic: Asleep at time of exam. Would awaken briefly. Baseline dementia. Did not answer any questions. Genitourinary: Durbin intact and draining clear yellow urine Results & Data Vital Signs (Past 12 Hours) Vital Signs Temp Pulse Pulse Resp BP BP Pulse Ox 02/15/24 13:00 68 18 99 02/15/24 12:30 70 18 100 02/15/24 12:00 67 21 98 02/15/24 11:30 61 16 98 02/15/24 11:00 63 18 100 02/15/24 10:30 60 20 99 02/15/24 10:01 64 98 02/15/24 10:01 132/69 02/15/24 10:00 61 17 100 02/15/24 09:30 62 18 100 04/05/24 09:00 136/71 02/15/24 09:00 64 100 02/15/24 08:30 61 21 99 02/15/24 08:06 59 L 22 99 02/15/24 08:00 59 L 20 97 02/15/24 08:00 142/74 H 02/15/24 07:30 60 14 99 02/15/24 07:23 60 02/15/24 07:07 36.3 C L 60 12 132/55 L 100 02/15/24 07:06 64 19 100 02/15/24 07:06 132/55 L 02/15/24 07:01 58 L 19 100 02/15/24 07:01 125/81 02/15/24 07:00 61 17 100 02/15/24 06:30 58 L 20 100 02/15/24 06:00 58 L 21 99 02/15/24 06:00 117/57 L 02/15/24 05:30 61 22 100 02/15/24 05:00 57 L 22 99 02/15/24 05:00 142/78 H 02/15/24 04:30 36.3 C L 72 19 99 02/15/24 04:00 60 21 99 02/15/24 03:31 60 24 100 02/15/24 03:30 60 22 100 02/15/24 03:00 36.5 C 59 L 21 132/72 100 O2 Del Method FiO2 02/15/24 13:00 02/15/24 12:30 02/15/24 12:00 02/15/24 11:30 02/15/24 11:00 02/15/24 10:30 02/15/24 10:01 02/15/24 10:01 02/15/24 10:00 02/15/24 09:30 02/15/24 09:00 02/15/24 09:00 02/15/24 08:30 02/15/24 08:06 35 02/15/24 08:00 02/15/24 08:00 02/15/24 07:30 02/15/24 07:23 02/15/24 07:07 BiPAP 02/15/24 07:06 02/15/24 07:06 02/15/24 07:01 02/15/24 07:01 02/15/24 07:00 02/15/24 06:30 02/15/24 06:00 02/15/24 06:00 02/15/24 05:30 02/15/24 05:00 02/15/24 05:00 02/15/24 04:30 02/15/24 04:00 02/15/24 03:31 35 02/15/24 03:30 02/15/24 03:00 BiPAP 50 PG Care Time/CCT Total # of Minutes Spent Total Time Spent with Patient: Total time spent is greater than 50% in coordination of care (as documented) at patient's floor/unit and/or counseling patient: Coding Level of Care Code 28923 SUB INP/OBS CARE 2/35MIN Diagnoses Hematuria R31.9 Complicated UTI (urinary tract infection) N39.0
--- NOTE | 2024-02-15 14:27 | Hospitalist Progress Note ---
Date of Service February 15, 2024 Assessment & Plan (1) Sepsis: Plan: Present on admission. He appears to have a catheter associated UTI. Urine and blood cultures are pending. Continue Zosyn and vancomycin, day 2. Will tailor antibiotics according to culture results. (2) Acute hypoxic respiratory failure: Plan: Appears to be due to acute diastolic CHF. Supplemental oxygen to maintain saturation greater than 90%. BiPAP has been discontinued. Wean oxygen off as tolerated. No evidence of CO2 retention on ABGs (3) Acute diastolic CHF (congestive heart failure): Plan: Parenteral Lasix diuresis. Monitor intake and output. Serial chest x-ray. Cardiac echo (4) Complicated UTI (urinary tract infection): Plan: Continue Zosyn and vancomycin, day 2. Tailor antibiotic therapy according to culture results. Indwelling Durbin catheter will be maintained. This appears to be catheter associated (5) GRIFFIN (acute kidney injury): Plan: Mild. Monitor intake and output. Serial labs (6) Hyponatremia: Plan: Mild. Serum osmolarity pending. Serial labs (7) Dementia: Plan: Stable. Continue current medical management (8) Benign prostatic hyperplasia: Plan: With lower urinary tract symptoms. Chronic Durbin catheter remains in place. Plan To be determined Admission and Anticipated Discharge Date Admission Date: February 14, 2024 Subjective Awake. Baseline dementia. He resists examination. is at the bedside. He appears to have a Durbin catheter associated urinary tract infection and presented with evidence of sepsis. He has a rash that probably is associated with acute infection. He is now on intravenous Zosyn and vancomycin, day 2. Urine cultures and blood cultures have been drawn and are pending. He appears also to have evidence of diastolic CHF. Parenteral Lasix therapy has been started. Cardiac echo is pending. Previous cardiac echo completed June 2022 reveals normal ejection fraction. No CO2 retention on ABGs drawn on admission. No need for BiPAP. Serum osmolarity pending to further evaluate mild hyponatremia. Sodium has improved to 127. Review of Systems 2 Review of Systems: The patient is unable to answer reliably any questions related to review of systems at this time Physical Exam 2 Physical Exam: General-awake with eyes closed. He resists physical examination. Baseline confusion. No fever HEENT-head atraumatic and normocephalic, pupils equal and reactive to light, extraocular muscles intact Neck-no lymphadenopathy or thyromegaly, trachea midline Chest-scattered bilateral rhonchi. No wheezing Cardiac-regular rate and rhythm, normal S1 and S2 Abdomen-normal bowel sounds, nontender, no hepatosplenomegaly Extremities-1+ pitting edema bilateral lower extremities below the knees Skinnon- confluent, nonblanching, macular petechia- like rash on all extremities and trunk Neuro-no apparent focal deficits. He moves all extremities randomly and resists examination. Psych-cannot assess. Baseline dementia Results & Data Results & Data Vital Signs (Past 12 Hours) Vital Signs Temp Pulse Pulse Resp BP BP Pulse Ox 02/15/24 13:00 68 18 99 02/15/24 12:30 70 18 100 02/15/24 12:00 67 21 98 02/15/24 11:30 61 16 98 02/15/24 11:00 63 18 100 02/15/24 10:30 60 20 99 02/15/24 10:01 64 98 02/15/24 10:01 132/69 02/15/24 10:00 61 17 100 02/15/24 09:30 62 18 100 02/15/24 09:00 136/71 02/15/24 09:00 64 100 02/15/24 08:30 61 21 99 02/15/24 08:06 59 L 22 99 02/15/24 08:00 59 L 20 97 02/15/24 08:00 142/74 H 02/15/24 07:30 60 14 99 02/15/24 07:23 60 02/15/24 07:07 36.3 C L 60 12 132/55 L 100 02/15/24 07:06 64 19 100 02/15/24 07:06 132/55 L 02/15/24 07:01 58 L 19 100 02/15/24 07:01 125/81 02/15/24 07:00 61 17 100 02/15/24 06:30 58 L 20 100 02/15/24 06:00 58 L 21 99 02/15/24 06:00 117/57 L 02/15/24 05:30 61 22 100 02/15/24 05:00 57 L 22 99 02/15/24 05:00 142/78 H 02/15/24 04:30 36.3 C L 72 19 99 02/15/24 04:00 60 21 99 04/05/24 03:31 60 24 100 02/15/24 03:30 60 22 100 02/15/24 03:00 36.5 C 59 L 21 132/72 100 O2 Del Method FiO2 02/15/24 13:00 02/15/24 12:30 02/15/24 12:00 02/15/24 11:30 02/15/24 11:00 02/15/24 10:30 02/15/24 10:01 02/15/24 10:01 02/15/24 10:00 02/15/24 09:30 02/15/24 09:00 02/15/24 09:00 02/15/24 08:30 02/15/24 08:06 35 02/15/24 08:00 02/15/24 08:00 02/15/24 07:30 02/15/24 07:23 02/15/24 07:07 BiPAP 02/15/24 07:06 02/15/24 07:06 02/15/24 07:01 02/15/24 07:01 02/15/24 07:00 02/15/24 06:30 02/15/24 06:00 02/15/24 06:00 02/15/24 05:30 02/15/24 05:00 02/15/24 05:00 02/15/24 04:30 02/15/24 04:00 02/15/24 03:31 35 02/15/24 03:30 02/15/24 03:00 BiPAP 50 Laboratory Results 02/15/24 02:42 02/15/24 02:42 PG Care Time/CCT Total # of Minutes Spent Total Time Spent with Patient: Total time spent is greater than 50% in coordination of care (as documented) at patient's floor/unit and/or counseling patient: Coding Level of Care Code 86451 SUB INP/OBS CARE 3/50MIN Diagnoses Sepsis A41.9 Acute hypoxic respiratory failure J96.01 Acute diastolic CHF (congestive heart failure) I50.31 Complicated UTI (urinary tract infection) N39.0 GRIFFIN (acute kidney injury) N17.9 Hyponatremia E87.1 Dementia G31.83; F02.81 Dementia behavioral disturbance: with behavioral disturbance Dementia type: Lewy body dementia Benign prostatic hyperplasia N40.0 (7) Dementia Dementia behavioral disturbance: with behavioral disturbance Dementia type: L ewy body dementia Qualified Code(s): G31.83 - Dementia with Lewy bodies; F02.81 - Dementia in other diseases classified elsewhere with behavioral disturbance
[2024-02-15] MEDS: ACETAMINOPHEN 1,000 MG/100 ML VIAL IV PRN (16:12)
--- NOTE | 2024-02-15 19:41 | XCELERA ---
[id number] \\[id number]
[2024-02-15] MEDS: FUROSEMIDE 40 MG/4 ML VIAL IV SCH (19:53)
--- NOTE | 2024-02-16 07:12 | Electrocardiogram Report ---
Test Reason : Blood Pressure : / mmHG Vent. Rate : 092 BPM Atrial Rate : 092 BPM P-R Int : 184 ms QRS Dur : 068 ms QT Int : 314 ms P-R-T Axes : 050 001 041 degrees QTc Int : 388 ms Poor data quality, interpretation may be adversely affected Sinus rhythm Nonspecific ST and T wave abnormality Abnormal ECG When compared with ECG of 29-JUN-2022 14:28, Sinus rhythm has replaced Atrial flutter Confirmed by Cristian Pearson ([id number]) on 02/16/2024 7:12:15 AM Referred By: Dony ellis [facility] Confirmed By:Cristian Pearson
[2024-02-16 07:45] LABS: Eosinophils # (auto) 0.31 K/uL (0.00-0.50); Eosinophils % (auto) 4.4 %; Hematocrit (blood only) 33.3 % (42.0-52.0); Hemoglobin 11.7 g/dl (14.0-18.0); Immature Granulocytes # (auto) 0.05 K/uL (0.01-0.20); Immature Granulocytes % (auto) 0.7 %; Lymphocytes # (auto) 1.27 K/uL (1.20-3.40); Mean Corpuscular Hemoglobin 30.3 pg (25.0-34.0); Mean Corpuscular Hgb Conc 35.1 g/dL (32.0-36.0); Mean Corpuscular Volume 86.3 fL (80.0-100.0); Mean Platelet Volume 10.7 fL (9.4-12.4); Monocytes # (auto) 0.46 K/uL (0.11-0.59); Monocytes % (auto) 6.5 %; Neutrophils # (auto) 4.95 K/uL (1.40-6.50); Neutrophils % (auto) 70.4 %; Platelet Count 142 K/uL (130-400); RDW Coefficient of Variation 14.1 % (11.5-14.5); RDW Standard Deviation 44.7 fL (36.4-46.3); Red Blood Count 3.86 M/uL (4.70-6.10); White Blood Count 7.04 K/ul (4.8-10.8)
[2024-02-16 07:53] LABS: BUN Creatinine Ratio 13.2 (10-20); Creatinine Clr Calc Pharmacy 57.4 ml/min; Est GFR (African American) 66.2 ml/min; Est GFR (Non-African American) 57.1 ml/min; Potassium 3.7 mmol/L (3.5-5.1)
--- NOTE | 2024-02-16 14:05 | XRay Report ---
XR chest 1V portable CLINICAL HISTORY: CHF TECHNIQUE: Single frontal radiograph of the chest was obtained. Comparison: Comparison is made to chest radiograph 02/14/2024 FINDINGS: No lines and tubes are seen. Cardiomegaly is noted. Right lower lung airspace opacities are seen. Mod erate right pleural effusion and possible small left effusion. IMPRESSION: Moderate right and possible small left pleural effusion. Cardiomegaly without jason pulmonary edema. ACT 112: Negative or not required by law. Electronically signed by: Donnie Bell M.D. 02/16/2024 2:03 PM
--- NOTE | 2024-02-16 15:24 | Hospitalist Progress Note ---
Date of Service February 16, 2024 Assessment & Plan (1) Sepsis: Plan: Present on admission. He appears to have a catheter associated UTI. Urine and blood cultures are negative. Nasal MRSA swab is negative. Vancomycin has been discontinued. Continue Zosyn, day 3. (2) Acute hypoxic respiratory failure: Plan: Appears to be due to acute diastolic CHF. Supplemental oxygen to maintain saturation greater than 90%. BiPAP has been discontinued. Wean oxygen off as tolerated. No evidence of CO2 retention on ABGs . O2 requirement has decreased (3) Acute diastolic CHF (congestive heart failure): Plan: Responding nicely to parenteral Lasix diuresis. Monitor intake and output. Serial chest x-ray. Cardiac echo reveals mild LVH with normal ejection fraction (4) Complicated UTI (urinary tract infection): Plan: Urine culture is negative. Zosyn continues, day 3. Vancomycin has been discontinued. Indwelling Durbin catheter will be maintained. This appears to be catheter associated (5) GRIFFIN (acute kidney injury): Plan: Mild. Monitor intake and output. Serial labs (6) Hyponatremia: Plan: Mild on admission. Now improved. Serum osmolarity mildly low on admission. Serial labs (7) Dementia: Plan: Stable. Continue current medical management . Supportive care (8) Benign prostatic hyperplasia: Plan: With lower urinary tract symptoms. Chronic Durbin catheter remains in place. Plan Hopeful return to [facility] sometime next week Admission and Anticipated Discharge Date Admission Date: February 14, 2024 Subjective Awake but demented. Clinically he is better than yesterday though. is at the bedside. Chest x-ray shows evidence of CHF with bilateral pleural effusions, larger on the right than the left. MRSA nasal swab is negative. Vancomycin has been discontinued. He remains on Zosyn, day 3. Continued brisk diuresis with IV Lasix. Sodium improved to 135. Hopefully eventual return to [facility] next week Review of Systems 2 Review of Systems: The patient is demented and cannot reliably answer any questions regarding review of systems Physical Exam 2 Physical Exam: General-awake with severe dementia and baseline confusion. No distress. He is uncooperative with physical examination. No fever HEENT-head atraumatic and normocephalic, pupils equal and reactive to light, extraocular muscles intact Neck-no lymphadenopathy or thyromegaly, trachea midline Chest-clear to auscultation anteriorly. He will not cooperate with posterior examination attempt. No wheezing. Cardiac-regular rate and rhythm, normal S1 and S2 Abdomen-normal bowel sounds, no hepatosplenomegaly Skinpetechial nonconfluent nonblanching macular rash persists. This is nonpruritic. Extremities-bilateral lower extremity edema has improved Neuro-cranial nerves II through XII intact, motor and sensory function within normal limits, strength symmetrical, no apparent focal deficits Psych-severe baseline dementia. Cannot assess. He is uncooperative though Results & Data Results & Data Vital Signs (Past 12 Hours) Vital Signs Temp Pulse Pulse Resp BP Pulse Ox O2 Del Method 02/16/24 11:34 37.1 C 62 18 109/59 L 62 L Room Air 02/16/24 09:46 62 02/16/24 07:54 37.1 C 73 18 114/56 L 100 BiPAP 02/16/24 07:30 Room Air, CPAP Laboratory Results 02/16/24 06:47 02/16/24 06:47 PG Care Time/CCT Total # of Minutes Spent Total Time Spent with Patient: Total time spent is greater than 50% in coordination of care (as documented) at patient's floor/unit and/or counseling patient: Coding Level of Care Code 28660 SUB INP/OBS CARE 3/50MIN Diagnoses Sepsis A41.9 Acute hypoxic respiratory failure J96.01 Acute diastolic CHF (congestive heart failure) I50.31 Complicated UTI (urinary tract infection) N39.0 GRIFFIN (acute kidney injury) N17.9 Hyponatremia E87.1 Dementia G31.83; F02.81 Dementia behavioral disturbance: with behavioral disturbance Dementia type: Lewy body dementia Benign prostatic hyperplasia N40.0 (7) Dementia Dementia behavioral disturbance: with behavioral disturbance Dementia type: L ewy body dementia Qualified Code(s): G31.83 - Dementia with Lewy bodies; F02.81 - Dementia in other diseases classified elsewhere with behavioral disturbance
[2024-02-17 09:38] LABS: BUN Creatinine Ratio 17.1 (10-20); Calcium 8.3 mg/dl (8.6-10.3); Creatinine Clr Calc Pharmacy 56.5 ml/min; Est GFR (African American) 73.1 ml/min; Est GFR (Non-African American) 63.1 ml/min; Potassium 3.4 mmol/L (3.5-5.1)
[2024-02-17 09:41] LABS: Hematocrit (blood only) 34.8 % (42.0-52.0); Hemoglobin 11.9 g/dl (14.0-18.0); Mean Corpuscular Hemoglobin 29.8 pg (25.0-34.0); Mean Corpuscular Hgb Conc 34.2 g/dL (32.0-36.0); Mean Corpuscular Volume 87.2 fL (80.0-100.0); Mean Platelet Volume 10.6 fL (9.4-12.4); Platelet Count 141 K/uL (130-400); RDW Coefficient of Variation 13.9 % (11.5-14.5); RDW Standard Deviation 44.9 fL (36.4-46.3); Red Blood Count 3.99 M/uL (4.70-6.10); White Blood Count 5.03 K/ul (4.8-10.8)
[2024-02-17 10:24] LABS: Immature Granulocytes # (auto) 0.03 K/uL (0.01-0.20); Immature Granulocytes % (auto) 0.6 %; Lymphocytes # (auto) 1.51 K/uL (1.20-3.40); Monocytes # (auto) 0.52 K/uL (0.11-0.59); Monocytes % (auto) 10.3 %; Neutrophils # (auto) 2.77 K/uL (1.40-6.50); Neutrophils % (auto) 55.1 %; Toxic Vacuolation 1+
[2024-02-17] MEDS: POTASSIUM CHLORIDE CRTAB 20 MEQ TABCR PO SCH (11:40)
[2024-02-17] MEDS: ASCORBIC ACID 500 MG TAB PO SCH (11:40)
[2024-02-17] MEDS: DOCUSATE SODIUM 100 MG CAP PO SCH (11:41)
[2024-02-17] MEDS: POLYETHYLENE (MIRALAX) 17 GM PACK PO SCH (11:41)
--- NOTE | 2024-02-17 12:14 | Hospitalist Progress Note ---
Date of Service February 17, 2024 Assessment & Plan (1) Sepsis: Plan: Present on admission. He appeared to have a catheter associated UTI. Urine and blood cultures however are negative. Nasal MRSA swab is negative. Vancomycin has been discontinued. Continue Zosyn, day 4. (2) Acute hypoxic respiratory failure: Plan: Appears to be due to acute diastolic CHF. Supplemental oxygen to maintain saturation greater than 90%. BiPAP has been discontinued. Wean oxygen off as tolerated. No evidence of CO2 retention on ABGs . O2 requirement has decreased. (3) Acute diastolic CHF (congestive heart failure): Plan: Responding nicely to parenteral Lasix diuresis. Monitor intake and output. Repeat portable chest x-ray again tomorrow, February 17. Cardiac echo reveals mild LVH with normal ejection fraction (4) Complicated UTI (urinary tract infection): Plan: Urine culture is negative. Zosyn continues, day 4. Vancomycin has been discontinued. Indwelling Durbin catheter will be maintained. This appears to be catheter associated. Appreciate urology consultation and recommendations (5) GRIFFIN (acute kidney injury): Plan: Mild. Monitor intake and output. Serial labs (6) Hyponatremia: Plan: Mild on admission. Now improved. Serum osmolarity mildly low on admission. Serial labs (7) Dementia: Plan: Stable. Continue current medical management . Supportive care (8) Benign prostatic hyperplasia: Plan: With lower urinary tract symptoms. Chronic Durbin catheter remains in place. Plan Hopeful return to [facility] sometime this week Admission and Anticipated Discharge Date Admission Date: February 14, 2024 Subjective Awake with severe baseline dementia. No distress. is at the bedside and states he has improved to his baseline. Potassium is mildly low with diuresis and oral potassium has been started along with his usual home medications. Will repeat chest x-ray again tomorrow, February 17. Marked diuresis per intake and output measurements raising the question of the validity of the measurements. He remains on parenteral Lasix 40 mg every 12 hours. Zosyn, day 4. Urine culture and blood culture however are negative. Appreciate urology consultation and recommendations. Sodium 133 today, February 16. It was 124 on admission. Cardiac echo reveals mild LVH with normal ejection fraction. Procalcitonin was mildly elevated on admission Review of Systems 2 Review of Systems: The patient is demented and cannot reliably answer any questions regarding review of systems Physical Exam 2 Physical Exam: General-awake with severe dementia and baseline confusion. No distress. He is uncooperative with physical examination. No fever HEENT-head atraumatic and normocephalic, pupils equal and reactive to light, extraocular muscles intact Neck-no lymphadenopathy or thyromegaly, trachea midline Chest-clear to auscultation anteriorly. He will not cooperate with posterior examination attempt. No wheezing. Cardiac-regular rate and rhythm, normal S1 and S2 Abdomen-normal bowel sounds, no hepatosplenomegaly Skinpetechial nonconfluent nonblanching macular rash persists. This is nonpruritic. Extremities-bilateral lower extremity edema has improved Neuro-cranial nerves II through XII intact, motor and sensory function within normal limits, strength symmetrical, no apparent focal deficits Psych-severe baseline dementia. Cannot assess. He is uncooperative though Results & Data Results & Data Vital Signs (Past 12 Hours) Vital Signs Temp Pulse Pulse Resp BP Pulse Ox O2 Del Method 02/17/24 11:29 37.0 C 58 L 18 120/75 95 Room Air 02/17/24 07:28 36.6 C 59 L 18 154/88 H 10 L Room Air 02/17/24 03:29 36.8 C 57 L 20 112/62 90 CPAP 02/17/24 02:25 54 L 16 97 Laboratory Results 02/17/24 09:07 02/17/24 09:07 PG Care Time/CCT Total # of Minutes Spent Total Time Spent with Patient: Total time spent is greater than 50% in coordination of care (as documented) at patient's floor/unit and/or counseling patient: Coding Level of Care Code 86872 SUB INP/OBS CARE 3/50MIN Diagnoses Sepsis A41.9 Acute hypoxic respiratory failure J96.01 Acute diastolic CHF (congestive heart failure) I50.31 Complicated UTI (urinary tract infection) N39.0 GRIFFIN (acute kidney injury) N17.9 Hyponatremia E87.1 Dementia G31.83; F02.81 Dementia behavioral disturbance: with behavioral disturbance Dementia type: Lewy body dementia Benign prostatic hyperplasia N40.0 (7) Dementia Dementia behavioral disturbance: with behavioral disturbance Dementia type: L ewy body dementia Qualified Code(s): G31.83 - Dementia with Lewy bodies; F02.81 - Dementia in other diseases classified elsewhere with behavioral disturbance
[2024-02-17] MEDS: TAMSULOSIN HCL 0.4 MG CAP PO SCH (19:58)
[2024-02-17] MEDS: MEMANTINE HCL 10 MG TAB PO SCH (19:58)
--- NOTE | 2024-02-18 07:56 | XRay Report ---
XR chest 1V portable HISTORY: Congestive heart failure. Shortness of breath. COMPARISON: Chest 02/16/2024. FINDINGS: No pneumothorax. No pleural effusions. The cardiac silhouette is normal in size. No focal l keyanna consolidations to suggest a pneumonia. No evidence for pulmonary edema. No acute fractures identi fied. Calcifications at the aortic knob. IMPRESSION: No acute process. ACT 112: Negative or not required by law. Electronically signed by: Jared Leggett M.D. 02/18/2024 7:55 AM
[2024-02-18 08:00] LABS: BUN Creatinine Ratio 15.5 (10-20); Calcium 8.5 mg/dl (8.6-10.3); Est GFR (African American) 69.1 ml/min; Est GFR (Non-African American) 59.6 ml/min; Potassium 3.6 mmol/L (3.5-5.1)
[2024-02-18 08:36] LABS: Albumin Level 3.4 gm/dl (3.4-5.0); Bilirubin Direct 0.1 mg/dl (0-0.2); Bilirubin,Total 0.4 mg/dl (0.2-1.0); Total Protein 5.9 gm/dl (6.0-8.3)
[2024-02-18] MEDS: DOCUSATE SODIUM SYRUP 100 MG/10 ML UDC PO SCH (11:22)
[2024-02-18] MEDS: POTASSIUM CHLORIDE 20 MEQ/15 ML UDC PO STA (11:23)
--- NOTE | 2024-02-18 13:43 | Hospitalist Progress Note ---
Date of Service February 18, 2024 Assessment & Plan (1) Sepsis: Plan: Present on admission. Presented with fever, tachycardia, tachypnea, normotensive, and suspected UTI With catheter associated UTI. Durbin catheter was not in appropriate position- based on ER note reports, it was potentially in the penis? CT abdomen/pelvis notes catheter in the rectum but this was actually a rectal temperature probe There was a great amount of hematuria with removal and replacement of the Durbin catheter which has now resolved Urine culture no growth but was on Bactrim prior to admission Previous urine cultures grew pansensitive E. coli, MRSA, and Enterococcus. MRSA nasal swab here is negative Blood cultures remain no growth to date Overall much improved Continue Zosyn for now (2) Acute hypoxic respiratory failure: Plan: Secondary to acute diastolic CHF. With elevated BNP and pleural effusions on imaging. Initially requiring 6 L and now weaned to room air No evidence of CO2 retention on ABGs DC IV Lasix (3) Acute diastolic CHF (congestive heart failure): Plan: Responded nicely to parenteral Lasix diuresis. No longer hypoxic and chest x- ray now normal Cardiac echo reveals mild LVH with normal ejection fraction DC IV Lasix Monitor daily weights, I's and O's (4) Complicated UTI (urinary tract infection): Plan: As above, appreciate urology consultation (5) GRIFFIN (acute kidney injury): Plan: Creatinine improved 1.1 Follow BMP (6) Hyponatremia: Plan: Mild on admission. Now improved with diuresis. Follow BMP (7) Dementia: Plan: With superimposed acute metabolic encephalopathy today-patient is very drowsy. He did not receive any sedatives, he is being treated for his UTI, he remains afebrile, no evidence of CO2 retention. His serum bicarbonate is elevated due to contraction alkalosis from diuresis. He did wake up and eat his meals today and is moving his bowels. Continue to monitor Continue memantine Supportive care (8) Benign prostatic hyperplasia: Plan: With lower urinary tract symptoms. Chronic Durbin catheter remains in place. Plan DVT prophylaxis-SCDs. Avoid anticoagulation due to hematuria Disposition-continued stay, discharge back to [facility] in the next 1 to 2 days where he has a bed hold Admission and Anticipated Discharge Date Admission Date: February 14, 2024 Subjective Patient is lethargic today but does wake up to verbal and tactile stimulus. He is now but able to answer many my questions but tells me his name Telemetry with sinus bradycardia and normal sinus rhythm with rates in the 50s to 60s Physical Exam Constitutional: WD/WN, vitals as above Respiratory: normal respiratory effort, lungs clear to auscultation Cardiovascular: RRR, no murmur, no edema Gastrointestinal (Abdomen): normal bowel sounds, soft, nontender, no hepatosplenomegaly Genitourinary: no penis abnormality (Durbin catheter in place draining clear yellow urine) Results & Data Results & Data Vital Signs (Past 12 Hours) Vital Signs Temp Pulse Resp BP Pulse Ox O2 Del Method 02/18/24 11:16 36.4 C L 57 L 18 125/73 96 Room Air 02/18/24 08:02 Room Air 02/18/24 07:51 36.4 C L 60 18 118/70 96 BiPAP 02/18/24 03:00 36.7 C 59 L 20 100/68 93 CPAP 02/18/24 02:18 22 Laboratory Results BMP, LFTs, CK, blood cultures, urine culture reviewed PG Care Time/CCT Total # of Minutes Spent Total Time Spent with Patient: Total time spent is greater than 50% in coordination of care (as documented) at patient's floor/unit and/or counseling patient: Coding Level of Care Code 78434 SUB INP/OBS CARE 3/50MIN Diagnoses Sepsis A41.9 Acute hypoxic respiratory failure J96.01 Acute diastolic CHF (congestive heart failure) I50.31 Complicated UTI (urinary tract infection) N39.0 GRIFFIN (acute kidney injury) N17.9 Hyponatremia E87.1 Dementia G31.83; F02.81 Dementia behavioral disturbance: with behavioral disturbance Dementia type: Lewy body dementia Benign prostatic hyperplasia N40.0 (7) Dementia Dementia behavioral disturbance: with behavioral disturbance Dementia type: Lewy body dementia Qualified Code(s): G31.83 - Dementia with Lewy bodies; F02.81 - Dementia in other diseases classified elsewhere with behavioral disturbance
[2024-02-19 07:45] LABS: Hematocrit (blood only) 38.5 % (42.0-52.0); Hemoglobin 12.6 g/dl (14.0-18.0); Mean Corpuscular Hemoglobin 29.3 pg (25.0-34.0); Mean Corpuscular Hgb Conc 32.7 g/dL (32.0-36.0); Mean Corpuscular Volume 89.5 fL (80.0-100.0); Mean Platelet Volume 10.3 fL (9.4-12.4); Platelet Count 188 K/uL (130-400); RDW Coefficient of Variation 14.1 % (11.5-14.5); RDW Standard Deviation 45.6 fL (36.4-46.3); White Blood Count 5.61 K/ul (4.8-10.8)
[2024-02-19 08:07] LABS: ALC (manual) 1.63 K/uL (1.2-3.4); ANC (manual) 3.31 K/uL (1.4-6.5); Eosinophils # (manual) 0.11 K/uL (0-0.50); Eosinophils % (manual) 2 %; Lymphocytes # (manual) 1.01 K/uL (1.2-3.4); Lymphocytes % (manual) 18 %; Monocytes # (manual) 0.56 K/uL (0.11-0.59); Monocytes % (manual) 10 %; Neutrophils # (manual) 3.31 K/uL (1.40-6.50); Neutrophils % (manual) 59 %; Reactive Lymphocytes # (manual) 0.62 K/uL; Reactive Lymphocytes % (manual) 11 %
[2024-02-19 08:13] LABS: Albumin Level 3.6 gm/dl (3.4-5.0); BUN Creatinine Ratio 13.7 (10-20); Bilirubin Direct 0.1 mg/dl (0-0.2); Bilirubin,Total 0.5 mg/dl (0.2-1.0); Calcium 9.2 mg/dl (8.6-10.3); Creatinine Clr Calc Pharmacy 58.2 ml/min; Est GFR (African American) 75.7 ml/min; Est GFR (Non-African American) 65.3 ml/min; Potassium 5.2 mmol/L (3.5-5.1); Total Protein 6.4 gm/dl (6.0-8.3)
[2024-02-19 11:57] LABS: BUN Creatinine Ratio 13.1 (10-20); Calcium 9.1 mg/dl (8.6-10.3); Est GFR (African American) 78.5 ml/min; Est GFR (Non-African American) 67.7 ml/min; Potassium 5.2 mmol/L (3.5-5.1)
--- NOTE | 2024-02-19 12:33 | Discharge Summary ---
Discharge Summary Date of Service February 19, 2024 Notes For Next Care Provider Check BMP in 1-2 days Medication Changes From Visit Cipro 500mg po bid x 2 days Admission HPI Per Admitting Provider Stiven Crawley is an 87-year-old male with a past medical history of oropharyngeal dysphagia, neurogenic bladder, urinary retention with chronic indwelling law, recurrent UTI, dementia, BPH, MAGGIE, carotid artery plaques, dyslipidemia, depression/anxiety who presented to the [facility] ED from [facility] due to gross hematuria and fevers. The patient was started on Bactrim approximately 3 days ago for UTI. On arrival to the ED he was noted to be febrile at 40C, tachypneic at 30 BPM, tachycardic with HR in the 90's, but hemodynamically stable. Labs were significant for a lymphocyte count of 0.43, cr of 1.29 (baseline is near 0.6), sodium of 124, AG of 13 with bicarb WNL, initial lactate of 4.5 --> 3.0 on 2 hour repeat, 0.77, cloudy urine with 2+ protein, 3+ blood, and trace leukocyte esterase. He was noted to be negative for Covid 19/RSV/Influenza. Chest xray was read as "1. Cardiomegaly with evidence of congestive failure. 2. Suspect small pleural effusions.". CT of the abd/pelvis wo con was read as "1. Catheter noted in the rectum. Moderate to large amount of stool in the rectum. Question mild proctitis. 2. Fluid and gas-filled small bowel loops could represent enteritis or ileus in the appropriate clinical setting. 3. Mild prominence of the bladder wall is nonspecific. Small gas foci in the anterior superior aspect of the bladder. Findings may represent cystitis. Please correlate with urinalysis. 4. Small bilateral pleural effusions. 5. Cholelithiasis. 6. Mild prostatomegaly. Probable protrusion of prostatic tissue along the base of the bladder.". Pror to admission the patient was given 1gm IV tylenol, a dose of Zosyn, 2 doses of 50 mcg IV fentanyl. The patient's law was exchanged and he was evaluated by Urology, a three-way coud catheter was placed, they agreed with broad spectrum abx and ongoing monitoring. At the time of the exam the patient was lying in bed sleeping, he is acutely ill-appearing. History was obtained from the patient's who is bedside. She confirms that the patient was diagnosed with a UTI 3 days ago. She said the urine at the time of UA was similar in appearance to the last time her had Pseudomonas. The patient had just been moved into [facility] this am when he developed the fever, increased weakness/confusion. At baseline he is normally pleasantly confused. She states that he did have all of his am mediations prior to coming to the ED. She confirms that he is a DNR/DNI. Please refer to Dr. Boyce's attestation for any changes to the treatment plan. Principal Dx & Hospital Course #1 = Principal Diagnosis (1) Sepsis: Present on admission. Presented with fever, tachycardia, tachypnea, normotensive, and suspected UTI With catheter associated UTI. Law catheter was not in appropriate position- based on ER note reports, it was potentially in the penis? CT abdomen/pelvis notes catheter in the rectum but this was actually a rectal temperature probe There was a great amount of hematuria with removal and replacement of the Law catheter which has now resolved Urine culture no growth but was on Bactrim prior to admission Previous urine cultures grew pansensitive E. coli, MRSA, and Enterococcus. MRSA nasal swab here is negative Blood cultures remain no growth to date Overall much improved Received Zosyn for 5 days--> dc on po Cipro 500mg po bid x 2 more days Law exchanged this admission F/u with Urology (2) Acute hypoxic respiratory failure: Secondary to acute diastolic CHF. With elevated BNP and pleural effusions on imaging. Initially requiring 6 L and now weaned to room air No evidence of CO2 retention on ABGs DCd IV Lasix and now back on po lasix home dose (3) Acute diastolic CHF (congestive heart failure): Responded nicely to parenteral Lasix diuresis. No longer hypoxic and chest x-ra y now normal Cardiac echo reveals mild LVH with normal ejection fraction DCd IV Lasix and resume home lasix 20mg po daily Check BMP in 1-2 days at [facility] for mild hyperkalemia on day of disch arge at 5.2 -typically her always has low potassium as per . (4) Complicated UTI (urinary tract infection): As above, appreciate urology consultation (5) GRIFFIN (acute kidney injury): Secondary to sepsis Creatinine improved 1.02 on day of discharge Follow BMP as outpt (6) Hyponatremia: Mild on admission. Now resolved with diuresis. Follow BMP as outpt (7) Dementia: With superimposed acute metabolic encephalopathy with lethargy now improving greatly, eating and drinking when fed, answers some simple questions. Not quite back to baseline as per but overall greatly improved. He did not receive any sedatives, he is being treated for his UTI, he remains afebrile, no evidence of CO2 retention. His serum bicarbonate is elevated due to contraction alkalosis from diuresis. He is moving his bowels. Continue to monitor after discharge but expect encephalopathy will continue to improve now that sepsis resolved and UTI being treated Continue memantine for dementia Supportive care (8) Benign prostatic hyperplasia: With lower urinary tract symptoms. Chronic Law catheter remains in place. f/u Urology as outpt Plan DVT prophylaxis-SCDs. Avoid anticoagulation due to hematuria Disposition-discharge back to [facility] today. In future, pt will be on [facility] Hospitalist service as his new PCP will be Tia at [facility] discussed care with at bedside on day of discharge Discharge Exam Constitutional WD/WN, vitals as above Respiratory normal respiratory effort, lungs clear to auscultation Cardiovascular RRR, no murmur, no edema Gastrointestinal (Abdomen) normal bowel sounds, soft, nontender, no hepatosplenomegaly Genitourinary no penis abnormality (Law catheter in place draining clear yellow urine) Updated Medication List Medication Instructions Recorded Confirmed Type cetirizine 10 mg tablet (Zyrtec) 10 mg PO HS 03/07/21 02/14/24 History rivastigmine 13.3 mg/24 hour 13.3 mg topical HS 03/07/21 02/14/24 History transdermal patch ciclopirox 8 % topical solution 1 applic topical HS PRN nails 04/20/22 02/14/24 History melatonin 5 mg tablet 5 mg PO HS 04/20/22 02/14/24 History memantine 28 mg capsule 28 mg PO HS 04/20/22 02/14/24 History sprinkle,extended release 24hr sertraline 50 mg tablet 50 mg PO HS #1 tab 06/12/22 02/14/24 Rx tamsulosin 0.4 mg capsule 0.4 mg PO HS #90 caps 07/03/22 02/14/24 Rx azelastine 137 mcg (0.1 %) nasal 2 spray intranasal BID PRN Nasal 02/20/23 02/14/24 Rx spray aerosol Congestion #90 mL Stable Gi 250 mg PO DAILY 02/14/24 02/14/24 History acetaminophen 325 mg tablet 650 mg PO Q4 PRN Fever Or Pain 02/14/24 02/14/24 History (Tylenol) ascorbic acid (vitamin C) 500 mg 500 mg PO QAM 02/14/24 02/14/24 History tablet (Vitamin C) docusate sodium 50 mg/5 mL oral 10 ml PO DAILY 02/14/24 02/14/24 History liquid econazole 1 % topical cream 1 applic topical QAM PRN fungus 02/14/24 02/14/24 History fluticasone propionate 50 1 spray intranasal AMHS 02/14/24 02/14/24 History mcg/actuation nasal spray,suspension furosemide 20 mg tablet 20 mg PO DAILY 02/14/24 02/14/24 History polyethylene glycol 3350 17 gram 17 g PO AMHS 02/14/24 02/14/24 History oral powder packet (Miralax) sennosides 8.6 mg-docusate sodium 1 tab-cap PO QAM 02/14/24 02/14/24 History 50 mg tablet (2-in-1 Laxative) sulfamethoxazole 800 1 tab PO AMHS 02/14/24 02/14/24 History mg-trimethoprim 160 mg tablet urea 20 % topical cream 1 applic topical BID PRN feet 02/14/24 02/14/24 History ciprofloxacin HCl 500 mg tablet 500 mg PO BID #4 tabs 02/19/24 Rx Hospital Stay Data Consultations 02/14/24 20:31 ED Decision to Admit Stat 02/14/24 20:33 Consult Urology Stat Diagnostic Imagining Performed 02/14/24 19:10 CT Abd and Pelvis [CT abd pelvis wo con] Stat Pending Results Patient Have Any Pending Studies at Discharge: No Discharge Instructions Given to Patient (Per Discharging Provider) Please finish out the course of antibiotics for your UTI with Cipro x 2 more days. Please check a BMP in 1-2 days for your mildly elevated potassium level. 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
[2024-02-19] MEDS: FUROSEMIDE 20 MG TAB PO SCH (12:57)
[2024-02-19] MEDS ORDERED: CIPROFLOXACIN 500 MG TAB PO SCH (21:00)
== END 2024-02-19 16:12 | DRG 698 ==
LOC: ED 16:00 → SUATTDRO 22:20 → EDINP 22:20 → 2S 23:28

== ENCOUNTER 2025-03-17 07:29 | Inpatient (IN) ==
--- NOTE | 2025-03-17 07:51 | Emergency Department Note ---
Impression & Plan Severe sepsis, Complicated urinary tract infection, Elevated lactic acid level, Fever, Acute hyponatremia, Hydroureteronephrosis, Pneumonia, Elevated procalcitonin ED Provider Note HISTORY OF PRESENT ILLNESS: Patient is an 89-year-old male presenting with urinary retention. Patient presents from [facility]. He has a chronic Durbin catheter in place. However, this morning he was complaining of significant amounts of pain and that they BladderScan him and found greater than 1000 cc of urine in his bladder and his Durbin catheter bag was not full. Unknown when the Durbin was last placed. Patient has history of Lewy body dementia. presents to bedside to supply more history. Reports that the patient's Durbin has had significant decreased output in the last 48 hours. Reports that he normally has about 2000 out and he is only had about 400 out over the last 48 hours. reports that the Durbin gets exchanged every 3 weeks, and he was scheduled for a Durbin exchange in 3 days. ROS: as above PHYSICAL EXAM: Constitutional: Patient appears in no acute distress. HENT: Head: Normocephalic and atraumatic. Eyes: EOMI, PERRL Mouth/Throat: Mucous membranes moist. Neck: Trachea midline. Neck supple. Cardiovascular: Tachycardic with regular rhythm. No murmurs, rubs or gallops. Intact distal pulses. Pulmonary/Chest: No respiratory distress. Breath sounds clear and equal bilaterally. No wheezes or rales. Abdominal: Abdomen soft, no rebound or guarding. Significant abdominal tenderness diffusely with dome of bladder palpated above the umbilicus. Musculoskeletal: No edema, tenderness or deformity noted. Skin: Warm and dry. No rash, erythema, pallor or cyanosis Neurological: Alert. Contractures of the bilateral upper extremities. MDM: - Vitals signs showed fever, tachycardia and tachypnea. - History obtained via patient's and EMS, given patient's dementia. History as above. - Chronic conditions affecting care: HLD; depression; dementia - Differential diagnoses include, but are not limited to: UTI; pneumonia; bowel obstruction; constipation; pyelonephritis; sepsis; electrolyte abnormality; acute kidney injury - Order placed for continuous cardiac monitoring. At this time, monitor showed rate of 91 bpm with normal sinus rhythm, per my interpretation. - External medical records reviewed. Urology progress note dated was reviewed. Patient was being followed for his hematuria and complicated UTI. - EKG image interpreted by myself showed normal sinus rhythm. Rate tachycardic 115 bpm. QT 302. No acute ischemic changes. However, noted to have significant artifact at baseline. - Laboratory workup interpreted by myself showed normal WBC; normal PT/INR; hyponatremia (Na 125); elevated lactic acid (6.0); normal creatinine level but elevated from patient's baseline of 0.9 (Cr 1.24); normal AST/ALT; normal troponin; normal lipase; elevated procalcitonin (3.28) - Blood cultures obtained - Patient given 2.5L NS in ER. Patient's sepsis fluid volume calculation based on ideal body weight is 2427.00 mL. - Patient given IV zosyn empirically - CXR image reviewed by myself showed what looks like a right sided consolidation concerning for pneumonia, per my interpretation. - Durbin catheter was exchanged by nursing staff. Patient had almost 2 L of urine out after insertion of the new Durbin catheter. Urine continues to drain into the Durbin bag. Patient does have significant amounts of sediment and what also looks like pus in the Durbin catheter. - UA shows evidence of infection. Previous urine culture from 09/01/2024 was reviewed. Patient grew Proteus mirabilis that was resistant to Bactrim, Levaquin, Cipro and ampicillin. - CT abdomen/pelvis with IV contrast showed moderate left and mild right hydroureteronephrosis. Did have bilateral lower lobe airspace opacities concerning for pneumonia versus atelectasis. - Patient given 1g IV tylenol for fever. - Repeat lactate improved, but still elevated, at 3.0 - Given patient's fever, tachycardia, tachypnea and UTI, he meets sepsis criteria. With his elevated lactic acid level he meets severe sepsis criteria. - Discussion was had with assistant case manager about patient's case and need for admission - Hospitalist consulted for admission - [facility]. I have personally spent 63 minutes of critical care time in the direct management of this patient. This includes bedside care, interpretation of diagnostic studies, and testing, discussion with consultants, patient, and family members, and other required patient management activities. This 63 minutes is in excess of all separately billable procedures. ASSESSMENT AND PLAN: Diagnosis: Severe sepsis; complicated UTI; elevated lactic acid level; acute hyponatremia; fever; hydroureteronephrosis; pneumonia; elevated procalcitonin Plan: Admit Past Med/Surg History Problem List (Updated 03/17/25 @ 10:50 by Eloina Mcqueen MD) Elevated procalcitonin (Acute) Pneumonia (Acute) Hydroureteronephrosis (Acute) Acute hyponatremia (Acute) Fever (Acute) Elevated lactic acid level (Acute) Complicated urinary tract infection (Acute) Severe sepsis (Acute) Weakness Complicated UTI (urinary tract infection) Altered mental status Constipation Left arm swelling Septic shock Gram-negative bacteremia Gross hematuria Sepsis (Acute) Acute UTI (Acute) Acute hypotension (Acute) Sinusitis Neurogenic bladder Allergic rhinitis Erectile dysfunction Dementia (Acute) followed by Neurology Nocturnal hypoxemia Obstructive sleep apnea (Chronic) Cpap, followed by Dr. Pratt Benign prostatic hyperplasia (Chronic) Followed by [facility] urology. Carotid artery plaque (Acute) Depression with anxiety (Chronic) Dyslipidemia (Chronic) Medical History Sepsis secondary to UTI Right knee pain Shoulder pain, right RUE weakness Altered mental status MRSA (methicillin resistant Staphylococcus aureus) infection Enterococcus faecalis infection Altered mental status Urinary retention Hearing loss Rosacea Seventh cranial nerve injury Surgical History H/O colonoscopy Family History Mother Alzheimer disease Brother Arthritis Nonorganic sleep disorder Father Emphysema, unspecified Brother Leukemia Social History Smoking Status: Never smoker Second Hand Exposure: No; Do You Dip or Chew Tobacco: No; Hx Alcohol Use: No Hx Substance Use: No Preferred Language: Finnish Communication Ability: Unable Visual Impairment: Limited Hearing Ability: Use of Hearing Aid Director Of Preclinical Research Required: No Beliefs That Will Affect Care: None marital status: Current Living Situation: Personal Care Facility Current Living Situation Comment: [facility] current occupational status: retired Feels Safe at Home: Yes caffeine: Yes Dental Care, Regularly: Yes Physical Activity Frequency: 1-2 Times per Week Seatbelt Use: always Sunscreen Use: Yes Assistive Devices: CPAP and Wheelchair Allergies Allergies Allergy/AdvReac Type Severity Reaction Status Date / Time No Known Allergies Allergy Verified 05/06/25 09:08 Home Meds Home Medications Medication Instructions Recorded Confirmed cetirizine 10 mg tablet (Zyrtec) 10 mg PO HS 03/07/21 03/17/25 rivastigmine 13.3 mg/24 hour 13.3 mg topical QAM 03/07/21 03/17/25 transdermal patch melatonin 5 mg tablet 5 mg PO HS 04/20/22 03/17/25 memantine 28 mg capsule 28 mg PO HS 04/20/22 03/17/25 sprinkle,extended release 24hr acetaminophen 325 mg tablet 650 mg PO Q4H PRN Fever Or Pain 02/14/24 03/17/25 (Tylenol) ascorbic acid (vitamin C) 500 mg 500 mg PO QAM 02/14/24 03/17/25 tablet (Vitamin C) econazole nitrate 1 % topical cream 1 applic topical QAM PRN fungus 02/14/24 03/17/25 fluticasone propionate 50 2 spray intranasal AMHS 02/14/24 03/17/25 mcg/actuation nasal spray,suspension furosemide 20 mg tablet 20 mg PO QAM 02/14/24 03/17/25 polyethylene glycol 3350 17 gram 17 g PO DAILY 02/14/24 03/17/25 oral powder packet (Miralax) sennosides 8.6 mg-docusate sodium 1 tab-cap PO QAM 02/14/24 03/17/25 50 mg tablet (2-in-1 Laxative) urea 20 % topical cream 1 applic topical BID PRN feet 02/14/24 03/17/25 Saccharomyces boulardii 250 mg 250 mg PO QAM 03/17/25 03/17/25 capsule carboxymethylcellulose sodium 1 % 2 drp ophthalmic (eye) BID 03/17/25 03/17/25 eye drops diclofenac sodium 1 % topical gel 4 g topical BID Pain 03/17/25 03/17/25 ketoconazole 2 % topical cream 1 applic topical QAM Seborrheic 03/17/25 03/17/25 germatitis metronidazole 0.75 % topical gel 1 applic topical BID Rosacea 03/17/25 03/17/25 nystatin 100,000 unit/gram topical 1 applic topical 2XWK 03/17/25 03/17/25 cream saliva stimulant comb. no.3 2 spray mucous membrane Q4H 03/17/25 03/17/25 (Biotene Moisturizing Mouth mucosal spray) simethicone 80 mg chewable tablet 80 mg PO Q4H PRN Bloat/Gas 03/17/25 03/17/25 Previous Rx's Medication Instructions Recorded sertraline 50 mg tablet 50 mg PO HS #1 tab 06/12/22 tamsulosin 0.4 mg capsule 0.4 mg PO HS #90 caps 07/03/22 azelastine 137 mcg (0.1 %) nasal 2 spray intranasal BID PRN Nasal 02/20/23 spray Congestion #90 mL Results & Data (ED) Vital Signs Vital Signs - 24 hr 03/17/25 07:30 03/17/25 08:23 03/17/25 08:41 Temperature 38.1 C H Temperature Source Oral Pulse Rate 115 H 114 H Pulse Rate [Apical] Pulse Strength [Apical] Respiratory Rate 25 H Respiratory Effort / Characteristics Respiratory Depth Normal Respiratory Pattern Blood Pressure 118/62 Blood Pressure [Right Arm] Blood Pressure Mean 80 Blood Pressure Mean [Right Arm] Pulse Oximetry 93 93 Oxygen Delivery Method Room Air Sepsis Recent Fever Within 48 Hours Yes Sepsis New/Unexplained Change in Mental Status No Sepsis Action Taken by Nursing Physician Notified 03/17/25 09:36 03/17/25 10:01 Temperature 39 C H Temperature Source Oral Pulse Rate Pulse Rate [Apical] 91 H 91 H Pulse Strength [Apical] Normal Normal Respiratory Rate 17 22 Respiratory Effort / Characteristics Non-Labored Spontaneous Non-Labored Spontaneous Respiratory Depth Normal Normal Respiratory Pattern Regular Regular Blood Pressure Blood Pressure [Right Arm] 132/63 104/56 L Blood Pressure Mean Blood Pressure Mean [Right Arm] 86 72 Pulse Oximetry 92 93 Oxygen Delivery Method Room Air Room Air Sepsis Recent Fever Within 48 Hours Sepsis New/Unexplained Change in Mental Status Sepsis Action Taken by Nursing Laboratory Data 03/17/25 08:24 03/17/25 09:15 Lab Results 03/17/25 03/17/25 03/17/25 Range/Units 08:24 08:43 09:15 WBC 6.13 (4.8-10.8) K/ul RBC 4.88 (4.70-6.10) M/uL Hgb 15.0 (14.0-18.0) g/dl Hct 43.2 (42.0-52.0) % MCV 88.5 (80.0-100.0) fL MCH 30.7 (25.0-34.0) pg MCHC 34.7 (32.0-36.0) g/dL RDW Std Deviation 43.0 (36.4-46.3) fL RDW Coeff of Rodolfo 13.2 (11.5-14.5) % Plt Count 163 (130-400) K/uL MPV 10.4 (9.4-12.4) fL Immature Gran % (Auto) 0.3 % Neut % (Auto) 95.4 % Lymph % (Auto) 3.8 % Scott % (Auto) 0.5 % Eos % (Auto) 0.0 % Baso % (Auto) 0.0 % Neut # (Auto) 5.85 (1.40-6.50) K/uL Lymph # (Auto) 0.23 L (1.20-3.40) K/uL Scott # (Auto) 0.03 L (0.11-0.59) K/uL Eos # (Auto) 0.00 (0.00-0.50) K/uL Baso # (Auto) 0.00 (0.00-0.20) K/uL Immature Gran # (Auto) 0.02 (0.01-0.20) K/uL Toxic Vacuolation 3+ Polychromasia 1+ PT 11.4 (9.0-12.0) Seconds INR 1.1 (0.9-1.1) APTT 22 (21-31) Seconds PTT Ratio 0.8 Sodium 125 L (136-145) mmol/L Potassium TNP 4.8 Chloride 89 L (98-107) mmol/L Carbon Dioxide 27 (21-32) mmol/L Anion Gap 9 (3-11) BUN 20 (6-23) mg/dl Creatinine 1.24 (0.6-1.4) mg/dl Est Cr Clr Drug Dosing 48.3 ml/min eGFR 55.58 BUN/Creatinine Ratio 16.1 (10-20) Glucose 116 H (70-99(Fasting)) mg/dl Lactate 6.0 H* (0.4-2.0) mmol/L Calcium 9.2 (8.6-10.3) mg/dl Magnesium 2.0 (1.7-2.4) mg/dl Total Bilirubin 0.9 (0.2-1.0) mg/dl AST TNP 20 ALT 14 (7-52) U/L Alkaline Phosphatase 72 (34-104) U/L Troponin I High Sens 13.7 (0-20) pg/ml Total Protein 7.2 (6.0-8.3) gm/dl Albumin 4.2 (3.4-5.0) gm/dl Globulin 3.0 (2.5-4.0) gm/dl Albumin/Globulin Ratio 1.4 (0.9-2) Lipase 14 (11-82) U/L Procalcitonin Cancelled 3.28 H Urine Color Yellow Urine Appearance Cloudy A (Clear) Urine pH 7.5 (4.5-7.5) Ur Specific [place] 1.010 (1.000-1.030) Urine Protein Trace H (Negative) Urine Glucose (UA) Negative (Negative) Urine Ketones Negative (Negative) Urine Blood 1+ H (Negative) Urine Nitrite Negative (Negative) Urine Bilirubin Negative (Negative) Urine Urobilinogen Negative (Negative) Ur Leukocyte Esterase 3+ H (Negative) Urine WBC (Auto) >50 H (0-5) /hpf Urine RBC (Auto) 6-10 H (0-2) /hpf U Hyaline Cast (Auto) 3-5 H (0-2) /lpf U Epithel Cells (Auto) 0-2 (0-2) /hpf Urine Bacteria (Auto) 4+ H (None Seen) 03/17/25 Range/Units 10:25 WBC (4.8-10.8) K/ul RBC (4.70-6.10) M/uL Hgb (14.0-18.0) g/dl Hct (42.0-52.0) % MCV (80.0-100.0) fL MCH (25.0-34.0) pg MCHC (32.0-36.0) g/dL RDW Std Deviation (36.4-46.3) fL RDW Coeff of Rodolfo (11.5-14.5) % Plt Count (130-400) K/uL MPV (9.4-12.4) fL Immature Gran % (Auto) % Neut % (Auto) % Lymph % (Auto) % Scott % (Auto) % Eos % (Auto) % Baso % (Auto) % Neut # (Auto) (1.40-6.50) K/uL Lymph # (Auto) (1.20-3.40) K/uL Scott # (Auto) (0.11-0.59) K/uL Eos # (Auto) (0.00-0.50) K/uL Baso # (Auto) (0.00-0.20) K/uL Immature Gran # (Auto) (0.01-0.20) K/uL Toxic Vacuolation Polychromasia PT (9.0-12.0) Seconds INR (0.9-1.1) APTT (21-31) Seconds PTT Ratio Sodium (136-145) mmol/L Potassium Chloride (98-107) mmol/L Carbon Dioxide (21-32) mmol/L Anion Gap (3-11) BUN (6-23) mg/dl Creatinine (0.6-1.4) mg/dl Est Cr Clr Drug Dosing ml/min eGFR BUN/Creatinine Ratio (10-20) Glucose (70-99(Fasting)) mg/dl Lactate 3.3 H* (0.4-2.0) mmol/L Calcium (8.6-10.3) mg/dl Magnesium (1.7-2.4) mg/dl Total Bilirubin (0.2-1.0) mg/dl AST ALT (7-52) U/L Alkaline Phosphatase (34-104) U/L Troponin I High Sens (0-20) pg/ml Total Protein (6.0-8.3) gm/dl Albumin (3.4-5.0) gm/dl Globulin (2.5-4.0) gm/dl Albumin/Globulin Ratio (0.9-2) Lipase (11-82) U/L Procalcitonin Urine Color Urine Appearance (Clear) Urine pH (4.5-7.5) Ur Specific [place] (1.000-1.030) Urine Protein (Negative) Urine Glucose (UA) (Negative) Urine Ketones (Negative) Urine Blood (Negative) Urine Nitrite (Negative) Urine Bilirubin (Negative) Urine Urobilinogen (Negative) Ur Leukocyte Esterase (Negative) Urine WBC (Auto) (0-5) /hpf Urine RBC (Auto) (0-2) /hpf U Hyaline Cast (Auto) (0-2) /lpf U Epithel Cells (Auto) (0-2) /hpf Urine Bacteria (Auto) (None Seen) Administered Medications Discontinued Medications Sodium Chloride (Nss) 1,000 mls @ 999 mls/hr IV .Q1H1M ONE Stop: 03/17/25 09:30 Last Infusion: 03/17/25 10:04 Dose: Infused Documented By: [facility] Admin: 03/17/25 08:43 Dose: 999 mls/hr Documented By: [facility] Sodium Chloride (Nss) 1,000 mls @ 999 mls/hr IV .Q1H1M ONE Stop: 03/17/25 09:55 Last Infusion: 03/17/25 10:04 Dose: Infused Documented By: [facility] Admin: 03/17/25 09:03 Dose: 999 mls/hr Documented By: [facility] [place] Piperacillin Sod/Tazobactam Sod (Zosyn) 4.5 gm in 100 mls @ 200 mls/hr IV NOW ONE; Protocol Stop: 03/17/25 09:24 Last Infusion: 03/17/25 10:04 Dose: Infused Documented By: [facility] Admin: 03/17/25 09:00 Dose: 200 mls/hr Documented By: [facility] [place] Acetaminophen (Ofirmev) 1,000 mg in 100 mls @ 400 mls/hr IV NOW STA Stop: 03/17/25 10:19 Last Infusion: 03/17/25 10:42 Dose: Infused Documented By: [facility] Admin: 03/17/25 10:12 Dose: 400 mls/hr Documented By: [facility] Sodium Chloride (Nss) 500 mls @ 999 mls/hr IV .Q31M ONE Stop: 03/17/25 10:43 Last Admin: 03/17/25 10:16 Dose: 999 mls/hr Documented By: [facility] Imaging Data Radiologist's Impression: Chest X-Ray 03/17/25 08:30 XR chest 1V portable CLINICAL HISTORY: Sepsis COMPARISON STUDY: 02/18/2024 FINDINGS: Heart size and pulmonary vasculature are normal. There is interval stranding opacity medial left lung base with partial obscuration of the diaphragm. No pleural effusion or pneumothorax. IMPRESSION: Pneumonia versus atelectasis left lung base. ACT 112: Negative or not required by law. Electronically signed by: Sergo Nick M.D. 03/17/2025 8:52 AM Abdomen/Pelvis CT 03/17/25 08:55 CT OF THE ABDOMEN AND PELVIS WITHOUT CONTRAST CLINICAL HISTORY: Urinary retention; sepsis. COMPARISON STUDY: CT of the abdomen and pelvis February 14, 2024. TECHNIQUE: Axial images of the abdomen and pelvis were obtained without IV contrast. Images were reviewed in the axial, sagittal, and coronal planes. Automated exposure control was utilized for the study. A dose lowering technique was utilized adhering to the principles of ALARA. FINDINGS: There is a small left pleural effusion. Subpleural bilateral lower lobe airspace opacities are present. No renal, ureteral or bladder calculi are present. A Durbin balloon within the bladder is noted. The bladder is collapsed. There is moderate left and mild right hydroureteronephrosis. Perinephric stranding is greater on the left. Evaluation of the remainder of the abdomen and pelvis is suboptimal on this unenhanced exam. There are gallstones within the gallbladder. Several left hepatic lobe cysts are again noted. Spleen, adrenal glands and pancreas are unremarkable. A large amount stool within the rectum is noted. There is no evidence for a bowel obstruction. There is colonic diverticulosis without evidence for acute diverticulitis. The appendix is normal. There are no fluid collections. Anasarca is present. No acute fractures are identified. IMPRESSION: 1. Moderate left and mild right hydroureteronephrosis. Ureters dilated to the level of the bladder. No ureteral calculi. 2. Bilateral lower lobe airspace opacities which could represent pneumonia or atelectasis. 3. Large amount of stool within the rectum. 4. No evidence for a bowel obstruction. 5. Cholelithiasis. No evidence for acute cholecystitis. 6. Anasarca. ACT 112: Negative or not required by law. Electronically signed by: Xiang Potts M.D. 03/17/2025 10:10 AM Discharge Plan Visit Data Chief Complaint: Urinary Symptoms Stated Complaint: URINARY ISSUES, NAUSEA ED Provider: Eloina Mcqueen Discharge Problem: Severe sepsis, Complicated urinary tract infection, Elevated lactic acid level, Fever, Acute hyponatremia, Hydroureteronephrosis, Pneumonia, Elevated procalcitonin Condition: Serious Forms Stand Alone Forms: My In [facility] Prescriptions Prescriptions: No Action tamsulosin 0.4 mg capsule 0.4 mg PO HS Qty: 90 3RF azelastine 137 mcg (0.1 %) aerosol,spray 2 spray intranasal BID PRN (Reason: Nasal Congestion) Qty: 90 3RF rivastigmine 13.3 mg/24 hour patch 24 hour 13.3 mg topical QAM cetirizine [Zyrtec] 10 mg Tablet 10 mg PO HS sertraline 50 mg Tablet 50 mg PO HS Qty: 1 0RF Rx Instructions: start 06/13/2022 at bedtime melatonin 5 mg Tablet 5 mg PO HS memantine 28 mg capsule,sprinkle,ER 24hr 28 mg PO HS nystatin 100,000 unit/gram cream 1 applic TOPICAL 2XWK Rx Instructions: Apply to left fingers topically every day shift on Wed and Sat. For year place gutiérrez's wool between fingers after. ketoconazole 2 % cream 1 applic topical QAM metronidazole 0.75 % gel 1 applic TOPICAL BID simethicone 80 mg Tablet,Chewable 80 mg PO Q4H PRN (Reason: Bloat/Gas) Saccharomyces boulardii 250 mg Capsule 250 mg PO QAM diclofenac sodium 1 % gel 4 g TOPICAL BID Rx Instructions: B/L Knee pain, left shoulder pain and left elbow pain Biotene Moisturizing Mouth [place],Non-Aerosol 2 spray mucous membrane Q4H carboxymethylcellulose sodium 1 % Drops 2 drp OPHTHALMIC (EYE) BID polyethylene glycol 3350 [Miralax] 17 gram powder in packet 17 g PO DAILY Rx Instructions: Hold for loose stool fluticasone propionate 50 mcg/actuation spray,suspension 2 spray intranasal AMHS Rx Instructions: administer into each nostril furosemide 20 mg tablet 20 mg PO QAM ascorbic acid (vitamin C) [Vitamin C] 500 mg Tablet 500 mg PO QAM urea 20 % Cream 1 applic TOPICAL BID PRN (Reason: feet) Rx Instructions: bilateral feet sennosides-docusate sodium [2-in-1 Laxative] 8.6-50 mg Tablet 1 tab-cap PO QAM econazole nitrate 1 % cream 1 applic TOPICAL QAM PRN (Reason: fungus) Rx Instructions: apply to feet acetaminophen [Tylenol] 325 mg Tablet 650 mg PO Q4H MDD 3g PRN (Reason: Fever Or Pain) Rx Instructions: use for temp > 100 use for mild pain on scale 1-4 Referrals Referrals: Dony Ryder at [facility] [Primary Care Provider] -
[2025-03-17 08:43] LABS: Appearance Urine Cloudy (Clear); Bacteria Urine Automated 4+ (None Seen); Bilirubin Urine Negative (Negative); Blood Urine 1+ (Negative); Color Urine Yellow; Epithelial Cell Urine Auto 0-2 /hpf (0-2); Glucose Urine UA Negative (Negative); Ketones Urine Negative (Negative); Leukocyte Esterase Urine 3+ (Negative); Nitrite Urine Negative (Negative); Protein Urine Trace (Negative); Urobilinogen Urine Negative (Negative); WBC Urine Automated >50 /hpf (0-5); pH Urine 7.5 (4.5-7.5)
[2025-03-17] MEDS: SODIUM CHLORIDE 0.9% 1,000 ML IV ONE ×2 (08:43→09:03)
[2025-03-17 08:45] LABS: Hematocrit (blood only) 43.2 % (42.0-52.0); Mean Corpuscular Hemoglobin 30.7 pg (25.0-34.0); Mean Corpuscular Hgb Conc 34.7 g/dL (32.0-36.0); Mean Corpuscular Volume 88.5 fL (80.0-100.0); Mean Platelet Volume 10.4 fL (9.4-12.4); Platelet Count 163 K/uL (130-400); RDW Coefficient of Variation 13.2 % (11.5-14.5); Red Blood Count 4.88 M/uL (4.70-6.10); White Blood Count 6.13 K/ul (4.8-10.8)
--- NOTE | 2025-03-17 08:53 | XRay Report ---
XR chest 1V portable CLINICAL HISTORY: Sepsis COMPARISON STUDY: 02/18/2024 FINDINGS: Heart size and pulmonary vasculature are normal. There is interval stranding opacity medial left lung base with partial obscuration of the diaphragm. No pleural effusion or pneumothorax. IMPRESSION: Pneumonia versus atelectasis left lung base. ACT 112: Negative or not required by law. Electronically signed by: Sergo Nick M.D. 03/17/2025 8:52 AM
[2025-03-17] MEDS: PIPERACILLIN/TAZOBACTAM 4.5 GM/100 ML BAG IV ONE (09:00)
[2025-03-17 09:08] LABS: Alanine Aminotransferase 14 U/L (7-52); Albumin Globulin Ratio 1.4 (0.9-2); Albumin Level 4.2 gm/dl (3.4-5.0); Alkaline Phosphatase 72 U/L (34-104); Anion Gap 9 (3-11); BUN Creatinine Ratio 16.1 (10-20); Bilirubin,Total 0.9 mg/dl (0.2-1.0); Blood Urea Nitrogen 20 mg/dl (6-23); Calcium 9.2 mg/dl (8.6-10.3); Carbon Dioxide 27 mmol/L (21-32); Chloride 89 mmol/L (98-107); Creatinine Clr Calc Pharmacy 48.3 ml/min; Glucose 116 mg/dl (70-99(Fasting)); Lipase 14 U/L (11-82); Sodium 125 mmol/L (136-145); Total Protein 7.2 gm/dl (6.0-8.3)
[2025-03-17 09:09] LABS: Immature Granulocytes # (auto) 0.02 K/uL (0.01-0.20); Immature Granulocytes % (auto) 0.3 %; Lymphocytes # (auto) 0.23 K/uL (1.20-3.40); Lymphocytes % (auto) 3.8 %; Monocytes # (auto) 0.03 K/uL (0.11-0.59); Monocytes % (auto) 0.5 %; Neutrophils # (auto) 5.85 K/uL (1.40-6.50); Neutrophils % (auto) 95.4 %; Polychromasia 1+; Toxic Vacuolation 3+
[2025-03-17 09:12] LABS: INR 1.1 (0.9-1.1); Partial Thromboplastin Ratio 0.8; Partial Thromboplastin Time 22 Seconds (21-31); Prothrombin Time 11.4 Seconds (9.0-12.0)
[2025-03-17 09:20] LABS: Troponin I High Sensitivity 13.7 pg/ml (0-20)
[2025-03-17] MEDS: ACETAMINOPHEN 1,000 MG/100 ML VIAL IV STA (10:12)
--- NOTE | 2025-03-17 10:12 | CT Scan Report ---
CT OF THE ABDOMEN AND PELVIS WITHOUT CONTRAST CLINICAL HISTORY: Urinary retention; sepsis. COMPARISON STUDY: CT of the abdomen and pelvis February 14, 2024. TECHNIQUE: Axial images of the abdomen and pelvis were obtained without IV contrast. Images were revi ewed in the axial, sagittal, and coronal planes. Automated exposure control was utilized for the cecilia dy. A dose lowering technique was utilized adhering to the principles of ALARA. FINDINGS: There is a small left pleural effusion. Subpleural bilateral lower lobe airspace opacities are present. No renal, ureteral or bladder calculi are present. A Durbin balloon within the bladder is noted. The bladder is collapsed. There is moderate left and mild right hydroureteronephrosis. Perine phric stranding is greater on the left. Evaluation of the remainder of the abdomen and pelvis is subo ptimal on this unenhanced exam. There are gallstones within the gallbladder. Several left hepatic lob e cysts are again noted. Spleen, adrenal glands and pancreas are unremarkable. A large amount stool w ithin the rectum is noted. There is no evidence for a bowel obstruction. There is colonic diverticulo sis without evidence for acute diverticulitis. The appendix is normal. There are no fluid collections . Anasarca is present. No acute fractures are identified. IMPRESSION: 1. Moderate left and mild right hydroureteronephrosis. Ureters dilated to the level of the bladder. N o ureteral calculi. 2. Bilateral lower lobe airspace opacities which could represent pneumonia or atelectasis. 3. Large amount of stool within the rectum. 4. No evidence for a bowel obstruction. 5. Cholelithiasis. No evidence for acute cholecystitis. 6. Anasarca. ACT 112: Negative or not required by law. Electronically signed by: Xiang Potts M.D. 03/17/2025 10:10 AM
[2025-03-17] MEDS: SODIUM CHLORIDE 0.9% 500 ML IV ONE ×2 (10:16→11:41)
[2025-03-17 10:24] LABS: Potassium 4.8 mmol/L (3.5-5.1)
[2025-03-17] MEDS ORDERED: VANCOMYCIN CONSULT ACTIVE PRN (10:35)
--- NOTE | 2025-03-17 11:06 | History & Physical Report ---
Date of Service March 17, 2025 Assessment & Plan (1) Septic shock: (2) Complicated UTI (urinary tract infection): (3) Hydroureteronephrosis: (4) Acute hyponatremia: (5) Dementia: Plan Mr. Crawley is a pleasant 89-year-old male with PMH including oropharyngeal dysphagia, neurogenic bladder, urinary retention with chronic indwelling law, recurrent UTI, Lewy body dementia, BPH, MAGGIE, carotid artery plaques, dyslipidemia, depression/anxiety. He presented from [facility] for urinary retention. He was bladder scanned and found to have > 1 L of urine in his bladder. He was admitted for severe sepsis secondary to complicated UTI in setting of urinary retention. #Septic shock/Acute metabolic encephalopathy - present on admission with tachycardic rate 90-110s, hypotension 70s/50s, febrile at 39 C, and suspected source of UTI Lactate elevated at 6.0, down trended to 3.3 following IV fluids - continue to trend S/p 3 L IV fluids with NSS to meet sepsis resuscitation criteria, however still hypotensive at 75/52 Provide 500 cc NSS bolus and start Levophed IV now. Start maintenance fluids with NSS at 100 cc/hr - caution with history of diastolic heart failure Blood cultures obtained and pending Admit to ICU #Complicated UTI/hydroureteronephrosis/BPH UA suggestive of UTI - urine culture pending CT A/P reveals moderate left and mild right hydroureteronephrosis with ureters dilated to the level of the bladder Law catheter exchanged in ED on admission Received Zosyn IV in ED. Continue with Zosyn IV and start Vancomycin IV to cover for MRSA and/or Enterococcus Hold Flomax and Lasix in setting of hypotension and fluid resuscitation #Hyponatremia Na 125 on admission - likely secondary to acute infection IV fluids as above #Dysphagia Previously speech therapy recommended pured diet. reports he is on nectar thick liquids at [facility]. Will continue this for now Speech therapy consulted for updated recommendations #Lewy body dementia With superimposed acute metabolic encephalopathy secondary to infection Continue memantine 28 mg HS, rivastigmine 13.3 mg topical QAM Delirium prevention strategies #Depression with anxiety Continue sertraline 50 mg HS #MAGGIE CPAP HS CODE STATUS: DNR/DNI VTE PPx: Lovenox 40 mg SQ daily History of Present Illness Chief Complaint: Urinary retention Primary Care Provider: [facility] [place] Mr. Crawley presented from [facility] due to urinary retention. Mr. Crawley is a pleasant 89-year-old male with PMH including oropharyngeal dysphagia, neurogenic bladder, urinary retention with chronic indwelling law, recurrent UTI, Lewy body dementia, BPH, MAGGIE, carotid artery plaques, dyslipidemia, depression/anxiety. He presented from [facility] for urinary retention. He he began complaining of pain this morning, when he was bladder scanned and found to have > 1 L of urine in his bladder. Patient is a poor historian at baseline due to his history of Lewy body dementia. Patient was sleeping soundly at time of my evaluation. His at bedside was able to provide further history. She reports Mr. Crawley's Law catheter has had significant decreased output in the last 48 hours he typically has about 2 L output daily. She also reports he has his Law catheter is exchanged every 3 weeks and was scheduled for a Law catheter exchange on 03/20/2025. She reports he was altered and had an episode of emesis at [facility] this morning. She reports he was in distress secondary to pain initially on arrival, but after receiving IV fluids and IV Tylenol, he was able to relax and has been sleeping since. also reports he is DNR/DNI with limited interventions, including trial of pressors x 1-2 days. If multiple organ dysfunction were to occur, would likely transition to COMPANY ACCOUNTANT. Vitals on admission are significant for tachycardia in 90-110s and febrile at 102.2 F; vitals otherwise stable. Labs on admission are significant for elevated lactate at 6.0 now down trended to 3.3, procalcitonin elevated at 3.28, hyponatremia with NA 125, elevated creatinine at 1.24 from baseline of 0.9. UA suggestive of acute UTI with 3+ leukocyte Estrace, > 50 WBC, 35 hyaline cast, 4+ bacteria. WBC, Hgb, platelets, LFTs, troponin, lipase WNL. CT A/P on admission reveals moderate left and mild right hydroureteronephrosis with ureters dilated to the level of the bladder. Bilateral lower lobe airspace opacities which could represent pneumonia or atelectasis. Large amount of stool within the rectum, no evidence for a bowel obstruction. Allergies Allergy/AdvReac Type Severity Reaction Status Date / Time No Known Allergies Allergy Verified 03/17/25 09:08 Home Medications Medication Instructions Recorded Confirmed Type cetirizine 10 mg tablet (Zyrtec) 10 mg PO HS 03/07/21 03/17/25 History rivastigmine 13.3 mg/24 hour 13.3 mg topical QAM 03/07/21 03/17/25 History transdermal patch melatonin 5 mg tablet 5 mg PO HS 04/20/22 03/17/25 History memantine 28 mg capsule 28 mg PO HS 04/20/22 03/17/25 History sprinkle,extended release 24hr sertraline 50 mg tablet 50 mg PO HS #1 tab 06/12/22 03/17/25 Rx tamsulosin 0.4 mg capsule 0.4 mg PO HS #90 caps 07/03/22 03/17/25 Rx azelastine 137 mcg (0.1 %) nasal 2 spray intranasal BID PRN Nasal 02/20/23 03/17/25 Rx spray Congestion #90 mL acetaminophen 325 mg tablet 650 mg PO Q4H PRN Fever Or Pain 02/14/24 03/17/25 History (Tylenol) ascorbic acid (vitamin C) 500 mg 500 mg PO QAM 02/14/24 03/17/25 History tablet (Vitamin C) econazole nitrate 1 % topical cream 1 applic topical QAM PRN fungus 02/14/24 03/17/25 History fluticasone propionate 50 2 spray intranasal AMHS 02/14/24 03/17/25 History mcg/actuation nasal spray,suspension furosemide 20 mg tablet 20 mg PO QAM 02/14/24 03/17/25 History polyethylene glycol 3350 17 gram 17 g PO DAILY 02/14/24 03/17/25 History oral powder packet (Miralax) sennosides 8.6 mg-docusate sodium 1 tab-cap PO QAM 02/14/24 03/17/25 History 50 mg tablet (2-in-1 Laxative) urea 20 % topical cream 1 applic topical BID PRN feet 02/14/24 03/17/25 History Saccharomyces boulardii 250 mg 250 mg PO QAM 03/17/25 03/17/25 History capsule carboxymethylcellulose sodium 1 % 2 drp ophthalmic (eye) BID 03/17/25 03/17/25 History eye drops diclofenac sodium 1 % topical gel 4 g topical BID Pain 03/17/25 03/17/25 History ketoconazole 2 % topical cream 1 applic topical QAM Seborrheic 03/17/25 03/17/25 History germatitis metronidazole 0.75 % topical gel 1 applic topical BID Rosacea 03/17/25 03/17/25 History nystatin 100,000 unit/gram topical 1 applic topical 2XWK 03/17/25 03/17/25 History cream saliva stimulant comb. no.3 2 spray mucous membrane Q4H 03/17/25 03/17/25 History (Biotene Moisturizing Mouth mucosal spray) simethicone 80 mg chewable tablet 80 mg PO Q4H PRN Bloat/Gas 03/17/25 03/17/25 History Past Med/Surg History Problem List Elevated procalcitonin (Acute) Pneumonia (Acute) Hydroureteronephrosis (Acute) Acute hyponatremia (Acute) Fever (Acute) Elevated lactic acid level (Acute) Complicated urinary tract infection (Acute) Severe sepsis (Acute) Weakness Complicated UTI (urinary tract infection) Altered mental status Constipation Left arm swelling Septic shock Gram-negative bacteremia Gross hematuria Sepsis (Acute) Acute UTI (Acute) Acute hypotension (Acute) Sinusitis Neurogenic bladder Allergic rhinitis Erectile dysfunction Dementia (Acute) followed by Neurology Nocturnal hypoxemia Obstructive sleep apnea (Chronic) Cpap, followed by Dr. Pratt Benign prostatic hyperplasia (Chronic) Followed by [facility] urology. 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 Surgical History H/O colonoscopy Family History Mother Alzheimer disease Brother Arthritis Nonorganic sleep disorder Father Emphysema, unspecified Brother Leukemia Social History Smoking Status: Never smoker Second Hand Exposure: No; Do You Dip or Chew Tobacco: No; Hx Alcohol Use: No Hx Substance Use: No Preferred Language: Bulgarian Communication Ability: Unable Visual Impairment: Limited Hearing Ability: Use of Hearing Aid It Security Engineer Required: No Beliefs That Will Affect Care: None marital status: Current Living Situation: Personal Care Facility Current Living Situation Comment: [facility] current occupational status: retired Feels Safe at Home: Yes caffeine: Yes Dental Care, Regularly: Yes Physical Activity Frequency: 1-2 Times per Week Seatbelt Use: always Sunscreen Use: Yes Assistive Devices: CPAP and Wheelchair Physical Exam Physical Exam: General: No acute distress, sleeping in bed. Responds to physical stimuli. Skin: Diaphoretic and warm to touch. Cardiac: Tachycardic rate in 90s and regular rhythm without murmurs gallops or rubs. Distal pulses in tact. No peripheral edema. Pulm: Clear to auscultation bilaterally without wheezes, rales or rhonchi. No respiratory distress. 93% on room air. Abdominal: Soft, nondistended. Suprapubic tenderness on palpation. No guarding or rebound tenderness. Bowel sounds present. : Law catheter draining dark kahlil urine. Neuro: No focal neurological deficits. Results & Data Results & Data Vital Signs (Past 12 Hours) Vital Signs Temp Pulse Pulse Resp BP BP Pulse Ox 03/17/25 10:01 102.2 F H 91 H 22 104/56 L 93 03/17/25 09:36 91 H 17 132/63 92 03/17/25 08:41 114 H 03/17/25 08:23 93 03/17/25 07:30 100.6 F H 115 H 25 H 118/62 93 O2 Del Method 03/17/25 10:01 Room Air 03/17/25 09:36 Room Air 03/17/25 08:41 03/17/25 08:23 Room Air 03/17/25 07:30 Laboratory Results Reviewed CBC with differential Reviewed coags Reviewed CMP/chemistries Reviewed UA Diagnostic Findings Reviewed CXR Reviewed CT A/P Chest X-Ray 03/17/25 08:30 XR chest 1V portable CLINICAL HISTORY: Sepsis COMPARISON STUDY: 02/18/2024 FINDINGS: Heart size and pulmonary vasculature are normal. There is interval stranding opacity medial left lung base with partial obscuration of the diaphragm. No pleural effusion or pneumothorax. IMPRESSION: Pneumonia versus atelectasis left lung base. ACT 112: Negative or not required by law. Electronically signed by: Sergo Nick M.D. 03/17/2025 8:52 AM Abdomen/Pelvis CT 03/17/25 08:55 CT OF THE ABDOMEN AND PELVIS WITHOUT CONTRAST CLINICAL HISTORY: Urinary retention; sepsis. COMPARISON STUDY: CT of the abdomen and pelvis February 14, 2024. TECHNIQUE: Axial images of the abdomen and pelvis were obtained without IV contrast. Images were reviewed in the axial, sagittal, and coronal planes. Automated exposure control was utilized for the study. A dose lowering technique was utilized adhering to the principles of ALARA. FINDINGS: There is a small left pleural effusion. Subpleural bilateral lower lobe airspace opacities are present. No renal, ureteral or bladder calculi are present. A Law balloon within the bladder is noted. The bladder is collapsed. There is moderate left and mild right hydroureteronephrosis. Perinephric stranding is greater on the left. Evaluation of the remainder of the abdomen and pelvis is suboptimal on this unenhanced exam. There are gallstones within the gallbladder. Several left hepatic lobe cysts are again noted. Spleen, adrenal glands and pancreas are unremarkable. A large amount stool within the rectum is noted. There is no evidence for a bowel obstruction. There is colonic diverticulosis without evidence for acute diverticulitis. The appendix is no rmal. There are no fluid collections. Anasarca is present. No acute fractures are identified. IMPRESSION: 1. Moderate left and mild right hydroureteronephrosis. Ureters dilated to the level of the bladder. No ureteral calculi. 2. Bilateral lower lobe airspace opacities which could represent pneumonia or atelectasis. 3. Large amount of stool within the rectum. 4. No evidence for a bowel obstruction. 5. Cholelithiasis. No evidence for acute cholecystitis. 6. Anasarca. ACT 112: Negative or not required by law. Electronically signed by: Xiang Potts M.D. 03/17/2025 10:10 AM Supervising Physician Co-Signing Physician Notes I have reviewed vital signs, chart notes, labs and imaging. I have personally seen, evaluated and examined the patient. I have also discussed the management of the patient with the FLAVIA and I agree with the exam findings documented in the history and physical examination and the documented assessment and plan unless otherwise stated below. 89-year-old man with BPH and neurogenic bladder, chronic urinary obstruction with chronic Law catheter, dementia, resident of [facility] who came to the ED with sepsis and low urine output. Law catheter was exchanged in the ED with 2 L of immediate urine output Febrile and tachycardic at presentation. WBC normal, lactate 63.3, procal elevated. chest x-ray I personally reviewed the film and there is a left basilar opacity. He had a CT abdomen and pelvis notable for bilateral lower lobe atelectasis or consolidation I reviewed the CT films agree with radiologist interpretation that there is L>R basilar atelectasis or infiltrate, he also has bilateral hydronephrosis left greater than right and perinephric stranding especially on the left. Personally reviewed EKG tracing shows nsr, low voltage, no acute ischemic changes. On my exam he is lethargic, grimaces, skin warm and damp, extremities warm. Heart reg no mrg, lungs CTA ant normal WOB, not on oxygen. Abd s/nt/nd. No extremity edema. Urine in law tubing is clear yellow with some sediment. SULEIMAN grimaces, LUE chronic contracture, high tone all extremities Received IV antibiotics and 3L crystalloid, despite this his BP downtrended to MAP 59 and norepinephrine was started A/P: Septic shock due to acute pyelonephritis / CAUTI with bladder outlet obstruction, lactic acid 6.0-->3.3-->pending, end organ damage of GRIFFIN and acute encephalopathy. Discussed with intellectual property legal assistant. Admitting to ICU. He is critically ill. -law was exchanged in ED, hydronephrosis should resolve -continue pip-tazo and add vancomycin for coverage of enterococcus and MRSA, no VRE documented -continue norepi, trying another small NS bolus 500 mL however he had acute pulmonary edema with IV fluids when treated for urosepsis a year ago. GRIFFIN due to sepsis Repeat Cr in AM and monitor UOP Acute metabolic encephalopathy on baseline Lewy body dementia. Normally can speak few words and sometimes full sentences Hyponatremia due to sepsis Other conditions: MAGGIE on CPAP, oropharyngeal dysphagia, HFpEF, anasarca, constipated Goals of care discussed with his at bedside, confirms DNR/DNI and limited interventions. Wants 24-48 trial of pressors but if not improving would be open to bid manager. I personally spent 50 minutes of critical care time reviewing labs, vitals, studies, past medical records, examine patient, writing orders and discussion with his family. PG Care Time/CCT Total # of Minutes Spent Total Time Spent with Patient: Total time spent is greater than 50% in coordination of care (as documented) at patient's floor/unit and/or counseling patient: Coding Level of Care Code 46634 INT INP/OBS CARE 3/75MIN Diagnoses Septic shock A41.9; R65.21 Complicated UTI (urinary tract infection) N39.0 Hydroureteronephrosis N13.30 Acute hyponatremia E87.1 Dementia G31.83; F02.81 Dementia behavioral disturbance: with behavioral disturbance Dementia type: Lewy body dementia (5) Dementia Dementia behavioral disturbance: with behavioral disturbance Dementia type: Lewy body dementia Qualified Code(s): G31.83 - Dementia with Lewy bodies; F02.81 - Dementia in other diseases classified elsewhere with behavioral disturbance
[2025-03-17] MEDS: VANCOMYCIN HCL 2,000 MG in SODIUM CHLORIDE 0.9% 500 ML IV ONE (11:27)
[2025-03-17] MEDS: NOREPINEPHRINE/D5W 4 MG/250 ML PLCT IV SCH (11:47)
--- NOTE | 2025-03-17 12:15 | Pharmacy Report ---
Pharmacy PK ABX Note - Date of Service March 17, 2025 - Assessment and Plan Assessment * 89 year old M receiving pip/tazo and vancomycin for treatment of sepsis 2nd CAUTI. * PMH: [facility] resident w dementia, neurogenic bladder, urinary retention w chronic Durbin, recurrent UTI, hx MRSA and E. faecalis in urine * Pertinent microbiologic data includes: blood and urine cultures pending * SCr slightly elevated from baseline Plan Vancomycin * Loading dose: 2000 mg IV x 1 * Target AUC/VLADIMIR of 400-600 mg/L.hr * AUC based dosing notes q24h interval is reasonable. However, will wait till tomorrow to schedule ongoing vancomycin 2nd slight bump in SCr and obtain a random level with AM labs Pharmacy will continue to follow and will adjust dose/frequency as necessary. Thank you. Pharmacy has transitioned to AUC monitoring for vancomycin. AUC/VLADIMIR is the preferred PK/PD target and is associated with decreased risk of nephrotoxicity compared to traditional trough targets.
--- NOTE | 2025-03-17 12:35 | Billing Data ---
Date of Service March 17, 2025 Coding Level of Care Code 85670 CRITICAL CARE
--- NOTE | 2025-03-17 13:36 | Critical Care Consultation ---
Date of Consultation March 17, 2025 Assessment & Plan (1) Altered mental status: (2) Urinary retention: (3) Acute hyponatremia: (4) Dementia: (5) Benign prostatic hyperplasia: (6) Neurogenic bladder: (7) Septic shock: Plan Stiven Crawley is an 89-year-old male with past medical history of oropharyngeal dysphagia, neurogenic bladder with chronic Durbin exchanged q 3 weeks, recurrent UTI, Lewy Body dementia, BPH, HTN, HLD, anxiety/depression, and carotid artery disease who is presenting from [facility] for urinary retention with likely complicated urinary tract infection and sepsis Neuro: Acute encephalopathy likely metabolic in setting of sepsis; Lewy Body dementia; Depression/anxiety -With superimposed acute metabolic encephalopathy secondary to infection -Continue memantine 28 mg HS, rivastigmine 13.3 mg topical QAM -Delirium prevention strategies -Cont sertraline CV: Septic Shock related to complicated urinary tract infection Received a total of 3.5 liters of crystalloid in ED Currently on norepinephrine gtt at 0.07 mcg/kg/min. Titrate to maintain MAP > 65. Pulm: MAGGIE -No acute issues -Maintain SpO2 > 92% -Patient on room air -CPAP qhs GI: Oropharyngeal dysphagia NPO at this time -Speech therapy to see when appropriate : Urinary retention with chronic Durbin; BPH; Neurogenic bladder -Durbin exchanged in ED with 1500ml of urine upon placement -Monitor -Hold tamsulosin in setting of hypotension Hyponatremia likely from poor PO intake -Na 125 on admission will repeat BMP -If lower will order urine lytes Heme: -No acute issues -Hgb 15 -Hct 43.2 -Monitor CBC qam Endo: Stress hyperglycemia in setting of acute infection -BG range -Monitor and initiate insulin coverage as appropriate ID: Complicated urinary tract infection -WBC 6.13 -Febrile to 39 -UA showing -Urine culture pending -Start broad spectrum antibiotics with Vancomycin day 1 of 7 day course and Zosyn day 1 of 7 day course. -Deescalate ABX based on culture data Prophylaxis: -SCD for mechanical DVT prophylaxis -Lovenox for DVT chemoprophylaxis -GI prophylaxis not indicated Disposition: ICU for further care and management of complicated urinary tract infection with septic shock. Patient is DNR/DNI. Patient family member updated at bedside by [employer] Operator team on 03/17/2025. Supervising Physician Co-Signing Physician Notes Patient separately seen and examined from [facility]. Agree with the note as above. Patient with signs of sepsis secondary to complicated UTI. Durbin catheter exchanged in the ER as noted per above. Urine output improving. Continue crystalloid infusion. Continue broad-spectrum antibiotics with vancomycin and Zosyn. Follow culture data. Continue to wean vasopressors as able. If vasopressor requirement significantly increases, will need to place central line and consider arterial line placement. On exam, patient appears to be in mild distress. He is confused. He is pale and clammy. Mildly tachycardic. Perfusion and capillary beds is decreased. No significant lower extremity edema noted. Patient appears delirious. CRITICAL CARE TIME I have personally spent 38 minutes of critical care time in the direct management of this patient. This is a life/limb threatening event. This includes time spent evaluating patient, direct bedside care, chart review, placing orders, interpretation of diagnostic studies, discussion with consultants, patient, and family members, as well as other required patient management activities. This time is exclusive of all separately billable procedures, and teaching time and separate from and in addition to any other critical care service time. History of Present Illness Reason for Consultation: Complicated urinary tract infection with septic shock Requesting Physician: EBONY Hubbard Attending Physician: Marina Delcid MD History of Present Illness Stiven Crawley is an 89-year-old male with past medical history of oropharyngeal dysphagia, neurogenic bladder with chronic Durbin exchanged q 3 weeks, recurrent UTI, Lewy Body dementia, BPH, HTN, HLD, anxiety/depression, and carotid artery disease who is presenting from [facility] for urinary retention with likely complicated urinary tract infection and sepsis. The patient was in his normal state of health on 03/16/25. However on the morning of 03/17/25 the patient had abdominal pain had reduced urine output from his Durbin catheter. The patient was bladder scanned on arrival to the ED which showed > 1 liter of urine. His Durbin was exchanged and immediately put out 1500ml of urine. Patient noted to be tachycardic with HR in the 110's, hypotensive in the 70's/50's, febrile to 39, and labs showed a lactate of 6. Patient given 3 liters of NSS, cultured and given broad spectrum antibiotics with vancomycin and Zosyn. Patient remained hypotensive even after fluid resuscitation and given additional 500ml NS bolus and started on norepinephrine. [employer] Operator consulted for further care and management of complicated urinary tract infection with septic shock. Allergies Allergy/AdvReac Type Severity Reaction Status Date / Time No Known Allergies Allergy Verified 03/17/25 09:08 Home Medications Medication Instructions Recorded Confirmed Type cetirizine 10 mg tablet (Zyrtec) 10 mg PO HS 03/07/21 03/17/25 History rivastigmine 13.3 mg/24 hour 13.3 mg topical QAM 03/07/21 03/17/25 History transdermal patch melatonin 5 mg tablet 5 mg PO HS 04/20/22 03/17/25 History memantine 28 mg capsule 28 mg PO HS 04/20/22 03/17/25 History sprinkle,extended release 24hr sertraline 50 mg tablet 50 mg PO HS #1 tab 06/12/22 03/17/25 Rx tamsulosin 0.4 mg capsule 0.4 mg PO HS #90 caps 07/03/22 03/17/25 Rx azelastine 137 mcg (0.1 %) nasal 2 spray intranasal BID PRN Nasal 02/20/23 03/17/25 Rx spray Congestion #90 mL acetaminophen 325 mg tablet 650 mg PO Q4H PRN Fever Or Pain 02/14/24 03/17/25 History (Tylenol) ascorbic acid (vitamin C) 500 mg 500 mg PO QAM 02/14/24 03/17/25 History tablet (Vitamin C) econazole nitrate 1 % topical cream 1 applic topical QAM PRN fungus 02/14/24 03/17/25 History fluticasone propionate 50 2 spray intranasal AMHS 02/14/24 03/17/25 History mcg/actuation nasal spray,suspension furosemide 20 mg tablet 20 mg PO QAM 02/14/24 03/17/25 History polyethylene glycol 3350 17 gram 17 g PO DAILY 02/14/24 03/17/25 History oral powder packet (Miralax) sennosides 8.6 mg-docusate sodium 1 tab-cap PO QAM 02/14/24 03/17/25 History 50 mg tablet (2-in-1 Laxative) urea 20 % topical cream 1 applic topical BID PRN feet 02/14/24 03/17/25 History Saccharomyces boulardii 250 mg 250 mg PO QAM 03/17/25 03/17/25 History capsule carboxymethylcellulose sodium 1 % 2 drp ophthalmic (eye) BID 03/17/25 03/17/25 History eye drops diclofenac sodium 1 % topical gel 4 g topical BID Pain 03/17/25 03/17/25 History ketoconazole 2 % topical cream 1 applic topical QAM Seborrheic 03/17/25 03/17/25 History germatitis metronidazole 0.75 % topical gel 1 applic topical BID Rosacea 03/17/25 03/17/25 History nystatin 100,000 unit/gram topical 1 applic topical 2XWK 03/17/25 03/17/25 History cream saliva stimulant comb. 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 Surgical History H/O colonoscopy Family History Mother Alzheimer disease Brother Arthritis Nonorganic sleep disorder Father Emphysema, unspecified Brother Leukemia Social History Smoking Status: Never smoker Second Hand Exposure: No; Do You Dip or Chew Tobacco: No; Hx Alcohol Use: No Hx Substance Use: No Preferred Language: Maltese Communication Ability: Unable Visual Impairment: Limited Hearing Ability: Use of Hearing Aid 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 Resource Engineering 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 Required: No Beliefs That Will Affect Care: None marital status: Current Living Situation: Retirement Current Living Situation Comment: [facility] current occupational status: retired Other Information That Helps Us Care for You: No Feels Safe at Home: Yes caffeine: Yes Dental Care, Regularly: Yes Physical Activity Frequency: 1-2 Times per Week Seatbelt Use: always Sunscreen Use: Yes Assistive Devices: CPAP, Glasses and Hearing Aid - Bilateral Review of Systems 2 Review of Systems: The patient cannot reliably answer any questions regarding review of systems due to encephalopathy superimposed on baseline dementia. Physical Exam 2 Physical Exam: General: No acute distress, sleeping in bed. Responds to physical stimuli. Skin: Diaphoretic and warm to touch. Cardiac: Tachycardic rate in 90s and regular rhythm without murmurs gallops or rubs. Distal pulses in tact. No peripheral edema. Pulm: Clear to auscultation bilaterally without wheezes, rales or rhonchi. No respiratory distress. 93% on room air. Abdominal: Soft, nondistended. Suprapubic tenderness on palpation with some guarding noted. Bowel sounds present in all quadrants. : Durbin catheter draining dark kahlil urine. Neuro: No focal neurological deficits. Opens eyes to voice, localizes to noxious stimuli, incomprehensible sounds, pupils 2mm brisk bilaterally. Results & Data Results & Data Vital Signs (Past 12 Hours) Vital Signs Temp Pulse Pulse Resp BP BP Pulse Ox 03/17/25 12:47 97 H 03/17/25 12:40 96 H 19 88/55 L 92 03/17/25 12:39 96 H 19 88/55 L 92 03/17/25 12:29 97 H 25 H 93/75 L 93 03/17/25 12:17 88 19 88/45 L 93 03/17/25 12:06 86 18 96/54 L 90 03/17/25 11:39 83 18 73/52 L 90 03/17/25 10:54 37 C 87 21 90/48 L 93 03/17/25 10:01 39 C H 91 H 22 104/56 L 93 03/17/25 09:36 91 H 17 132/63 92 03/17/25 08:41 114 H 03/17/25 08:23 93 03/17/25 07:30 38.1 C H 115 H 25 H 118/62 93 O2 Del Method 03/17/25 12:47 03/17/25 12:40 Room Air 03/17/25 12:39 Room Air 03/17/25 12:29 Room Air 03/17/25 12:17 Room Air 03/17/25 12:06 Room Air 03/17/25 11:39 03/17/25 10:54 Room Air 03/17/25 10:01 Room Air 03/17/25 09:36 Room Air 03/17/25 08:41 03/17/25 08:23 Room Air 03/17/25 07:30 Laboratory Results 03/17/25 08:24 03/17/25 09:15 03/17/25 08:24 Urine Culture - Pending Urine,Indwelling Cath 03/17/25 08:43 Aerobic Blood Culture - Pending Blood Anaerobic Blood Culture - Pending 03/17/25 08:43 Aerobic Blood Culture - Pending Blood Anaerobic Blood Culture - Pending 03/17/25 03/17/25 03/17/25 10:25 09:15 08:43 WBC RBC Hgb Hct MCV MCH MCHC RDW Std Deviation RDW Coeff of Rodolfo Plt Count MPV Immature Gran % (Auto) Neut % (Auto) Lymph % (Auto) [place] % (Auto) Eos % (Auto) Baso % (Auto) Neut # (Auto) Lymph # (Auto) [place] # (Auto) Eos # (Auto) Baso # (Auto) Immature Gran # (Auto) Toxic Vacuolation Polychromasia PT INR APTT PTT Ratio Sodium Potassium 4.8 Chloride Carbon Dioxide Anion Gap BUN Creatinine Est Cr Clr Drug Dosing eGFR BUN/Creatinine Ratio Glucose Lactate 3.3 H* 6.0 H* Calcium Magnesium Total Bilirubin AST 20 ALT Alkaline Phosphatase Troponin I High Sens Total Protein Albumin Globulin Albumin/Globulin Ratio Lipase Procalcitonin 3.28 H Urine Color Urine Appearance Urine pH Ur Specific [place] Urine Protein Urine Glucose (UA) Urine Ketones Urine Blood Urine Nitrite Urine Bilirubin Urine Urobilinogen Ur Leukocyte Esterase Urine WBC (Auto) Urine RBC (Auto) U Hyaline Cast (Auto) U Epithel Cells (Auto) Urine Bacteria (Auto) 03/17/25 08:24 WBC 6.13 RBC 4.88 Hgb 15.0 Hct 43.2 MCV 88.5 MCH 30.7 MCHC 34.7 RDW Std Deviation 43.0 RDW Coeff of Rodolfo 13.2 Plt Count 163 MPV 10.4 Immature Gran % (Auto) 0.3 Neut % (Auto) 95.4 Lymph % (Auto) 3.8 [place] % (Auto) 0.5 Eos % (Auto) 0.0 Baso % (Auto) 0.0 Neut # (Auto) 5.85 Lymph # (Auto) 0.23 L [place] # (Auto) 0.03 L Eos # (Auto) 0.00 Baso # (Auto) 0.00 Immature Gran # (Auto) 0.02 Toxic Vacuolation 3+ Polychromasia 1+ PT 11.4 INR 1.1 APTT 22 PTT Ratio 0.8 Sodium 125 L Potassium TNP Chloride 89 L Carbon Dioxide 27 Anion Gap 9 BUN 20 Creatinine 1.24 Est Cr Clr Drug Dosing 48.3 eGFR 55.58 BUN/Creatinine Ratio 16.1 Glucose 116 H Lactate Calcium 9.2 Magnesium 2.0 Total Bilirubin 0.9 AST TNP ALT 14 Alkaline Phosphatase 72 Troponin I High Sens 13.7 Total Protein 7.2 Albumin 4.2 Globulin 3.0 Albumin/Globulin Ratio 1.4 Lipase 14 Procalcitonin Cancelled Urine Color Yellow Urine Appearance Cloudy A Urine pH 7.5 Ur Specific [place] 1.010 Urine Protein Trace H Urine Glucose (UA) Negative Urine Ketones Negative Urine Blood 1+ H Urine Nitrite Negative Urine Bilirubin Negative Urine Urobilinogen Negative Ur Leukocyte Esterase 3+ H Urine WBC (Auto) >50 H Urine RBC (Auto) 6-10 H U Hyaline Cast (Auto) 3-5 H U Epithel Cells (Auto) 0-2 Urine Bacteria (Auto) 4+ H Diagnostic Findings CT abdomen/pelvis w/o contrast 03/17/2025 @ 0855 IMPRESSION: 1. Moderate left and mild right hydroureteronephrosis. Ureters dilated to the level of the bladder. No ureteral calculi. 2. Bilateral lower lobe airspace opacities which could represent pneumonia or atelectasis. 3. Large amount of stool within the rectum. 4. No evidence for a bowel obstruction. 5. Cholelithiasis. No evidence for acute cholecystitis. 6. Anasarca. CXR 03/17/2025 @ 0830 IMPRESSION: Pneumonia versus atelectasis left lung base. [place] [address] CRITICAL CARE 1ST 30-74M Patient Type New Medical Decision Making Moderate Complexity Diagnoses Altered mental status R41.82 Urinary retention R33.9 Acute hyponatremia E87.1 Dementia G31.83; F02.81 Dementia behavioral disturbance: with behavioral disturbance Dementia type: Lewy body dementia Benign prostatic hyperplasia N40.0 Neurogenic bladder N31.9 Septic shock A41.9; R65.21 Time Spent (min) 38 (4) Dementia Dementia behavioral disturbance: with behavioral disturbance Dementia type: L ewy body dementia Qualified Code(s): G31.83 - Dementia with Lewy bodies; F02.81 - Dementia in other diseases classified elsewhere with behavioral disturbance
[2025-03-17] MEDS ORDERED: POLYETHYLENE (MIRALAX) 17 GM PACK PO PRN ×2 (13:46)
[2025-03-17] MEDS ORDERED: ONDANSETRON INJ 2 MG/ML 2 ML VIAL IV PRN (13:46)
[2025-03-17] MEDS ORDERED: ACETAMINOPHEN 10MG/ML Custom 1,000 MG in EMPTY BAG 0 ML IV PRN (13:46)
[2025-03-17] MEDS: STAT IV Infusion **Titration per Protocol STA (14:36)
[2025-03-17] MEDS: PLASMA-LYTE A 500 ML IV ONE (14:53)
[2025-03-17] MEDS: ENOXAPARIN INJ 40 MG/0.4 ML SYR SQ SCH (14:54)
[2025-03-17] MEDS: PIPERACILLIN/TAZOBACTAM 4.5 GM/100 ML BAG IV SCH (14:54)
[2025-03-17 15:24] LABS: BUN Creatinine Ratio 18.5 (10-20); Calcium 7.7 mg/dl (8.6-10.3); Creatinine Clr Calc Pharmacy 46.1 ml/min; Potassium 3.9 mmol/L (3.5-5.1)
[2025-03-17] MEDS: SODIUM CHLORIDE 0.9% 1,000 ML IV SCH (15:31)
[2025-03-17] MEDS: PLASMA-LYTE A 1,000 ML IV SCH (15:31)
[2025-03-17] MEDS: CALCIUM GLUCONATE 1,000 MG/60 ML BAG IV STA (15:44)
[2025-03-17] MEDS ORDERED: ICU Protocol for HYPERglycemia SCH (16:30)
[2025-03-17] MEDS: ICU Protocol for HYPERglycemia SCH (17:54)
[2025-03-17] MEDS: SERTRALINE HCL 50 MG TABLET PO SCH (19:53)
[2025-03-17] MEDS: FLUTICASONE PROPIONATE NA SPR 16 GM BTL SCH (19:59)
[2025-03-17] MEDS: ARTIFICIAL TEARS OP SCH (19:59)
[2025-03-17 22:51] LABS: A calco-baum cmplx NotReported Not Detected (NotDetected); Bact fragilis Not Reported Not Detected (NotDetected); Blood Culture Id Panel See PCR Comment (NotDetected); C auris Not Reported Not Detected (NotDetected); Calbicans Not Reported Not Detected (NotDetected); Candida glabrata Not Reported Not Detected (NotDetected); Candida krusei Not Reported Not Detected (NotDetected); Cneoformans/gatti Not Reported Not Detected (NotDetected); Cparapsilosis Not Reported Not Detected (NotDetected); Ctropicalis Not Reported Not Detected (NotDetected); E cloacae compx Not Reported Not Detected (NotDetected); Efaecalis Not Reported Not Detected (NotDetected); Efaecium Not Reported Not Detected (NotDetected); Enterobacterales DETECTED (NotDetected); Enterobacterales Not Reported DETECTED (NotDetected); Escherichia coli Not Reported DETECTED (NotDetected); H influenzae Not Reported Not Detected (NotDetected); IMP Resistant Gene Not Detected (NotDetected); K aerogenes Not Reported Not Detected (NotDetected); KPC Resistant Gene Not Detected (NotDetected); Koxytoca Not Reported Not Detected (NotDetected); Kpneumoniae grp Not Reported Not Detected (NotDetected); Lmonocyt Not Reported Not Detected (NotDetected); N meningitidis Not Reported Not Detected (NotDetected); NDM Resistant Gene Not Detected (NotDetected); OXA 48 Like Resistant Gene Not Detected (NotDetected); P aeruginosa Not Reported Not Detected (NotDetected); Proteus spp Not Reported Not Detected (NotDetected); Salmonella spp Not Reported Not Detected (NotDetected); Staph lugdunensis Not Reported Not Detected (NotDetected); Staph spp. Not Reported Not Detected (NotDetected); Staphaureus Not Reported Not Detected (NotDetected); Staphepi Not Reported Not Detected (NotDetected); Stenmaltophilia Not Reported Not Detected (NotDetected); Strep agal(GrpB) Not Reported Not Detected (NotDetected); Strep pneum Not Reported Not Detected (NotDetected); Strep pyog (GrpA) Not Reported Not Detected (NotDetected); Strep spp Not Reported Not Detected (NotDetected); VIM Resistant Gene Not Detected (NotDetected); mcr-1 Colistin Resistant Gene Not Detected (NotDetected)
[2025-03-17 22:58] LABS: CTX-M Resistant Gene DETECTED (NotDetected)
--- NOTE | 2025-03-17 23:06 | Communication Note ---
Date of Service: March 17, 2025 x2 + ESBL. Will transition to meropenem. Coding Level of Care Code None
[2025-03-18] MEDS: MEROPENEM 500 MG in SYRINGE 0 ML IV SCH (00:33)
[2025-03-18 05:43] LABS: Hematocrit (blood only) 33.5 % (42.0-52.0); Hemoglobin 11.7 g/dl (14.0-18.0); Mean Corpuscular Hemoglobin 30.8 pg (25.0-34.0); Mean Corpuscular Hgb Conc 34.9 g/dL (32.0-36.0); Mean Corpuscular Volume 88.2 fL (80.0-100.0); Mean Platelet Volume 10.2 fL (9.4-12.4); Platelet Count 117 K/uL (130-400); RDW Coefficient of Variation 13.8 % (11.5-14.5); RDW Standard Deviation 44.3 fL (36.4-46.3); White Blood Count 27.68 K/ul (4.8-10.8)
[2025-03-18 05:48] LABS: Basophils # (auto) 0.04 K/uL (0.00-0.20); Basophils % (auto) 0.1 %; Echinocytes 3+; Eosinophils # (auto) 0.15 K/uL (0.00-0.50); Eosinophils % (auto) 0.5 %; Hypogranular Neutrophils 1+; Immature Granulocytes # (auto) 0.93 K/uL (0.01-0.20); Immature Granulocytes % (auto) 3.4 %; Lymphocytes # (auto) 0.61 K/uL (1.20-3.40); Lymphocytes % (auto) 2.2 %; Monocytes # (auto) 1.74 K/uL (0.11-0.59); Monocytes % (auto) 6.3 %; Neutrophils # (auto) 24.21 K/uL (1.40-6.50); Neutrophils % (auto) 87.5 %; Polychromasia 1+; Toxic Vacuolation 1+
[2025-03-18 08:17] LABS: Albumin Globulin Ratio 1.4 (0.9-2); Albumin Level 3.2 gm/dl (3.4-5.0); BUN Creatinine Ratio 21.1 (10-20); Bilirubin,Total 0.5 mg/dl (0.2-1.0); Calcium 7.9 mg/dl (8.6-10.3); Creatinine Clr Calc Pharmacy 53.4 ml/min; Globulin 2.3 gm/dl (2.5-4.0); Phosphorus 3.2 mg/dl (2.5-4.9); Potassium 4.9 mmol/L (3.5-5.1); Total Protein 5.5 gm/dl (6.0-8.3)
--- NOTE | 2025-03-18 08:54 | Critical Care Progress Note ---
Date of Service March 18, 2025 Assessment & Plan (1) Altered mental status: (2) Urinary retention: (3) Acute hyponatremia: (4) Dementia: (5) Benign prostatic hyperplasia: (6) Neurogenic bladder: (7) Septic shock: (8) Complicated urinary tract infection: Plan Stiven Crawley is an 89-year-old male with past medical history of oropharyngeal dysphagia, neurogenic bladder with chronic Durbin exchanged q 3 weeks, recurrent UTI, Lewy Body dementia, BPH, HTN, HLD, anxiety/depression, and carotid artery disease who is presenting from [facility] for urinary retention with likely complicated urinary tract infection and sepsis Neuro: Acute encephalopathy likely metabolic in setting of sepsis; Lewy Body dementia; Depression/anxiety -With superimposed acute metabolic encephalopathy secondary to infection -Continue memantine 28 mg HS, rivastigmine 13.3 mg topical QAM -Delirium prevention strategies -Cont sertraline CV: Septic Shock related to complicated urinary tract infection Received a total of 3.5 liters of crystalloid in ED Wean norepinephrine infusion. Titrate to maintain MAP > 65. Pulm: MAGGIE -No acute issues -Maintain SpO2 > 92% -Patient on room air -CPAP qhs GI: Oropharyngeal dysphagia NPO at this time -Speech therapy to see when appropriate : Urinary retention with chronic Durbin; BPH; Neurogenic bladder -Durbin exchanged in ED with 1500ml of urine upon placement -Monitor -Hold tamsulosin in setting of hypotension - Urology consult Renal Hyponatremia likely from poor PO intake -Hyponatremia improving with sodium chloride infusion. Heme: -No acute issues Mild hemodilution noted. Endo: Stress hyperglycemia in setting of acute infection -BG range -Monitor and initiate insulin coverage as appropriate ID: Complicated urinary tract infection Blood culture growing ESBL E. coli. Antibiotics transitioned to meropenem. White count elevated. Urine culture pending, but likely will be the same Discontinue vancomycin. Prophylaxis: -SCD for mechanical DVT prophylaxis -Lovenox for DVT chemoprophylaxis -GI prophylaxis not indicated CRITICAL CARE TIME I have personally spent 38 minutes of critical care time in the direct management of this patient. This is a life/limb threatening event. This includes time spent evaluating patient, direct bedside care, chart review, placing orders, interpretation of diagnostic studies, discussion with consultants, patient, and family members, as well as other required patient management activities. This time is exclusive of all separately billable procedures, and teaching time and separate from and in addition to any other critical care service time. Admission and Anticipated Discharge Date Admission Date: March 17, 2025 Subjective Patient seen and examined. Much more awake and alert today. Frequently moaning. Currently on Levophed infusion which has been weaned down. Also receiving IV crystalloids. Responds to vocal stimuli and opens his eyes spontaneously and is able to tell me his name. Otherwise does not answer other questions. Review of Systems Review of Systems: Unobtainable due to cognitive status Physical Exam Physical Exam: General: No acute distress, sleeping in bed. Responds to physical stimuli. Skin: Diaphoretic and warm to touch. Cardiac: Tachycardic rate in 90s and regular rhythm without murmurs gallops or rubs. Distal pulses in tact. No peripheral edema. Pulm: Clear to auscultation bilaterally without wheezes, rales or rhonchi. No respiratory distress. 93% on room air. Abdominal: Soft, nondistended. Suprapubic tenderness on palpation with some guarding noted. Bowel sounds present in all quadrants. : Durbin catheter draining dark kahlil urine. Neuro: No focal neurological deficits. Opens eyes to voice, localizes to noxious stimuli, incomprehensible sounds, pupils 2mm brisk bilaterally. Results & Data Results & Data Vital Signs (Past 12 Hours) Vital Signs Temp Pulse Resp BP Pulse Ox O2 Del Method FiO2 03/18/25 08:31 113/75 03/18/25 08:31 113/75 03/18/25 08:31 113/75 03/18/25 08:30 37.0 C 81 13 99 03/18/25 08:24 37.0 C 79 17 100 03/18/25 08:03 37.0 C 88 21 98 03/18/25 08:01 96/50 L 03/18/25 08:01 96/50 L 03/18/25 07:57 37.0 C 73 22 94 03/18/25 07:46 99/59 L 03/18/25 07:46 99/59 L 03/18/25 07:45 37.1 C 104 H 19 95 03/18/25 07:42 37.0 C 73 17 98 03/18/25 07:30 111/58 L 03/18/25 07:06 37.1 C 71 17 92 03/18/25 07:00 106/57 L 03/18/25 07:00 37.1 C 69 20 94 03/18/25 06:48 37.1 C 76 23 96 03/18/25 06:45 114/53 L 03/18/25 06:16 96/62 L 03/18/25 06:06 37.1 C 64 20 94 03/18/25 06:02 104/78 03/18/25 06:02 104/78 03/18/25 06:00 37.1 C 71 23 95 03/18/25 05:42 37.2 C 67 19 94 03/18/25 05:39 37.2 C 66 19 96 03/18/25 05:18 37.3 C 65 20 95 03/18/25 05:15 94/52 L 03/18/25 05:15 94/52 L 03/18/25 05:15 37.3 C 64 20 96 03/18/25 05:00 104/49 L 03/18/25 05:00 104/49 L 03/18/25 05:00 37.4 C 67 21 95 03/18/25 04:33 37.4 C 71 21 96 03/18/25 04:30 93/57 L 03/18/25 04:30 93/57 L 03/18/25 04:30 93/57 L 03/18/25 04:27 37.4 C 68 21 97 03/18/25 04:15 37.4 C 71 20 94 03/18/25 03:45 102/58 L 03/18/25 03:45 102/58 L 03/18/25 03:39 37.3 C 68 20 93 03/18/25 03:18 37.3 C 69 19 95 03/18/25 03:18 101/62 03/18/25 03:06 37.3 C 69 20 96 03/18/25 03:01 103/51 L 03/18/25 03:01 103/51 L 03/18/25 03:00 37.3 C 68 19 95 03/18/25 02:49 116/62 03/18/25 02:49 116/62 03/18/25 02:45 101/59 L 03/18/25 02:42 37.3 C 69 20 94 03/18/25 02:36 37.3 C 67 22 95 03/18/25 02:11 73 21 94 21 03/18/25 02:07 107/54 L 03/18/25 02:07 107/54 L 03/18/25 02:03 37.3 C 68 21 95 03/18/25 02:00 37.3 C 76 20 96 03/18/25 01:45 37.3 C 71 21 95 03/18/25 01:45 88/60 L 03/18/25 01:45 88/60 L 03/18/25 01:15 37.2 C 73 22 97 03/18/25 01:01 96/51 L 03/18/25 01:01 96/51 L 03/18/25 01:00 37.2 C 74 22 99 03/18/25 00:59 69 03/18/25 00:54 37.2 C 74 21 97 03/18/25 00:46 97/57 L 03/18/25 00:36 37.1 C 74 22 97 03/18/25 00:33 37.1 C 75 21 97 03/18/25 00:32 110/63 03/18/25 00:32 110/63 03/18/25 00:32 110/63 03/18/25 00:27 37.1 C 73 21 97 03/18/25 00:18 37.2 C 82 22 94 03/18/25 00:06 37.2 C 72 19 97 03/18/25 00:02 100/57 L 03/18/25 00:02 100/57 L 03/18/25 00:00 37.2 C 72 21 97 03/17/25 23:48 37.1 C 80 22 98 03/17/25 23:45 95/56 L 03/17/25 23:45 95/56 L 03/17/25 23:45 95/56 L 03/17/25 23:33 37.1 C 72 20 98 03/17/25 23:31 108/59 L 03/17/25 23:31 108/59 L 03/17/25 23:15 108/63 03/17/25 23:15 37.1 C 72 20 98 03/17/25 23:12 37.1 C 70 20 97 03/17/25 23:05 73 16 97 21 03/17/25 22:33 37.0 C 76 20 95 03/17/25 22:31 109/61 03/17/25 22:31 109/61 03/17/25 22:31 109/61 03/17/25 22:24 37.1 C 79 21 96 03/17/25 22:15 37.1 C 78 16 94 03/17/25 22:15 114/71 03/17/25 22:00 37.0 C 73 20 95 03/17/25 22:00 112/70 03/17/25 21:54 37.1 C 76 16 90 03/17/25 21:46 120/57 L 03/17/25 21:46 120/57 L 03/17/25 21:36 37.1 C 79 23 93 03/17/25 21:24 37.1 C 82 22 95 03/17/25 21:18 Room Air, CPAP 03/17/25 21:00 37.1 C 77 96 03/17/25 21:00 110/58 L 03/17/25 21:00 110/58 L Coding Level of Care Code 65117 CRITICAL CARE 1ST 30-74M Diagnoses Altered mental status R41.82 Urinary retention R33.9 Acute hyponatremia E87.1 Dementia G31.83; F02.81 Dementia behavioral disturbance: with behavioral disturbance Dementia type: Lewy body dementia Benign prostatic hyperplasia N40.0 Neurogenic bladder N31.9 Septic shock A41.9; R65.21 Complicated urinary tract infection N39.0 (4) Dementia Dementia behavioral disturbance: with behavioral disturbance Dementia type: Lewy body dementia Qualified Code(s): G31.83 - Dementia with Lewy bodies; F02.81 - Dementia in other diseases classified elsewhere with behavioral disturbance
--- NOTE | 2025-03-18 10:15 | Urology Consultation ---
Date of Consultation March 18, 2025 Assessment & Plan (1) Urinary retention: (2) Septic shock due to Escherichia coli: 89-year-old male who follows with urology for neurogenic bladder is currently managed with indwelling Law catheter. He presented to ED on 03/17/2025 from [facility] for evaluation of urinary retention. Bladder scan revealed >1 L and his Law catheter was exchanged. He was admitted for septic shock and complicated UTI. Patient remains in the ICU on pressors Febrile on arrival; afebrile overnight Labs reviewedcreatinine 1.09, WBC 27.68, hemoglobin 11.7 Blood cultures prelim with E. 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 Patient resides at [facility] and was complaining of pain and noted to have decreased urine output. He presented to ED on 03/17/2025 from [facility] for evaluation of urinary retention. On arrival, he was febrile and tachycardic. Lab work showed elevated lactate at 6.0, sodium 125, creatinine 1.24, WBC 6.13. He was bladder scanned and found to have greater than 1 L of urine in his bladder. Law catheter was exchanged by nursing with approximately 2 L output after exchange. Urinalysis showed 1+ blood, 3+ LE, >50 WBC, 6-10 RBC, 4+ bacteria. Workup included CT A/P which showed moderate left and mild right hydroureteronephrosis with ureters dilated to the level of the bladder. Imaging also noted bilateral lower lobe airspace opacities which could represent pneumonia or atelectasis. Large amount of stool within the rectum, no evidence for obstruction. He became hypotensive and received fluid resuscitation in the ED. He was initiated on IV Zosyn and Vancomycin empirically. Patient was admitted to the hospital medicine service for septic shock and complicated UTI. He remained hypotensive after fluid resuscitation and was admitted to the ICU and started on norepinephrine. Urology is consulted for neurogenic bladder with chronic Law catheter. Labs today reviewedcreatinine 1.09, WBC 27.68, hemoglobin 11.7. Blood cultures with E. coli, PCR showing ESBL. Currently on meropenem. Patient seen and examined in the ICU. Family at bedside. He is resting in bed, arouses to his name. Does not provide history secondary to dementia. Law intact. Allergies Allergy/AdvReac Type Severity Reaction Status Date / Time No Known Allergies Allergy Verified 03/17/25 09:08 Home Medications Medication Instructions Recorded Confirmed Type cetirizine 10 mg tablet (Zyrtec) 10 mg PO HS 03/07/21 03/17/25 History rivastigmine 13.3 mg/24 hour 13.3 mg topical QAM 03/07/21 03/17/25 History transdermal patch melatonin 5 mg tablet 5 mg PO HS 04/20/22 03/17/25 History memantine 28 mg capsule 28 mg PO HS 04/20/22 03/17/25 History sprinkle,extended release 24hr sertraline 50 mg tablet 50 mg PO HS #1 tab 06/12/22 03/17/25 Rx tamsulosin 0.4 mg capsule 0.4 mg PO HS #90 caps 07/03/22 03/17/25 Rx azelastine 137 mcg (0.1 %) nasal 2 spray intranasal BID PRN Nasal 02/20/23 03/17/25 Rx spray Congestion #90 mL acetaminophen 325 mg tablet 650 mg PO Q4H PRN Fever Or Pain 02/14/24 03/17/25 History (Tylenol) ascorbic acid (vitamin C) 500 mg 500 mg PO QAM 02/14/24 03/17/25 History tablet (Vitamin C) econazole nitrate 1 % topical cream 1 applic topical QAM PRN fungus 02/14/24 03/17/25 History fluticasone propionate 50 2 spray intranasal AMHS 02/14/24 03/17/25 History mcg/actuation nasal spray,suspension furosemide 20 mg tablet 20 mg PO QAM 02/14/24 03/17/25 History polyethylene glycol 3350 17 gram 17 g PO DAILY 02/14/24 03/17/25 History oral powder packet (Miralax) sennosides 8.6 mg-docusate sodium 1 tab-cap PO QAM 02/14/24 03/17/25 History 50 mg tablet (2-in-1 Laxative) urea 20 % topical cream 1 applic topical BID PRN feet 02/14/24 03/17/25 History Saccharomyces boulardii 250 mg 250 mg PO QAM 03/17/25 03/17/25 History capsule carboxymethylcellulose sodium 1 % 2 drp ophthalmic (eye) BID 03/17/25 03/17/25 History eye drops diclofenac sodium 1 % topical gel 4 g topical BID Pain 03/17/25 03/17/25 History ketoconazole 2 % topical cream 1 applic topical QAM Seborrheic 03/17/25 03/17/25 History germatitis metronidazole 0.75 % topical gel 1 applic topical BID Rosacea 03/17/25 03/17/25 History nystatin 100,000 unit/gram topical 1 applic topical 2XWK 03/17/25 03/17/25 History cream saliva stimulant comb. 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 Surgical History H/O colonoscopy Family History Mother Alzheimer disease Brother Arthritis Nonorganic sleep disorder Father Emphysema, unspecified Brother Leukemia Social History Smoking Status: Never smoker Second Hand Exposure: No; Do You Dip or Chew Tobacco: No; Hx Alcohol Use: No Hx Substance Use: No Preferred Language: Lithuanian Communication Ability: Unable Visual Impairment: Limited Hearing Ability: Use of Hearing Aid Staffing Operations 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 Required: No Beliefs That Will Affect Care: None marital status: Current Living Situation: Longterm Current Living Situation Comment: [facility] current occupational status: retired Other Information That Helps Us Care for You: No Feels Safe at Home: Yes caffeine: Yes Dental Care, Regularly: Yes Physical Activity Frequency: 1-2 Times per Week Seatbelt Use: always Sunscreen Use: Yes Assistive Devices: CPAP, Glasses and Hearing Aid - Bilateral Review of Systems Review of Systems: Unobtainable due to cognitive status Physical Exam Constitutional: no acute distress Respiratory: no respiratory distress and no labored breathing Gastrointestinal (Abdomen): Inspection/Auscultation: abdomen normal to inspection Musculoskeletal: Head/Neck/Chest: normocephalic Neurologic: moves all extremities Genitourinary: Law draining clear yellow Results & Data Vital Signs (Past 12 Hours) Vital Signs Temp Pulse Resp BP Pulse Ox FiO2 03/18/25 08:31 113/75 03/18/25 08:31 113/75 03/18/25 08:31 113/75 03/18/25 08:30 37.0 C 81 13 99 03/18/25 08:24 37.0 C 79 17 100 03/18/25 08:03 37.0 C 88 21 98 03/18/25 08:01 96/50 L 03/18/25 08:01 96/50 L 03/18/25 07:57 37.0 C 73 22 94 03/18/25 07:46 99/59 L 03/18/25 07:46 99/59 L 03/18/25 07:45 37.1 C 104 H 19 95 03/18/25 07:42 37.0 C 73 17 98 03/18/25 07:30 111/58 L 03/18/25 07:06 37.1 C 71 17 92 03/18/25 07:00 106/57 L 03/18/25 07:00 37.1 C 69 20 94 03/18/25 06:48 37.1 C 76 23 96 03/18/25 06:45 114/53 L 03/18/25 06:16 96/62 L 03/18/25 06:06 37.1 C 64 20 94 03/18/25 06:02 104/78 05/07/25 06:02 104/78 03/18/25 06:00 37.1 C 71 23 95 03/18/25 05:42 37.2 C 67 19 94 03/18/25 05:39 37.2 C 66 19 96 03/18/25 05:18 37.3 C 65 20 95 03/18/25 05:15 94/52 L 03/18/25 05:15 94/52 L 03/18/25 05:15 37.3 C 64 20 96 03/18/25 05:00 104/49 L 03/18/25 05:00 104/49 L 03/18/25 05:00 37.4 C 67 21 95 03/18/25 04:33 37.4 C 71 21 96 03/18/25 04:30 93/57 L 03/18/25 04:30 93/57 L 03/18/25 04:30 93/57 L 03/18/25 04:27 37.4 C 68 21 97 03/18/25 04:15 37.4 C 71 20 94 03/18/25 03:45 102/58 L 03/18/25 03:45 102/58 L 03/18/25 03:39 37.3 C 68 20 93 03/18/25 03:18 37.3 C 69 19 95 03/18/25 03:18 101/62 03/18/25 03:06 37.3 C 69 20 96 03/18/25 03:01 103/51 L 03/18/25 03:01 103/51 L 03/18/25 03:00 37.3 C 68 19 95 03/18/25 02:49 116/62 03/18/25 02:49 116/62 03/18/25 02:45 101/59 L 03/18/25 02:42 37.3 C 69 20 94 03/18/25 02:36 37.3 C 67 22 95 03/18/25 02:11 73 21 94 21 03/18/25 02:07 107/54 L 03/18/25 02:07 107/54 L 03/18/25 02:03 37.3 C 68 21 95 03/18/25 02:00 37.3 C 76 20 96 03/18/25 01:45 37.3 C 71 21 95 03/18/25 01:45 88/60 L 03/18/25 01:45 88/60 L 03/18/25 01:15 37.2 C 73 22 97 03/18/25 01:01 96/51 L 03/18/25 01:01 96/51 L 03/18/25 01:00 37.2 C 74 22 99 03/18/25 00:59 69 03/18/25 00:54 37.2 C 74 21 97 03/18/25 00:46 97/57 L 03/18/25 00:36 37.1 C 74 22 97 03/18/25 00:33 37.1 C 75 21 97 03/18/25 00:32 110/63 03/18/25 00:32 110/63 03/18/25 00:32 110/63 03/18/25 00:27 37.1 C 73 21 97 03/18/25 00:18 37.2 C 82 22 94 03/18/25 00:06 37.2 C 72 19 97 03/18/25 00:02 100/57 L 03/18/25 00:02 100/57 L 03/18/25 00:00 37.2 C 72 21 97 03/17/25 23:48 37.1 C 80 22 98 03/17/25 23:45 95/56 L 03/17/25 23:45 95/56 L 03/17/25 23:45 95/56 L 03/17/25 23:33 37.1 C 72 20 98 03/17/25 23:31 108/59 L 03/17/25 23:31 108/59 L 03/17/25 23:15 108/63 03/17/25 23:15 37.1 C 72 20 98 03/17/25 23:12 37.1 C 70 20 97 03/17/25 23:05 73 16 97 21 03/17/25 22:33 37.0 C 76 20 95 03/17/25 22:31 109/61 03/17/25 22:31 109/61 03/17/25 22:31 109/61 03/17/25 22:24 37.1 C 79 21 96 03/17/25 22:15 37.1 C 78 16 94 03/17/25 22:15 114/71 PG Care Time/CCT Total # of Minutes Spent Total Time Spent with Patient: Total time spent is greater than 50% in coordination of care (as documented) at patient's floor/unit and/or counseling patient: Coding Level of Care Code 51651 INT INP/OBS CARE 2/55MIN Diagnoses Urinary retention R33.9 Septic shock due to Escherichia coli A41.51; R65.21
[2025-03-18] MEDS: MEMANTINE HCL 10 MG TAB PO SCH (11:02)
[2025-03-18] MEDS: MEROPENEM 2,000 MG in SODIUM CHLORIDE 0.9% 60 ML IV SCH (11:04)
[2025-03-18] MEDS: DOCUSATE SODIUM/SENNA 50/8.6MG TAB PO SCH (11:04)
[2025-03-18] MEDS: ACETAMINOPHEN 325 MG TAB PO PRN (14:26)
--- NOTE | 2025-03-18 17:45 | Hospitalist Progress Note ---
Date of Service March 18, 2025 Assessment & Plan (1) Septic shock: (2) Catheter-associated urinary tract infection: (3) Bacteremia: (4) Acute metabolic encephalopathy: (5) Hydroureteronephrosis: (6) Acute hyponatremia: (7) Benign prostatic hyperplasia: (8) Neurogenic bladder: (9) Chronic indwelling Law catheter: (10) Lewy body dementia: Plan 89-year-old male with oropharyngeal dysphagia, neurogenic bladder with urinary retention requiring chronic indwelling law, recurrent UTI, Lewy body dementia, BPH, MAGGIE, dyslipidemia, depression/anxiety. He presented from [facility] for urinary retention. He was bladder scanned and found to have > 1 L of urine in his bladder. He was admitted for severe sepsis secondary to catheter- associated UTI. #Septic shock / gram negative bacteremia - -BioFire from the blood with e.coli; +resistance gene detected -changed to meropenem overnight -source - UTI -due to hydronephrosis, etc. will check blood cx's x 2 sets in am tomorrow to ensure clearance -cont levophed + IVF for BP support -appreciate critical care assistance #Acute metabolic encephalopathy - -2nd to bacteremia/UTI -supportive care #Catheter-associated UTI - -urine cx with GNR - likely to be e.coli as blood cx's + for such -CT a/p findings with moderate left and mild right hydroureteronephrosis with ureters dilated to the level of the bladder -Law catheter exchanged in ED on admission -urology consult appreciated; no plans for any urological intervention -hydronephrosis in the setting of chronic law --- urinary reflux? -hold Flomax in the setting of septic shock #Hyponatremia - -Na 125 on admission - likely secondary to volume depletion, chronic lasix use, etc. -Na today 129 -BMP am #Dysphagia - -Previously speech therapy recommended pured diet. - reports he is on nectar thick liquids at [facility]. -Speech therapy consulted for updated recommendations. #Lewy body dementia - -With superimposed acute metabolic encephalopathy secondary to infection -Continue memantine 28 mg HS, rivastigmine 13.3 mg topical QAM #Depression with anxiety - -Continue sertraline 50 mg HS #MAGGIE - -CPAP HS #DVT proph - -lovenox 40mg daily -of note - patient has LLE edema that is worse than RLE edema; given bed-bound/wheelchair-bound status consider doppler of LLE to r/o DVT updated at bedside Admission and Anticipated Discharge Date Admission Date: March 17, 2025 Subjective pt sleeping upon arrival at bedside pt's spouse states he is better mental status momin today at baseline he does not walk; he is lift dependent and wheelchair dependent has had foleys for about 2 years Review of Systems Review of Systems: Unobtainable due to cognitive status Physical Exam Physical Exam: gen - lethargic/sleepy; but does wake up to name being called, but unable to provide meaningful history mouth - MM dry neck - no JVD heart - RRR, s1 s2 lungs - CTA b/l, decreased BS bases abd - soft NT ND BS+ ext - mild (1+) edema left donis/ankle/foot; trace edema RLE; pulses b/l feet 1+ at best, cool to touch psych - oriented to person only Results & Data Results & Data Vital Signs (Past 12 Hours) Vital Signs Temp Pulse Resp BP Pulse Ox O2 Del Method 03/18/25 17:18 37.9 C H 75 21 97 03/18/25 17:15 102/49 L 03/18/25 17:09 37.9 C H 87 22 97 03/18/25 17:00 115/49 L 03/18/25 17:00 37.9 C H 80 19 97 03/18/25 16:45 112/48 L 03/18/25 16:45 37.9 C H 94 H 13 100 03/18/25 16:18 38.0 C H 75 12 99 03/18/25 16:15 87/43 L 03/18/25 16:15 87/43 L 03/18/25 16:09 38.0 C H 72 19 98 03/18/25 16:03 38.0 C H 71 24 97 03/18/25 16:00 87/48 L 03/18/25 16:00 87/48 L 03/18/25 15:51 38.0 C H 71 22 99 03/18/25 15:45 96/43 L 03/18/25 15:45 96/43 L 03/18/25 15:45 38.0 C H 92 H 25 H 95 03/18/25 15:36 38.0 C H 71 20 98 03/18/25 15:31 93/40 L 05/07/25 15:15 94/43 L 03/18/25 15:00 38.0 C H 103 H 18 100 03/18/25 14:51 38.1 C H 74 21 98 03/18/25 14:45 96/56 L 03/18/25 14:42 38.1 C H 72 23 98 03/18/25 14:30 106/53 L 03/18/25 14:27 38.1 C H 73 22 99 03/18/25 14:18 38.1 C H 83 21 98 03/18/25 14:15 102/47 L 03/18/25 14:15 102/47 L 03/18/25 14:06 38.0 C H 81 21 98 03/18/25 14:00 98/43 L 03/18/25 14:00 98/43 L 03/18/25 14:00 98/43 L 03/18/25 13:54 38.0 C H 72 23 98 03/18/25 13:48 38.0 C H 75 22 98 03/18/25 13:45 83/63 L 03/18/25 13:45 83/63 L 03/18/25 13:45 83/63 L 03/18/25 13:45 83/63 L 03/18/25 13:36 37.9 C H 73 22 98 03/18/25 13:33 38.0 C H 74 20 98 03/18/25 13:30 86/43 L 03/18/25 13:30 86/43 L 03/18/25 13:30 86/43 L 03/18/25 13:27 38.0 C H 78 22 99 03/18/25 13:16 81/39 L 03/18/25 13:16 81/39 L 03/18/25 13:16 81/39 L 03/18/25 13:12 38.0 C H 75 21 98 03/18/25 11:30 37.5 C 81 18 93 03/18/25 11:30 122/79 03/18/25 11:30 122/79 03/18/25 11:21 37.4 C 76 19 94 03/18/25 11:16 118/49 L 03/18/25 11:03 37.4 C 75 23 94 03/18/25 11:00 103/61 05/07/25 11:00 103/61 03/18/25 11:00 37.3 C 80 20 92 03/18/25 10:45 124/54 L 03/18/25 10:45 124/54 L 03/18/25 10:45 37.3 C 77 23 97 03/18/25 10:30 37.3 C 73 22 97 03/18/25 10:21 37.2 C 75 22 98 03/18/25 10:15 99/53 L 03/18/25 10:15 99/53 L 03/18/25 10:09 37.2 C 71 15 98 03/18/25 10:00 105/52 L 03/18/25 10:00 37.1 C 71 23 99 03/18/25 09:48 37.1 C 74 13 97 03/18/25 09:46 106/55 L 03/18/25 09:46 106/55 L 03/18/25 09:30 104/51 L 03/18/25 09:27 37.0 C 72 20 98 03/18/25 09:15 83/58 L 03/18/25 09:15 37.0 C 98 H 20 99 03/18/25 09:09 37.0 C 72 22 98 03/18/25 09:00 111/59 L 03/18/25 08:46 118/72 03/18/25 08:46 118/72 03/18/25 08:45 36.9 C 71 12 98 03/18/25 08:33 37.0 C 71 24 97 03/18/25 08:31 113/75 03/18/25 08:31 113/75 03/18/25 08:31 113/75 03/18/25 08:30 37.0 C 81 13 99 03/18/25 08:24 37.0 C 79 17 100 03/18/25 08:03 37.0 C 88 21 98 03/18/25 08:01 96/50 L 03/18/25 08:01 96/50 L 03/18/25 08:00 Room Air 03/18/25 08:00 Room Air, CPAP 03/18/25 07:57 37.0 C 73 22 94 03/18/25 07:46 99/59 L 03/18/25 07:46 99/59 L 03/18/25 07:45 37.1 C 104 H 19 95 03/18/25 07:42 37.0 C 73 17 98 03/18/25 07:30 111/58 L 03/18/25 07:06 37.1 C 71 17 92 03/18/25 07:00 106/57 L 03/18/25 07:00 37.1 C 69 20 94 03/18/25 06:48 37.1 C 76 23 96 03/18/25 06:45 114/53 L 03/18/25 06:16 96/62 L 03/18/25 06:06 37.1 C 64 20 94 03/18/25 06:02 104/78 03/18/25 06:02 104/78 03/18/25 06:00 37.1 C 71 23 95 Laboratory Results Laboratory Results - last 24 hr 03/17/25 03/18/25 03/18/25 08:43 00:30 04:58 WBC 27.68 H D RBC 3.80 L Hgb 11.7 L D Hct 33.5 L MCV 88.2 MCH 30.8 MCHC 34.9 RDW Std Deviation 44.3 RDW Coeff of Rodolfo 13.8 Plt Count 117 L MPV 10.2 Immature Gran % (Auto) 3.4 Neut % (Auto) 87.5 Lymph % (Auto) 2.2 [place] % (Auto) 6.3 Eos % (Auto) 0.5 Baso % (Auto) 0.1 Neut # (Auto) 24.21 H Lymph # (Auto) 0.61 L [place] # (Auto) 1.74 H Eos # (Auto) 0.15 Baso # (Auto) 0.04 Immature Gran # (Auto) 0.93 H Hypogranular Neuts 1+ Toxic Vacuolation 1+ Polychromasia 1+ Echinocytes 3+ Sodium Cancelled Potassium Cancelled Chloride Cancelled Carbon Dioxide Cancelled Anion Gap Cancelled BUN Cancelled Creatinine Cancelled Est Cr Clr Drug Dosing Cancelled eGFR Cancelled BUN/Creatinine Ratio Cancelled Glucose Cancelled POC Glucose 89 Calcium Cancelled Phosphorus Cancelled Magnesium Cancelled Total Bilirubin Cancelled AST Cancelled ALT Cancelled Alkaline Phosphatase Cancelled Total Protein Cancelled Albumin Cancelled Globulin Cancelled Albumin/Globulin Ratio Cancelled Procalcitonin 38.60 H Random Vancomycin 9.5 L Enterobacterales (PCR) DETECTED A E. coli (PCR) DETECTED A mcr-1 Colistin Res Gene PCR Not Detected blaIMP Car res Gene PCR Not Detected KPC-Carbap Res Gene PCR Not Detected blaNDM Car Res Gene PCR Not Detected OXA-48 Carbapenem Resis Gene (PCR) Not Detected blaVIM Car Res Gene PCR Not Detected CTX-M Gene Resistance (PCR) DETECTED A* Bld Cult ID Panel PCR See PCR Comment 03/18/25 03/18/25 03/18/25 06:19 07:50 17:34 WBC RBC Hgb Hct MCV MCH MCHC RDW Std Deviation RDW Coeff of Rodolfo Plt Count MPV Immature Gran % (Auto) Neut % (Auto) Lymph % (Auto) [place] % (Auto) Eos % (Auto) Baso % (Auto) Neut # (Auto) Lymph # (Auto) [place] # (Auto) Eos # (Auto) Baso # (Auto) Immature Gran # (Auto) Hypogranular Neuts Toxic Vacuolation Polychromasia Echinocytes Sodium Cancelled 129 L Potassium Cancelled 4.9 D Chloride Cancelled 98 Carbon Dioxide Cancelled 27 Anion Gap Cancelled 4 BUN Cancelled 23 Creatinine Cancelled 1.09 Est Cr Clr Drug Dosing Cancelled 53.4 eGFR Cancelled 64.87 BUN/Creatinine Ratio Cancelled 21.1 H Glucose Cancelled 84 POC Glucose 103 H Calcium Cancelled 7.9 L Phosphorus Cancelled 3.2 Magnesium Cancelled 2.0 Total Bilirubin Cancelled 0.5 AST Cancelled 28 ALT Cancelled 13 Alkaline Phosphatase Cancelled 47 Total Protein Cancelled 5.5 L D Albumin Cancelled 3.2 L Globulin Cancelled 2.3 L Albumin/Globulin Ratio Cancelled 1.4 Procalcitonin Random Vancomycin Enterobacterales (PCR) E. coli (PCR) mcr-1 Colistin Res Gene PCR blaIMP Car res Gene PCR KPC-Carbap Res Gene PCR blaNDM Car Res Gene PCR OXA-48 Carbapenem Resis Gene (PCR) blaVIM Car Res Gene PCR CTX-M Gene Resistance (PCR) Bld Cult ID Panel PCR Diagnostic Findings Microbiology 03/17/25 08:43 Blood Aerobic Blood Culture - Preliminary Escherichia coli 03/17/25 08:43 Blood Anaerobic Blood Culture - Final 03/17/25 08:43 Blood Aerobic Blood Culture - Preliminary Escherichia coli 03/17/25 08:43 Blood Anaerobic Blood Culture - Final 03/17/25 08:24 Urine,Indwelling Cath Urine Culture - Preliminary Escherichia coli PG Care Time/CCT Total # of Minutes Spent Total Time Spent with Patient: Total time spent is greater than 50% in coordination of care (as documented) at patient's floor/unit and/or counseling patient: Coding Level of Care Code 24433 SUB INP/OBS CARE 12/06MIN Diagnoses Septic shock A41.9; R65.21 Catheter-associated urinary tract infection T83.511A; N39.0 Bacteremia R78.81 Acute metabolic encephalopathy G93.41 Hydroureteronephrosis N13.30 Acute hyponatremia E87.1 Benign prostatic hyperplasia N40.0 Neurogenic bladder N31.9 Chronic indwelling Law catheter Z97.8 Lewy body dementia G31.83; F02.80
--- NOTE | 2025-03-18 22:04 | Electrocardiogram Report ---
Test Reason : Blood Pressure : */* mmHG Vent. Rate : 84 BPM Atrial Rate : 84 BPM P-R Int : 192 ms QRS Dur : 70 ms QT Int : 336 ms P-R-T Axes : 51 20 54 degrees QTcB Int : 397 ms Normal sinus rhythm Low voltage QRS Borderline ECG When compared with ECG of 14-Feb-2024 16:53, No significant change Confirmed by Delroy Pierre ([id number] on 03/18/2025 10:04:37 PM Referred By: REFERRED SELF Confirmed By: Delroy Pierre
--- NOTE | 2025-03-18 22:04 | Electrocardiogram Report ---
Test Reason : Blood Pressure : */* mmHG Vent. Rate : 113 BPM Atrial Rate : 113 BPM P-R Int : 176 ms QRS Dur : 64 ms QT Int : 302 ms P-R-T Axes : 50 -31 61 degrees QTcB Int : 414 ms Poor data quality, interpretation may be adversely affected Sinus tachycardia Possible Left atrial enlargement Left axis deviation Low voltage QRS Nonspecific ST abnormality Abnormal ECG When compared with ECG of 14-Feb-2024 16:53, QRS axis Shifted left Confirmed by Delroy Pierre ([id number] on 03/18/2025 10:04:05 PM Referred By: REFERRED SELF Confirmed By: Delroy Pierre
[2025-03-19 05:25] LABS: Hematocrit (blood only) 34.3 % (42.0-52.0); Mean Corpuscular Hemoglobin 30.5 pg (25.0-34.0); Mean Corpuscular Volume 87.3 fL (80.0-100.0); Mean Platelet Volume 10.4 fL (9.4-12.4); Platelet Count 124 K/uL (130-400); RDW Coefficient of Variation 13.8 % (11.5-14.5); RDW Standard Deviation 44.5 fL (36.4-46.3); Red Blood Count 3.93 M/uL (4.70-6.10); White Blood Count 15.75 K/ul (4.8-10.8)
[2025-03-19 05:36] LABS: BUN Creatinine Ratio 20.9 (10-20); Calcium 7.8 mg/dl (8.6-10.3); Creatinine Clr Calc Pharmacy 67.7 ml/min; Phosphorus 2.2 mg/dl (2.5-4.9); Potassium 3.9 mmol/L (3.5-5.1)
[2025-03-19 05:39] LABS: Basophils # (auto) 0.02 K/uL (0.00-0.20); Basophils % (auto) 0.1 %; Echinocytes 1+; Eosinophils # (auto) 0.18 K/uL (0.00-0.50); Eosinophils % (auto) 1.1 %; Immature Granulocytes # (auto) 0.15 K/uL (0.01-0.20); Lymphocytes # (auto) 0.38 K/uL (1.20-3.40); Lymphocytes % (auto) 2.4 %; Monocytes % (auto) 3.8 %; Neutrophils # (auto) 14.42 K/uL (1.40-6.50); Neutrophils % (auto) 91.6 %; Polychromasia 1+
[2025-03-19] MEDS ORDERED: POTASSIUM PHOS 3 MMOL/1 ML INFUSION IV STA (06:18)
[2025-03-19] MEDS: ICU ELECTROLYTE REPLACEMENT PROTOCOL SCH (06:46)
[2025-03-19] MEDS: POTASSIUM PHOSPHATE 21 MMOL in SODIUM CHLORIDE 0.9% 500 ML IV ONE (06:47)
--- NOTE | 2025-03-19 09:14 | Critical Care Progress Note ---
Date of Service March 19, 2025 Assessment & Plan (1) Altered mental status: (2) Urinary retention: (3) Acute hyponatremia: (4) Dementia: (5) Benign prostatic hyperplasia: (6) Neurogenic bladder: (7) Septic shock: (8) Complicated urinary tract infection: (9) E coli bacteremia: Plan Stiven Crawley is an 89-year-old male with past medical history of oropharyngeal dysphagia, neurogenic bladder with chronic Durbin exchanged q 3 weeks, recurrent UTI, Lewy Body dementia, BPH, HTN, HLD, anxiety/depression, and carotid artery disease who is presenting from [facility] for urinary retention with likely complicated urinary tract infection and sepsis Neuro: Acute encephalopathy likely metabolic in setting of sepsis; Lewy Body dementia; Depression/anxiety -With superimposed acute metabolic encephalopathy secondary to infection -Continue memantine 28 mg HS, rivastigmine 13.3 mg topical QAM -Delirium prevention strategies -Cont sertraline CV: Septic Shock related to complicated urinary tract infection Septic shock appears to be resolving. Will initiate midodrine given mild hypotension and can wean off as needed. Pulm: MAGGIE -No acute issues -Maintain SpO2 > 92% -Patient on room air -CPAP qhs GI: Oropharyngeal dysphagia -Continue diet per speech recommendations. : Urinary retention with chronic Durbin; BPH; Neurogenic bladder -Durbin exchanged in ED with 1500ml of urine upon placement -Monitor -Hold tamsulosin in setting of hypotension - Appreciate urology input. Outpatient follow-up. Renal Hyponatremia likely from poor PO intake - Sodium improving. Heme: -No acute issues Mild hemodilution noted. Endo: Stress hyperglycemia in setting of acute infection -BG range -Monitor and initiate insulin coverage as appropriate ID: Complicated urinary tract infection Continue IV meropenem day 2 for ESBL E. coli. Recommend 7 to 10 days of antibiotics. Discontinue vancomycin. Prophylaxis: -SCD for mechanical DVT prophylaxis -Lovenox for DVT chemoprophylaxis -GI prophylaxis not indicated If patient remains off pressors, can transfer out of ICU. Admission and Anticipated Discharge Date Admission Date: March 17, 2025 Subjective This morning patient has been afebrile. He is off his pressors for the past 2 hours. He was able to eat his breakfast with assistance. IV fluids have been discontinued. He grunts and can occasionally answer simple questions. Review of Systems Review of Systems: All systems reviewed & are unremarkable except as noted in HPI & below Physical Exam Physical Exam: General: No acute distress, sleeping in bed. Opens eyes spontaneously. Occasionally grunting. Answer some questions. Skin: No obvious rashes or lesions. Cardiac: Tachycardic rate and regular rhythm without murmurs gallops or rubs. Distal pulses in tact. No peripheral edema. Pulm: Clear to auscultation bilaterally without wheezes, rales or rhonchi. No respiratory distress. 93% on room air. Abdominal: Soft, nondistended. Suprapubic tenderness on palpation with some guarding noted. Bowel sounds present in all quadrants. : Durbin catheter draining dark kahlil urine. Neuro: No focal neurological deficits. Opens eyes to voice, localizes to noxious stimuli, incomprehensible sounds, pupils 2mm brisk bilaterally. Results & Data Results & Data Vital Signs (Past 12 Hours) Vital Signs Temp Pulse Resp BP Pulse Ox FiO2 03/19/25 06:45 105/80 03/19/25 06:45 105/80 03/19/25 06:42 37.4 C 109 H 27 H 96 03/19/25 06:33 37.5 C 116 H 20 96 03/19/25 06:30 114/71 03/19/25 06:30 114/71 03/19/25 06:24 37.5 C 115 H 16 97 03/19/25 06:15 87/69 L 03/19/25 06:15 87/69 L 03/19/25 06:15 87/69 L 03/19/25 06:15 87/69 L 03/19/25 06:09 71/56 L 03/19/25 06:09 37.5 C 112 H 23 95 03/19/25 06:07 73/56 L 03/19/25 06:07 73/56 L 03/19/25 06:03 37.6 C H 114 H 24 97 03/19/25 05:51 37.6 C H 116 H 23 96 03/19/25 05:46 104/77 03/19/25 05:45 37.6 C H 120 H 21 94 03/19/25 05:30 109/74 03/19/25 05:30 109/74 03/19/25 05:30 109/74 03/19/25 05:30 37.7 C H 120 H 21 92 03/19/25 05:15 37.8 C H 67 21 95 03/19/25 05:00 37.7 C H 72 21 92 03/19/25 04:48 37.8 C H 65 21 95 03/19/25 04:45 90/57 L 03/19/25 04:45 90/57 L 03/19/25 04:45 90/57 L 03/19/25 04:30 98/61 L 03/19/25 04:30 98/61 L 03/19/25 04:24 37.7 C H 65 18 95 03/19/25 04:23 65 18 95 03/19/25 04:15 110/54 L 03/19/25 04:09 37.8 C H 68 17 94 03/19/25 04:00 106/56 L 03/19/25 04:00 106/56 L 03/19/25 04:00 37.8 C H 68 19 93 03/19/25 03:45 37.8 C H 69 18 95 03/19/25 03:45 115/64 03/19/25 03:45 115/64 03/19/25 03:45 115/64 03/19/25 03:30 37.9 C H 73 20 98 03/19/25 03:15 105/57 L 03/19/25 03:15 37.9 C H 71 20 97 03/19/25 03:00 108/56 L 03/19/25 03:00 37.9 C H 73 19 97 03/19/25 02:45 114/55 L 03/19/25 02:42 37.9 C H 73 20 97 03/19/25 02:33 38.0 C H 75 20 97 03/19/25 02:30 108/54 L 03/19/25 02:30 108/54 L 03/19/25 02:18 38.0 C H 77 21 97 03/19/25 02:15 120/63 03/19/25 02:15 38.0 C H 76 19 98 03/19/25 02:12 38.0 C H 77 20 97 03/19/25 01:45 133/63 03/19/25 01:45 133/63 03/19/25 01:45 38.1 C H 81 19 97 03/19/25 01:30 111/67 03/19/25 01:30 38.1 C H 82 19 98 03/19/25 01:15 130/68 03/19/25 00:54 38.1 C H 75 20 96 03/19/25 00:45 107/75 03/19/25 00:45 38.0 C H 75 19 96 03/19/25 00:39 38.0 C H 73 21 96 03/19/25 00:31 107/61 03/19/25 00:16 105/59 L 03/18/25 23:51 37.9 C H 72 22 96 03/18/25 23:46 116/45 L 03/18/25 23:33 37.9 C H 69 20 97 03/18/25 23:30 37.9 C H 96 H 22 97 03/18/25 23:30 118/53 L 03/18/25 23:20 74 19 100 21 03/18/25 23:12 37.9 C H 68 21 97 03/18/25 23:05 69 03/18/25 23:03 37.9 C H 70 22 97 03/18/25 23:00 99/46 L 03/18/25 23:00 99/46 L 03/18/25 22:45 37.9 C H 89 23 96 03/18/25 22:42 37.9 C H 72 21 97 03/18/25 21:42 37.8 C H 72 22 97 03/18/25 21:30 98/51 L 03/18/25 21:30 37.9 C H 72 22 100 03/18/25 21:24 37.9 C H 72 16 98 03/18/25 21:12 37.8 C H 73 23 97 Coding Level of Care Code 91159 SUB INP/OBS CARE 2/35MIN Diagnoses Altered mental status R41.82 Urinary retention R33.9 Acute hyponatremia E87.1 Dementia G31.83; F02.81 Dementia behavioral disturbance: with behavioral disturbance Dementia type: Lewy body dementia Benign prostatic hyperplasia N40.0 Neurogenic bladder N31.9 Septic shock A41.9; R65.21 Complicated urinary tract infection N39.0 E coli bacteremia R78.81; B96.20 (4) Dementia Dementia behavioral disturbance: with behavioral disturbance Dementia type: Lewy body dementia Qualified Code(s): G31.83 - Dementia with Lewy bodies; F02.81 - Dementia in other diseases classified elsewhere with behavioral disturbance
[2025-03-19] MEDS: MIDODRINE HCL 2.5 MG TAB PO SCH (12:24)
[2025-03-19] MEDS: ACETAMINOPHEN 1,000 MG/100 ML VIAL IV PRN (14:17)
--- NOTE | 2025-03-19 17:42 | Hospitalist Progress Note ---
Date of Service March 19, 2025 Assessment & Plan (1) Septic shock: (2) Catheter-associated urinary tract infection: (3) Bacteremia: (4) Acute metabolic encephalopathy: (5) Hydroureteronephrosis: (6) Acute hyponatremia: (7) Benign prostatic hyperplasia: (8) Neurogenic bladder: (9) Chronic indwelling Law catheter: (10) Lewy body dementia: Plan 89-year-old male with oropharyngeal dysphagia, neurogenic bladder with urinary retention requiring chronic indwelling law, recurrent UTI, Lewy body dementia, BPH, MAGGIE, dyslipidemia, depression/anxiety. He presented from [facility] for urinary retention. He was bladder scanned and found to have > 1 L of urine in his bladder. He was admitted for severe sepsis secondary to catheter- associated UTI. #Septic shock / ESBL e. coli bacteremia - -remains on meropenem - day #2 of such -source - UTI -repeat blood cx's x 2 sent today to ensure clearance -levophed weaned off this am -BPs now stable on low-dose midodrine -appreciate critical care assistance #Acute metabolic encephalopathy - -2nd to bacteremia/UTI -supportive care -fortunately no agitation -should slowly improve with Rx of bacteremia/UTI #Catheter-associated UTI - -urine cx with ESBL e.coli -complicated by bacteremia -CT a/p findings with moderate left and mild right hydroureteronephrosis with ureters dilated to the level of the bladder -Law catheter exchanged in ED on admission -urology consult appreciated; no plans for any urological intervention -hydronephrosis in the setting of chronic law --- urinary reflux? -hold Flomax in the setting of recent septic shock - resume later in the stay when BPs allow #Hyponatremia - -Na 125 on admission - likely secondary to volume depletion, chronic lasix use, etc. -Na today 132 -BMP am #Dysphagia - -Previously speech therapy recommended pured diet - reports he is on nectar thick liquids at [facility] -Speech therapy consulted and video swallow planned for tomorrow #Lewy body dementia - -With superimposed acute metabolic encephalopathy secondary to infection -Continue memantine and rivastigmine #Depression with anxiety - -Continue sertraline 50 mg HS #MAGGIE - -CPAP HS #DVT proph - -lovenox 40mg daily #constipation - -large stool ball on admission CT -resolved, s/p 2 large BMs last 24 hours -add senna + miralax - both scheduled - for bowel maintenance -of note - patient has LLE edema that is worse than RLE edema; given bed-bound/wheelchair-bound status consider doppler of LLE to r/o DVT updated at bedside once again today to d/c ICU status and move to PCU status today Admission and Anticipated Discharge Date Admission Date: March 17, 2025 Subjective pressors weaned off this am since then BPs have been stable at bedside during the visit she reports he ate pretty well today had large BM per staff remains confused no o2 requirement Review of Systems Review of Systems: Unobtainable due to cognitive status (sleeping soundly during my visit ) does report that his left leg tends to be larger & more swollen than the right leg Physical Exam Physical Exam: gen - sleeping, snoring loudly, with some hypopneas mouth - MMM neck - no JVD heart - RRR, s1 s2, no murmur lungs - CTA b/l, decreased BS bases - no change abd - soft NT ND BS+ ext - mild (1+) edema left donis/ankle/foot; trace edema RLE; pulses b/l feet 1- 2+; better perfusion today skin - erythematous papules and ?vesicles left foot, minimal vesicular rash right foot (dorsum of both feet) Results & Data Results & Data Vital Signs (Past 12 Hours) Vital Signs Temp Pulse Resp BP Pulse Ox O2 Del Method 03/19/25 15:03 38.1 C H 62 22 100 03/19/25 15:00 99/47 L 03/19/25 14:51 38.1 C H 61 21 100 03/19/25 14:03 38.1 C H 65 21 98 03/19/25 14:00 105/51 L 03/19/25 13:39 38.2 C H 66 17 99 03/19/25 13:03 38.0 C H 69 17 97 03/19/25 13:00 90/57 L 03/19/25 12:57 38.0 C H 69 20 98 03/19/25 12:51 38.0 C H 69 20 97 03/19/25 12:06 37.8 C H 76 24 98 03/19/25 12:01 104/66 03/19/25 11:51 37.7 C H 87 25 H 97 03/19/25 11:36 37.7 C H 77 21 98 03/19/25 11:00 37.6 C H 109 H 18 96 03/19/25 10:39 37.6 C H 110 H 13 97 03/19/25 10:03 37.6 C H 135 H 11 L 97 03/19/25 10:01 92/71 L 03/19/25 10:00 37.6 C H 109 H 24 96 03/19/25 10:00 Room Air 03/19/25 09:36 37.5 C 109 H 24 96 03/19/25 09:20 83/61 L 03/19/25 09:15 77/56 L 03/19/25 09:15 37.4 C 103 H 23 98 03/19/25 09:00 37.4 C 102 H 24 97 03/19/25 09:00 92/70 L 03/19/25 08:36 37.4 C 96 H 24 97 03/19/25 08:15 94/70 L 03/19/25 08:06 37.3 C 104 H 11 L 98 03/19/25 08:00 89/64 L 03/19/25 07:57 37.4 C 104 H 12 100 03/19/25 07:46 91/67 L 03/19/25 07:42 37.4 C 103 H 12 97 03/19/25 07:36 37.4 C 104 H 15 97 03/19/25 07:32 99/61 L 03/19/25 07:15 106/60 03/19/25 07:12 37.4 C 102 H 13 95 03/19/25 07:03 37.4 C 97 H 19 96 03/19/25 07:01 109/56 L 03/19/25 06:48 37.4 C 115 H 20 96 03/19/25 06:45 105/80 03/19/25 06:45 105/80 03/19/25 06:45 105/80 03/19/25 06:42 37.4 C 109 H 27 H 96 03/19/25 06:33 37.5 C 116 H 20 96 03/19/25 06:30 114/71 03/19/25 06:30 114/71 03/19/25 06:24 37.5 C 115 H 16 97 03/19/25 06:15 87/69 L 03/19/25 06:15 87/69 L 03/19/25 06:15 87/69 L 03/19/25 06:15 87/69 L 03/19/25 06:09 71/56 L 03/19/25 06:09 37.5 C 112 H 23 95 03/19/25 06:07 73/56 L 03/19/25 06:07 73/56 L 03/19/25 06:03 37.6 C H 114 H 24 97 03/19/25 05:51 37.6 C H 116 H 23 96 03/19/25 05:46 104/77 03/19/25 05:45 37.6 C H 120 H 21 94 Laboratory Results Laboratory Results - last 24 hr 03/18/25 03/19/25 03/19/25 23:39 04:47 11:15 WBC 15.75 H D RBC 3.93 L Hgb 12.0 L Hct 34.3 L MCV 87.3 MCH 30.5 MCHC 35.0 RDW Std Deviation 44.5 RDW Coeff of Rodolfo 13.8 Plt Count 124 L MPV 10.4 Immature Gran % (Auto) 1.0 Neut % (Auto) 91.6 Lymph % (Auto) 2.4 Jay % (Auto) 3.8 Eos % (Auto) 1.1 Baso % (Auto) 0.1 Neut # (Auto) 14.42 H Lymph # (Auto) 0.38 L Jay # (Auto) 0.60 H Eos # (Auto) 0.18 Baso # (Auto) 0.02 Immature Gran # (Auto) 0.15 Polychromasia 1+ Echinocytes 1+ Sodium 132 L Potassium 3.9 D Chloride 103 Carbon Dioxide 26 Anion Gap 3 BUN 18 Creatinine 0.86 Est Cr Clr Drug Dosing 67.7 eGFR 82.77 BUN/Creatinine Ratio 20.9 H Glucose 106 H POC Glucose 106 H 83 Calcium 7.8 L Phosphorus 2.2 L D Magnesium 2.0 Random Cortisol 24.34 03/19/25 03/19/25 16:28 20:42 WBC RBC Hgb Hct MCV MCH MCHC RDW Std Deviation RDW Coeff of Rodolfo Plt Count MPV Immature Gran % (Auto) Neut % (Auto) Lymph % (Auto) Jay % (Auto) Eos % (Auto) Baso % (Auto) Neut # (Auto) Lymph # (Auto) Jay # (Auto) Eos # (Auto) Baso # (Auto) Immature Gran # (Auto) Polychromasia Echinocytes Sodium Potassium Chloride Carbon Dioxide Anion Gap BUN Creatinine Est Cr Clr Drug Dosing eGFR BUN/Creatinine Ratio Glucose POC Glucose 139 H 93 Calcium Phosphorus Magnesium Random Cortisol Diagnostic Findings Microbiology 03/17/25 08:24 Urine,Indwelling Cath Urine Culture - Final Escherichia coli ESBL 03/17/25 08:43 Blood Aerobic Blood Culture - Preliminary Escherichia coli ESBL 03/17/25 08:43 Blood Anaerobic Blood Culture - Final 03/17/25 08:43 Blood Aerobic Blood Culture - Preliminary Escherichia coli ESBL 03/17/25 08:43 Blood Anaerobic Blood Culture - Final PG Care Time/CCT Total # of Minutes Spent Total Time Spent with Patient: Total time spent is greater than 50% in coordination of care (as documented) at patient's floor/unit and/or counseling patient: Coding Level of Care Code 44452 SUB INP/OBS CARE 12/06MIN Diagnoses Septic shock A41.9; R65.21 Catheter-associated urinary tract infection T83.511A; N39.0 Bacteremia R78.81 Acute metabolic encephalopathy G93.41 Hydroureteronephrosis N13.30 Acute hyponatremia E87.1 Benign prostatic hyperplasia N40.0 Neurogenic bladder N31.9 Chronic indwelling Law catheter Z97.8 Lewy body dementia G31.83; F02.80
[2025-03-20 05:41] LABS: Calcium 8.2 mg/dl (8.6-10.3); Creatinine Clr Calc Pharmacy 69.3 ml/min; Magnesium 1.9 mg/dl (1.7-2.4); Phosphorus 2.5 mg/dl (2.5-4.9); Potassium 4.5 mmol/L (3.5-5.1)
[2025-03-20] MEDS: SENNA 8.6 MG TAB PO SCH (08:02)
[2025-03-20] MEDS: POLYETHYLENE (MIRALAX) 17 GM PACK PO SCH (08:02)
[2025-03-20] MEDS: MIDODRINE HCL 2.5 MG TAB PO SCH (11:05)
--- NOTE | 2025-03-20 11:42 | Fluoroscopy Report ---
FL video swallow CLINICAL HISTORY: assess for aspiration. TECHNIQUE: Video fluoroscopic evaluation of swallowing was performed in the AP and lateral projection s by the speech pathology staff. The patient is fed nectar-thick and thin liquid barium, a barium coa randi wafer, and barium pudding. FLUOROSCOPY TIME: 1.3 minutes. COMPARISON: None FINDINGS: There is aspiration with thin liquid. IMPRESSION: The exam is positive for aspiration. ACT 112: Negative or not required by law. Electronically signed by: Sergo Nick M.D. 03/20/2025 11:40 AM
[2025-03-20] MEDS: ERTAPENEM 1000MG 1,000 MG/10 ML SYR IV SCH (17:22)
--- NOTE | 2025-03-20 18:31 | XCELERA ---
[id number] \\[id number]
--- NOTE | 2025-03-20 21:26 | Ultrasound Report ---
EXAM: US venous doppler LE LT CLINICAL HISTORY: Significant edema, left leg much larger than right. TECHNIQUE: Ultrasound examination of the left lower extremity veins was performed in real time and duplex. One or more of the following were performed: spectral analysis, resistive index, waveform analysis, and pulsed Doppler. COMPARISON: None. FINDINGS: Normal phasic, non-pulsatile, and spontaneous flow is noted in the left common femoral, GSV, superficial femoral, popliteal, anterior tibial, posterior tibial, and peroneal veins. 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 Visualized rest of the veins of the left lower extremity demonstrate normal compressibility. No sonographic evidence of acute deep vein thrombosis (DVT) is detected in the visualized veins of the lower extremity. Additional Findings: No evidence of intraluminal thrombus. IMPRESSION: 1. No sonographic evidence of acute deep-vein thrombosis was detected in the left lower extremity veins at the time of examination. 2. Left common femoral and proximal superficial femoral veins show partial compressibility, signifying either old recanalized deep-vein thrombosis or just vessel wall thickening. No acute deep-vein thrombosis is evident. Disclaimer: DVT could be missed early in the disease when clot burden is minimal. For patients with moderate and high pretest probability of DVT and negative ultrasound, the [employer] clinical guidelines recommend testing with a D-dimer assay or repeat ultrasound in 5-7 days. If symptoms worsen, the Society of radiologists in ultrasound recommends repeating ultrasound even earlier. Electronically signed by Medhat Bone 03-20-2025 9:21 PM
--- NOTE | 2025-03-20 21:37 | Hospitalist Progress Note ---
Date of Service March 20, 2025 Assessment & Plan (1) Septic shock: (2) Catheter-associated urinary tract infection: (3) Bacteremia: (4) Acute metabolic encephalopathy: (5) Hydroureteronephrosis: (6) Acute hyponatremia: (7) Benign prostatic hyperplasia: (8) Neurogenic bladder: (9) Chronic indwelling Law catheter: (10) Lewy body dementia: Plan 89-year-old male with oropharyngeal dysphagia, neurogenic bladder with urinary retention requiring chronic indwelling law, recurrent UTI, Lewy body dementia, BPH, MAGGIE, dyslipidemia, depression/anxiety. He presented from [facility] for urinary retention. He was bladder scanned and found to have > 1 L of urine in his bladder despite already having a law in place. He was admitted for severe sepsis secondary to catheter-associated UTI. #Septic shock / ESBL e. coli bacteremia - -required pressors shortly after admission; admitted to ICU; was on pressors for 24+ hours then weaned off -source - UTI -repeat blood cx's x 2 -- 03/19/25 -- remain negative -BPs now stable on low-dose midodrine - will wean off next 48 hours -appreciate critical care assistance -meropenem - day #3 of such --> can transition to once-daily IV ertapenem -plan 14 days of Rx in total #Acute metabolic encephalopathy - -2nd to bacteremia/UTI -supportive care -fortunately no agitation -should slowly improve with Rx of bacteremia/UTI #Catheter-associated UTI - -urine cx with ESBL e.coli -complicated by bacteremia -CT a/p findings with moderate left and mild right hydroureteronephrosis with ureters dilated to the level of the bladder -Law catheter exchanged in ED on admission -urology consult appreciated; no plans for any urological intervention -hydronephrosis in the setting of chronic law --- urinary reflux? -Flomax held in the setting of recent septic shock - resume when BPs allow #Hyponatremia - -Na 125 on admission - likely secondary to volume depletion, chronic lasix use, etc. -Na today 134 -BMP am for stability #Dysphagia - -Previously speech therapy recommended pured diet - reports he is on nectar thick liquids at [facility] -Speech therapy consulted and video swallow performed today showing aspiration with thins; cont nectar thick liquids; cont pureed diet #Lewy body dementia - -With superimposed acute metabolic encephalopathy secondary to infection -Continue memantine and rivastigmine #Depression with anxiety - -Continue sertraline 50 mg HS #MAGGIE - -CPAP HS #DVT proph - -lovenox 40mg daily #constipation - -large stool ball on admission CT -resolved, s/p large BMs since admisison -cont senna + miralax - both scheduled - for bowel maintenance #LLE edema - -given bedbound status at high risk of DVT - check doppler #paroxysmal a flutter - -had such AM of 03/19/25 in ICU -brief, self-resolved -echo ordered - preserved EF -will speak with about anticoagulation, pros v cons, etc. updated at bedside 03/19 Admission and Anticipated Discharge Date Admission Date: March 17, 2025 Subjective patient sleeping very soundly during the visit I called his name multiple times - did not wake was snoring he only awoke when I was examining him and that was brief tele - NSR eating w/ assistance had video swallow -- aspiration noted Review of Systems Review of Systems: Unobtainable due to cognitive status Physical Exam Physical Exam: gen - sleeping, snoring loudly, only woke briefly when I examined him neck - no JVD heart - RRR, s1 s2, no murmur lungs - CTA b/l, decreased BS bases - no change abd - soft NT ND BS+ ext - mild (1+) edema left donis/ankle/foot; trace edema RLE; pulses b/l feet 1- 2+; better perfusion today skin - erythematous papules and ?vesicles left foot, minimal vesicular rash right foot (dorsum of both feet) - tinea? eczema? Results & Data Results & Data Vital Signs (Past 12 Hours) Vital Signs Temp Pulse Resp BP BP Pulse Ox O2 Del Method 03/20/25 19:20 37.3 C 66 22 114/59 L 98 Room Air 03/20/25 15:00 37.1 C 67 20 120/60 99 Room Air 03/20/25 10:53 36.8 C 58 L 18 143/72 H 97 Room Air Laboratory Results Laboratory Results - last 48 hr 03/19/25 03/19/25 03/19/25 04:47 11:15 16:28 WBC RBC Hgb Hct MCV MCH MCHC RDW Std Deviation RDW Coeff of Rodolfo Plt Count MPV Sodium Potassium Chloride Carbon Dioxide Anion Gap BUN Creatinine Est Cr Clr Drug Dosing eGFR BUN/Creatinine Ratio Glucose POC Glucose 83 139 H Calcium Phosphorus Magnesium Random Cortisol 24.34 03/19/25 03/20/25 03/20/25 20:42 05:11 07:52 WBC RBC Hgb Hct MCV MCH MCHC RDW Std Deviation RDW Coeff of Rodolfo Plt Count MPV Sodium 134 L Potassium 4.5 Chloride 103 Carbon Dioxide 30 Anion Gap 1 L BUN 16 Creatinine 0.84 Est Cr Clr Drug Dosing 69.3 eGFR 83.36 BUN/Creatinine Ratio 19.0 Glucose 103 H POC Glucose 93 93 Calcium 8.2 L Phosphorus 2.5 Magnesium 1.9 Random Cortisol 03/20/25 03/20/25 11:17 16:16 WBC RBC Hgb Hct MCV MCH MCHC RDW Std Deviation RDW Coeff of Rodolfo Plt Count MPV Sodium Potassium Chloride Carbon Dioxide Anion Gap BUN Creatinine Est Cr Clr Drug Dosing eGFR BUN/Creatinine Ratio Glucose POC Glucose 81 109 H Calcium Phosphorus Magnesium Random Cortisol Diagnostic Findings Microbiology 03/19/25 04:47 Blood Aerobic Blood Culture - Preliminary No growth in Aerobic bottle after 48 hours. 03/19/25 04:47 Blood Anaerobic Blood Culture - Preliminary No growth in Anaerobic bottle after 48 hours. 03/19/25 05:00 Blood Aerobic Blood Culture - Preliminary No growth in Aerobic bottle after 48 hours. 03/19/25 05:00 Blood Anaerobic Blood Culture - Preliminary No growth in Anaerobic bottle after 48 hours. 03/17/25 08:24 Urine,Indwelling Cath Urine Culture - Final Escherichia coli ESBL 03/17/25 08:43 Blood Aerobic Blood Culture - Preliminary Escherichia coli ESBL 03/17/25 08:43 Blood Anaerobic Blood Culture - Final 03/17/25 08:43 Blood Aerobic Blood Culture - Preliminary Escherichia coli ESBL 03/17/25 08:43 Blood Anaerobic Blood Culture - Final PG Care Time/CCT Total # of Minutes Spent Total Time Spent with Patient: Total time spent is greater than 50% in coordination of care (as documented) at patient's floor/unit and/or counseling patient: Coding Level of Care Code 55552 SUB INP/OBS CARE 2/35MIN Diagnoses Septic shock A41.9; R65.21 Catheter-associated urinary tract infection T83.511A; N39.0 Bacteremia R78.81 Acute metabolic encephalopathy G93.41 Hydroureteronephrosis N13.30 Acute hyponatremia E87.1 Benign prostatic hyperplasia N40.0 Neurogenic bladder N31.9 Chronic indwelling Law catheter Z97.8 Lewy body dementia G31.83; F02.80
--- NOTE | 2025-03-21 04:41 | Electrocardiogram Report ---
Test Reason : Blood Pressure : */* mmHG Vent. Rate : 117 BPM Atrial Rate : 267 BPM P-R Int : * ms QRS Dur : 88 ms QT Int : 340 ms P-R-T Axes : 264 41 66 degrees QTcB Int : 474 ms Atrial flutter with variable A-V block Abnormal ECG When compared with ECG of 17-Mar-2025 11:46, Atrial flutter has replaced Sinus rhythm Questionable change in QRS duration Confirmed by Delroy Pierre ([id number]) on 03/21/2025 4:41:02 AM Referred By: REFERRED SELF Confirmed By: Delroy Pierre
[2025-03-21 05:54] LABS: Hematocrit (blood only) 34.3 % (42.0-52.0); Mean Corpuscular Hemoglobin 30.7 pg (25.0-34.0); Mean Corpuscular Volume 87.7 fL (80.0-100.0); Mean Platelet Volume 10.1 fL (9.4-12.4); Platelet Count 126 K/uL (130-400); RDW Standard Deviation 44.8 fL (36.4-46.3); Red Blood Count 3.91 M/uL (4.70-6.10); White Blood Count 7.97 K/ul (4.8-10.8)
[2025-03-21 06:06] LABS: BUN Creatinine Ratio 21.3 (10-20); Calcium 8.3 mg/dl (8.6-10.3); Creatinine Clr Calc Pharmacy 103.7 ml/min
--- NOTE | 2025-03-21 11:03 | Hospitalist Progress Note ---
Date of Service March 21, 2025 Assessment & Plan (1) Septic shock: (2) Catheter-associated urinary tract infection: (3) Bacteremia: (4) Acute metabolic encephalopathy: (5) Hydroureteronephrosis: (6) Acute hyponatremia: (7) Benign prostatic hyperplasia: (8) Neurogenic bladder: (9) Chronic indwelling Law catheter: (10) Lewy body dementia: (11) Acquired abnormality of left femoral vein: Plan 89-year-old male with oropharyngeal dysphagia, neurogenic bladder with urinary retention requiring chronic indwelling law, recurrent UTI, Lewy body dementia, BPH, MAGGIE, dyslipidemia, depression/anxiety. He presented from [facility] for urinary retention. He was bladder scanned and found to have > 1 L of urine in his bladder despite already having a law in place. He was admitted for severe sepsis secondary to catheter-associated UTI. #Septic shock / ESBL e. coli bacteremia - resolving -required pressors in the ICU on hospital days #1/#2 then weaned off -source - UTI -repeat blood cx's x 2 -- 03/19/25 -- cont to remain negative ensuring sterility -BPs now stable - d/c midodrine completely (this was started in the ICU) -appreciate critical care assistance -received 3 days of IV meropenem then transitioned to once-daily IV ertapenem on 03/20/25 -plan 14 days of Rx in total #Acute metabolic encephalopathy - -2nd to bacteremia/UTI -supportive care -fortunately no agitation -has significant/prolonged periods of sleeping which is fairly typical with Lewy-Body Dementia #Catheter-associated UTI - -urine cx with ESBL e.coli -complicated by bacteremia -CT a/p findings with moderate left and mild right hydroureteronephrosis with ureters dilated to the level of the bladder -Law catheter exchanged in ED on admission -urology consult appreciated; no plans for any urological intervention -hydronephrosis in the setting of chronic law --- urinary reflux? -Flomax held in the setting of recent septic shock - resume tonight if BPs remain stable today #Hyponatremia - -Na 125 on admission - likely secondary to volume depletion, chronic lasix use, etc. -Na again today 134 #Dysphagia - -Previously speech therapy recommended pured diet - reports he is on nectar thick liquids at [facility] -Speech therapy consulted and video swallow performed 03/20/25 showing aspiration with thins; cont nectar thick liquids; cont pureed diet #Lewy body dementia - -With superimposed acute metabolic encephalopathy secondary to infection -Continue memantine and rivastigmine #Depression with anxiety - -Continue sertraline 50 mg HS #MAGGIE - -typically on CPAP HS #DVT proph - -lovenox 40mg daily, but d/c if his spouse wishes to pursue Eliquis for P a flutter & the LLE abnormalities on doppler #constipation - -large stool ball on admission CT -resolved, s/p large BMs since admission -cont senna + miralax - both scheduled - for bowel maintenance #LLE edema with abnormal venous doppler of LLE - -given bedbound status at high risk of DVT - checked doppler - "Left common femoral and proximal superficial femoral veins show partial compressibility, signifying either old recanalized deep-vein thrombosis or just vessel wall thickening. No acute deep-vein thrombosis is evident." -with his bed-bound status suspect he had a remote DVT at some point -with his Paflutter and this abnormal venous duplex best Rx would be anticoagulation or similar -will speak with his about such #paroxysmal a flutter - -had such AM of 03/19/25 in ICU -brief, self-resolved -echo ordered - preserved EF -will speak with about anticoagulation, pros v cons, etc. updated at bedside 03/19; will update her again today and discuss anticoagulation with her message sent to case management inquiring when patient can return to [facility] (bed-hold) Admission and Anticipated Discharge Date Admission Date: March 17, 2025 Subjective no events overnight last stool - 03/19 comes to feed him at meal-time -- he is eating well no concerns per nursing he continues to have periods of apnea during the visit, much like other visits, he slept thru the entire exam Review of Systems Review of Systems: Unobtainable due to cognitive status Physical Exam Physical Exam: gen - sleeping, snoring loudly with visible apneas (obstructive and central - both likely); comfortable neck - no JVD mouth - MM slightly dry heart - RRR, s1 s2, no murmur lungs - CTA b/l, decreased BS bases - no change; no obvious rales abd - soft NT ND BS+ ext - mild (1+) edema left donis/ankle/foot - no change; trace edema RLE; pulses b/l feet 1-2+ skin - erythematous papules and ?vesicles left foot improved today; rash right foot also improved Results & Data Results & Data Vital Signs (Past 12 Hours) Vital Signs Temp Pulse Pulse Resp BP Pulse Ox O2 Del Method 03/21/25 07:53 36.7 C 58 L 20 148/77 H 95 BiPAP 03/21/25 04:48 36.8 C 62 20 146/73 H 96 CPAP 03/21/25 03:15 61 24 95 03/21/25 00:00 96 H 03/20/25 23:31 37.3 C 65 20 127/66 96 CPAP FiO2 03/21/25 07:53 03/21/25 04:48 03/21/25 03:15 21 03/21/25 00:00 03/20/25 23:31 Laboratory Results Laboratory Results - last 24 hr 03/20/25 03/20/25 03/20/25 11:17 16:16 20:40 WBC RBC Hgb Hct MCV MCH MCHC RDW Std Deviation RDW Coeff of Rodolfo Plt Count MPV Sodium Potassium Chloride Carbon Dioxide Anion Gap BUN Creatinine Est Cr Clr Drug Dosing eGFR BUN/Creatinine Ratio Glucose POC Glucose 81 109 H 102 H Calcium 03/21/25 03/21/25 03/21/25 02:12 05:35 05:36 WBC 7.97 RBC 3.91 L Hgb 12.0 L Hct 34.3 L MCV 87.7 MCH 30.7 MCHC 35.0 RDW Std Deviation 44.8 RDW Coeff of Rodolfo 14.0 Plt Count 126 L MPV 10.1 Sodium 134 L Potassium 4.0 Chloride 103 Carbon Dioxide 28 Anion Gap 3 BUN 13 Creatinine 0.61 Est Cr Clr Drug Dosing 103.7 eGFR 91.81 BUN/Creatinine Ratio 21.3 H Glucose 99 POC Glucose 95 92 Calcium 8.3 L Diagnostic Findings Videofluoroscopic Swallow 03/20/25 10:00 FL video swallow CLINICAL HISTORY: assess for aspiration. TECHNIQUE: Video fluoroscopic evaluation of swallowing was performed in the AP and lateral projections by the speech pathology staff. The patient is fed nectar-thick and thin liquid barium, a barium coated wafer, and barium pudding. FLUOROSCOPY TIME: 1.3 minutes. COMPARISON: None FINDINGS: There is aspiration with thin liquid. IMPRESSION: The exam is positive for aspiration. ACT 112: Negative or not required by law. Electronically signed by: Sergo Nick M.D. 03/20/2025 11:40 AM Venous Doppler Study 03/20/25 17:26 EXAM: US venous doppler LE LT CLINICAL HISTORY: Significant edema, left leg much larger than right. TECHNIQUE: Ultrasound examination of the left lower extremity veins was performed in real time and duplex. One or more of the following were performed: spectral analysis, resistive index, waveform analysis, and pulsed Doppler. COMPARISON: None. FINDINGS: Normal phasic, non-pulsatile, and spontaneous flow is noted in the left common femoral, GSV, superficial femoral, popliteal, anterior tibial, posterior tibial, and peroneal veins. 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 Visualized rest of the veins of the left lower extremity demonstrate normal compressibility. No sonographic evidence of acute deep vein thrombosis (DVT) is detected in the visualized veins of the lower extremity. Additional Findings: No evidence of intraluminal thrombus. IMPRESSION: 1. No sonographic evidence of acute deep-vein thrombosis was detected in the left lower extremity veins at the time of examination. 2. Left common femoral and proximal superficial femoral veins show partial compressibility, signifying either old recanalized deep-vein thrombosis or just vessel wall thickening. No acute deep-vein thrombosis is evident. Disclaimer: DVT could be missed early in the disease when clot burden is minimal. For patients with moderate and high pretest probability of DVT and negative ultrasound, the [place] [employer] clinical guidelines recommend testing with a D-dimer assay or repeat ultrasound in 5-7 days. If symptoms worsen, the Society of radiologists in ultrasound recommends repeating ultrasound even earlier. Electronically signed by Medhat Bone 03-20-2025 9:21 PM PG Care Time/CCT Total # of Minutes Spent Total Time Spent with Patient: Total time spent is greater than 50% in coordination of care (as documented) at patient's floor/unit and/or counseling patient: Coding Level of Care Code 63089 SUB INP/OBS CARE 2/35MIN Diagnoses Septic shock A41.9; R65.21 Catheter-associated urinary tract infection T83.511A; N39.0 Bacteremia R78.81 Acute metabolic encephalopathy G93.41 Hydroureteronephrosis N13.30 Acute hyponatremia E87.1 Benign prostatic hyperplasia N40.0 Neurogenic bladder N31.9 Chronic indwelling Law catheter Z97.8 Lewy body dementia G31.83; F02.80 Acquired abnormality of left femoral vein I87.9
[2025-03-22 12:17] LABS: BUN Creatinine Ratio 21.2 (10-20); Calcium 8.8 mg/dl (8.6-10.3); Creatinine Clr Calc Pharmacy 88.2 ml/min; Potassium 4.5 mmol/L (3.5-5.1)
--- NOTE | 2025-03-22 13:53 | Hospitalist Progress Note ---
Date of Service March 22, 2025 Assessment & Plan (1) Septic shock: (2) Catheter-associated urinary tract infection: (3) Bacteremia: (4) Acute metabolic encephalopathy: (5) Hydroureteronephrosis: (6) Acute hyponatremia: (7) Benign prostatic hyperplasia: (8) Neurogenic bladder: (9) Chronic indwelling Law catheter: (10) Lewy body dementia: (11) Acquired abnormality of left femoral vein: (12) Acute kidney injury (GRIFFIN) with acute tubular necrosis (ATN): Plan 89-year-old male with oropharyngeal dysphagia, neurogenic bladder with urinary retention requiring chronic indwelling law, recurrent UTI, Lewy body dementia, BPH, MAGGIE, dyslipidemia, depression/anxiety. He presented from [facility] for urinary retention. He was bladder scanned and found to have > 1 L of urine in his bladder despite already having a law in place. He was admitted for severe sepsis secondary to catheter-associated UTI. #Septic shock / ESBL e. coli bacteremia - resolved -required pressors in the ICU on hospital days #1/#2 then weaned off -bacteremia source - UTI -repeat blood cx's x 2 -- 03/19/25 -- negative -BPs now stable and previously instituted midodrine discontinued -received 3 days of IV meropenem then transitioned to once-daily IV ertapenem on 03/20/25 -plan 14 days of Rx in total -today is day #6 of Rx #Acute metabolic encephalopathy - -2nd to bacteremia/UTI; mental status has returned to near-baseline per his #Catheter-associated UTI - -urine cx with ESBL e.coli -complicated by bacteremia -CT a/p findings with moderate left and mild right hydroureteronephrosis with ureters dilated to the level of the bladder -Law catheter exchanged in ED on admission -urology consult appreciated; no plans for any urological intervention -hydronephrosis in the setting of chronic law --- urinary reflux? -Flomax held in the setting of recent septic shock - resume at discharge #Hyponatremia - -Na 125 on admission - likely secondary to volume depletion, chronic lasix use, etc. -Na 133 today -he is making COPIOUS urine -I suspected he had sepsis-associated ATN and now he is having post-ATN diuresis -Cr peak was 1.3; now 0.6 -will give 1 liter of NS today to try to match urine output -check serum osm, urine osm, urine Na #Dysphagia - -Previously speech therapy recommended pured diet - reports he is on nectar thick liquids at [facility] -Speech therapy consulted and video swallow performed 03/20/25 showing aspiration with thins; cont nectar thick liquids; cont pureed diet #Lewy body dementia - -With superimposed acute metabolic encephalopathy secondary to infection -Continue memantine and rivastigmine #Depression with anxiety - -Continue sertraline 50 mg HS #MAGGIE - -typically on CPAP HS #DVT proph - -lovenox 40mg daily #constipation - -large stool ball on admission CT -resolved, s/p large BMs since admission -cont senna + miralax - both scheduled - for bowel maintenance #LLE edema with abnormal venous doppler of LLE - -given bedbound status at high risk of DVT - checked doppler - "Left common femoral and proximal superficial femoral veins show partial compressibility, signifying either old recanalized deep-vein thrombosis or just vessel wall thickening. No acute deep-vein thrombosis is evident." -with his bed-bound status suspect he had a remote DVT at some point -with his Paflutter and this abnormal venous duplex best Rx would be anticoagulation or similar -spoke with about pros/cons and risks/benefits of anticoagulation on 03/21 -gave handouts on Eliquis and a.flutter -today, 03/22, pt's - after much thought - felt that the risks of Eliquis outweighed its benefits; thus, no anticoagulation moving forward #paroxysmal a flutter - -had such AM of 03/19/25 in ICU -brief, self-resolved -echo ordered - preserved EF -see above re: anticoagulation decision #GRIFFIN / sepsis associated ATN - -peak Cr 1.3 -Cr today 0.6 -appears to be having a post-ATN diuresis -making copious urine -will give 1 L saline to match UOP -repeat BMP am updated at bedside extensively on 03/22 hopefully can return to [facility] on 03/23 Admission and Anticipated Discharge Date Admission Date: March 17, 2025 Subjective at bedside during the visit she reports he is eating/drinking well (near his baseline) and that he was awake for nearly the entire morning during my visit he was taking his usual afternoon nap pt's thought about the Eliquis and at this time she is declining to initiate such she voiced concerns about him having hematuria with his law exchanges (he has had hematuria in the past) she feels risks outweigh the benefits; told her I support her decision tele overnight wnl Review of Systems Review of Systems: Unobtainable due to cognitive status Physical Exam Physical Exam: gen - sleeping, snoring loudly like previous visits, comfortable neck - no JVD heart - RRR, s1 s2, no murmur lungs - CTA b/l, decreased BS bases - no change; no wheeze, no rales; apneas noted abd - soft NT ND BS+ ext - mild (1+) edema left donis/ankle/foot - no change; trace edema RLE; pulses b/l feet 1-2+ Results & Data Results & Data Vital Signs (Past 12 Hours) Vital Signs Temp Pulse Pulse Resp BP Pulse Ox O2 Del Method 03/22/25 12:04 36.4 C L 61 16 125/73 97 Room Air 03/22/25 08:20 36.5 C 62 16 151/73 H 100 Room Air 03/22/25 03:42 37.1 C 61 22 137/74 97 CPAP 03/22/25 02:24 59 L 21 95 FiO2 03/22/25 12:04 03/22/25 08:20 03/22/25 03:42 03/22/25 02:24 21 Laboratory Results Laboratory Results - last 24 hr 03/22/25 11:39 Sodium 133 L Potassium 4.5 Chloride 100 Carbon Dioxide 31 Anion Gap 2 L BUN 14 Creatinine 0.66 Est Cr Clr Drug Dosing 88.2 eGFR 89.65 BUN/Creatinine Ratio 21.2 H Glucose 102 H Calcium 8.8 Diagnostic Findings Microbiology 03/19/25 04:47 Blood Aerobic Blood Culture - Preliminary No growth in Aerobic bottle after 48 hours. 03/19/25 04:47 Blood Anaerobic Blood Culture - Preliminary No growth in Anaerobic bottle after 48 hours. 03/19/25 05:00 Blood Aerobic Blood Culture - Preliminary No growth in Aerobic bottle after 48 hours. 03/19/25 05:00 Blood Anaerobic Blood Culture - Preliminary No growth in Anaerobic bottle after 48 hours. 03/17/25 08:24 Urine,Indwelling Cath Urine Culture - Final Escherichia coli ESBL 03/17/25 08:43 Blood Aerobic Blood Culture - Preliminary Escherichia coli ESBL 03/17/25 08:43 Blood Anaerobic Blood Culture - Final 03/17/25 08:43 Blood Aerobic Blood Culture - Preliminary Escherichia coli ESBL 03/17/25 08:43 Blood Anaerobic Blood Culture - Final PG Care Time/CCT Total # of Minutes Spent Total Time Spent with Patient: Total time spent is greater than 50% in coordination of care (as documented) at patient's floor/unit and/or counseling patient: Coding Level of Care Code 20069 SUB INP/OBS CARE 2/35MIN Diagnoses Septic shock A41.9; R65.21 Catheter-associated urinary tract infection T83.511A; N39.0 Bacteremia R78.81 Acute metabolic encephalopathy G93.41 Hydroureteronephrosis N13.30 Acute hyponatremia E87.1 Benign prostatic hyperplasia N40.0 Neurogenic bladder N31.9 Chronic indwelling Law catheter Z97.8 Lewy body dementia G31.83; F02.80 Acquired abnormality of left femoral vein I87.9 Acute kidney injury (GRIFFIN) with acute tubular necrosis (ATN) N17.0
[2025-03-22] MEDS: SODIUM CHLORIDE 0.9% 1,000 ML IV SCH (14:05)
[2025-03-23 07:38] VITALS: O2SAT 100
[2025-03-23 07:39] LABS: BUN Creatinine Ratio 24.2 (10-20); Creatinine Clr Calc Pharmacy 88.2 ml/min; Potassium 4.8 mmol/L (3.5-5.1)
[2025-03-23] MEDS ORDERED: Nursing to Pharmacy Communication SCH (10:30)
[2025-03-23 12:09] VITALS: BP 129/74; PULSE 57; RESP 17; TEMP 97.9
--- NOTE | 2025-03-23 14:38 | Discharge Summary ---
Discharge Summary Date of Service March 23, 2025 Principal Dx & Hospital Course #1 = Principal Diagnosis (1) Septic shock: (2) Catheter-associated urinary tract infection: (3) Bacteremia: (4) Acute metabolic encephalopathy: (5) Hydroureteronephrosis: (6) Acute hyponatremia: (7) Benign prostatic hyperplasia: (8) Neurogenic bladder: (9) Chronic indwelling Law catheter: (10) Lewy body dementia: (11) Acquired abnormality of left femoral vein: (12) Acute kidney injury (GRIFFIN) with acute tubular necrosis (ATN): Plan 89-year-old male with oropharyngeal dysphagia, neurogenic bladder with urinary retention requiring chronic indwelling lwa, recurrent UTI, Lewy body dementia, BPH, MAGGIE, dyslipidemia, depression/anxiety. He presented from [facility] for urinary retention. He was bladder scanned and found to have > 1 L of urine in his bladder despite already having a law in place. He was admitted for severe sepsis secondary to catheter-associated UTI. #Septic shock / ESBL e. coli bacteremia - resolved -required pressors in the ICU on hospital days #1/#2 then weaned off -bacteremia source - UTI -repeat blood cx's x 2 -- 03/19/25 -- negative -BPs now stable and previously instituted midodrine discontinued -received 3 days of IV meropenem then transitioned to once-daily IV ertapenem on 03/20/25 -plan 14 days of Rx in total -today is day #6 of Rx #Acute metabolic encephalopathy - -2nd to bacteremia/UTI; mental status has returned to near-baseline per his #Catheter-associated UTI - -urine cx with ESBL e.coli -complicated by bacteremia -CT a/p findings with moderate left and mild right hydroureteronephrosis with ureters dilated to the level of the bladder -Law catheter exchanged in ED on admission -urology consult appreciated; no plans for any urological intervention -hydronephrosis in the setting of chronic law --- urinary reflux? -Flomax held in the setting of recent septic shock - resume at discharge #Hyponatremia - -Na 125 on admission - likely secondary to volume depletion, chronic lasix use, etc. -Na 133 today -he is making COPIOUS urine -I suspected he had sepsis-associated ATN and now he is having post-ATN diuresis -Cr peak was 1.3; now 0.6 -will give 1 liter of NS today to try to match urine output -check serum osm, urine osm, urine Na #Dysphagia - -Previously speech therapy recommended pured diet - reports he is on nectar thick liquids at [facility] -Speech therapy consulted and video swallow performed 03/20/25 showing aspiration with thins; cont nectar thick liquids; cont pureed diet #Lewy body dementia - -With superimposed acute metabolic encephalopathy secondary to infection -Continue memantine and rivastigmine #Depression with anxiety - -Continue sertraline 50 mg HS #MAGGIE - -typically on CPAP HS #DVT proph - -lovenox 40mg daily #constipation - -large stool ball on admission CT -resolved, s/p large BMs since admission -cont senna + miralax - both scheduled - for bowel maintenance #LLE edema with abnormal venous doppler of LLE - -given bedbound status at high risk of DVT - checked doppler - "Left common femoral and proximal superficial femoral veins show partial compressibility, signifying either old recanalized deep-vein thrombosis or just vessel wall thickening. No acute deep-vein thrombosis is evident." -with his bed-bound status suspect he had a remote DVT at some point -with his Paflutter and this abnormal venous duplex best Rx would be anticoagulation or similar -spoke with about pros/cons and risks/benefits of anticoagulation on 03/21 -gave handouts on Eliquis and a.flutter -today, 03/22, pt's - after much thought - felt that the risks of Eliquis outweighed its benefits; thus, no anticoagulation moving forward #paroxysmal a flutter - -had such AM of 03/19/25 in ICU -brief, self-resolved -echo ordered - preserved EF -see above re: anticoagulation decision #GRIFFIN / sepsis associated ATN - -peak Cr 1.3 -Cr today 0.6 -appears to be having a post-ATN diuresis -making copious urine -will give 1 L saline to match UOP -repeat BMP am updated at bedside extensively on 03/22 hopefully can return to [facility] on 03/23 Admission HPI Per Admitting Provider Mr. Crawley presented from [facility] due to urinary retention. Mr. Crawley is a pleasant 89-year-old male with PMH including oropharyngeal dysphagia, neurogenic bladder, urinary retention with chronic indwelling law, recurrent UTI, Lewy body dementia, BPH, MAGGIE, carotid artery plaques, dyslipidemia, depression/anxiety. He presented from [facility] for urinary retention. He he began complaining of pain this morning, when he was bladder scanned and found to have > 1 L of urine in his bladder. Patient is a poor historian at baseline due to his history of Lewy body dementia. Patient was sleeping soundly at time of my evaluation. His at bedside was able to provide further history. She reports Mr. Crawley's Law catheter has had significant decreased output in the last 48 hours he typically has about 2 L output daily. She also reports he has his Law catheter is exchanged every 3 weeks and was scheduled for a Law catheter exchange on 03/20/2025. She reports he was altered and had an episode of emesis at [facility] this morning. She reports he was in distress secondary to pain initially on arrival, but after receiving IV fluids and IV Tylenol, he was able to relax and has been sleeping since. also reports he is DNR/DNI with limited interventions, including trial of pressors x 1-2 days. If multiple organ dysfunction were to occur, would likely transition to TURNING [employer]ER. Vitals on admission are significant for tachycardia in 90-110s and febrile at 102.2 F; vitals otherwise stable. Labs on admission are significant for elevated lactate at 6.0 now down trended to 3.3, procalcitonin elevated at 3.28, hyponatremia with NA 125, elevated creatinine at 1.24 from baseline of 0.9. UA suggestive of acute UTI with 3+ leukocyte Estrace, > 50 WBC, 35 hyaline cast, 4+ bacteria. WBC, Hgb, platelets, LFTs, troponin, lipase WNL. CT A/P on admission reveals moderate left and mild right hydroureteronephrosis with ureters dilated to the level of the bladder. Bilateral lower lobe airspace opacities which could represent pneumonia or atelectasis. Large amount of stool within the rectum, no evidence for a bowel obstruction. Discharge Exam gen - sleeping, snoring loudly like previous visits, comfortable neck - no JVD heart - RRR, s1 s2, no murmur lungs - CTA b/l, decreased BS bases - no change; no wheeze, no rales; apneas noted abd - soft NT ND BS+ ext - mild (1+) edema left donis/ankle/foot - no change; trace edema RLE; pulses b/l feet 1-2+ Discharge Plan Discharge Items Patient Disposition: Transfer Group Home Fac Reason For Visit: UTI, SEPSIS Discharge Diagnosis: 1. ESBL E Coli Catheter-associated UTI 2. ESBL E Coli bacteremia 3. Septic shock 2nd to e.coli 4. Acute kidney injury / ATN - resolved; discharge creatinine 0.6 5. Hyponatremia - resolved; admit Na level 125; discharge level 138 6. Paroxysmal atrial flutter x 1 episode 7. Doppler study of LLE with suggestion of previously resolved DVT 8. Acute metabolic encephalopathy 9. Chronic law catheter usage; law exchanged 03/17/25 10. Dysphagia 11. Lewy Body Dementia Activity: Resume your previous activity Non-emergency contact: Primary Care Provider Call non-emergency contact if: you have any medication questions Follow-up/Referrals: Dony Ryder at [facility] [Primary Care Provider] - Diet: Regular Diet Texture: Pureed (blended smooth) Liquid Consistency: [place] thick Addtl Attending Provider Instructions: 1. aspiration precautions - head of bed at 30 degrees or higher at all times, etc. 2. law catheter care 3. change law every 28 days 4. CPAP with sleep 5. ertapenem 1gm IV daily x 7 days starting 03/24/25; can d/c IV after the 7th dose 6. BMP in 5-7 days to ensure stability of sodium level It was our pleasure to care for Mr Crawley! Pending Studies at Discharge: No Stand-Alone Forms: [facility] Skilled Items Patient informed of condition?: No DNR: Yes Discharge Level of Care: Skilled Communicable Disease: Yes Discharge Prognosis: Other Lines: US Guided Peripheral IV Urinary Catheter: Yes Medications and DC Order Prescriptions: New ertapenem 1 gram recon soln 1 g IV DAILY 7 Days Qty: 7 0RF Rx Instructions: first dose on 03/24/25. Continued tamsulosin 0.4 mg capsule 0.4 mg PO HS Qty: 90 3RF azelastine 137 mcg (0.1 %) aerosol,spray 2 spray intranasal BID PRN (Reason: Nasal Congestion) Qty: 90 3RF rivastigmine 13.3 mg/24 hour patch 24 hour 13.3 mg topical QAM cetirizine [Zyrtec] 10 mg Tablet 10 mg PO HS sertraline 50 mg Tablet 50 mg PO HS Qty: 1 0RF Rx Instructions: start 06/13/2022 at bedtime melatonin 5 mg Tablet 5 mg PO HS memantine 28 mg capsule,sprinkle,ER 24hr 28 mg PO HS nystatin 100,000 unit/gram cream 1 applic TOPICAL 2XWK Rx Instructions: Apply to left fingers topically every day shift on Wed and Sat. For year place gutiérrez's wool between fingers after. ketoconazole 2 % cream 1 applic topical QAM metronidazole 0.75 % gel 1 applic TOPICAL BID simethicone 80 mg Tablet,Chewable 80 mg PO Q4H PRN (Reason: Bloat/Gas) Saccharomyces boulardii 250 mg Capsule 250 mg PO QAM diclofenac sodium 1 % gel 4 g TOPICAL BID Rx Instructions: B/L Knee pain, left shoulder pain and left elbow pain Biotene Moisturizing Mouth [place],Non-Aerosol 2 spray mucous membrane Q4H carboxymethylcellulose sodium 1 % Drops 2 drp OPHTHALMIC (EYE) BID polyethylene glycol 3350 [Miralax] 17 gram powder in packet 17 g PO DAILY Rx Instructions: Hold for loose stool fluticasone propionate 50 mcg/actuation spray,suspension 2 spray intranasal AMHS Rx Instructions: administer into each nostril ascorbic acid (vitamin C) [Vitamin C] 500 mg Tablet 500 mg PO QAM urea 20 % Cream 1 applic TOPICAL BID PRN (Reason: feet) Rx Instructions: bilateral feet sennosides-docusate sodium [2-in-1 Laxative] 8.6-50 mg Tablet 1 tab-cap PO QAM econazole nitrate 1 % cream 1 applic TOPICAL QAM PRN (Reason: fungus) Rx Instructions: apply to feet acetaminophen [Tylenol] 325 mg Tablet 650 mg PO Q4H MDD 3g PRN (Reason: Fever Or Pain) Rx Instructions: use for temp > 100 use for mild pain on scale 1-4 Changed furosemide 20 mg tablet 20 mg PO QAM PRN (Reason: edema) Qty: 0 0RF Discharge Orders: Discharge Order (Routine); Ordered 03/23/25 Ordered By: Naren Allen/Other Patient Handouts: Apixaban Oral Tablet, Understanding Atrial Flutter Admission Data Admit Date/Time: 03/17/25 12:06 Attending Provider: Naren Bojorquez Admit Provider: Marina Delcid Primary Care Provider: Dony Ryder at [facility] Other Providers: Vijay Lima; Sindy Langford Other Interventions: Discharge Summary Assessment (RN) Last Done: 03/23/25 14:27 Hospital Stay Data Consultations 03/17/25 13:46 Consult Exhaust Emissions Inspector Routine 03/17/25 14:31 Consult Urology Routine Diagnostic Imagining Performed 03/17/25 08:55 CT Abdomen and Pelvis [CT abd pelvis wo con] Stat 03/20/25 10:00 FL video swallow Routine 03/20/25 17:26 US venous doppler LE LT Routine Pending Results Patient Have Any Pending Studies at Discharge: No Discharge Instructions Given to Patient (Per Discharging Provider) 1. aspiration precautions - head of bed at 30 degrees or higher at all times, etc. 2. law catheter care 3. change law every 28 days 4. CPAP with sleep 5. ertapenem 1gm IV daily x 7 days starting 03/24/25; can d/c IV after the 7th dose 6. BMP in 5-7 days to ensure stability of sodium level It was our pleasure to care for Mr Crawley! Coding Diagnoses Septic shock A41.9; R65.21 Catheter-associated urinary tract infection T83.511A; N39.0 Bacteremia R78.81 Acute metabolic encephalopathy G93.41 Hydroureteronephrosis N13.30 Acute hyponatremia E87.1 Benign prostatic hyperplasia N40.0 Neurogenic bladder N31.9 Chronic indwelling Law catheter Z97.8 Lewy body dementia G31.83; F02.80 Acquired abnormality of left femoral vein I87.9 Acute kidney injury (GRIFFIN) with acute tubular necrosis (ATN) N17.0
== END 2025-03-23 15:31 | DRG 871 ==
LOC: ED 07:29 → 1E 12:06 → SUATTDRO 12:06 → 1E 12:40 → 4W 03-20 06:04